=== PATIENT | female | born 1955 | race Caucasian/White ===

== ENCOUNTER → 2020-05-08 18:11 | Outpatient (BNVA) | payer OTHER, SELFPAY | PROVIDERS: Family Provider Family Medicine; Visit Provider Nurse Practitioner Family | DX: Z11.59 Encounter for screening for other viral diseases (principal) | CPT/HCPCS: 87635 ==

== ENCOUNTER 2020-09-17 09:39 | Outpatient (CLI) | payer OTHER, SELFPAY ==
--- NOTE | 2020-09-17 09:53 | MM_ITS ---
WS: [id number] Bilateral screening digital mammogram, 09/17/2020 Clinical Data: SCREENING Comparison: 02/03/2019, 05/05/2017, 04/03/2016, 04/26/2015, 04/01/2015, 03/01/2014, 02/28/2013, 02/09/2012, 05/2011, 02/01/2009, 01/28/2006, 01/27/2006. Findings: The breast parenchymal pattern shows fat replacement. No spiculated masses or clustered calcification s are seen. There are no secondary signs of carcinoma. MM/[place] [id number] Impression: 1. Negative bilateral mammogram unchanged. 2. Recommend annual screening mammograms. BIRADS: 1-Negative FOLLOW UP: 1 Year Follow-up The CAD checker cashier was used.
== END 2020-09-17 09:40 | disposition home or self-care (01) ==
LOC: RADSHAW 09:42
PROVIDERS: PCP Family Medicine; Visit Provider Family Medicine
DX: Z12.31 Encounter for screening mammogram for malignant neoplasm of breast (principal)
CPT/HCPCS: 77067

== ENCOUNTER 2021-04-08 15:21 | Outpatient (CLI) | payer MEDICARE, SELFPAY ==
--- NOTE | 2021-04-08 15:40 | XR_ITS ---
WS: [id number] XR shoulder RT min 2V* [id number] REASON FOR EXAM: RT. SHOULDER PAIN FINDINGS: Mild to moderate narrowing of the acromioclavicular joint space with mild subchondral sclerosis of th e clavicle and acromial process. Glenohumeral joint is intact. Positioning did not allow assessment of the glenohumeral joint space. No significant bony abnormality of the humerus or glenoid is identified. No soft tissue abnormality identified. XR/XR shoulder RT min 2V* [id number] IMPRESSION: Mild to moderate osteoarthritis of the acromioclavicular joint. No other signif icant abnormality.
== END 2021-04-08 15:22 | disposition home or self-care (01) ==
PROVIDERS: PCP Family Medicine; Visit Provider Family Medicine
DX: M19.011 Primary osteoarthritis, right shoulder (principal)
CPT/HCPCS: 73030

== ENCOUNTER 2021-09-25 10:39 | Outpatient (CLI) | payer MEDICARE, SELFPAY ==
--- NOTE | 2021-09-25 11:02 | XR_ITS ---
WS: [id number] Left knee, 3 views, 09/25/2021 Clinical Data: LT KNEE PAIN Comparison: None. Findings: No fractures or dislocations are seen. The joint spaces are normal. The patella is intact. The soft t issues are unremarkable. XR/XR knee LT 3V* [id number] Impression: Negative left knee. Kellgren-Sergo Classification: grade 0 (none): definite absence of x-ray corrina nges of osteoarthritis
--- NOTE | 2021-09-25 11:02 | XR_ITS ---
WS: [id number] Right knee, 3 views, 09/25/2021 Clinical Data: R KNEE PAIN Comparison: None. Findings: No fractures or dislocations are seen. The joint spaces are normal. The patella is intact. The soft t issues are unremarkable. XR/XR knee RT 3V* [id number] Impression: Negative right knee. Kellgren-Sergo Classification: grade 0 (none): definite absence of x-ray corrina nges of osteoarthritis
== END 2021-09-25 10:40 | disposition home or self-care (01) ==
LOC: RAD 10:41
PROVIDERS: PCP Family Medicine; Visit Provider Family Medicine
DX: M25.562 Pain in left knee (principal); M25.561 Pain in right knee
CPT/HCPCS: 73562

== ENCOUNTER → 2021-12-16 12:37 | Outpatient (BNVA) | payer MEDICARE, SELFPAY | PROVIDERS: PCP Family Medicine; Referring Provider Family Medicine; Visit Provider Orthopaedic Surgery | DX: M25.462 Effusion, left knee (principal); M25.561 Pain in right knee | CPT/HCPCS: 99203 ==

== ENCOUNTER 2022-01-27 08:54 | Outpatient (CLI) | payer MEDICARE, SELFPAY ==
--- NOTE | 2022-01-27 09:30 | MR_ITS ---
WS: [id number] MRI LEFT KNEE NONCONTRAST TECHNIQUE: Axial PD, coronal PD fat sat, coronal PD, sagittal PD, and sagittal PD fat-sat images obta ined. CLINICAL INFORMATION: pain COMPARISON: None. FINDINGS: Distal quadriceps and patella tendons are intact. Moderate suprapatellar effusion. Prepatellar and in frapatellar soft tissue edema. Normal ACL and PCL. Chronic thinning of the medial and lateral meniscus with peripheral extrusion. Complex tear anterior horn lateral meniscus with peripheral anterior and posterior meniscal cysts. Complex complete radial tear posterior horn medial meniscus with slight separation of the meniscal fragments. Chronic thinnin g of the medial meniscus Normal medial and lateral collateral ligaments. Small popliteal cyst measuring 7 x 9 x 23 mm AP by tr ansverse by craniocaudal. Advanced chondromalacia involving the medial and lateral joint compartments with subchondral edema worse involving the medial joint compartment. Advanced chondromalacia patella . No subchondral edema. Medial and lateral patellar retinacula appear intact. MR/MR knee LT wo con* [id number] IMPRESSION: 1. Advanced tricompartmental arthritis with chondromalacia. 2. Normal ACL and PCL. 3. Chronic thinning and peripheral extrusion of the medial and lateral meniscu s with meniscal tears described above. Small perimeniscal cysts along the anter ior and posterior horn lateral meniscus. 4. Complete radial tear medial meniscus with advanced joint space narrowing an d subchondral edema. 5. Advanced chondromalacia patella. No subchondral edema. 6. Moderate suprapatellar effusion. 7. Small popliteal cyst. Outbridge grading: grade IV: full-thickness cartilage loss with underlying bone reactive changes
== END 2022-01-27 08:55 | disposition home or self-care (01) ==
LOC: RAD 08:55
PROVIDERS: PCP Family Medicine; Visit Provider Orthopaedic Surgery
DX: M25.462 Effusion, left knee (principal); M13.862 Other specified arthritis, left knee; M22.42 Chondromalacia patellae, left knee; M71.22 Synovial cyst of popliteal space [Baker], left knee; S83.242A Other tear of medial meniscus, current injury, left knee, initial encounter; X58.XXXA Exposure to other specified factors, initial encounter
CPT/HCPCS: 73721

== ENCOUNTER → 2022-02-03 14:39 | Outpatient (BNVA) | payer MEDICARE, SELFPAY | PROVIDERS: PCP Family Medicine; Visit Provider Orthopaedic Surgery | DX: M17.11 Unilateral primary osteoarthritis, right knee (principal) | CPT/HCPCS: 99213 ==

== ENCOUNTER → 2022-02-27 10:35 | Outpatient (BNVA) | payer MEDICARE, SELFPAY | PROVIDERS: PCP Family Medicine; Visit Provider Family Medicine | DX: Z00.00 Encounter for general adult medical examination without abnormal findings (principal); E11.9 Type 2 diabetes mellitus without complications; Z51.81 Encounter for therapeutic drug level monitoring; Z13.220 Encounter for screening for lipoid disorders; R92.8 Other abnormal and inconclusive findings on diagnostic imaging of breast; M17.11 Unilateral primary osteoarthritis, right knee | CPT/HCPCS: 80053; 80061; 83036; 85025 ==

== ENCOUNTER 2022-03-13 07:19 | Outpatient (CLI) | payer MEDICARE, SELFPAY ==
--- NOTE | 2022-03-13 07:39 | MM_ITS ---
WS: [id number] Bilateral screening 3D tomosynthesis digital mammogram, 03/13/2022 Clinical Data: Screening Comparison: 09/17/2020, 02/03/2019, 05/05/2017, 04/03/2016, 04/26/2015, 04/01/2015, 03/01/2014, 02/28/2013, , 01/12/2011, 02/01/2009, 01/28/2007. Findings: The breast parenchymal pattern shows fat replacement. No spiculated masses or clustered calcification s are seen. There are no secondary signs of carcinoma. MM/[place] [id number] Impression: 1. Negative bilateral mammogram unchanged. 2. Recommend annual screening mammograms. BIRADS: 1-Negative FOLLOW UP: 1 Year Follow-up The CAD typing checker was used.
== END 2022-03-13 07:20 | disposition home or self-care (01) ==
LOC: RAD 07:19
PROVIDERS: PCP Family Medicine; Visit Provider Family Medicine
DX: Z12.31 Encounter for screening mammogram for malignant neoplasm of breast (principal)
CPT/HCPCS: 77063; 77067

== ENCOUNTER 2022-03-17 16:25 | Outpatient (CLI) | payer MEDICARE, SELFPAY ==
--- NOTE | 2022-03-17 17:00 | CT_ITS ---
WS: [id number] INDICATION: Preoperative DEYA ROBOTIC ARM ASSISTED knee replacement for surgical planning TECHNIQUE: Noncontrast CT of the LEFT knee to include the LEFT hip and ankle. FINDINGS: Comparison MRI January 27, 2022. Advanced tricompartmental arthritis. Hypertrophic patella. Sm all suprapatellar effusion. Normal visualized soft tissues. CT/CT knee LT wo con* [id number] IMPRESSION: Images obtained for preoperative purposes
== END 2022-03-17 16:26 | disposition home or self-care (01) ==
LOC: RAD 16:26
PROVIDERS: PCP Family Medicine; Visit Provider Orthopaedic Surgery
DX: M17.12 Unilateral primary osteoarthritis, left knee (principal)
CPT/HCPCS: 73700

== ENCOUNTER 2022-03-23 10:15 | Observation (INO) | payer MEDICARE, SELFPAY ==
[2022-03-10 10:47] VITALS: BMI 43.9
--- NOTE | 2022-03-10 10:55 | ANES.PREANE2 ---
Pre-Anesthetic Assessment Height/Weight: Height 1.63 m Weight 116.12 kg Operation Date: 03/23/22 07:00 Proposed Procedures p left TKA/ 44155,M17.12(Left) - Joseph Boothe MD Familial anesthetic complications: None Social No alcohol and No tobacco Exam alert, oriented x 3, clear to auscultation bilaterally and regular rate & rhythm Airway Mallampati: Class III Dentition: other (missing) Pulmonary phlegm and cough sometimes (sinus) CV/HEM Hypertension None reported Hepatic None reported GI Gastroesophageal Reflux Disease Metabolic Diabetes Mellitus (Pre-DM) and Morbid Obesity [facility] [place] Osteoarthritis/DJD Neuropsych None reported Anesthetic Plan ASA status: 2 Anesthesia: MAC and Regional (specify below) Other: spinal +adductor Risk of > 500 ml blood loss (7ml/kg in children): Yes, adequate IV access and fluids planned Medications/Allergies Home Medications Medication Instructions Recorded Confirmed Last Taken Type lovastatin 40 mg tablet 40 mg PO DAILY 05/08/20 03/10/22 Unknown History atenolol 25 mg tablet 25 mg PO DAILY 02/19/22 03/10/22 Unknown History calcium carbonate 600 mg calcium 600 mg PO BID 02/27/22 03/10/22 Unknown History (1,500 mg) tablet (Calcium) hydrochlorothiazide 12.5 mg tablet 12.5 mg PO DAILY 02/27/22 03/10/22 Unknown History omeprazole 20 mg capsule,delayed 20 mg PO DAILY 02/27/22 03/10/22 Unknown History release ascorbic acid (vitamin C) 2,000 mg 2,000 mg PO DAILY 03/10/22 03/10/22 Unknown History tablet,extended release cinnamon bark 500 mg capsule 500 mg PO DAILY 03/10/22 03/10/22 Unknown History (Cinnamon) coenzyme Q10 100 mg capsule 100 mg PO DAILY 03/10/22 03/10/22 Unknown History (CoQ-10) collagen,hydrolysate 500 mg-biotin 500 cap PO DAILY 03/10/22 03/10/22 Unknown History 800 mcg-ascorbic acid 50 mg capsule (Collagen 1500 Plus C) magnesium 200 mg tablet 200 mg PO DAILY 03/10/22 03/10/22 Unknown History potassium 99 mg tablet 99 mg PO DAILY 03/10/22 03/10/22 Unknown History turmeric 400 mg capsule 800 mg PO DAILY 03/10/22 03/10/22 Unknown History Allergies Allergy/AdvReac Type Severity Reaction Status Date / Time Sulfa (Sulfonamide Allergy Intermediate hives Verified 02/19/22 12:34 Antibiotics) adhesive tape Allergy ALGY-Redness Verified 03/10/22 10:36 of Skin [facility] Anesthesia Medical History (Updated 02/27/22 @ 17:28 by Nic Castro MD) Astigmatism History of ectopic Hx of basal cell carcinoma Nose Possible SCC on left arm Surgical History (Updated 02/27/22 @ 17:28 by Nic Castro MD) History of eye surgery History of unilateral fallopian tube excision Left tube and ovary removed after ectopic Hx of tonsillectomy Family History (Updated 02/27/22 @ 17:38 by Nic Castro MD) Father Alzheimer's dementia Mother Cancer Precancerous breast cancer. 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
[2022-03-23] VITALS (17 sets, daily range): BP systolic 123–164; BP diastolic 64–87; PULSE 60–84; RESP 16–18; TEMP 36.3–36.9; O2SAT 92–97
[2022-03-23] MEDS: gabapentin 300 mg Capsule PO ×2 (05:59→18:59)
[2022-03-23] MEDS: acetaminophen 500 mg Tablet 1000 MG PO ×3 (06:00→18:57)
[2022-03-23] MEDS: oxyCODONE 20 mg ER (12 HR) Tablet PO (06:00)
[2022-03-23] MEDS: CELEcoxib 200 mg Capsule 400 MG PO (06:01)
[2022-03-23] MEDS: sodium chloride 0.9% 1,000 ML 30 ML IV (06:02)
--- NOTE | 2022-03-23 06:37 | P.ANESUD_ITS ---
Pre-Anesthetic Update Pre-Anesthetic Assessment: Date of Surgery/Procedure: 03/23/22 Preop Yuridia gnosis: Osteoarthritis left knee Proposed Procedure: Operation Date: 03/23/22 07:00 Proposed Procedures p left TKA/ 82998,M17.12(Left) - Joseph Boothe MD Any changes to Pre-Anesthetic Assessment?: No Last Intake: Intake Last Liquid Date 03/22/22 Last Liquid Time 22:00 Last Solid Date 03/22/22 Last Solid Time 21:00 Vitals: Temperature 98.0 F 03/23/22 05:39 Temperature Source Temporal Artery S can 03/23/22 05:39 Pulse Rate 74 03/23/22 05:39 Pulse Rhythm 03/23/22 05:47 Pulse Strength 3+ Normal 03/23/22 05:47 Respiratory Rate 17 03/23/22 05:39 Blood Pressure 164/87 03/23/22 05:39 Blood Pressure Martha n 112 03/23/22 05:39 Pulse Oximetry 96 03/23/22 05:39 Oxygen Delivery Me thod 03/23/22 05:47 Exam: Pre-Anes Outpt Exam: alert, oriented x 3, clear to auscultation bilaterally and regular rate & rhythm Cardiac Studies: No Data to Display
--- NOTE | 2022-03-23 07:02 | P.HP_ITS ---
Same Day Surgery H&P Indication for Procedure/HPI DATE OF PROCEDURE: March 23, 2022 CHIEF COMPLAINT/INDICATIONFOR SURGICAL PROCEDURE: Osteoarthritis left knee here for total knee arthroplasty PREOP DIAGNOSIS: Osteoarthritis left knee PLANNED PROCEDURE: Operation Date: 03/23/22 07:00 Proposed Procedures p left TKA/ 18737,M17.12(Left) - Joseph Boothe MD 67-year-old female with a history of bilateral knee pain she describes twisting her knee getting out of a vehicle with severe left knee pain. She describes continued left knee pain. She has difficulty with prolonged standing and stairs. She has failed management with anti-inflammatories and knee sleeves. An MRI revealed andvanced tricompartmental DJD. Medications/Allergies* Home Medications Medication Instructions Recorded Confirmed Type lovastatin 40 mg tablet 40 mg PO DAILY 05/08/20 03/23/22 History atenolol 25 mg tablet 25 mg PO DAILY 02/19/22 03/23/22 History calcium carbonate 600 mg calcium 600 mg PO BID 02/27/22 03/23/22 History (1,500 mg) tablet (Calcium) hydrochlorothiazide 12.5 mg tablet 12.5 mg PO DAILY 02/27/22 03/23/22 History omeprazole 20 mg capsule,delayed 20 mg PO DAILY 02/27/22 03/23/22 History release ascorbic acid (vitamin C) 2,000 mg 2,000 mg PO DAILY 03/10/22 03/23/22 History tablet,extended release cinnamon bark 500 mg capsule 500 mg PO DAILY 03/10/22 03/23/22 History (Cinnamon) coenzyme Q10 100 mg capsule 100 mg PO DAILY 03/10/22 03/23/22 History (CoQ-10) collagen,hydrolysate 500 mg-biotin 500 cap PO DAILY 03/10/22 03/23/22 History 800 mcg-ascorbic acid 50 mg capsule (Collagen 1500 Plus C) magnesium 200 mg tablet 200 mg PO DAILY 03/10/22 03/23/22 History potassium 99 mg tablet 99 mg PO DAILY 03/10/22 03/23/22 History turmeric 400 mg capsule 800 mg PO DAILY 03/10/22 03/23/22 History Allergies/Adverse Reactions Allergy/AdvReac Type Severity Reaction Status Date / Time Sulfa (Sulfonamide Allergy Intermediate hives Verified 02/19/22 12:34 Antibiotics) adhesive tape Allergy ALGY-Redness Verified 03/10/22 10:36 of Skin Current Medications: Generic Name Dose Route Start Last Admin Trade Name Freq PRN Reason Stop Dose Admin Sodium Chloride 1,000 mls @ 30 mls/hr 03/23/22 05:45 03/23/22 06:02 Sodium Chloride 0.9% IV 03/24/22 05:44 30 mls/hr .Q24H [place] Administration Pertinent History/Comorbid Conditions* Medical History (Updated 02/27/22 @ 17:28 by Nic Castro MD) Astigmatism History of ectopic Hx of basal cell carcinoma Nose Possible SCC on left arm Surgical History (Updated 02/27/22 @ 17:28 by Nic Castro MD) History of eye surgery History of unilateral fallopian tube excision Left tube and ovary removed after ectopic Hx of tonsillectomy Family History (Updated 02/27/22 @ 17:38 by Nic Castro MD) Alzheimer's dementia Father Cancer Mother Precancerous breast cancer. 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
[2022-03-23] MEDS: ceFAZolin 2,000 MG in sodium chloride 0.9% (plus) 50 ML 100 MG IV ×2 (07:11→18:56)
[2022-03-23] MEDS: tranexamic acid 1,000 mg/10mL SDV 1000 MG IV (07:40)
[2022-03-23] MEDS: EPINEPHrine 1 mg/mL INJ XX (08:05)
[2022-03-23] MEDS: sodium chloride 0.9% 100 mL Bag XX (08:05)
[2022-03-23] MEDS: tranexamic acid 1,000 mg/10mL SDV 1000 MG XX (08:06)
[2022-03-23] MEDS: ketorolac 30 mg/mL INJ XX (08:06)
--- NOTE | 2022-03-23 09:45 | XRR_ITS ---
PROCEDURE INFORMATION: Exam: XR Left Knee Exam date and time: 03/23/2022 10:02 AM Age: 67 years old Clinical indication: Device placement; Joint replacement hardware; Prior surgery; Surgery date: Post-operative (0-2 days); Surgery type: Left total knee arthroplasty TECHNIQUE: Imaging protocol: Radiologic exam of the Left knee. Views: 1 or 2 views. Total images: [id number] COMPARISON: CT knee LT wo con* [id number] 03/17/2022 4:33 PM FINDINGS: Tubes, catheters and devices: The prosthesis appears near anatomic in positioning. No parallel lucencies adjacent to the prosthesis are seen to suggest loosening. No acute fractures, subluxation, nor dislocation. Bones/joints: Left knee arthroplasty is present. Soft tissues: Subcutaneous emphysema is present from recent surgery. XR/XR knee LT 1-2V [id number] IMPRESSION: Status post recent left knee arthroplasty without complication.
--- NOTE | 2022-03-23 09:46 | P.OP_ITS ---
Operative Report Date of procedure: March 23, 2022 Pre-op diagnosis: Preop Diagnosis Osteoarthritis left knee Post-op diagnosis: same Post-op diagnosis: Same Post-op findings: Same Procedure done: Left total knee arthroplasty Implants: Soo Triathalon total knee arthroplasty components were used includin) Size 4 triathalon cruciate retaining femoral component 2) Size 4 Tritanium tibial component 3) Size 4/9 mm thickness CS tibial bearing insert Pathology: none sent Surgeon: Joseph Boothe Anesthesia: Nerve Block (Spinal, adductor canal block) Estimated blood loss (mL): 50 Findings: The patient eburnated bone over the medial femoral condyle and medial tibial plateau with cartilaginous loss but no exposed bone over the lateral femoral condyle lateral tibial plateau and some thinning and softening of patellar cartilage. Condition: stable Disposition: PACU Procedure: The patient was taken to the operating room. Patient was given 1 g of tranexamic acid . The above anesthesia provided by the anesthesia service. A timeout was performed. The patient was prepped and draped in the usual fashion with the lower extremity exposed. A anterior incision was made, midline, from a point proximal to the patella to the distal tibial tubercle. The knee was entered through a medial parapatellar approach. The patella could be displaced laterally and the knee flexed. The patellar fat pad was resected to provide better visibility. Retractors were placed medially and laterally adjacent to the tibial plateau. At a point approximately 8 cm above the patella,2 long threaded pins were placed into the anterior medial femur through the most proximal extent of the incision. Engaging both cortices. The femoral arrays were placed over these pins and secured. At a point 8 cm distal to the tibial tubercle. 2 shorter threaded pins were placed and the tibial arrays placed. A checkpoint was made just proximal and medial to the medial femoral condyle and just medial to the tibial plateau. Small osteotomes were placed in the joint in both flexion and extension. []. The [employer] robot was then introduced to the field and the femur and tibia cut in accordance with our plan. he Bhardwaj and Nephew cautery was then used to provide hemostasis, particularly about the posterior capsule. A trial with the above components provided excellent stability and full range of motion. The femur was then prepared for the femoral pegs of the component in the tibia for the tibial component. The femur and tibia were then press-fit into place. A neurectomy was accomplished circumferentially about the patella with electrocautery. Surfaces were cleaned with a gentamicin solution. The femur and tibia were then press-fit into place. The posterior capsule and collateral ligaments were then injected with a solution of 100 mL of 0.2% ropivacaine, 1 mL of a 1:1000 epinephrine solution, 30 mg of Toradol, and 1 g of tranexamic acid. Final polyethylene component was then snapped into place into the tibia. The extensor retinaculum was closed with a running 1 Stratafix interrupted 1 Ethibond. The subcutaneous tissues were closed with 2-0 Vicryl and the skin was closed with a running 4-0 Stratafix. The wound was covered with a Dermabond Prineo dressing. It was covered with 4xrs and a compressive Tubigauze was applied. The patient was taken to recovery room in stable condition.
--- NOTE | 2022-03-23 10:12 | SUR.PHASEI ---
1010 Foot pump placed on pt upon arrival to PACU. Bilat foot sleeves on. Pt haS RETURN OF SENSATION TO L3/L4. Pt denies pain. VSS
[2022-03-23] MEDS: CELEcoxib 200 mg Capsule PO (18:59)
[2022-03-23] MEDS: sodium chloride 0.9% 1,000 ML 100 ML IV (21:54)
[2022-03-24] MEDS: lanolin oint 7 gm 1 APPLIC TOPICAL (02:52)
[2022-03-24] MEDS: acetaminophen 500 mg Tablet 1000 MG PO ×2 (02:52→10:43)
[2022-03-24] MEDS: ceFAZolin 2,000 MG in sodium chloride 0.9% (plus) 50 ML 100 MG IV (02:53)
[2022-03-24 03:02] VITALS: BP 161/78; PULSE 79; RESP 16; TEMP 36.8; O2SAT 96
[2022-03-24] MEDS: atorvastatin 40 mg Tablet 20 MG PO (08:10)
[2022-03-24] MEDS: CELEcoxib 200 mg Capsule PO (08:10)
[2022-03-24] MEDS: atenolol 50 mg Tablet 25 MG PO (08:12)
[2022-03-24] MEDS: gabapentin 300 mg Capsule PO (08:12)
[2022-03-24] MEDS: aspirin 325 mg EC Tablet PO (08:12)
[2022-03-24 08:14] VITALS: RESP 17; O2SAT 96
[2022-03-24] MEDS: oxyCODONE 5 mg IR Tab/Cap PO ×2 (08:14→13:55)
[2022-03-24] MEDS: pantoprazole DR 40 mg Tablet PO (08:14)
[2022-03-24] MEDS: hydroCHLOROthiazide 25 mg Tablet 12.5 MG PO (08:14)
[2022-03-24 08:16] VITALS: BP 191/78; PULSE 81; RESP 17; TEMP 36.8; O2SAT 96
[2022-03-24 10:55] VITALS: BP 145/76; PULSE 81; RESP 16
[2022-03-24 13:55] VITALS: RESP 18
--- NOTE | 2022-03-24 14:13 | P.DS_ITS ---
Discharge Providers Date of Admission: 03/23/22 10:15 Date of Discharge: March 24, 2022 Attending Provider at Admission: Joseph Barrera MD Attending Provider at Discharge: Joseph Barrera MD Primary Care Provider: Nic Castro MD Reason for Visit Reason for Visit: Brief History: The patient is a 67-year-old female with severe pain in the left knee attributed to osteoarthritis. MRI confirmed severe tricompartmental degenerative joint disease. He had significant functional limitations and elected to proceed with left total knee arthroplasty Hospital Course Hospital Course The patient tolerated surgery well. They remained hemodynamically stable. They was begun on aspirin and sequential compression dressing for DVT prophylaxis. The patient was mobilized with therapy beginning the day of surgery and by the first postoperative day independent with the walker. Initially she expressed interest in transfer to [facility] and she was admitted for full inpatient status. She made much better improvement than what she anticipated as the pain was adequately controlled and they were fully mobile they were discharged home. Physical Exam Narrative: On the day of discharge the knee incision was clean. They had no drainage. There is minimal swelling in the thigh and knee and the calf. No distal neurovascular deficits were noted Discharge Data Studies Completed and Pending Completed Studies During Hospitalization Category Date Time Status XR knee LT 1-2V [id number] Routine Exams 03/23/22 09:45 Completed Radiology Impressions Knee X-Ray 03/23/22 09:45 IMPRESSION: Status post recent left knee arthroplasty without complication. Laboratory Results Hgb 12.0 g/dL (11.5-15.3) 03/24/22 06:00 Vitals Last Vital Signs Temp 98.2 F 03/24/22 08:16 Pulse 81 03/24/22 10:55 Resp 18 03/24/22 13:55 BP 145/76 03/24/22 10:55 Pulse Ox 96 03/24/22 08:16 O2 Del Method 03/24/22 08:16 O2 Flow Rate 6 03/23/22 09:39 Discharge Plan Discharge Patient Disposition: Home Condition: Stable Prescriptions: New oxycodone 5 mg Tablet 5 mg PO Q4H PRN (Reason: Moderate Pain) 7 Days Qty: 30 0RF acetaminophen 500 mg Tablet 1,000 mg PO Q8H 14 Days Qty: 84 0RF celecoxib 200 mg Capsule 200 mg PO Q12H 14 Days Qty: 28 0RF aspirin 325 mg Tablet,Delayed Release (Dr/Ec) 325 mg PO DAILY 30 Days Qty: 30 0RF gabapentin 300 mg Capsule 300 mg PO BID 14 Days Qty: 28 0RF Continued lovastatin 40 mg tablet 40 mg PO DAILY calcium carbonate [Calcium 600] 600 mg calcium (1,500 mg) tablet 600 mg PO BID hydrochlorothiazide 12.5 mg tablet 12.5 mg PO DAILY omeprazole 20 mg capsule,delayed release(DR/EC) 20 mg PO DAILY atenolol 25 mg tablet 25 mg PO DAILY Vitamin C 2,000 mg Tablet Extended Release 2,000 mg PO DAILY potassium 99 mg Tablet 99 mg PO DAILY magnesium 200 mg Tablet 200 mg PO DAILY coenzyme Q10 [CoQ-10] 100 mg Capsule 100 mg PO DAILY cinnamon bark [Cinnamon] 500 mg Capsule 500 mg PO DAILY turmeric 400 mg Capsule 800 mg PO DAILY Collagen 1500 Plus C 500 mg-800 mcg- 50 mg Capsule 500 cap PO DAILY Discharge Orders: Discharge Order (Routine); Ordered 03/24/22 Ordered By: Joseph Barrera Discharge Diet: Advance as tolerated Discharge Activity: Limit activity as instructed Patient Instructions: Opioid Safety Activity Restrictions/Additional Instructions: Okay to shower Keep Tubigauze sleeve in place for swelling. Okay to remove for hygiene. Apply FirstIce up to 20 min/hr for pain and swelling Take Celebrex twice a day for the next 15 days for pain , discontinue other anti-inflammatories Take Neurontin twice a day for 7 days. Take Tylenol 500mg (2 tabs) as needed 3 times a day for mild pain take oxycodone for breakthrough pain. Exercises per physical therapy. May weight-bear as tolerated on total knee arthroplasty IF HAVE ANY PROBLEMS OR QUESTIONS CALL [facility] AT AND ASK TO HAVE DR. BARRERA PAGED. Discharge Attestations Time Spent in Discharge Care*: other Quality Metrics Clinical Quality Measures [ No reported AMI, CVA or VTE this stay] Coding Level of Care Code Acute Chg FW DC note
[2022-03-24 15:15] VITALS: BP 172/89; PULSE 61; RESP 18; O2SAT 96
== END 2022-03-24 15:20 | disposition home or self-care (01) ==
PROVIDERS: Admitting Provider Orthopaedic Surgery; PCP Family Medicine; Visit Provider Orthopaedic Surgery
PROC: (CPT 27447; principal; 2022-03-23 07:00)
DX: M17.12 Unilateral primary osteoarthritis, left knee (principal); Z87.891 Personal history of nicotine dependence; Z88.2 Allergy status to sulfonamides
CPT/HCPCS: 27447; 36415; 73560; 85018; 97110; 97116; 97161; 97165; 97535; C1776; G0378; J0171; J1100; J1580; J1885; J2250; J2370; J2704; J2795; J3010; J7030

== ENCOUNTER → 2022-04-07 08:57 | Outpatient (BNVA) | payer MEDICARE, SELFPAY | PROVIDERS: PCP Family Medicine; Visit Provider Nurse Practitioner Family | DX: Z96.652 Presence of left artificial knee joint (principal) | CPT/HCPCS: 73560; 73565; 99024 ==

== ENCOUNTER 2022-04-16 11:27 | Outpatient (RCR) | payer MEDICARE, SELFPAY | END 2022-05-04 23:59 | disposition home or self-care (01) | LOC: SPT 11:27 | PROVIDERS: PCP Family Medicine; Visit Provider Orthopaedic Surgery | DX: Z96.652 Presence of left artificial knee joint (principal) | CPT/HCPCS: 97110; 97161 ==

== ENCOUNTER 2022-05-05 06:00 | Outpatient (RCR) | payer MEDICARE, SELFPAY | END 2022-05-27 16:23 | disposition home or self-care (01) | LOC: SPT 06:00 | PROVIDERS: PCP Family Medicine; Visit Provider Orthopaedic Surgery | DX: Z96.652 Presence of left artificial knee joint (principal); M25.562 Pain in left knee; M25.662 Stiffness of left knee, not elsewhere classified | CPT/HCPCS: 97110 ==

== ENCOUNTER → 2022-05-12 10:06 | Outpatient (BNVA) | payer MEDICARE, SELFPAY | PROVIDERS: PCP Family Medicine; Visit Provider Nurse Practitioner Family | DX: Z96.652 Presence of left artificial knee joint (principal) | CPT/HCPCS: 73560; 73565; 99213 ==

== ENCOUNTER → 2022-06-23 09:39 | Outpatient (BNVA) | payer MEDICARE, SELFPAY | PROVIDERS: PCP Family Medicine; Visit Provider Family Medicine | DX: E11.9 Type 2 diabetes mellitus without complications (principal); I10 Essential (primary) hypertension; Z13.220 Encounter for screening for lipoid disorders; M25.511 Pain in right shoulder; M25.561 Pain in right knee; Z51.81 Encounter for therapeutic drug level monitoring | CPT/HCPCS: 80053; 80061; 83036; 85025 ==

== ENCOUNTER → 2022-07-21 13:32 | Outpatient (BNVA) | payer MEDICARE, SELFPAY | PROVIDERS: PCP Family Medicine; Visit Provider Orthopaedic Surgery | DX: Z96.652 Presence of left artificial knee joint (principal) | CPT/HCPCS: 73560; 73565; 99213 ==

== ENCOUNTER → 2022-08-26 08:33 | Outpatient (BNVA) | payer MEDICARE, SELFPAY | PROVIDERS: PCP Family Medicine; Referring Provider Family Medicine; Visit Provider Orthopaedic Surgery | DX: Z96.652 Presence of left artificial knee joint (principal); M17.11 Unilateral primary osteoarthritis, right knee | CPT/HCPCS: 99213 ==

== ENCOUNTER → 2022-11-03 11:08 | Outpatient (BNVA) | payer MEDICARE, SELFPAY | PROVIDERS: PCP Family Medicine; Visit Provider Orthopaedic Surgery | DX: Z96.652 Presence of left artificial knee joint (principal) | CPT/HCPCS: 99213 ==

== ENCOUNTER 2022-11-18 08:32 | Outpatient (RCR) | payer MEDICARE, SELFPAY | END 2022-12-02 23:59 | disposition home or self-care (01) | LOC: SPT 08:32 | PROVIDERS: Visit Provider Orthopaedic Surgery | DX: Z47.1 Aftercare following joint replacement surgery (principal); Z96.652 Presence of left artificial knee joint | CPT/HCPCS: 97110; 97161 ==

== ENCOUNTER 2022-12-03 06:00 | Outpatient (RCR) | payer MEDICARE, SELFPAY | END 2023-01-01 10:14 | disposition home or self-care (01) | LOC: SPT 06:00 | PROVIDERS: Visit Provider Orthopaedic Surgery | DX: Z47.1 Aftercare following joint replacement surgery (principal); Z96.652 Presence of left artificial knee joint | CPT/HCPCS: 97110 ==

== ENCOUNTER → 2023-02-16 14:00 | Outpatient (BNVA) | payer MEDICARE, SELFPAY | PROVIDERS: PCP Family Medicine; Visit Provider Nurse Practitioner Family | DX: Z96.652 Presence of left artificial knee joint (principal) | CPT/HCPCS: 73560; 73565; 99213 ==

== ENCOUNTER → 2023-03-01 15:00 | Outpatient (BNVA) | payer MEDICARE, SELFPAY | PROVIDERS: PCP Family Medicine; Visit Provider Family Medicine | DX: Z51.81 Encounter for therapeutic drug level monitoring (principal); I10 Essential (primary) hypertension; R73.03 Prediabetes; Z86.010 Personal history of colon polyps; Z13.220 Encounter for screening for lipoid disorders | CPT/HCPCS: 80053; 80061; 83036; 85025 ==

== ENCOUNTER → 2023-03-09 10:33 | Outpatient (BNVA) | payer MEDICARE, SELFPAY | PROVIDERS: PCP Family Medicine; Visit Provider Student in an Organized Health Care Education/Training Program | DX: M17.11 Unilateral primary osteoarthritis, right knee (principal); Z46.89 Encounter for fitting and adjustment of other specified devices | CPT/HCPCS: 73560; 73565; 97760; 99214; L1851 ==

== ENCOUNTER 2023-03-09 15:30 | Outpatient (CLI) | payer MEDICARE, SELFPAY | END 2023-03-09 15:31 | disposition home or self-care (01) | LOC: SPT 15:31 | PROVIDERS: PCP Family Medicine; Visit Provider Student in an Organized Health Care Education/Training Program | DX: Z46.89 Encounter for fitting and adjustment of other specified devices (principal); M17.11 Unilateral primary osteoarthritis, right knee | CPT/HCPCS: 97760; 99214; L1851 ==

== ENCOUNTER → 2023-04-23 08:28 | Outpatient (BNVA) | payer MEDICARE, SELFPAY | PROVIDERS: PCP Family Medicine; Visit Provider Student in an Organized Health Care Education/Training Program | DX: M17.11 Unilateral primary osteoarthritis, right knee (principal) | CPT/HCPCS: 20610; 99213; J7326 ==

== ENCOUNTER 2023-07-12 14:00 | Inpatient (IN) | payer MEDICARE, SELFPAY ==
[2023-07-12 14:06] VITALS: BP 205/99; PULSE 100; RESP 16; TEMP 36.8; O2SAT 94; BMI 42.9
[2023-07-12 15:54] VITALS: BP 183/74; PULSE 97; RESP 17; O2SAT 93
--- NOTE | 2023-07-12 16:31 | XRR_ITS ---
PROCEDURE INFORMATION: Exam: XR Chest Exam date and time: 07/12/2023 4:47 PM Age: 68 years old Clinical indication: Other: L lower chest/abdomen pain TECHNIQUE: Imaging protocol: Radiologic exam of the chest. Views: 1 view. COMPARISON: CR XR shoulder RT min 2V* [id number] 04/08/2021 3:45 PM FINDINGS: Lungs: There are minimal hazy opacities at the left lung base. Pleural spaces: Left costophrenic angle is obscured and a small pleural effusion cannot be excluded. Heart/Mediastinum: Unremarkable. No cardiomegaly. Bones/joints: Unremarkable. XR/XR chest 1V portable [id number] IMPRESSION: Minimal hazy opacities overlying the left lung base are nonspecific. Differential includes atelectasis and or pneumonia.
--- NOTE | 2023-07-12 16:31 | CTR_ITS ---
PROCEDURE INFORMATION: Exam: CT Abdomen And Pelvis With Contrast Exam date and time: 07/12/2023 6:37 PM Age: 68 years old Clinical indication: Abdominal pain; Localized; Left upper quadrant TECHNIQUE: Imaging protocol: Computed tomography of the abdomen and pelvis with contrast. Radiation optimization: All CT scans at this facility use at least one of these dose optimization techniques: automated exposure control; mA and/or kV adjustment per patient size (includes targeted exams where dose is matched to clinical indication); or iterative reconstruction. Contrast material: OMNI 350; Contrast volume: 100 ml; Contrast route: INTRAVENOUS (IV); COMPARISON: CR XR chest 1V portable [id number] 07/12/2023 4:47 PM RADIATION DOSE METRICS: Total DLP (mGy-cm): 1209 FINDINGS: Pleural spaces: Small left pleural effusion. Mediastinal space: There is mucosal thickening of the distal esophagus. Liver: Normal. No mass. Gallbladder and bile ducts: Normal. No calcified stones. No ductal dilation. Pancreas: Normal. No ductal dilation. Spleen: Normal. No splenomegaly. Adrenal glands: Normal. No mass. Kidneys and ureters: 3 mm nonobstructing left renal calculus. Stomach and bowel: There is diverticulosis of the colon without evidence of diverticulitis. Appendix: A normal appendix is identified. Intraperitoneal space: Unremarkable. No free air. No significant fluid collection. Vasculature: Unremarkable. No abdominal aortic aneurysm. Lymph nodes: Unremarkable. No enlarged lymph nodes. Urinary bladder: Unremarkable as visualized. Reproductive: Unremarkable as visualized. Bones/joints: There are degenerative changes in the visualized spine. Lower lumbar disc bulges. Soft tissues: Unremarkable. CT/CT abdomen pelvis w con* [id number] IMPRESSION: 1. Small left pleural effusion. 2. There is mucosal thickening of the distal esophagus consistent with esophagitis. Follow-up to exclude neoplasm as clinically warranted.
--- NOTE | 2023-07-12 16:32 | W.ED.ABDPA2 ---
Documented by User: GINO Manzanares 07/13/23 09:02 HPI - Abdominal Pain General: Chief Complaint: Headache Stated Complaint: sore throat, left side pain Time Seen by Provider: 07/12/23 16:04 Source: patient Mode of arrival: ambulatory Limitations: no limitations History of Present Illness: Patient is a nice 68-year-old female presents to ED today at the request of her primary care provider Dr. Castro. Patient tells me approximately 3 weeks ago she started with what she describes as viral-like symptoms consisting of a sore throat, fevers, fatigue, and general unwellness. Patient states she was placed on amoxicillin for her sore throat. She states this did not seem to affect symptoms. She later was seen again and placed on steroids. She states she has seen Dr. Castro twice not including the visit today where he referred her to the ED as well as the walk-in clinic once. She later at some point was placed on Levaquin. She states over the 3-week timeframe she has developed left sided abdominal/trunk pain that she describes as a sharp stabbing discomfort. She denies any exacerbating or alleviating factors to her discomfort. Denies nausea, vomiting, diarrhea. She is not having any urinary complaints. Patient states she is concerned given her sore throat that this could be mono and that her discomfort could be related to her spleen. Pertinent past history: none Pain Consistency: constant Location: LUQ and L flank Severity: moderate Quality: stabbing, sharp and burning Radiation: none Migration to: no migration Exacerbating factors: nothing Relieving factors: nothing Associated Symptoms: Reports chills; Denies diarrhea, dysuria, fever(s), nausea, syncope and vomiting Review of Systems Const: Reports: chills and fatigue; Denies: fever(s), body aches or malaise ENMT: Denies: throat pain, odynophagia, nasal discharge, nasal congestion or sinus pain Card: Denies: chest pain, palpitations, irregular heart rhythm, edema, swelling of feet/ankles, lightheadedness, syncope, pre-syncope, dyspnea on exertion or orthopnea Resp: Denies: dyspnea, productive cough, non-productive cough, hemoptysis or chest congestion GI: Reports: abdominal pain; Denies: nausea, vomiting or diarrhea : Denies: flank pain, difficulty voiding, dysuria, urinary urgency or urinary hesitancy Musc: Denies: neck pain, back pain, extremity pain or joint pain Skin/Breast: Denies: rash Neuro: Denies: headache(s), numbness in extremities, weakness in extremities, sensory changes or dizziness PFSH ED PFSH: Medical History Acute viral pharyngitis Hx of basal cell carcinoma Nose Possible SCC on left arm Astigmatism History of ectopic Annual physical exam Surgical History History of left knee replacement Hx of tonsillectomy History of eye surgery History of unilateral fallopian tube excision Left tube and ovary removed after ectopic Family History Father Alzheimer's dementia Mother Cancer Precancerous breast cancer. 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[employer] Physical Exam Const: COMMON NORMALS: no acute distress, patient oriented x3, no limitations, alert and well nourished NUTRITIONAL APPEARANCE: obese ORIENTATION/CONSCIOUSNESS: Yes awake, Yes oriented to person, Yes oriented to place and Yes oriented to time HENMT: COMMON NORMALS: normocephalic and atraumatic HEAD & SCALP: normal to inspection, normocephalic and atraumatic FACE & SINUS: normal facial exam Neck/C-Spine: COMMON NORMALS: full ROM, no lymphadenopathy, supple and no meningeal signs Chest: COMMONS NORMALS: normal inspection of the chest OTHER: TTP L anteriolateral chest wall vs upper abdomen Resp: COMMON NORMALS: normal respiratory effort and clear to auscultation bilaterally AUSCULTATION: clear to auscultation bilaterally Cardio: COMMON NORMALS: regular rate and regular rhythm RATE: regular rate RHYTHM: regular rhythm GI: COMMON NORMALS: Normal to inspection, nondistended, normoactive bowel sounds present, Soft to palpation, No hepatosplenomegaly present and no masses AUSCULTATION: Yes normoactive bowel sounds PALPATION: Yes Soft to palpation, Yes Tenderness to palpation present (GI) (L upper abdomen radiating around ), No Guarding due to palpation present (GI), No Rigid due to palpation and Yes No hepatosplenomegaly present GI image (female): 1. she has one small cluster of erythematous lesions; nothing vesicular but I am not convinced this is not shingles : COMMON NORMALS: Yes no CVA tenderness BLADDER/KIDNEY EXAM: Yes no CVA tenderness Back/Pelvis: COMMON NORMALS: no CVA tenderness and thoracic and lumbar spine normal to inspection Extremity: COMMON NORMALS: normal to inspection GENERAL: Yes normal exam except as noted Neuro: COMMON NORMALS: patient oriented x3, moves all extremities, no focal motor deficits and no sensory deficits noted SENSORIUM/ORIENTATION: Yes alert, Yes oriented to person, Yes oriented to place and Yes oriented to time MENINGEAL SIGNS: Yes no meningeal signs Skin: COMMON NORMALS: no rashes or lesions noted GENERAL SKIN EXAM: no rashes or lesions noted Course Vital Signs: Vital signs: Vital Signs Temperature 98.6 F 07/13/23 07:53 Pulse Rate 92 07/13/23 07:53 Respiratory Rate 17 07/13/23 07:53 Blood Pressure 133/61 07/13/23 07:53 Pulse Oximetry 90 07/13/23 07:53 Oxygen Delivery Me thod Room Air 07/13/23 07:53 MDM - Abdominal Pain Lab Data 07/13/23 04:08 07/13/23 04:08 Labs/Radiology: Radiology Impressions Abdomen/Pelvis CT 07/12/23 16:31 IMPRESSION: 1. Small left pleural effusion. 2. There is mucosal thickening of the distal esophagus consistent with esophagitis. Follow-up to exclude neoplasm as clinically warranted. Chest X-Ray 07/12/23 16:31 IMPRESSION: Minimal hazy opacities overlying the left lung base are nonspecific. Differential includes atelectasis and or pneumonia. Laboratory Results WBC 21.01 10^3/uL (3.29-11.43) H 07/12/23 16:32 RBC 3.50 10^6/uL (3.85-5.65) L 07/12/23 16:32 Hgb 10.40 g/dL (11.27-16.99) L 07/12/23 16:32 Hct 30.9 % (36-47) L 07/12/23 16:32 MCV 88.3 fl (85-98) 07/12/23 16:32 MCH 29.7 pg (27-33) 07/12/23 16:32 MCHC 33.7 g/dL (30-55) 07/12/23 16:32 RDW 15.9 % (12.1-15.1) H 07/12/23 16:32 Plt Count 133 10^3/cmm (157-399) L 07/12/23 16:32 MPV 10.2 fL (7.4-10.4) 07/12/23 16:32 Lymph % (Auto) Not Reportable 07/12/23 16:32 [place] % (Auto) Not Reportable 07/12/23 16:32 Lymph # (Auto) Not Reportable 07/12/23 16:32 [place] # (Auto) Not Reportable 07/12/23 16:32 Total Counted 100 (0-100) 07/12/23 16:32 Atypical Lymphs % 6.0 % (0-5) H 07/12/23 16:32 Absolute Neutrophils 3.4 10^3/cmm (1.4-6.5) 07/12/23 16:32 Segmented Neutrophils 13 % 07/12/23 16:32 Abs Segm Neuts (Man) 2.7 10/cmm (1.6-7.1) 07/12/23 16:32 Band Neutrophils 3.0 % 07/12/23 16:32 Abs Band Neuts (Man) 0.6 10^3/cmm (0.0-1.2) 07/12/23 16:32 Absolute Lymphocytes 12.0 10^3/cmm (1.2-3.4) H 07/12/23 16:32 Lymphocytes (Manual) 51 % 07/12/23 16:32 Monocytes (Manual) 17.0 % 07/12/23 16:32 Absolute Monocytes 3.6 10^3/cmm (0.1-0.6) H 07/12/23 16:32 Eosinophils (Manual) 0 % 07/12/23 16:32 Absolute Eosinophils 0.0 10^3/cmm (0.0-0.7) 07/12/23 16:32 Basophils (Manual) 1.0 % 07/12/23 16:32 Absolute Basophils 0.2 10^3/cmm (0.0-0.2) 07/12/23 16:32 Metamyelocytes 2.0 % 07/12/23 16:32 Myelocytes 1.0 % 07/12/23 16:32 Blast Cells 6 % (0-0) H* 07/12/23 16:32 Platelet Estimate Normal (Normal) 07/12/23 16:32 Anisocytosis Trace 07/12/23 16:32 Sodium 142 mmol/L (136-145) 07/12/23 16:32 Potassium 3.3 mmol/L (3.5-5.1) L 07/12/23 16:32 Chloride 98 mmol/L (98-107) 07/12/23 16:32 Carbon Dioxide 30 mmol/L (22-29) H 07/12/23 16:32 Anion Gap 17.3 (5-19) 07/12/23 16:32 BUN 11 mg/dL (8-23) 07/12/23 16:32 Creatinine 0.7 mg/dL (0.5-0.9) 07/12/23 16:32 GFR Calculation 83.5 mL/min (90-130) L 07/12/23 16:32 Glucose 113 mg/dL (65-115) 07/12/23 16:32 Estimat Average Glucose 157 07/12/23 16:32 Hemoglobin A1c 7.1 % (4.0-6.0) H 07/12/23 16:32 Calculated Osmolality 294 mOsm/kg (285-295) 07/12/23 16:32 Calcium 7.9 mg/dL (8.5-10.5) L 07/12/23 16:32 Total Bilirubin 0.6 mg/dL (0.15-1.2) 07/12/23 16:32 AST 30 U/L (0-32) 07/12/23 16:32 ALT 18 U/L (0-33) 07/12/23 16:32 Alkaline Phosphatase 90 U/L (35-105) 07/12/23 16:32 Total Protein 7.7 g/dL (6.6-8.7) 07/12/23 16:32 Albumin 3.7 g/dL (3.5-5.2) 07/12/23 16:32 Globulin 4.0 g/dL (1.3-4.6) 07/12/23 16:32 Procalcitonin 0.38 ng/mL (0-0.5) 07/12/23 16:32 Urine Color Dark yellow (Yellow) 07/12/23 16:42 Urine Appearance Clear (CLEAR) 07/12/23 16:42 Urine pH 8 (5-7) H 07/12/23 16:42 Ur Specific [place] 1.005 (1.005-1.030) 07/12/23 16:42 Urine Protein 1+ (Negative) H 07/12/23 16:42 Urine Glucose (UA) Norm (Normal) 07/12/23 16:42 Urine Ketones 1+ (Negative) H 07/12/23 16:42 Urine Blood Neg (Negative) 07/12/23 16:42 Urine Nitrate Negative (Negative) 07/12/23 16:42 Urine Bilirubin Neg (Negative) 07/12/23 16:42 Prot Sulfosalicylic Acd Positive (Negative) 07/12/23 16:42 Urine Urobilinogen Norm mg/dL (Negative) 07/12/23 16:42 Ur Leukocyte Esterase Negative (Negative) 07/12/23 16:42 Urine RBC None /hpf (0-2) 07/12/23 16:42 Urine WBC 0-4 /hpf (0-5) H 07/12/23 16:42 Ur Squamous Epith Cells 0-4 /hpf (0-5) H 07/12/23 16:42 Amorphous Sediment Not Reportable 07/12/23 16:42 Urine Bacteria 1+ /hpf (NONE) H 07/12/23 16:42 Monoscreen Negative (Negative) 07/12/23 16:32 Discharge Plan Discharge Patient Disposition: Placed in Observation Admit Provider: Mahendra Brown Clinical Impression: Pneumonia Qualifiers: Pneumonia type: due to unspecified organism Laterality: left Lung location: lower lobe of lung Qualified Code(s): J18.9 - Pneumonia, unspecified organism Leukocytosis Qualifiers: Leukocytosis type: unspecified Qualified Code(s): D72.829 - Elevated white blood cell count, unspecified Coding Level of Care Code ED Senior Support Engineer for Chg Fwd Documented by User: DINO Smith 07/12/23 18:43 HPI - Abdominal Pain General: Chief Complaint: Headache Stated Complaint: sore throat, left side pain Time Seen by Provider: 07/12/23 16:04 PFSH ED PFSH: Medical History Acute viral pharyngitis Hx of basal cell carcinoma Nose Possible SCC on left arm Astigmatism History of ectopic Annual physical exam Surgical History History of left knee replacement Hx of tonsillectomy History of eye surgery History of unilateral fallopian tube excision Left tube and ovary removed after ectopic Family History Father Alzheimer's dementia Mother Cancer Precancerous breast cancer. 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 she has one small cluster of erythematous lesions; nothing vesicular but I am not convinced this is not shingles Course Vital Signs: Vital signs: Vital Signs Temperature 98.6 F 07/13/23 07:53 Pulse Rate 92 07/13/23 07:53 Respiratory Rate 17 07/13/23 07:53 Blood Pressure 133/61 07/13/23 07:53 Pulse Oximetry 90 07/13/23 07:53 Oxygen Delivery Me thod Room Air 07/13/23 07:53 MDM - Abdominal Pain Medical Decision Making 1700: Received signout 68yo female presents from her doctor's office for evaluation following an approximate 3-week history of illness. States that it started with a viral illness and has persisted. She has already completed a round of amoxicillin and is now on day 6 of levofloxacin. Patient states that she did take 5 days of a steroid, last dose was 4 days ago. Patient reports that she does not seem to have improvement in her symptoms. White blood cell count noted to be elevated at 21, with 6 blasts. CMP with a mildly decreased potassium at 3.3 and mildly elevated CO2 at 30. Chest x-ray with left lower opacities, likely pneumonia. Given that patient has already been on amoxicillin and is currently on levofloxacin, patient has failed outpatient therapy. Consulted with ER attending. Patient to be admitted to the hospital for IV antibiotics for pneumonia Lab Data 07/13/23 04:08 07/13/23 04:08 Labs/Radiology: Radiology Impressions Abdomen/Pelvis CT 07/12/23 16:31 IMPRESSION: 1. Small left pleural effusion. 2. There is mucosal thickening of the distal esophagus consistent with esophagitis. Follow-up to exclude neoplasm as clinically warranted. Chest X-Ray 07/12/23 16:31 IMPRESSION: Minimal hazy opacities overlying the left lung base are nonspecific. Differential includes atelectasis and or pneumonia. Laboratory Results WBC 21.01 10^3/uL (3.29-11.43) H 07/12/23 16:32 RBC 3.50 10^6/uL (3.85-5.65) L 07/12/23 16:32 Hgb 10.40 g/dL (11.27-16.99) L 07/12/23 16:32 Hct 30.9 % (36-47) L 07/12/23 16:32 MCV 88.3 fl (85-98) 07/12/23 16:32 MCH 29.7 pg (27-33) 07/12/23 16:32 MCHC 33.7 g/dL (30-55) 07/12/23 16:32 RDW 15.9 % (12.1-15.1) H 07/12/23 16:32 Plt Count 133 10^3/cmm (157-399) L 07/12/23 16:32 MPV 10.2 fL (7.4-10.4) 07/12/23 16:32 Lymph % (Auto) Not Reportable 07/12/23 16:32 [place] % (Auto) Not Reportable 07/12/23 16:32 Lymph # (Auto) Not Reportable 07/12/23 16:32 [place] # (Auto) Not Reportable 07/12/23 16:32 Total Counted 100 (0-100) 07/12/23 16:32 Atypical Lymphs % 6.0 % (0-5) H 07/12/23 16:32 Absolute Neutrophils 3.4 10^3/cmm (1.4-6.5) 07/12/23 16:32 Segmented Neutrophils 13 % 07/12/23 16:32 Abs Segm Neuts (Man) 2.7 10/cmm (1.6-7.1) 07/12/23 16:32 Band Neutrophils 3.0 % 07/12/23 16:32 Abs Band Neuts (Man) 0.6 10^3/cmm (0.0-1.2) 07/12/23 16:32 Absolute Lymphocytes 12.0 10^3/cmm (1.2-3.4) H 07/12/23 16:32 Lymphocytes (Manual) 51 % 07/12/23 16:32 Monocytes (Manual) 17.0 % 07/12/23 16:32 Absolute Monocytes 3.6 10^3/cmm (0.1-0.6) H 07/12/23 16:32 Eosinophils (Manual) 0 % 07/12/23 16: Absolute Eosinophils 0.0 10^3/cmm (0.0-0.7) 07/12/23 16:32 Basophils (Manual) 1.0 % 07/12/23 16:32 Absolute Basophils 0.2 10^3/cmm (0.0-0.2) 07/12/23 16:32 Metamyelocytes 2.0 % 07/12/23 16:32 Myelocytes 1.0 % 07/12/23 16:32 Blast Cells 6 % (0-0) H* 07/12/23 16:32 Platelet Estimate Normal (Normal) 07/12/23 16:32 Anisocytosis Trace 07/12/23 16:32 Sodium 142 mmol/L (136-145) 07/12/23 16:32 Potassium 3.3 mmol/L (3.5-5.1) L 07/12/23 16:32 Chloride 98 mmol/L (98-107) 07/12/23 16:32 Carbon Dioxide 30 mmol/L (22-29) H 07/12/23 16:32 Anion Gap 17.3 (5-19) 07/12/23 16:32 BUN 11 mg/dL (8-23) 07/12/23 16:32 Creatinine 0.7 mg/dL (0.5-0.9) 07/12/23 16:32 GFR Calculation 83.5 mL/min (90-130) L 07/12/23 16:32 Glucose 113 mg/dL (65-115) 07/12/23 16:32 Estimat Average Glucose 157 07/12/23 16:32 Hemoglobin A1c 7.1 % (4.0-6.0) H 07/12/23 16:32 Calculated Osmolality 294 mOsm/kg (285-295) 07/12/23 16:32 Calcium 7.9 mg/dL (8.5-10.5) L 07/12/23 16:32 Total Bilirubin 0.6 mg/dL (0.15-1.2) 07/12/23 16:32 AST 30 U/L (0-32) 07/12/23 16:32 ALT 18 U/L (0-33) 07/12/23 16:32 Alkaline Phosphatase 90 U/L (35-105) 07/12/23 16:32 Total Protein 7.7 g/dL (6.6-8.7) 07/12/23 16:32 Albumin 3.7 g/dL (3.5-5.2) 07/12/23 16:32 Globulin 4.0 g/dL (1.3-4.6) 07/12/23 16:32 Procalcitonin 0.38 ng/mL (0-0.5) 07/12/23 16:32 Urine Color Dark yellow (Yellow) 07/12/23 16:42 Urine Appearance Clear (CLEAR) 07/12/23 16:42 Urine pH 8 (5-7) H 07/12/23 16:42 Ur Specific [place] 1.005 (1.005-1.030) 07/12/23 16:42 Urine Protein 1+ (Negative) H 07/12/23 16:42 Urine Glucose (UA) Norm (Normal) 07/12/23 16:42 Urine Ketones 1+ (Negative) H 07/12/23 16:42 Urine Blood Neg (Negative) 07/12/23 16:42 Urine Nitrate Negative (Negative) 07/12/23 16:42 Urine Bilirubin Neg (Negative) 07/12/23 16:42 Prot Sulfosalicylic Acd Positive (Negative) 07/12/23 16:42 Urine Urobilinogen Norm mg/dL (Negative) 07/12/23 16:42 Ur Leukocyte Esterase Negative (Negative) 07/12/23 16:42 Urine RBC None /hpf (0-2) 07/12/23 16:42 Urine WBC 0-4 /hpf (0-5) H 07/12/23 16:42 Ur Squamous Epith Cells 0-4 /hpf (0-5) H 07/12/23 16:42 Amorphous Sediment Not Reportable 07/12/23 16:42 Urine Bacteria 1+ /hpf (NONE) H 07/12/23 16:42 Monoscreen Negative (Negative) 07/12/23 16:32 Discharge Plan Discharge Patient Disposition: Placed in Observation Admit Provider: Mahendra Brown Clinical Impression: Pneumonia Qualifiers: Pneumonia type: due to unspecified organism Laterality: left Lung location: lower lobe of lung Qualified Code(s): J18.9 - Pneumonia, unspecified organism Leukocytosis Qualifiers: Leukocytosis type: unspecified Qualified Code(s): D72.829 - Elevated white blood cell count, unspecified Coding Level of Care Code ED Senior Support Engineer for Chg Fwd Documented by User: Eliceo Cortes MD 07/12/23 18:35 HPI - Abdominal Pain General: Chief Complaint: Headache Stated Complaint: sore throat, left side pain Time Seen by Provider: 07/12/23 16:04 PFSH ED PFSH: Medical History Acute viral pharyngitis Hx of basal cell carcinoma Nose Possible SCC on left arm Astigmatism History of ectopic Annual physical exam Surgical History History of left knee replacement Hx of tonsillectomy History of eye surgery History of unilateral fallopian tube excision Left tube and ovary removed after ectopic Family History Father Alzheimer's dementia Mother Cancer Precancerous breast cancer. 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 she has one small cluster of erythematous lesions; nothing vesicular but I am not convinced this is not shingles Course Vital Signs: Vital signs: Vital Signs Temperature 98.6 F 07/13/23 07:53 Pulse Rate 92 07/13/23 07:53 Respiratory Rate 17 07/13/23 07:53 Blood Pressure 133/61 07/13/23 07:53 Pulse Oximetry 90 07/13/23 07:53 Oxygen Delivery Me thod Room Air 07/13/23 07:53 MDM - Abdominal Pain Medical Decision Making 1700: Received signout 68yo female presents from her doctor's office for evaluation following an approximate 3-week history of illness. States that it started with a viral illness and has persisted. She has already completed a round of amoxicillin and is now on day 6 of levofloxacin. Patient states that she did take 5 days of a steroid, last dose was 4 days ago. Patient reports that she does not seem to have improvement in her symptoms. Patient seen and examined by myself I discussed with the patient the need for admission to the hospital given her failed?outpatient antibiotic therapy. I contact the hospital physician after reviewing her medical record and discussed the patient's presentation as well as the case as she initially presented to the emergency department here. Dr. Gloria the hospitalist accepted the patient for additional evaluation treatment and care. Medical Records I reviewed the patient's medical records. Lab Data I reviewed the patient's lab results. 07/13/23 04:08 07/13/23 04:08 Labs/Radiology: Radiology Impressions Abdomen/Pelvis CT 07/12/23 16:31 IMPRESSION: 1. Small left pleural effusion. 2. There is mucosal thickening of the distal esophagus consistent with esophagitis. Follow-up to exclude neoplasm as clinically warranted. Chest X-Ray 07/12/23 16:31 IMPRESSION: Minimal hazy opacities overlying the left lung base are nonspecific. Differential includes atelectasis and or pneumonia. Laboratory Results WBC 21.01 10^3/uL (3.29-11.43) H 07/12/23 16:32 RBC 3.50 10^6/uL (3.85-5.65) L 07/12/23 16:32 Hgb 10.40 g/dL (11.27-16.99) L 07/12/23 16:32 Hct 30.9 % (36-47) L 07/12/23 16:32 MCV 88.3 fl (85-98) 07/12/23 16:32 MCH 29.7 pg (27-33) 07/12/23 16:32 MCHC 33.7 g/dL (30-55) 07/12/23 16:32 RDW 15.9 % (12.1-15.1) H 07/12/23 16:32 Plt Count 133 10^3/cmm (157-399) L 07/12/23 16:32 MPV 10.2 fL (7.4-10.4) 07/12/23 16:32 Lymph % (Auto) Not Reportable 07/12/23 16:32 [place] % (Auto) Not Reportable 07/12/23 16:32 Lymph # (Auto) Not Reportable 07/12/23 16:32 [place] # (Auto) Not Reportable 07/12/23 16:32 Total Counted 100 (0-100) 07/12/23 16:32 Atypical Lymphs % 6.0 % (0-5) H 07/12/23 16:32 Absolute Neutrophils 3.4 10^3/cmm (1.4-6.5) 07/12/23 16:32 Segmented Neutrophils 13 % 07/12/23 16:32 Abs Segm Neuts (Man) 2.7 10/cmm (1.6-7.1) 07/12/23 16:32 Band Neutrophils 3.0 % 07/12/23 16:32 Abs Band Neuts (Man) 0.6 10^3/cmm (0.0-1.2) 07/12/23 16:32 Absolute Lymphocytes 12.0 10^3/cmm (1.2-3.4) H 07/12/23 16:32 Lymphocytes (Manual) 51 % 07/12/23 16:32 Monocytes (Manual) 17.0 % 07/12/23 16: Absolute Monocytes 3.6 10^3/cmm (0.1-0.6) H 07/12/23 16:32 Eosinophils (Manual) 0 % 07/12/23 16: Absolute Eosinophils 0.0 10^3/cmm (0.0-0.7) 07/12/23 16:32 Basophils (Manual) 1.0 % 07/12/23 16:32 Absolute Basophils 0.2 10^3/cmm (0.0-0.2) 07/12/23 16:32 Metamyelocytes 2.0 % 07/12/23 16:32 Myelocytes 1.0 % 07/12/23 16:32 Blast Cells 6 % (0-0) H* 07/12/23 16:32 Platelet Estimate Normal (Normal) 07/12/23 16:32 Anisocytosis Trace 07/12/23 16:32 Sodium 142 mmol/L (136-145) 07/12/23 16:32 Potassium 3.3 mmol/L (3.5-5.1) L 07/12/23 16:32 Chloride 98 mmol/L (98-107) 07/12/23 16:32 Carbon Dioxide 30 mmol/L (22-29) H 07/12/23 16:32 Anion Gap 17.3 (5-19) 07/12/23 16:32 BUN 11 mg/dL (8-23) 07/12/23 16:32 Creatinine 0.7 mg/dL (0.5-0.9) 07/12/23 16:32 GFR Calculation 83.5 mL/min (90-130) L 07/12/23 16:32 Glucose 113 mg/dL (65-115) 07/12/23 16:32 Estimat Average Glucose 157 07/12/23 16:32 Hemoglobin A1c 7.1 % (4.0-6.0) H 07/12/23 16:32 Calculated Osmolality 294 mOsm/kg (285-295) 07/12/23 16:32 Calcium 7.9 mg/dL (8.5-10.5) L 07/12/23 16:32 Total Bilirubin 0.6 mg/dL (0.15-1.2) 07/12/23 16:32 AST 30 U/L (0-32) 07/12/23 16:32 ALT 18 U/L (0-33) 07/12/23 16:32 Alkaline Phosphatase 90 U/L (35-105) 07/12/23 16:32 Total Protein 7.7 g/dL (6.6-8.7) 07/12/23 16:32 Albumin 3.7 g/dL (3.5-5.2) 07/12/23 16:32 Globulin 4.0 g/dL (1.3-4.6) 07/12/23 16:32 Procalcitonin 0.38 ng/mL (0-0.5) 07/12/23 16:32 Urine Color Dark yellow (Yellow) 07/12/23 16:42 Urine Appearance Clear (CLEAR) 07/12/23 16:42 Urine pH 8 (5-7) H 07/12/23 16:42 Ur Specific [place] 1.005 (1.005-1.030) 07/12/23 16:42 Urine Protein 1+ (Negative) H 07/12/23 16:42 Urine Glucose (UA) Norm (Normal) 07/12/23 16:42 Urine Ketones 1+ (Negative) H 07/12/23 16:42 Urine Blood Neg (Negative) 07/12/23 16:42 Urine Nitrate Negative (Negative) 07/12/23 16:42 Urine Bilirubin Neg (Negative) 07/12/23 16:42 Prot Sulfosalicylic Acd Positive (Negative) 07/12/23 16:42 Urine Urobilinogen Norm mg/dL (Negative) 07/12/23 16:42 Ur Leukocyte Esterase Negative (Negative) 07/12/23 16:42 Urine RBC None /hpf (0-2) 07/12/23 16:42 Urine WBC 0-4 /hpf (0-5) H 07/12/23 16:42 Ur Squamous Epith Cells 0-4 /hpf (0-5) H 07/12/23 16:42 Amorphous Sediment Not Reportable 07/12/23 16:42 Urine Bacteria 1+ /hpf (NONE) H 07/12/23 16:42 Monoscreen Negative (Negative) 07/12/23 16:32 All radiology interpretation(s) finalized by discharge Discharge Plan Discharge Patient Disposition: Placed in Observation Admit Provider: Mahendra Brown Clinical Impression: Pneumonia Qualifiers: Pneumonia type: due to unspecified organism Laterality: left Lung location: lower lobe of lung Qualified Code(s): J18.9 - Pneumonia, unspecified organism Leukocytosis Qualifiers: Leukocytosis type: unspecified Qualified Code(s): D72.829 - Elevated white blood cell count, unspecified Coding Level of Care Code ED Senior Support Engineer for David Hernandez
[2023-07-12 16:55] LABS: Hematocrit 30.9 % (36-47); Mean Corpuscular HGB Conc 33.7 g/dL (30-55); Mean Corpuscular Hemoglobin 29.7 pg (27-33); Mean Corpuscular Volume 88.3 fl (85-98); Mean Platelet Volume 10.2 fL (7.4-10.4); Platelet Count 133 10^3/cmm (157-399); Red Cell Distribution Width 15.9 % (12.1-15.1); White Blood Count 21.01 10^3/uL (3.29-11.43)
[2023-07-12 17:05] LABS: Alanine Aminotransferase 18 U/L (0-33); Albumin Level 3.7 g/dL (3.5-5.2); Alkaline Phosphatase 90 U/L (35-105); Anion Gap 17.3 (5-19); Aspartate Amino Transferase 30 U/L (0-32); Blood Urea Nitrogen 11 mg/dL (8-23); Calcium 7.9 mg/dL (8.5-10.5); Carbon Dioxide 30 mmol/L (22-29); Chloride 98 mmol/L (98-107); Glomerular Filtration Rate 83.5 mL/min (90-130); Glucose 113 mg/dL (65-115); Osmolality Calculated 294 mOsm/kg (285-295); Potassium 3.3 mmol/L (3.5-5.1); Sodium 142 mmol/L (136-145); Total Bilirubin 0.6 mg/dL (0.15-1.2); Total Protein 7.7 g/dL (6.6-8.7)
[2023-07-12 17:20] LABS: Monoscreen Negative (Negative); Slide Review Slide Review Perform
[2023-07-12 17:28] LABS: Absolute Segmented Neutrophil 2.7 10/cmm (1.6-7.1); Band Neutrophils Absolute 0.6 10^3/cmm (0.0-1.2); Basophils Absolute 0.2 10^3/cmm (0.0-0.2); Lymphocytes 51 %; Monocytes Absolute 3.6 10^3/cmm (0.1-0.6); Segmented Neutrophils 13 %; Total Cells Counted 100 (0-100)
[2023-07-12 17:30] LABS: Blastocytes 6 % (0-0); Eosinophils 0 %
[2023-07-12 17:31] LABS: Absolute Neutrophil 3.4 10^3/cmm (1.4-6.5); Anisocytosis Trace; Platelet Estimate Normal (Normal)
[2023-07-12 18:01] LABS: Add Urine Microscopic? YES; Bilirubin Urine Neg (Negative); Blood Urine Neg (Negative); Glucose Urine UA Norm (Normal); Ketones Urine 1+ (Negative); Leukocyte Esterase Urine Negative (Negative); Nitrate Urine Negative (Negative); Protein Urine 1+ (Negative); Specific Gravity, Urine 1.005 (1.005-1.030); Squamous Epithelial Cell Urine 0-4 /hpf (0-5); Urine Appearance Clear (CLEAR); Urine Color Dark Yellow (Yellow); Urobilinogen Urine Norm (Negative); WBC Urine 0-4 /hpf (0-5); pH Urine 8 (5-7)
[2023-07-12 18:02] LABS: Add Urine Culture? No; Bacteria Urine 1+ /hpf; Sulfosalicylic Acid Urine Positive (Negative)
[2023-07-12] MEDS: iohexol 350 mg/mL 500 mL Btl (per mL) IV (18:31)
[2023-07-12] MEDS: ketorolac 30 mg/mL INJ IVP (19:19)
[2023-07-12] MEDS: piperacillin-tazobactam 3.375 GM in sodium chloride 0.9% (plus) 50 ML IV (19:21)
[2023-07-12] MEDS: sodium chloride 0.9% 1,000 ML 100 ML IV (19:24)
[2023-07-12] MEDS: vancomycin 1,250 MG/250 ML PIGGYBACK 250 MG IV (20:00)
[2023-07-12 22:06] LABS: SARS Covid-2 Antigen negative (Negative)
--- NOTE | 2023-07-12 22:07 | ECG_ITS ---
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 Measurements Intervals [place] Rate: 89 P: 23 DC: 125 QRS: -35 QRSD: 140 T: -5 QT: 371 QTc: 454 Interpretive Statements SINUS RHYTHM LEFT AXIS DEVIATION [QRS AXIS < -30] RIGHT BUNDLE BRANCH BLOCK [120+ ms QRS DURATION, UPRIGHT V1, 40+ ms S IN I/aVL/V4/V5/V6] MINIMAL VOLTAGE CRITERIA FOR LVH, CONSIDER NORMAL VARIANT [MEETS CRITERIA IN ONE OF: R(aVL), S(V1), R(V5), R(V5/V6)+S(V1)] SEPTAL MYOCARDIAL INFARCTION , OF INDETERMINATE AGE [40+ ms Q WAVE IN V1/V2] MODERATE T-WAVE ABNORMALITY, CONSIDER LATERAL ISCHEMIA [-0.1+ mV T-WAVE IN I/aVL/V5/V6] No previous ECG available for comparison Electronically Signed On 07-13-2023 4:23:37 FRANKFURTER INSPECTOR by Teodoro Carney M.D. [id number]
[2023-07-12 22:42] LABS: Troponin(5th) Baseline 11 ng/L (0-10)
[2023-07-12 22:51] LABS: Procalcitonin 0.38 ng/mL (0-0.5)
[2023-07-12 23:08] VITALS: BP 157/84; PULSE 89; O2SAT 92
--- NOTE | 2023-07-12 23:09 | P.HP_ITS ---
Providers/Chief Complaint 2 Primary Care Provider: Nic Castro MD Chief Complaint: sore throat, left side pain History of Present Illness Cha Millan is a 68 year old female who presented to the emergency room today with 3 weeks of URI type symptoms. Patient states that she started feeling unwell 3 weeks ago when she developed a runny nose and a sore throat. She has been following with her PCP for the same symptoms. When her symptoms did not improve she has had courses of Augmentin followed by levofloxacin without any significant change in her condition. She denies any fever. Has steroids as recently as 2 days ago for 5 days. She states she felt slightly better while she was on the steroids but then continued to feel unwell again. Her chief symptoms right now are recurrence of sore throat, generalized fatigue, and left-sided chest discomfort that has developed over the past 4 to 5 days. She states that the pain is located over the left side of her chest wall, appears to be slightly worse when taking a deep breath, no correlation with exertion. She denies any expectoration, denies hemoptysis. Denies any fever or chills. Denies any abdominal pain nausea vomiting or diarrhea. She was seen by her primary care physician's office earlier today where she complained of this left-sided chest discomfort and abdominal pain because of which was not clear. There was suspected splenomegaly and she was sent into the emergency room for CT head and blood work. Review of Systems 2 General: Reports: 10 or more systems reviewed and unremarkable except in HPI and below Const: Denies: fever(s), chills or body aches Eyes: Denies: change in vision, blurry vision or photophobia ENMT: Reports: hoarseness; Denies: throat pain, enlarged tonsils, odynophagia or nasal congestion Card: Denies: chest pain, palpitations, irregular heart rhythm, edema, swelling of feet/ankles, lightheadedness, pre-syncope, dyspnea on exertion or orthopnea Resp: Denies: dyspnea, productive cough, non-productive cough, wheezing, stridor, pain on inspiration, change in phlegm color, hemoptysis or chest congestion GI: Denies: abdominal pain, nausea, vomiting, hematemesis, coffee ground emesis, dysphagia, heartburn, diarrhea, constipation, GI cramping, change in stool character, hematochezia or melena : Denies: flank pain, difficulty voiding, dysuria, urinary frequency, urinary urgency, urinary hesitancy or hematuria Musc: Denies: neck pain, back pain, extremity pain, joint swelling, joint warmth or deformity Neuro: Denies: headache(s), numbness in extremities, weakness in extremities, sensory changes, difficulty walking, frequent falls, dizziness, vertigo, behavioral changes, Slurred speech present or seizure-like activity Psych: Denies: anxiety, depression, suicidal ideation or homicidal ideation Endo: Denies: polyuria, polydipsia, tired all the time, cold intolerance or hot flashes Bhavin/Lymph: Denies: easy bruising or easy bleeding Medications/Allergies Home Medications Medication Instructions Recorded Confirmed Last Taken Type calcium carbonate 600 mg calcium 600 mg PO BID 02/27/22 07/13/23 03/22/22 History (1,500 mg) tablet (Calcium) ascorbic acid (vitamin C) 2,000 mg 2,000 mg PO DAILY 03/10/22 07/13/23 03/22/22 History tablet,extended release cinnamon bark 500 mg capsule 500 mg PO DAILY 03/10/22 07/13/23 03/22/22 History (Cinnamon) coenzyme Q10 100 mg capsule 100 mg PO DAILY 03/10/22 07/13/23 03/22/22 History (CoQ-10) collagen,hydrolysate 500 mg-biotin 500 cap PO DAILY 03/10/22 07/13/23 03/22/22 History 800 mcg-ascorbic acid 50 mg capsule (Collagen 1500 Plus C) magnesium 200 mg tablet 200 mg PO DAILY 03/10/22 07/13/23 03/22/22 History potassium 99 mg tablet 99 mg PO DAILY 03/10/22 07/13/23 03/22/22 History turmeric 400 mg capsule 800 mg PO DAILY 03/10/22 07/13/23 03/22/22 History atenolol 25 mg tablet See Rx Instructions .Route 07/09/22 07/13/23 Unknown Rx .COMPLEX #180 tabs hydrochlorothiazide 12.5 mg capsule See Rx Instructions .Route 01/27/23 07/13/23 Unknown Rx .COMPLEX #90 caps lovastatin 40 mg tablet See Rx Instructions .Route 01/27/23 07/13/23 Unknown Rx .COMPLEX #90 tabs azelastine 137 mcg (0.1 %) nasal 1 spray intranasal BID #30 mL 01/28/23 07/13/23 Unknown Rx spray aerosol omeprazole 20 mg capsule,delayed See Rx Instructions .Route 02/12/23 07/13/23 Unknown Rx release .COMPLEX #90 caps Sign Letterer Brace #1 ea 03/09/23 07/12/23 Unknown Rx amoxicillin 875 mg-potassium 1 tab PO BID 07/02/23 07/13/23 Unknown History clavulanate 125 mg tablet benzocaine 15 mg-menthol 10 mg 1 cat PO .q2 PRN throat pain #15 ea 07/02/23 07/13/23 Unknown Rx lozenges (Chloraseptic Max) levofloxacin 500 mg tablet 500 mg PO DAILY #10 tabs 07/08/23 07/13/23 Unknown Rx Allergies Allergy/AdvReac Type Severity Reaction Status Date / Time Sulfa (Sulfonamide Allergy Intermediate hives Verified 07/12/23 14:06 Antibiotics) adhesive tape Allergy ALGY-Redness Verified 07/12/23 14:06 of Skin PFSH Acute 2 PFSH: Medical History Acute viral pharyngitis Hx of basal cell carcinoma Nose Possible SCC on left arm Astigmatism History of ectopic Annual physical exam Surgical History History of left knee replacement Hx of tonsillectomy History of eye surgery History of unilateral fallopian tube excision Left tube and ovary removed after ectopic Family History Father Alzheimer's dementia Mother Cancer Precancerous breast cancer. 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[employer] Vitals/I&O/Wt Last Vital Signs Temp 98.3 F 07/12/23 14:06 Pulse 97 07/12/23 15:54 Resp 17 07/12/23 15:54 BP 183/74 07/12/23 15:54 Pulse Ox 93 07/12/23 15:54 O2 Del Method Room Air 07/12/23 15:54 07/12/23 07/12/23 07/13/23 14:59 22:59 06:59 Intake Total 50 / 50 Balance 50 / 50 Weight last 48 hrs Weight 113.398 kg Physical Exam 2 Narrative: General: No acute distress, AO x3 HEENT: PERRLA, pupils bilaterally equal and reactive, pallors not present Chest: Normal vesicular breath sounds, no added sounds, equal good air entry bilaterally CVS: S1-S2 regular, no murmurs, no tachycardia, no gallops, no rubs Abdomen: Soft, nontender, no organomegaly, bowel sounds present Neuro: No focal deficits, no facial deformity, AO x3, power 5/5 in all limbs Data 07/12/23 16:32 07/12/23 16:32 Other Labs: XR/XR chest 1V portable [id number] IMPRESSION: Minimal hazy opacities overlying the left lung base are nonspecific. Differential includes atelectasis and or pneumonia. CT/CT abdomen pelvis w con* [id number] IMPRESSION: 1. Small left pleural effusion. 2. There is mucosal thickening of the distal esophagus consistent with esophagitis. Follow-up to exclude neoplasm as clinically warranted. A&P Assessment and plan (1) Pneumonia: Patient presenting with 3 weeks of upper respiratory symptoms, persistent fatigue, left-sided chest discomfort and found to have hazy opacities over the left lung base on chest x-ray and a small pleural effusion on CT. Her chest pain may be service center representative of pleurisy/chest pain. Her symptoms appear to be progressive in spite of being on outpatient antibiotics. Given the above we will admit the patient to observation Start broad-spectrum antibiotic coverage with piperacillin/tazobactam and vancomycin. Check sputum culture, MRSA nasal swab, COVID and influenza antigens. Respiratory viral is unfortunately not compliant. Leukocytosis noted at 21,000, may be related to ongoing infection versus recent steroid use. Will monitor with serial labs. Hold off on steroids for now. Incidentally noticed esophagitis on CT abdomen. Start Protonix 40 mg twice daily and add Carafate. May need endoscopy as outpatient. No urgent indication for the same. Check EKg and troponin series Qualifiers: Laterality: left Lung location: lower lobe of lung Pneumonia type: due to unspecified organism Qualified Code(s): J18.9 - Pneumonia, unspecified organism Attestations 2 Medical Necessity Statement*: less than 2 midnight stay is anticipated at this time Coding Level of Care Code Acute Code for [facility] Fwd Diagnoses Pneumonia J18.9 Laterality: left Lung location: lower lobe of lung Pneumonia type: due to unspecified organism
[2023-07-12] MEDS: pantoprazole 40 mg SDV IVP (23:18)
[2023-07-12 23:30] VITALS: PULSE 84; O2SAT 92
[2023-07-12 23:39] VITALS: PULSE 87
[2023-07-13] VITALS (8 sets, daily range): BP systolic 110–145; BP diastolic 61–78; PULSE 87–99; RESP 16–19; TEMP 36.6–37.5; O2SAT 90–93; BMI 42.9
[2023-07-13] MEDS: enoxaparin 40 mg/0.4 mL Syringe SUBCUT ×2 (00:28→23:14)
[2023-07-13 00:31] LABS: Estmated Average Glucose 157; Hemoglobin A1C 7.1 % (4.0-6.0)
[2023-07-13 01:13] LABS: Troponin 5 2HR 10.57 ng/L (0-10)
[2023-07-13 01:16] LABS: Troponin 5 2HR Delta -0.43 ABS# (0-10)
[2023-07-13 01:41] LABS: Influenza A by IFA negative (Negative); Influenza B by IFA negative (Negative)
--- NOTE | 2023-07-13 04:01 | ECG_ITS ---
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 Measurements Intervals [place] Rate: 85 P: 29 TN: 141 QRS: -32 QRSD: 142 T: -16 QT: 383 QTc: 458 Interpretive Statements SINUS RHYTHM LEFT AXIS DEVIATION [QRS AXIS < -30] RIGHT BUNDLE BRANCH BLOCK [120+ ms QRS DURATION, UPRIGHT V1, 40+ ms S IN I/aVL/V4/V5/V6] SEPTAL MYOCARDIAL INFARCTION , PROBABLY OLD [40+ ms Q WAVE IN V1/V2] MODERATE T-WAVE ABNORMALITY, CONSIDER LATERAL ISCHEMIA [-0.1+ mV T-WAVE IN I/aVL/V5/V6] Compared to ECG 07/12/2023 22:34:50 No significant changes Electronically Signed On 07-13-2023 21:45:56 REHABILITATION AIDE/SCHEDULER by Emilia Young M.D. [id number]
[2023-07-13 04:38] LABS: Basophils # 0.1 10^3/uL (0.0-0.1); Basophils % 0.5 %; Eosinophils # 0.1 10^3/uL (0.0-0.8); Eosinophils % 0.3 %; Hematocrit 25.9 % (36-47); Lymphocytes # 7.6 10^3/uL (0.8-4.8); Lymphocytes % 42.7 %; Mean Corpuscular HGB Conc 32.8 g/dL (30-55); Mean Corpuscular Hemoglobin 29.1 pg (27-33); Mean Corpuscular Volume 88.7 fl (85-98); Mean Platelet Volume 9.7 fL (7.4-10.4); Monocytes # 4.7 10^3/uL (0.2-0.9); Monocytes % 26.4 %; Neutrophils # 5.35 10^3/uL (1.8-7.7); Neutrophils % 30.1 %; Nucleated Red Blood Cells # 0.1 /100WBC; Nucleated Red Blood Cells % 0.5 %; Platelet Count 94 10^3/cmm (157-399); Red Blood Count 2.92 10^6/uL (3.85-5.65); Red Cell Distribution Width 15.9 % (12.1-15.1)
[2023-07-13 04:55] LABS: Troponin 5 6HR 11.61 ng/L (0-10); Troponin 5 6HR Delta 0.61 ng/L (0-12)
[2023-07-13 05:06] LABS: Alanine Aminotransferase 17 U/L (0-33); Albumin Level 3.1 g/dL (3.5-5.2); Alkaline Phosphatase 73 U/L (35-105); Anion Gap 17.4 (5-19); Aspartate Amino Transferase 25 U/L (0-32); Blood Urea Nitrogen 14 mg/dL (8-23); Calcium 6.6 mg/dL (8.5-10.5); Carbon Dioxide 26 mmol/L (22-29); Chloride 100 mmol/L (98-107); Creatinine Clr Calc Pharmacy 74.8614; Globulin 2.8 g/dL (1.3-4.6); Glomerular Filtration Rate 62.5 mL/min (90-130); Glucose 105 mg/dL (65-115); Osmolality Calculated 293 mOsm/kg (285-295); Sodium 141 mmol/L (136-145); Total Bilirubin 0.6 mg/dL (0.15-1.2); Total Protein 5.9 g/dL (6.6-8.7)
[2023-07-13] MEDS: sodium chloride 0.9% 1,000 ML 100 ML IV (05:06)
[2023-07-13 05:12] LABS: Magnesium 0.7 mg/dL (1.7-2.3); Potassium 2.4 mmol/L (3.5-5.1)
[2023-07-13 05:30] LABS: Slide Review Slide Review Perform
[2023-07-13] MEDS: piperacillin-tazobactam 3.375 GM in sodium chloride 0.9% (plus) 50 ML IV ×3 (05:52→23:14)
[2023-07-13] MEDS: acetaminophen 325 mg Tablet 650 MG PO (05:57)
[2023-07-13] MEDS: magnesium sulfate premix 2 GM/50 ML PIGGYBACK IV (06:48)
[2023-07-13 07:37] LABS: Iron 108 ug/dL (37-145); Vitamin B12 365 pg/mL (232-1245)
[2023-07-13 07:38] LABS: Folate Level 6.7 ng/mL (4.8-37.3)
[2023-07-13 09:06] LABS: Monoscreen Negative (Negative)
--- NOTE | 2023-07-13 09:30 | PC.CHAP ---
Pastoral Care Encounter/Spiritual Assessment Type of Contact [] Declined filing clerk visit [] Patient/Family/Request visit [] Outpatient visit [] Follow-up visit [] Physician referral [] Code/Alert [x] Routine visit [] Staff referral [] Actively dying [] Patient sleeping [] Family support [] [] Out of room [] Palliative care [] [] Receiving care in room [] Pre-surgical visit [] Trauma [] Long length of stay [] ICU visit [] Other: Relational/Emotional Strength [x] Patient feels connected with others/family/visitors/staff [] Distress [] Loneliness/isolation [] Abandonment Spirituality of Patient [x] Person of Alexa [] Attends Adventism of their Alexa [x] Believes in Prayer [] Reads Bible or Confucianist materials [] There are Spiritual issues to be addressed Nuts And Bolts Assembler Interventions [x] Prayer [x] Active listening [] Non-anxious presence [x] Spiritual/emotional support [] Crisis/trauma care [] Spiritual counseling [] Bereavement support [] Provided bereavement packet [] Provided Bible/devotional materials [] Provided toy/stuffed animal, coloring book to patient or family member [] Provided Communion [] Anointing/[place] [] Salvation [x] Completed spiritual assessment [] Other: Impact on Illness or Injury [] Angry [] Fearful [] Anxious [] Often cries [] Exhaustion [] Unable to work [] Unable to attend buddhism [] Unable to walk/stand [] Unable to read [] Unable to drive [] Unable to eat/drink [] Unable to sleep [] Unable to be with family [] Patient intubated [] Other: Summary Time spent with patient 5 min
--- NOTE | 2023-07-13 09:51 | CTR_ITS ---
PROCEDURE INFORMATION: Exam: CT Chest Without Contrast; Diagnostic Exam date and time: 07/13/2023 5:55 PM Age: 68 years old Clinical indication: Shortness of breath; Additional info: Pna TECHNIQUE: Imaging protocol: Diagnostic computed tomography of the chest without contrast. Radiation optimization: All CT scans at this facility use at least one of these dose optimization techniques: automated exposure control; mA and/or kV adjustment per patient size (includes targeted exams where dose is matched to clinical indication); or iterative reconstruction. COMPARISON: CR XR chest 1V portable [id number] 07/12/2023 4:47 PM RADIATION DOSE METRICS: Total DLP (mGy-cm): 668 FINDINGS: Lungs: Multifocal scattered bilateral pulmonary ground-glass opacities. Pleural spaces: Small left pleural effusion. Heart: Minimal calcification is present in the aortic valve. Coronary arteries: There is a punctate focus of calcified plaque in the left anterior descending coronary artery. Lymph nodes: Unremarkable. No enlarged lymph nodes. Vasculature: Unremarkable. No aortic aneurysm. Bones/joints: Unremarkable. No acute fracture. Soft tissues: Unremarkable. CT/CT chest [facility] [id number] IMPRESSION: Multifocal scattered bilateral pulmonary ground-glass opacities are nonspecific and can be seen within atypical pneumonia, and/or pulmonary edema. There is a small left pleural effusion.
[2023-07-13] MEDS: lidocaine 1% 5 ML in potassium chloride premix 100 ML 26.25 ML IV ×2 (09:54→15:35)
[2023-07-13] MEDS: vancomycin 1,250 MG/250 ML PIGGYBACK 200 MG IV ×2 (09:54→20:57)
[2023-07-13] MEDS: pantoprazole DR 40 mg Tablet PO ×2 (10:10→17:18)
[2023-07-13] MEDS: atenolol 50 mg Tablet 25 MG PO ×2 (10:10→17:18)
[2023-07-13] MEDS: sucralfate 1 gm Tablet PO ×2 (10:10→17:18)
[2023-07-13 11:17] LABS: LAB Peripheral Smear Sent for Review
--- NOTE | 2023-07-13 12:06 | P.PN_ITS ---
Subjective 2 Subjective: Patient is awake and alert Currently on room air Noted complaint After shortness of breath patient stated that chest pain has subsided I will request CT chest Vitals/I&O/Wt Last Vital Signs Temp 97.8 F 07/13/23 11:33 Pulse 87 07/13/23 11:33 Resp 17 07/13/23 11:33 BP 127/65 07/13/23 11:33 Pulse Ox 90 07/13/23 11:33 O2 Del Method Room Air 07/13/23 11:33 07/12/23 07/13/23 07/13/23 22:59 06:59 14:59 Intake Total 50 / 50 1220 / 1270 470 / 470 Output Total 350 / 350 Balance 50 / 50 870 / 920 470 / 470 Weight last 48 hrs Weight 114.986 kg Weight 113.398 kg Weight 113.398 kg Physical Exam 2 Narrative: Awake and alert GCS 15 Abdomen soft Audible no stridor or wheezing Abdomen soft S1, S2 Positive cough EOMI, PERRLA Data 07/13/23 04:08 07/13/23 04:08 Micro: Microbiology 07/13/23 01:03 Legionella Urinary Antigen - Final Urine,Clean Catch A&P Assessment and plan (1) Hypertension: (2) Prediabetes: (3) Pharyngitis: (4) GERD (gastroesophageal reflux disease): (5) Abdominal pain, left upper quadrant: (6) Leukocytosis: Qualifiers: Leukocytosis type: unspecified Qualified Code(s): D72.829 - Elevated white blood cell count, unspecified (7) Acute lower respiratory infection: (8) Pneumonia: Qualifiers: Laterality: left Lung location: lower lobe of lung Pneumonia type: due to unspecified organism Qualified Code(s): J18.9 - Pneumonia, unspecified organism Plan Significant leukocytosis with bandemia and monocytes Previous medical results are pending Patient is afebrile Chest pain has resolved I have requested CT chest CT abdomen pelvis unremarkable No previous history of cancer Patient is up-to-date with her screening colonoscopies Currently doing well on room air Currently on broad-spectrum antibiotics Discontinue IV fluids Severe electrolyte imbalance Electrolytes replenished Full code Cardiac diet GCS 15 DVT prophylaxis on board Attestations 2 Medical Necessity Statement*: Anticipating discharge tomorrow if leukocytosis improved Diagnoses Hypertension I10 Prediabetes R73.03 Pharyngitis J02.9 GERD (gastroesophageal reflux disease) K21.9 Abdominal pain, left upper quadrant R10.12 Leukocytosis D72.829 Leukocytosis type: unspecified Acute lower respiratory infection J22 Pneumonia J18.9 Laterality: left Lung location: lower lobe of lung Pneumonia type: due to unspecified organism
[2023-07-13 12:13] LABS: Total Cells Counted 100 (0-100)
[2023-07-13 12:42] LABS: Eosinophils 0 %; Lymphocytes 50 %; Segmented Neutrophils 19 %
[2023-07-13 12:44] LABS: Anisocytosis 1+; Blastocytes 2 % (0-0); Platelet Estimate Normal (Normal)
[2023-07-13 12:54] LABS: C Reactive Protein 113.5 mg/L (0.0-4.9)
[2023-07-13] MEDS: magnesium oxide 400 mg tablet PO (17:26)
[2023-07-13] MEDS: ondansetron 2 mg/ML SDV 2 mL 4 MG IVP (17:49)
[2023-07-14] VITALS (8 sets, daily range): BP systolic 106–141; BP diastolic 58–76; PULSE 80–89; RESP 16–20; TEMP 36.7–37.4; O2SAT 90–93
[2023-07-14 04:19] LABS: Basophils # 0.1 10^3/uL (0.0-0.1); Basophils % 0.4 %; Eosinophils % 0.3 %; Hematocrit 24.5 % (36-47); Lymphocytes # 6.9 10^3/uL (0.8-4.8); Mean Corpuscular HGB Conc 32.2 g/dL (30-55); Mean Corpuscular Volume 90.1 fl (85-98); Mean Platelet Volume 9.9 fL (7.4-10.4); Monocytes # 4.4 10^3/uL (0.2-0.9); Monocytes % 28.9 %; Neutrophils # 3.89 10^3/uL (1.8-7.7); Neutrophils % 25.4 %; Nucleated Red Blood Cells % 0.3 %; Platelet Count 83 10^3/cmm (157-399); Red Blood Count 2.72 10^6/uL (3.85-5.65); Red Cell Distribution Width 16.4 % (12.1-15.1); White Blood Count 15.31 10^3/uL (3.29-11.43)
[2023-07-14 04:38] LABS: Anion Gap 12.3 (5-19); Blood Urea Nitrogen 11 mg/dL (8-23); Calcium 6.5 mg/dL (8.5-10.5); Carbon Dioxide 26 mmol/L (22-29); Chloride 106 mmol/L (98-107); Glomerular Filtration Rate 83.5 mL/min (90-130); Glucose 106 mg/dL (65-115); Osmolality Calculated 292 mOsm/kg (285-295); Potassium 3.3 mmol/L (3.5-5.1); Sodium 141 mmol/L (136-145)
[2023-07-14 04:45] LABS: Magnesium 1.2 mg/dL (1.7-2.3)
[2023-07-14 05:11] LABS: Slide Review Slide Review Perform
[2023-07-14] MEDS: piperacillin-tazobactam 3.375 GM in sodium chloride 0.9% (plus) 50 ML IV ×3 (06:35→23:30)
[2023-07-14] MEDS: pantoprazole DR 40 mg Tablet PO ×2 (08:20→18:30)
[2023-07-14] MEDS: magnesium oxide 400 mg tablet PO ×2 (08:21→18:29)
[2023-07-14] MEDS: acetaminophen 325 mg Tablet 650 MG PO (08:21)
[2023-07-14] MEDS: sucralfate 1 gm Tablet PO ×2 (08:21→18:30)
[2023-07-14] MEDS: atenolol 50 mg Tablet 25 MG PO ×2 (08:22→18:30)
[2023-07-14] MEDS: vancomycin 1,250 MG/250 ML PIGGYBACK 200 MG IV ×2 (08:23→19:57)
[2023-07-14 08:58] LABS: Reticulocyte % 0.4 % (0.5-2.0)
[2023-07-14 09:15] LABS: Lactate Dehydrogenase 465 U/L (135-214)
[2023-07-14 09:41] LABS: Basophils % 0.3 %; Eosinophils % 0.2 %; Hematocrit 24.6 % (36-47); Lymphocytes # 6.4 10^3/uL (0.8-4.8); Lymphocytes % 48.4 %; Mean Corpuscular HGB Conc 32.1 g/dL (30-55); Mean Corpuscular Hemoglobin 29.6 pg (27-33); Mean Corpuscular Volume 92.1 fl (85-98); Mean Platelet Volume 10.3 fL (7.4-10.4); Monocytes # 3.1 10^3/uL (0.2-0.9); Monocytes % 23.5 %; Neutrophils # 3.64 10^3/uL (1.8-7.7); Neutrophils % 27.6 %; Nucleated Red Blood Cells % 0.2 %; Platelet Count 88 10^3/cmm (157-399); Red Blood Count 2.67 10^6/uL (3.85-5.65); Red Cell Distribution Width 16.3 % (12.1-15.1)
[2023-07-14 09:54] LABS: Iron 134 ug/dL (37-145)
[2023-07-14 10:13] LABS: Slide Review Slide Review Perform
[2023-07-14] MEDS: doxycycline 100 MG in sodium chloride 0.9% (plus) 100 ML IV ×2 (10:20→22:24)
--- NOTE | 2023-07-14 10:30 | PC.CHAP ---
Pastoral Care Encounter/Spiritual Assessment Type of Contact [] Declined greens planter visit [] Patient/Family/Request visit [] Outpatient visit [] Follow-up visit [] Physician referral [] Code/Alert [X] Routine visit [] Staff referral [] Actively dying [] Patient sleeping [] Family support [] [] Out of room [] Palliative care [] [] Receiving care in room [] Pre-surgical visit [] Trauma [] Long length of stay [] ICU visit [] Other: Relational/Emotional Strength [] Patient feels connected with others/family/visitors/staff [] Distress [] Loneliness/isolation [] Abandonment Spirituality of Patient [] Person of Alexa [] Attends Restorationist of their Alexa [] Believes in Prayer [] Reads Bible or Rastafari materials [] There are Spiritual issues to be addressed Manuscripts Archivist Interventions [X] Prayer [X] Active listening [] Non-anxious presence [] Spiritual/emotional support [] Crisis/trauma care [] Spiritual counseling [] Bereavement support [] Provided bereavement packet [] Provided Bible/devotional materials [] Provided toy/stuffed animal, coloring book to patient or family member [] Provided Communion [] Anointing/[place] [] Salvation [] Completed spiritual assessment [] Other: Impact on Illness or Injury [] Angry [] Fearful [] Anxious [] Often cries [] Exhaustion [] Unable to work [] Unable to attend protestant [] Unable to walk/stand [] Unable to read [] Unable to drive [] Unable to eat/drink [] Unable to sleep [] Unable to be with family [] Patient intubated [] Other: Summary Time spent with patient 15 MIN
[2023-07-14 11:49] LABS: Cytomegalovirus Antibody (IGG) >10.00 U/mL; Cytomegalovirus Antibody (IGM) <30.00 AU/mL
--- NOTE | 2023-07-14 11:51 | P.PN_ITS ---
Subjective 2 Subjective: Patient is getting pancytopenic, no active GI bleed Will hold DVT prophylaxis with Lovenox platelet dropped as well Hemoglobin 10 point 9 repeat CBC showed same values Hemodynamically stable no fever CT chest did not show any swollen lymph nodesIt is showing groundglass opacities bilaterally Vitals/I&O/Wt Last Vital Signs Temp 99.2 F 07/14/23 11:28 Pulse 82 07/14/23 11:28 Resp 16 07/14/23 11:28 BP 106/64 07/14/23 11:28 Pulse Ox 93 07/14/23 11:28 O2 Del Method Room Air 07/14/23 11:28 07/13/23 07/14/23 07/14/23 22:59 06:59 14:59 Intake Total 421 / 2236 155 / 2391 640 / 640 Balance 421 / 2236 155 / 2391 640 / 640 Weight last 48 hrs Weight 116.619 kg Weight 114.986 kg Weight 113.398 kg Weight 113.398 kg Physical Exam 2 Narrative: Awake and alert Pleasant and cooperative GCS 15 Complaining of left-sided pleuritic pain Distended nontender abdomen Currently on room air S1, S2 Euvolemic Nonfocal neuroexam Data 07/14/23 09:10 07/14/23 03:52 A&P Assessment and plan (1) Pancytopenia: (2) Hypertension: (3) Prediabetes: (4) Pharyngitis: (5) Acute viral pharyngitis: (6) GERD (gastroesophageal reflux disease): (7) Abdominal pain, left upper quadrant: (8) Acute lower respiratory infection: (9) Pneumonia: Qualifiers: Laterality: left Lung location: lower lobe of lung Pneumonia type: due to unspecified organism Qualified Code(s): J18.9 - Pneumonia, unspecified organism (10) Hypomagnesemia: (11) Hypokalemia: Plan Pancytopenia No active bleed Hold DVT prophylaxis Low B12 Low normal range of B12 noted Reticulocyte count is low High LDH My concern is related to viral infection induced bone marrow suppression at this point Will touch with Dr. Ramos Blast monocyte and lymphocyte size noted on peripheral smear Malignancy not ruled out Patient will need hematology consult outpatient for bone marrow biopsy I will add doxycycline Will also request throat culture patient is complaining of sore throat Left-sided pleuritic pain, mild/small pleural effusion Continue antibiotics along DuoNeb treatment Patient had 1 bowel movement today No history of cancer Full code Cardiac diet CMV IgG antibodies positive IgM negative Attestations 2 Medical Necessity Statement*: Continue medical management Diagnoses Pancytopenia D61.818 Hypertension I10 Prediabetes R73.03 Pharyngitis J02.9 Acute viral pharyngitis J02.9 GERD (gastroesophageal reflux disease) K21.9 Abdominal pain, left upper quadrant R10.12 Acute lower respiratory infection J22 Pneumonia J18.9 Laterality: left Lung location: lower lobe of lung Pneumonia type: due to unspecified organism Hypomagnesemia E83.42 Hypokalemia E87.6
[2023-07-14 12:00] LABS: EBV IGG TEST >750.00 U/mL; EBV IGM TEST <36.00 U/mL; EBV Nuclear AG <18.00 U/mL
[2023-07-14] MEDS: potassium chloride ER 20 mEq Tablet 40 MEQ PO (12:41)
[2023-07-14] MEDS: magnesium sulfate premix 1 GM/100 ML PIGGYBACK IV (12:41)
[2023-07-14 15:39] LABS: Methicillin-Resist S.aureu PCR NOT DETECTED (NOT DETECTED)
[2023-07-14] MEDS: dexamethasone 4 mg Tablet 6 MG PO (18:29)
[2023-07-14 19:37] LABS: Vancomycin Trough 15.2 ug/mL (10-15)
[2023-07-14 19:58] LABS: Rapid Strep A Test Negative (Negative)
[2023-07-15] VITALS (8 sets, daily range): BP systolic 116–129; BP diastolic 55–70; PULSE 67–87; RESP 16–18; TEMP 36.4–36.9; O2SAT 92–96
[2023-07-15 04:53] LABS: Basophils % 0.3 %; Eosinophils % 0.1 %; Hematocrit 26.2 % (36-47); Lymphocytes # 5.2 10^3/uL (0.8-4.8); Lymphocytes % 50.6 %; Mean Corpuscular HGB Conc 29.8 g/dL (30-55); Mean Corpuscular Hemoglobin 29.8 pg (27-33); Mean Platelet Volume 10.6 fL (7.4-10.4); Monocytes % 29.4 %; Neutrophils # 2.02 10^3/uL (1.8-7.7); Neutrophils % 19.6 %; Nucleated Red Blood Cells % 0 %; Platelet Count 77 10^3/cmm (157-399); Red Blood Count 2.62 10^6/uL (3.85-5.65); Red Cell Distribution Width 16.6 % (12.1-15.1); Reflex FDPQ test REFLEX FDP QUEST TES; White Blood Count 10.33 10^3/uL (3.29-11.43)
[2023-07-15 05:04] LABS: INR 1.32 (0.8-1.2)
[2023-07-15 05:05] LABS: Fibrinogen 467 mg/dL (174-498); Partial Thromboplastin Time 33.6 SECONDS (23.9-36.7)
[2023-07-15 05:14] LABS: Alanine Aminotransferase 27 U/L (0-33); Albumin Level 3.2 g/dL (3.5-5.2); Alkaline Phosphatase 69 U/L (35-105); Anion Gap 15.4 (5-19); Aspartate Amino Transferase 29 U/L (0-32); Blood Urea Nitrogen 13 mg/dL (8-23); Calcium 6.2 mg/dL (8.5-10.5); Carbon Dioxide 22 mmol/L (22-29); Chloride 109 mmol/L (98-107); Creatinine Clr Calc Pharmacy 85.4041; Glomerular Filtration Rate 99.7 mL/min (90-130); Glucose 144 mg/dL (65-115); Osmolality Calculated 297 mOsm/kg (285-295); Potassium 4.4 mmol/L (3.5-5.1); Sodium 142 mmol/L (136-145); Total Bilirubin 0.5 mg/dL (0.15-1.2); Total Protein 6.2 g/dL (6.6-8.7)
[2023-07-15 05:15] LABS: D Dimer 11.65 ug/mLFEU (0-0.59)
[2023-07-15 05:23] LABS: Slide Review Slide Review Perform
[2023-07-15] MEDS: piperacillin-tazobactam 3.375 GM in sodium chloride 0.9% (plus) 50 ML IV ×3 (06:36→22:35)
[2023-07-15] MEDS: atenolol 50 mg Tablet 25 MG PO (08:23)
[2023-07-15] MEDS: dexamethasone 4 mg Tablet 6 MG PO (08:23)
[2023-07-15] MEDS: sucralfate 1 gm Tablet PO ×2 (08:23→17:25)
--- NOTE | 2023-07-15 08:23 | P.PN_ITS ---
Subjective 2 Subjective: Hoping to get patient transferred today Vitals/I&O/Wt Last Vital Signs Temp 97.8 F 07/16/23 10:55 Pulse 72 07/16/23 10:55 Resp 18 07/16/23 10:55 BP 160/71 07/16/23 10:55 Pulse Ox 93 07/16/23 08:12 O2 Del Method Room Air 07/16/23 08:12 07/15/23 07/16/23 07/16/23 22:59 06:59 14:59 Intake Total 660 / 1440 650 / 2090 780 / 780 Balance 660 / 1440 650 / 2090 780 / 780 Weight last 48 hrs Weight 115.439 kg Weight 116.148 kg Physical Exam 2 Narrative: Awake and alert GCS 15 S1, S2 Currently on room air Pleasant and cooperative No active chest pain Data 07/16/23 05:00 07/15/23 04:33 Micro: Microbiology 07/14/23 12:42 Group A Streptococcus Rapid Screen - Preliminary Throat 07/12/23 19:48 Blood Culture - Preliminary Blood 07/12/23 19:43 Blood Culture - Preliminary Blood A&P Assessment and plan (1) Hypertension: (2) Prediabetes: (3) Pharyngitis: (4) Leukemia: Plan Hoping to get her transferred Continue antibiotic Attestations 2 Medical Necessity Statement*: Transfer Coding Level of Care Code Acute Code for [facility] Fwd Diagnoses Hypertension I10 Prediabetes R73.03 Pharyngitis J02.9 Leukemia C95.90
[2023-07-15] MEDS: vancomycin 1,250 MG/250 ML PIGGYBACK 200 MG IV ×2 (08:24→21:06)
[2023-07-15] MEDS: pantoprazole DR 40 mg Tablet PO ×2 (08:24→17:25)
[2023-07-15] MEDS: magnesium oxide 400 mg tablet PO ×2 (08:24→17:25)
--- NOTE | 2023-07-15 10:50 | PM.TDS ---
Transfer Summary Providers Date of Admission: 07/13/23 13:42 Date of Discharge/Transfer: 07/15/23 Attending Provider at Admission: Mahendra Brown MD Attending Provider at Transfer: Shirin Ribeiro MD Primary Care Provider: Nic Castro MD Transfer Plans: Anticipated date of transfer: 07/15/23. Diagnoses at Discharge Discharge Diagnosis (1) Pancytopenia: Status: Acute (2) Hypertension: Status: Acute (3) Prediabetes: Status: Acute (4) Pharyngitis: Status: Acute (5) Acute viral pharyngitis: Status: Acute (6) GERD (gastroesophageal reflux disease): Status: Acute (7) Abdominal pain, left upper quadrant: Status: Acute (8) Acute lower respiratory infection: Status: Acute (9) Pneumonia: Status: Acute Qualifiers: Laterality: left Lung location: lower lobe of lung Pneumonia type: due to unspecified organism Qualified Code(s): J18.9 - Pneumonia, unspecified organism (10) Hypomagnesemia: Status: Acute (11) Hypokalemia: Status: Acute Reason for Visit Reason for Visit sore throat, left side pain Hospital Course Hospital Course 68-year-old female who present to the hospital with chief complaint of not feeling well for last 3 weeks before her arrival in the ER, she has been suffering from runny nose runny eyes PCP started on Augmentin followed by levofloxacin without much improvement, she was also put on steroids however because of worsening of symptoms she came to the hospital when she started experiencing cough and left-sided chest discomfort, she did not show any signs of acute infarct or ischemic changes on EKG, cultures remain negative, strep throat negative, CMV IgG EBV IgG positive CT scan of chest showed bilateral groundglass opacities with small left-sided pleural effusion, patient's CBC was consistent with blast cells, monocytes, lymphocytes and schistocytes, she did not show any signs of hemolysis however her LDH was 465, hemoglobin dropped to 8, platelets 77,000 she did not show any signs of bleeding or petechiae or hemorrhage, DIC panel negative, B12 around 365, folate 6.7, she was replenished for hypokalemia and hypomagnesemia. Creatinine normal. CT abdomen pelvis did not show any hepatosplenomegaly. 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 Pleural spaces: Small left pleural effusion. Heart: Minimal calcification is present in the aortic valve. Coronary arteries: There is a punctate focus of calcified plaque in the left anterior descending coronary artery. Lymph nodes: Unremarkable. No enlarged lymph nodes. Vasculature: Unremarkable. No aortic aneurysm. Bones/joints: Unremarkable. No acute fracture. Soft tissues: Unremarkable. CT/CT chest wo con [id number] IMPRESSION: Multifocal scattered bilateral pulmonary ground-glass opacities are nonspecific and can be seen within atypical pneumonia, and/or pulmonary edema. There is a small left pleural effusion. CT abdomen pelvis FINDINGS: Pleural spaces: Small left pleural effusion. Mediastinal space: There is mucosal thickening of the distal esophagus. Liver: Normal. No mass. Gallbladder and bile ducts: Normal. No calcified stones. No ductal dilation. Pancreas: Normal. No ductal dilation. Spleen: Normal. No splenomegaly. Adrenal glands: Normal. No mass. Kidneys and ureters: 3 mm nonobstructing left renal calculus. Stomach and bowel: There is diverticulosis of the colon without evidence of diverticulitis. Appendix: A normal appendix is identified. Intraperitoneal space: Unremarkable. No free air. No significant fluid collection. Vasculature: Unremarkable. No abdominal aortic aneurysm. Lymph nodes: Unremarkable. No enlarged lymph nodes. Urinary bladder: Unremarkable as visualized. Reproductive: Unremarkable as visualized. Bones/joints: There are degenerative changes in the visualized spine. Lower lumbar disc bulges. Soft tissues: Unremarkable. CT/CT abdomen pelvis w con* [id number] IMPRESSION: 1. Small left pleural effusion. 2. There is mucosal thickening of the distal esophagus consistent with esophagitis. Follow-up to exclude neoplasm as clinically warranted. Physical Exam Narrative: Awake and alert GCS 15 S1, S2 Currently on room air Pleasant and cooperative No active chest pain TS Data Studies Completed and Pending Pending at discharge Category Date Time Status Blood Cultures ([facility]) Routine Lab 07/12/23 19:43 Received Blood Cultures ([facility]) Routine Lab 07/12/23 19:48 Received Fecal Occult Blood [Immunochemical Fecal OCB] Routine Lab 07/13/23 06:47 Uncollected Fibrinogen Degradation Product Routine Lab 07/15/23 04:53 Received Streptococcus Culture Group A Stat Lab 07/14/23 12:42 Received Tick Panel Stat Lab 07/14/23 03:52 Received Completed Studies During Hospitalization Category Date Time Status CT abdomen pelvis w con* [id number] Urgent Cat Scan 07/12/23 16:[address] chest wo con [id number] Routine Cat Scan 07/13/23 09:51 Completed XR chest 1V portable [id number] Urgent Exams 07/12/23 16:31 Completed Laboratory Last Values WBC 10.33 10^3/uL (3.29-11.43) 07/15/23 04:33 RBC 2.62 10^6/uL (3.85-5.65) L 07/15/23 04:33 Hgb 7.80 g/dL (11.27-16.99) L 07/15/23 04:33 Hct 26.2 % (36-47) L 07/15/23 04:33 MCV 100.0 fl (85-98) H D 07/15/23 04:33 MCH 29.8 pg (27-33) 07/15/23 04:33 MCHC 29.8 g/dL (30-55) L D 07/15/23 04:33 RDW 16.6 % (12.1-15.1) H 07/15/23 04:33 Plt Count 77 10^3/cmm (157-399) L 07/15/23 04:33 MPV 10.6 fL (7.4-10.4) H 07/15/23 04:33 Neut % (Auto) 19.6 % 07/15/23 04:33 Lymph % (Auto) 50.6 % 07/15/23 04:33 Peach % (Auto) 29.4 % 07/15/23 04:33 Eos % (Auto) 0.1 % 07/15/23 04:33 Baso % (Auto) 0.3 % 07/15/23 04:33 Reticulocyte % (Auto) 0.4 % (0.5-2.0) L 07/14/23 03:52 Neut # (Auto) 2.02 10^3/uL (1.8-7.7) 07/15/23 04:33 Lymph # (Auto) 5.2 10^3/uL (0.8-4.8) H 07/15/23 04:33 Peach # (Auto) 3.0 10^3/uL (0.2-0.9) H 07/15/23 04:33 Eos # (Auto) 0.0 10^3/uL (0.0-0.8) 07/15/23 04:33 Baso # (Auto) 0.0 10^3/uL (0.0-0.1) 07/15/23 04:33 Nucleated RBC % (auto) 0 % 07/15/23 04:33 Total Counted 100 (0-100) 07/13/23 06:07 Atypical Lymphs % 10.0 % (0-5) H 07/13/23 06:07 Absolute Neutrophils 3.4 10^3/cmm (1.4-6.5) 07/12/23 16:32 Segmented Neutrophils 19 % 07/13/23 06:07 Abs Segm Neuts (Man) 2.7 10/cmm (1.6-7.1) 07/12/23 16:32 Band Neutrophils 3.0 % 07/13/23 06:07 Abs Band Neuts (Man) 0.6 10^3/cmm (0.0-1.2) 07/12/23 16:32 Absolute Lymphocytes 12.0 10^3/cmm (1.2-3.4) H 07/12/23 16:32 Lymphocytes (Manual) 50 % 07/13/23 06:07 Monocytes (Manual) 8.0 % 07/13/23 06:07 Absolute Monocytes 3.6 10^3/cmm (0.1-0.6) H 07/12/23 16:32 Eosinophils (Manual) 0 % 07/13/23 06:07 Absolute Eosinophils 0.0 10^3/cmm (0.0-0.7) 07/12/23 16:32 Basophils (Manual) 0.0 % 07/13/23 06:07 Absolute Basophils 0.2 10^3/cmm (0.0-0.2) 07/12/23 16:32 Metamyelocytes 3.0 % 07/13/23 06:07 Myelocytes 2.0 % 07/13/23 06:07 Promyelocytes 2.0 % 07/13/23 06:07 Nucleated RBCs 1.0 /100WBC (0-1) 07/13/23 06:07 Nucleated RBCs # 0.0 /100WBC 07/15/23 04:33 Blast Cells 2 % (0-0) H* 07/13/23 06:07 Platelet Estimate Normal (Normal) 07/13/23 06:07 Anisocytosis 1+ H 07/13/23 06:07 Peripher Smr Path Cons Sent for review 07/13/23 04:08 Haptoglobin 282.0 mg/L (30-200) H 07/14/23 03:52 PT 16.80 SECONDS (12.1-14.9) H 07/15/23 04:33 INR 1.32 (0.8-1.2) H 07/15/23 04:33 APTT 33.6 SECONDS (23.9-36.7) 07/15/23 04:33 Fibrinogen 467 mg/dL (174-498) 07/15/23 04:33 D-Dimer 11.65 ug/mLFEU (0-0.59) H 07/15/23 04:33 Sodium 142 mmol/L (136-145) 07/15/23 04:33 Potassium 4.4 mmol/L (3.5-5.1) 07/15/23 04:33 Chloride 109 mmol/L (98-107) H 07/15/23 04:33 Carbon Dioxide 22 mmol/L (22-29) 07/15/23 04:33 Anion Gap 15.4 (5-19) 07/15/23 04:33 BUN 13 mg/dL (8-23) 07/15/23 04:33 Creatinine 0.6 mg/dL (0.5-0.9) 07/15/23 04:33 GFR Calculation 99.7 mL/min (90-130) 07/15/23 04:33 Glucose 144 mg/dL (65-115) H 07/15/23 04:33 Estimat Average Glucose 157 07/12/23 16:32 Hemoglobin A1c 7.1 % (4.0-6.0) H 07/12/23 16:32 Calculated Osmolality 297 mOsm/kg (285-295) H 07/15/23 04:33 Calcium 6.2 mg/dL (8.5-10.5) L 07/15/23 04:33 Magnesium 1.2 mg/dL (1.7-2.3) L 07/14/23 03:52 Iron 134 ug/dL (37-145) 07/14/23 03:52 Total Bilirubin 0.5 mg/dL (0.15-1.2) 07/15/23 04:33 AST 29 U/L (0-32) 07/15/23 04:33 ALT 27 U/L (0-33) 07/15/23 04:33 Alkaline Phosphatase 69 U/L (35-105) 07/15/23 04:33 Lactate Dehydrogenase 465 U/L (135-214) H 07/14/23 03:52 Troponin T Baseline 11 ng/L (0-10) H 07/12/23 22:14 Troponin T 120 Minute 10.57 ng/L (0-10) H 07/13/23 00:48 Delta Troponin T -0.43 ABS# (0-10) L 07/13/23 00:48 Troponin T Hi Sens 6Hr 11.61 ng/L (0-10) H 07/13/23 04:08 Troponin T Hi Sens 6Hr Delta 0.61 ng/L (0-12) 07/13/23 04:08 C-Reactive Protein 113.5 mg/L (0.0-4.9) H 07/13/23 04:08 Total Protein 6.2 g/dL (6.6-8.7) L 07/15/23 04:33 Albumin 3.2 g/dL (3.5-5.2) L 07/15/23 04:33 Globulin 3.0 g/dL (1.3-4.6) 07/15/23 04:33 Vitamin B12 365 pg/mL (232-1245) 07/13/23 04:08 Folate 6.7 ng/mL (4.8-37.3) 07/13/23 04:08 Procalcitonin 0.38 ng/mL (0-0.5) 07/12/23 16:32 Urine Color Dark yellow (Yellow) 07/12/23 16:42 Urine Appearance Clear (CLEAR) 07/12/23 16:42 Urine pH 8 (5-7) H 07/12/23 16:42 Ur Specific [place] 1.005 (1.005-1.030) 07/12/23 16:42 Urine Protein 1+ (Negative) H 07/12/23 16:42 Urine Glucose (UA) Norm (Normal) 07/12/23 16:42 Urine Ketones 1+ (Negative) H 07/12/23 16:42 Urine Blood Neg (Negative) 07/12/23 16:42 Urine Nitrate Negative (Negative) 07/12/23 16:42 Urine Bilirubin Neg (Negative) 07/12/23 16:42 Prot Sulfosalicylic Acd Positive (Negative) 07/12/23 16:42 Urine Urobilinogen Norm mg/dL (Negative) 07/12/23 16:42 Ur Leukocyte Esterase Negative (Negative) 07/12/23 16:42 Urine RBC None /hpf (0-2) 07/12/23 16:42 Urine WBC 0-4 /hpf (0-5) H 07/12/23 16:42 Ur Squamous Epith Cells 0-4 /hpf (0-5) H 07/12/23 16:42 Amorphous Sediment Not Reportable 07/12/23 16:42 Urine Bacteria 1+ /hpf (NONE) H 07/12/23 16:42 Vancomycin Trough 15.2 ug/mL (10-15) H 07/14/23 19:03 CMV IgG Ab >10.00 U/mL H 07/13/23 04:08 CMV IgM Ab <30.00 AU/mL 07/13/23 04:08 EBV IgG Ab >750.00 U/mL H 07/13/23 04:08 EBV IgM Ab <36.00 U/mL 07/13/23 04:08 EBV Nuclear Antigen <18.00 U/mL 07/13/23 04:08 EBV Interpretation See note 07/13/23 04:08 Monoscreen Negative (Negative) 07/13/23 04:08 Influenza Type A Ag negative (Negative) 07/13/23 01:10 Influenza Type B Ag negative (Negative) 07/13/23 01:10 SARS-CoV-2 Ag (Rapid) negative (Negative) 07/12/23 21:38 MRSA (PCR) Not detected (NOT DETECTED) 07/13/23 01:10 Group A Strep Rapid Negative (Negative) 07/14/23 12:42 LEATHA, Poly Interpret Negative 07/14/23 03:52 Radiology Impressions Abdomen/Pelvis CT 07/12/23 16:31 IMPRESSION: 1. Small left pleural effusion. 2. There is mucosal thickening of the distal esophagus consistent with esophagitis. Follow-up to exclude neoplasm as clinically warranted. Chest X-Ray 07/12/23 16:31 IMPRESSION: Minimal hazy opacities overlying the left lung base are nonspecific. Differential includes atelectasis and or pneumonia. Chest CT 07/13/23 09:51 IMPRESSION: Multifocal scattered bilateral pulmonary ground-glass opacities are nonspecific and can be seen within atypical pneumonia, and/or pulmonary edema. There is a small left pleural effusion. Recent Clincial Data Last Vital Signs Temp 98.2 F 07/15/23 07:51 Pulse 87 07/15/23 07:51 Resp 17 07/15/23 07:51 BP 117/63 07/15/23 07:51 Pulse Ox 94 07/15/23 07:51 O2 Del Method Room Air 07/15/23 07:51 Vital Signs Temp Pulse Resp BP Pulse Ox O2 Del Method 07/15/23 07:51 98.2 F 87 17 117/63 94 Room Air 07/15/23 06:00 67 07/15/23 03:11 97.6 F 77 18 120/70 92 Room Air 07/14/23 23:54 98.0 F 80 20 H 113/72 90 Room Air Intake & Output/Weight 07/13/23 07/14/23 07/15/23 07/16/23 06:59 06:59 06:59 06:59 Intake Total 1270 / 1270 2391 / 2391 1770 / 1770 240 / 240 Output Total 350 / 350 Balance 920 / 920 2391 / 2391 1770 / 1770 240 / 240 Weight 114.986 kg 116.619 kg 116.148 kg Vitals Last Vital Signs Temp 98.2 F 07/15/23 07:51 Pulse 87 07/15/23 07:51 Resp 17 07/15/23 07:51 BP 117/63 07/15/23 07:51 Pulse Ox 94 07/15/23 07:51 O2 Del Method Room Air 07/15/23 07:51 TS Medications Medications Acetaminophen (Acetaminophen 325 Mg Tablet) 650 mg PO Q6H PRN PRN Reason: Mild/Mod Pain Or Temp >/= 101 Last Admin: 07/14/23 08:21 Dose: 650 mg Atenolol (Atenolol 50 Mg Tablet) 25 mg PO BID [facility] Last Admin: 07/15/23 08:23 Dose: 25 mg Atorvastatin Calcium (Atorvastatin 40 Mg Tablet) 20 mg PO .COMPLEX [place] Dexamethasone (Dexamethasone 4 Mg Tablet) 6 mg PO DAILY [facility] Last Admin: 07/15/23 08:23 Dose: 6 mg Enoxaparin Sodium (Enoxaparin 40 Mg/0.4 Ml Syringe) 40 mg SUBCUT Q24H [facility] Last Admin: 07/13/23 23:14 Dose: 40 mg Hydralazine HCl (Hydralazine 20 Mg/Ml Inj 1 Ml) 5 mg IVP Q6H PRN PRN Reason: SBP > 160 Hydrochlorothiazide (Hydrochlorothiazide 25 Mg Tablet) 12.5 mg PO .COMPLEX [facility] Piperacillin Sod/Tazobactam (Sod 3.375 gm/ Sodium Chloride) 50 mls @ 12.5 mls/hr IV Q8H [facility] Last Admin: 07/15/23 06:36 Dose: 12.5 mls/hr Vancomycin/PEG/NADA/Lysine/Water (Vancocin) 1,250 mg in 250 mls @ 200 mls/hr IV Q12H [facility] Last Admin: 07/15/23 08:24 Dose: 200 mls/hr Doxycycline Hyclate 100 mg/ (Sodium Chloride) 100 mls @ 100 mls/hr IV Q12H [facility]; Protocol Last Infusion: 07/14/23 23:28 Dose: Infused Magnesium Oxide (Magnesium Oxide 400 Mg Tablet) 400 mg PO BID [facility] Last Admin: 07/15/23 08:24 Dose: 400 mg Morphine Sulfate (Morphine 4 Mg/Ml Sdv 1 Ml) 2 mg IVP Q4H PRN PRN Reason: SEVERE PAIN Naloxone HCl (Naloxone 0.4 Mg/Ml Sdv) 0.1 mg IVP Q2M PRN PRN Reason: OPIATERV Ondansetron HCl (Ondansetron 2 Mg/Ml Sdv 2 Ml) 4 mg IVP Q8H PRN PRN Reason: vomiting, or N/V if npo Last Admin: 07/13/23 17:49 Dose: 4 mg Pantoprazole Sodium (Pantoprazole Dr 40 Mg Tablet) 40 mg PO BID [facility] Last Admin: 07/15/23 08:24 Dose: 40 mg Sucralfate (Sucralfate 1 Gm Tablet) 1 gm PO BID [facility] Last Admin: 07/15/23 08:23 Dose: 1 gm Discontinued Medications Atenolol (Atenolol 50 Mg Tablet) 25 mg PO ONCE ONE Stop: 07/13/23 01:49 Last Admin: 07/13/23 04:51 Dose: Not Given Cyanocobalamin (Cyanocobalamin 1,000 Mcg/Ml Sdv) 1,000 mcg IM ONCE ONE Stop: 07/15/23 08:16 Dexamethasone (Dexamethasone 10 Mg/Ml Inj) 6 mg PO Q24H [facility] Last Admin: 07/14/23 18:49 Dose: Not Given Vancomycin/PEG/NADA/Lysine/Water (Vancocin) 1,250 mg in 250 mls @ 250 mls/hr IV ONCE ONE; Protocol Stop: 07/12/23 19:28 Last Infusion: 07/13/23 00:32 Dose: Infused Piperacillin Sod/Tazobactam (Sod 3.375 gm/ Sodium Chloride) 50 mls @ 100 mls/hr IV ONCE ONE; Protocol Stop: 07/12/23 18:58 Last Infusion: 07/12/23 20:11 Dose: Infused Sodium Chloride (Sodium Chloride 0.9%) 1,000 mls @ 100 mls/hr IV .Q10H [facility] Last Infusion: 07/13/23 12:24 Dose: Infused Piperacillin Sod/Tazobactam (Sod / Sodium Chloride) 50 mls @ 0 mls/hr [id number] CONT [place]; Protocol Vancomycin HCl / Sodium (Chloride) 250 mls @ 0 mls/hr [id number] PROTOCOL [place]; Protocol Lidocaine HCl 5 ml/ Potassium (Chloride) 105 mls @ 26.25 mls/hr IV Q4H [place] Stop: 07/13/23 17:59 Last Infusion: 07/14/23 03:35 Dose: Infused Magnesium Sulfate (Magnesium Sulfate Premix) 2 gm in 50 mls @ 50 mls/hr IV ONCE ONE Stop: 07/13/23 07:06 Last Infusion: 07/13/23 07:49 Dose: Infused Magnesium Sulfate/Dextrose (Magnesium Sulfate Premix) 1 gm in 100 mls @ 200 mls/hr IV ONCE ONE Stop: 07/14/23 12:30 Last Infusion: 07/14/23 16:56 Dose: Infused Iohexol (Iohexol 350 Mg/Ml 500 Ml Btl (Per Ml)) 0 ml IV ONCE ONE Stop: 07/12/23 18:32 Last Admin: 07/12/23 18:31 Dose: 100 ml Ketorolac Tromethamine (Ketorolac 30 Mg/Ml Inj) 30 mg IVP ONCE ONE Stop: 07/12/23 18:30 Last Admin: 07/12/23 19:19 Dose: 30 mg Pantoprazole Sodium (Pantoprazole 40 Mg Sdv) 40 mg IVP ONCE ONE Stop: 07/12/23 22:11 Last Admin: 07/12/23 23:18 Dose: 40 mg Pantoprazole Sodium (Pantoprazole Dr 40 Mg Tablet) 40 mg PO DAILY [place] Potassium Chloride (Potassium Chloride Er 20 Meq Tablet) 40 meq PO ONCE ONE Stop: 07/14/23 12:02 Last Admin: 07/14/23 12:41 Dose: 40 meq Allergies Sulfa (Sulfonamide Antibiotics) Allergy (Intermediate, Verified 07/12/23 14:06) hives adhesive tape Allergy (Verified 07/12/23 14:06) ALGY-Redness of Skin Home Medications calcium carbonate 600 mg calcium (1,500 mg) tablet (Calcium) 600 mg PO BID 02/27/22 [History Confirmed 07/13/23] ascorbic acid (vitamin C) 2,000 mg tablet,extended release 2,000 mg PO DAILY 03/10/22 [History Confirmed 07/13/23] cinnamon bark 500 mg capsule (Cinnamon) 500 mg PO DAILY 03/10/22 [History Confirmed 07/13/23] coenzyme Q10 100 mg capsule (CoQ-10) 100 mg PO DAILY 03/10/22 [History Confirmed 07/13/23] collagen,hydrolysate 500 mg-biotin 800 mcg-ascorbic acid 50 mg capsule (Collagen 1500 Plus C) 500 cap PO DAILY 03/10/22 [History Confirmed 07/13/23] magnesium 200 mg tablet 200 mg PO DAILY 03/10/22 [History Confirmed 07/13/23] potassium 99 mg tablet 99 mg PO DAILY 03/10/22 [History Confirmed 07/13/23] turmeric 400 mg capsule 800 mg PO DAILY 03/10/22 [History Confirmed 07/13/23] atenolol 25 mg tablet See Rx Instructions .Route .COMPLEX #180 tabs 07/09/22 [Rx Confirmed 07/13/23] hydrochlorothiazide 12.5 mg capsule See Rx Instructions .Route .COMPLEX #90 caps 01/27/23 [Rx Confirmed 07/13/23] lovastatin 40 mg tablet See Rx Instructions .Route .COMPLEX #90 tabs 01/27/23 [Rx Confirmed 07/13/23] azelastine 137 mcg (0.1 %) nasal spray aerosol 1 spray intranasal BID #30 mL 01/28/23 [Rx Confirmed 07/13/23] omeprazole 20 mg capsule,delayed release See Rx Instructions .Route .COMPLEX #90 caps 02/12/23 [Rx Confirmed 07/13/23] Licensing Engineer Brace #1 ea 03/09/23 [Rx Confirmed 07/13/23] amoxicillin 875 mg-potassium clavulanate 125 mg tablet 1 tab PO BID 07/02/23 [History Confirmed 07/13/23] benzocaine 15 mg-menthol 10 mg lozenges (Chloraseptic Max) 1 cat PO .q2 PRN throat pain #15 ea 07/02/23 [Rx Confirmed 07/13/23] levofloxacin 500 mg tablet 500 mg PO DAILY #10 tabs 07/08/23 [Rx Confirmed 07/13/23] Discharge Plan Discharge Patient Disposition: Xfer Other Condition: Stable Prescriptions: No Action calcium carbonate [Calcium 600] 600 mg calcium (1,500 mg) tablet 600 mg PO BID azelastine 137 mcg (0.1 %) aerosol,spray 1 spray intranasal BID Qty: 30 0RF Rx Instructions: administer into each nostril (DME) Licensing Engineer Brace See Rx Instructions .Route .MEDSUPPLY Qty: 1 0RF Rx Instructions: As directed amoxicillin-pot clavulanate 875-125 mg tablet 1 tab PO BID Chloraseptic Max 15-10 mg lozenge 1 cat PO .q2 PRN (Reason: throat pain) Qty: 15 0RF atenolol 25 mg tablet See Rx Instructions .ROUTE .COMPLEX Qty: 180 3RF Dose Instruction: TAKE 1 TABLET BY MOUTH TWICE A DAY Rx Instructions: TAKE 1 TABLET BY MOUTH TWICE A DAY lovastatin 40 mg tablet See Rx Instructions .ROUTE .COMPLEX Qty: 90 3RF Dose Instruction: TAKE 1 TABLET BY MOUTH EVERY DAY AT NIGHT Rx Instructions: TAKE 1 TABLET BY MOUTH EVERY DAY AT NIGHT hydrochlorothiazide 12.5 mg capsule See Rx Instructions .ROUTE .COMPLEX Qty: 90 3RF Dose Instruction: TAKE 1 CAPSULE BY MOUTH EVERY DAY Rx Instructions: TAKE 1 CAPSULE BY MOUTH EVERY DAY omeprazole 20 mg capsule,delayed release(DR/EC) See Rx Instructions .ROUTE .COMPLEX Qty: 90 3RF Dose Instruction: TAKE 1 CAPSULE BY MOUTH EVERY DAY Rx Instructions: TAKE 1 CAPSULE BY MOUTH EVERY DAY levofloxacin 500 mg tablet 500 mg PO DAILY Qty: 10 1RF ascorbic acid (vitamin C) 2,000 mg Tablet Extended Release 2,000 mg PO DAILY potassium 99 mg Tablet 99 mg PO DAILY magnesium 200 mg Tablet 200 mg PO DAILY coenzyme Q10 [CoQ-10] 100 mg Capsule 100 mg PO DAILY cinnamon bark [Cinnamon] 500 mg Capsule 500 mg PO DAILY turmeric 400 mg Capsule 800 mg PO DAILY Collagen 1500 Plus C 500 mg-800 mcg- 50 mg Capsule 500 cap PO DAILY Referrals: Nic Castro MD [Primary Care Provider] - Patient Instructions: Opioid Safety Transfer Attestations Time Spent in Transfer Care: greater than 30 min Quality Metrics Clinical Quality Measures [ No reported AMI, CVA or VTE this stay] Coding Level of Care Code Acute Code for g Fwd Diagnoses Pancytopenia D61.818 Hypertension I10 Prediabetes R73.03 Pharyngitis J02.9 Acute viral pharyngitis J02.9 GERD (gastroesophageal reflux disease) K21.9 Abdominal pain, left upper quadrant R10.12 Acute lower respiratory infection J22 Pneumonia J18.9 Laterality: left Lung location: lower lobe of lung Pneumonia type: due to unspecified organism Hypomagnesemia E83.42 Hypokalemia E87.6
[2023-07-15] MEDS: cyanocobalamin 1,000 mcg/mL SDV 1000 MCG IM (11:09)
[2023-07-16] VITALS (14 sets, daily range): BP systolic 119–170; BP diastolic 61–81; PULSE 70–81; RESP 16–18; TEMP 36.3–36.7; O2SAT 93–96
[2023-07-16 05:22] LABS: Hematocrit 22.6 % (36-47); Mean Corpuscular HGB Conc 31.9 g/dL (30-55); Mean Corpuscular Hemoglobin 29.5 pg (27-33); Mean Corpuscular Volume 92.6 fl (85-98); Mean Platelet Volume 10.8 fL (7.4-10.4); Platelet Count 68 10^3/cmm (157-399); Red Blood Count 2.44 10^6/uL (3.85-5.65); Red Cell Distribution Width 16.3 % (12.1-15.1)
[2023-07-16 05:59] LABS: Absolute Neutrophil 1.3 10^3/cmm (1.4-6.5); Absolute Segmented Neutrophil 1.2 10/cmm (1.6-7.1); Anisocytosis 1+; Band Neutrophils Absolute 0.1 10^3/cmm (0.0-1.2); Eosinophils 0 %; Lymphocytes 66 %; Monocytes Absolute 0.5 10^3/cmm (0.1-0.6); Platelet Estimate Decreased (Normal); Segmented Neutrophils 18 %; Slide Review Slide Review Perform; Total Cells Counted 100 (0-100)
[2023-07-16 06:00] LABS: Smudge Cells Trace
[2023-07-16] MEDS: piperacillin-tazobactam 3.375 GM in sodium chloride 0.9% (plus) 50 ML IV ×2 (06:31→18:23)
[2023-07-16] MEDS: magnesium oxide 400 mg tablet PO ×2 (08:46→18:23)
[2023-07-16] MEDS: sucralfate 1 gm Tablet PO ×2 (08:46→18:23)
[2023-07-16] MEDS: vancomycin 1,250 MG/250 ML PIGGYBACK 200 MG IV (08:47)
[2023-07-16] MEDS: dexamethasone 4 mg Tablet 6 MG PO (08:47)
[2023-07-16] MEDS: pantoprazole DR 40 mg Tablet PO ×2 (08:47→18:23)
--- NOTE | 2023-07-16 11:25 | PM.PN ---
Subjective Subjective: Hemoglobin is 7.2 we will give her 1 unit PRBC Platelet and neutrophils dropped as well No fever Continue antibiotics Will touch with [facility] for the bed Vitals/I&O/Wt Last Vital Signs Temp 97.8 F 07/16/23 10:55 Pulse 72 07/16/23 10:55 Resp 18 07/16/23 10:55 BP 160/71 07/16/23 10:55 Pulse Ox 93 07/16/23 08:12 O2 Del Method Room Air 07/16/23 08:12 07/15/23 07/16/23 07/16/23 22:59 06:59 14:59 Intake Total 660 / 1440 650 / 2090 780 / 780 Balance 660 / 1440 650 / 2090 780 / 780 Weight last 48 hrs Weight 115.439 kg Weight 116.148 kg Physical Exam Narrative: Awake and alert GCS 15 Pleasant cooperative Sore throat improved No active complaints Blood pressure stable Data 07/16/23 05:00 07/15/23 04:33 Micro: Microbiology 07/14/23 12:42 Group A Streptococcus Rapid Screen - Preliminary Throat 07/12/23 19:48 Blood Culture - Preliminary Blood 07/12/23 19:43 Blood Culture - Preliminary Blood A&P Assessment and plan (1) Hypertension: (2) Prediabetes: (3) Pharyngitis: (4) Leukemia: (5) Pancytopenia: (6) Neutropenia: Plan I will give her 1 unit PRBC and 1 bag of platelets Awaiting transfer Continue antibiotics Blood pressure stable Holding antihypertensive regimen Full code Holding DVT prophylaxis Patient is getting neutropenic It is at best interest of patient to get her transferred as soon as possible She is still on a waiting list at [facility] Attestations Medical Necessity Statement*: Continue medical management Diagnoses Hypertension I10 Prediabetes R73.03 Pharyngitis J02.9 Leukemia C95.90 Pancytopenia D61.818 Neutropenia D70.9
--- NOTE | 2023-07-16 12:37 | PC.SOCIAL ---
IMM Updated Updated pt on IMM. No questions voiced. Provided pt a copy. Initialed, dated, & timed copy in chart.
[2023-07-16 15:14] LABS: Lyme AB Screen <0.90 index
[2023-07-16 18:00] LABS: SARS Covid-2 Antigen negative (Negative)
--- NOTE | 2023-07-16 19:19 | PC.NURSE ---
Report called to Kaylene DIAZ at [place].
[2023-07-16 19:53] LABS: Vancomycin Trough 17.5 ug/mL (10-15)
--- NOTE | 2023-07-16 20:33 | PC.NURSE ---
[facility] here to transport patient to [facility]. Pt is in stable condition at this time. Pt's belongings sent with patient, family member at side.
[2023-07-18 16:04] LABS: E. Chaffeensis AB IGG <1:64; E. Chaffeensis AB IGM <1:20
[2023-07-20 21:40] LABS: RMSF IGG NOT DETECTED; RMSF IGM NOT DETECTED
[2023-07-22 08:40] LABS: Fibrinogen Degradation Product 20 mcg/mL (LESS THAN 5)
== END 2023-07-16 20:30 | disposition short-term general hospital (02) | DRG 194 ==
LOC: ER 20:52 → MEDSURG 23:38
PROVIDERS: Physician Assistant; Student in an Organized Health Care Education/Training Program; Admitting Provider Student in an Organized Health Care Education/Training Program; Emergency Provider Internal Medicine; PCP Family Medicine; Visit Provider Internal Medicine
DX: J18.9 Pneumonia, unspecified organism (principal); C92.00 Acute myeloblastic leukemia, not having achieved remission; D61.818 Other pancytopenia; Z87.891 Personal history of nicotine dependence; I10 Essential (primary) hypertension; R73.03 Prediabetes; K21.00 Gastro-esophageal reflux disease with esophagitis, without bleeding; J02.9 Acute pharyngitis, unspecified; E83.42 Hypomagnesemia; E87.6 Hypokalemia; J22 Unspecified acute lower respiratory infection
CPT/HCPCS: 36415; 36430; 71045; 71250; 74177; 80048; 80053; 80202; 80503; 81001; 82607; 82746; 83010; 83036; 83540; 83615; 83735; 84145; 84484; 85007; 85025; 85045; 85362; 85378; 85384; 85610; 85730; 86140; 86308; 86618; 86664; 86665; 86666; 86757; 86850; 86880; 86900; 86920; 87040; 87081; 87426; 87449; 87641; 87804; 87880; 93005; 96365; 96367; 96372; 96375; 99285; C9113; G0378; J1650; J1885; J2405; J2543; J3370; J3420; J3475; J3480; J3490; J7030; J8540; P9016; P9055; Q9967

== ENCOUNTER 2023-09-02 12:30 | Oncology outpatient (recurring) (ONCR) | payer MEDICARE, SELFPAY ==
[2023-08-30 10:27] LABS: Basophils # 0.3 10^3/uL (0.0-0.1); Basophils % 2.2 %; Eosinophils # 0.1 10^3/uL (0.0-0.8); Hematocrit 32.6 % (36-47); Lymphocytes # 0.8 10^3/uL (0.8-4.8); Lymphocytes % 7.1 %; Mean Corpuscular HGB Conc 32.5 g/dL (30-55); Mean Corpuscular Volume 89.3 fl (85-98); Mean Platelet Volume 10.3 fL (7.4-10.4); Monocytes # 2.1 10^3/uL (0.2-0.9); Monocytes % 18.4 %; Neutrophils # 7.85 10^3/uL (1.8-7.7); Neutrophils % 67.5 %; Nucleated Red Blood Cells % 0 %; Platelet Count 770 10^3/cmm (157-399); Red Blood Count 3.65 10^6/uL (3.85-5.65); Red Cell Distribution Width 18.9 % (12.1-15.1); White Blood Count 11.64 10^3/uL (3.29-11.43)
[2023-08-30 10:37] LABS: Alanine Aminotransferase 24 U/L (0-33); Albumin Level 3.4 g/dL (3.5-5.2); Alkaline Phosphatase 92 U/L (35-105); Anion Gap 17.9 (5-19); Aspartate Amino Transferase 24 U/L (0-32); Blood Urea Nitrogen 7 mg/dL (8-23); Carbon Dioxide 20 mmol/L (22-29); Chloride 108 mmol/L (98-107); Creatinine Clr Calc Pharmacy 79.5283; Globulin 3.4 g/dL (1.3-4.6); Glomerular Filtration Rate 83.5 mL/min (90-130); Glucose 103 mg/dL (65-115); Lactate Dehydrogenase 368 U/L (135-214); Osmolality Calculated 294 mOsm/kg (285-295); Sodium 143 mmol/L (136-145); Total Bilirubin 0.6 mg/dL (0.15-1.2); Total Protein 6.8 g/dL (6.6-8.7)
[2023-08-30 10:39] LABS: Potassium 2.9 mmol/L (3.5-5.1)
[2023-09-01] MEDS: sodium chlor 0.9% + KCl 40 mEq 40 MEQ/1,000 ML BAG 250 MEQ IV (14:54)
[2023-09-01 15:03] VITALS: BP 138/67; PULSE 76; RESP 18; TEMP 36.4; O2SAT 94
[2023-09-01 15:07] LABS: Anion Gap 19.6 (5-19); Blood Urea Nitrogen 6 mg/dL (8-23); Calcium 6.5 mg/dL (8.5-10.5); Carbon Dioxide 21 mmol/L (22-29); Chloride 103 mmol/L (98-107); Creatinine Clr Calc Pharmacy 79.5283; Glomerular Filtration Rate 123.1 mL/min (90-130); Glucose 136 mg/dL (65-115); Osmolality Calculated 292 mOsm/kg (285-295); Sodium 141 mmol/L (136-145)
[2023-09-01 15:31] LABS: Magnesium 0.4 mg/dL (1.7-2.3); Potassium 2.6 mmol/L (3.5-5.1)
[2023-09-01] MEDS: ondansetron 2 mg/ML SDV 2 mL 8 MG IVP (17:01)
[2023-09-01] MEDS: magnesium sulfate premix 1 GM/100 ML PIGGYBACK IV (17:21)
[2023-09-01 17:57] VITALS: BP 130/80; PULSE 77; RESP 16; TEMP 36.6; O2SAT 97
--- NOTE | 2023-09-01 18:01 | PC.NURSE ---
Central line dressing change completed on pt via sterile technique. No redness or irritation noted. Blood return from both lumens, flushed with saline and heparin. Pt tolerated well. JW
[2023-09-02] MEDS: sodium chlor 0.9% + KCl 40 mEq 40 MEQ/1,000 ML BAG 250 MEQ IV (12:25)
[2023-09-02] MEDS: magnesium sulfate premix 2 GM/50 ML PIGGYBACK IV (12:26)
[2023-09-02 15:04] VITALS: BP 140/76; PULSE 73; RESP 16; TEMP 36.6; O2SAT 97
== END 2023-09-02 23:59 | disposition home or self-care (01) ==
PROVIDERS: PCP Family Medicine; Visit Provider Internal Medicine Medical Oncology
DX: C95.90 Leukemia, unspecified not having achieved remission (principal); Z53.9 Procedure and treatment not carried out, unspecified reason
CPT/HCPCS: 36415; 80048; 80053; 83615; 83735; 85025; 96365; 96366; 96367; 96375; 99204; J1100; J1642; J2405; J3475

== ENCOUNTER 2023-09-30 09:00 | Oncology outpatient (recurring) (ONCR) | payer MEDICARE, SELFPAY ==
[2023-09-13 13:53] VITALS: BP 119/76; PULSE 72; TEMP 36.1; O2SAT 98
[2023-09-13 13:58] LABS: Basophils % 0.5 %; Eosinophils # 0.1 10^3/uL (0.0-0.8); Eosinophils % 1.5 %; Hematocrit 30.2 % (36-47); Lymphocytes # 0.4 10^3/uL (0.8-4.8); Lymphocytes % 4.8 %; Mean Corpuscular HGB Conc 31.5 g/dL (30-55); Mean Corpuscular Hemoglobin 29.1 pg (27-33); Mean Corpuscular Volume 92.6 fl (85-98); Mean Platelet Volume 10.3 fL (7.4-10.4); Monocytes % 0.1 %; Neutrophils # 6.96 10^3/uL (1.8-7.7); Neutrophils % 92.4 %; Nucleated Red Blood Cells % 0 %; Platelet Count 206 10^3/cmm (157-399); Red Blood Count 3.26 10^6/uL (3.85-5.65); Red Cell Distribution Width 17.2 % (12.1-15.1); White Blood Count 7.53 10^3/uL (3.29-11.43)
[2023-09-13 14:19] LABS: Alanine Aminotransferase 46 U/L (0-33); Albumin Level 3.5 g/dL (3.5-5.2); Alkaline Phosphatase 76 U/L (35-105); Anion Gap 16.9 (5-19); Aspartate Amino Transferase 37 U/L (0-32); Blood Urea Nitrogen 23 mg/dL (8-23); Calcium 8.7 mg/dL (8.5-10.5); Carbon Dioxide 22 mmol/L (22-29); Chloride 103 mmol/L (98-107); Globulin 2.9 g/dL (1.3-4.6); Glomerular Filtration Rate 71.5 mL/min (90-130); Glucose 118 mg/dL (65-115); Magnesium 1.4 mg/dL (1.7-2.3); Osmolality Calculated 291 mOsm/kg (285-295); Potassium 3.9 mmol/L (3.5-5.1); Sodium 138 mmol/L (136-145); Total Bilirubin 1.1 mg/dL (0.15-1.2); Total Protein 6.4 g/dL (6.6-8.7)
[2023-09-13 14:21] LABS: Slide Review Slide Review Perform
[2023-09-16 08:08] LABS: Basophils # 0.1 10^3/uL (0.0-0.1); Basophils % 0.6 %; Eosinophils # 0.1 10^3/uL (0.0-0.8); Eosinophils % 1.2 %; Hematocrit 27.9 % (36-47); Lymphocytes # 0.4 10^3/uL (0.8-4.8); Mean Corpuscular HGB Conc 32.3 g/dL (30-55); Mean Corpuscular Hemoglobin 29.4 pg (27-33); Mean Corpuscular Volume 91.2 fl (85-98); Mean Platelet Volume 10.4 fL (7.4-10.4); Monocytes % 0.3 %; Neutrophils # 8.28 10^3/uL (1.8-7.7); Neutrophils % 87.8 %; Nucleated Red Blood Cells % 0 %; Platelet Count 83 10^3/cmm (157-399); Red Blood Count 3.06 10^6/uL (3.85-5.65); Red Cell Distribution Width 16.8 % (12.1-15.1); White Blood Count 9.44 10^3/uL (3.29-11.43)
[2023-09-16 08:39] LABS: Alanine Aminotransferase 43 U/L (0-33); Albumin Level 3.6 g/dL (3.5-5.2); Alkaline Phosphatase 94 U/L (35-105); Anion Gap 19.4 (5-19); Aspartate Amino Transferase 20 U/L (0-32); Blood Urea Nitrogen 20 mg/dL (8-23); Calcium 8.8 mg/dL (8.5-10.5); Carbon Dioxide 18 mmol/L (22-29); Chloride 106 mmol/L (98-107); Globulin 2.9 g/dL (1.3-4.6); Glomerular Filtration Rate 99.7 mL/min (90-130); Glucose 123 mg/dL (65-115); Osmolality Calculated 294 mOsm/kg (285-295); Potassium 3.4 mmol/L (3.5-5.1); Sodium 140 mmol/L (136-145); Total Bilirubin 0.6 mg/dL (0.15-1.2); Total Protein 6.5 g/dL (6.6-8.7)
[2023-09-16 08:40] LABS: Slide Review Slide Review Perform
[2023-09-16] MEDS: potassium chloride 20 MEQ in sodium chloride 0.9% 500 ML 500 MEQ IV (09:45)
--- NOTE | 2023-09-16 11:50 | PC.NURSE ---
Changed pts central line via sterile technique. Small amount of redness noted to insertion site. No pain or burning around site. Good blood return from both lumens. Pt tolerated well. Educated pt on monitoring central line for infection. JW
[2023-09-20] VITALS (14 sets, daily range): BP systolic 93–143; BP diastolic 51–81; PULSE 87–130; RESP 16–20; TEMP 36.2–36.8; O2SAT 97–100
[2023-09-20 08:10] LABS: Basophils % 2.3 %; Eosinophils # 0.2 10^3/uL (0.0-0.8); Eosinophils % 17.4 %; Hematocrit 23.5 % (36-47); Lymphocytes # 0.3 10^3/uL (0.8-4.8); Lymphocytes % 34.9 %; Mean Corpuscular HGB Conc 33.2 g/dL (30-55); Mean Corpuscular Hemoglobin 28.9 pg (27-33); Monocytes # 0.2 10^3/uL (0.2-0.9); Monocytes % 19.8 %; Neutrophils % 25.6 %; Nucleated Red Blood Cells % 0 %; Red Cell Distribution Width 15.5 % (12.1-15.1)
[2023-09-20 08:38] LABS: Alanine Aminotransferase 25 U/L (0-33); Albumin Level 3.5 g/dL (3.5-5.2); Alkaline Phosphatase 82 U/L (35-105); Anion Gap 17.7 (5-19); Aspartate Amino Transferase 11 U/L (0-32); Blood Urea Nitrogen 13 mg/dL (8-23); Calcium 8.2 mg/dL (8.5-10.5); Carbon Dioxide 17 mmol/L (22-29); Chloride 101 mmol/L (98-107); Globulin 2.7 g/dL (1.3-4.6); Glomerular Filtration Rate 99.7 mL/min (90-130); Glucose 165 mg/dL (65-115); Osmolality Calculated 280 mOsm/kg (285-295); Sodium 133 mmol/L (136-145); Total Bilirubin 0.5 mg/dL (0.15-1.2); Total Protein 6.2 g/dL (6.6-8.7)
[2023-09-20 08:56] LABS: Neutrophils # 0.22 10^3/uL (1.8-7.7); Platelet Count 3 10^3/cmm (157-399); Potassium 2.7 mmol/L (3.5-5.1); White Blood Count 0.86 10^3/uL (3.29-11.43)
[2023-09-20 09:06] LABS: Slide Review Slide Review Perform
[2023-09-20] MEDS: sodium chlor 0.9% + KCl 40 mEq 40 MEQ/1,000 ML BAG 350 MEQ IV (09:24)
[2023-09-20] MEDS: sodium chloride 0.9% 250 mL Bag IV (11:36)
[2023-09-20] MEDS: acetaminophen 325 mg Tablet 650 MG PO (11:37)
[2023-09-20] MEDS: diphenhydrAMINE 25 mg Capsule PO (11:37)
[2023-09-20] MEDS: FUROsemide 10 mg/mL SDV 2mL 20 MG IVP (13:41)
[2023-09-23 08:45] LABS: Basophils % 0.6 %; Eosinophils # 0.3 10^3/uL (0.0-0.8); Eosinophils % 4.4 %; Hematocrit 29.3 % (36-47); Lymphocytes # 0.6 10^3/uL (0.8-4.8); Lymphocytes % 9.7 %; Mean Corpuscular HGB Conc 33.8 g/dL (30-55); Mean Corpuscular Hemoglobin 29.2 pg (27-33); Mean Corpuscular Volume 86.4 fl (85-98); Monocytes # 0.7 10^3/uL (0.2-0.9); Monocytes % 11.7 %; Neutrophils # 4.13 10^3/uL (1.8-7.7); Neutrophils % 66.8 %; Nucleated Red Blood Cells % 0.3 %; Platelet Count 43 10^3/cmm (157-399); Red Blood Count 3.39 10^6/uL (3.85-5.65); Red Cell Distribution Width 15.4 % (12.1-15.1); White Blood Count 6.18 10^3/uL (3.29-11.43)
[2023-09-23 09:01] LABS: Alanine Aminotransferase 25 U/L (0-33); Albumin Level 3.5 g/dL (3.5-5.2); Alkaline Phosphatase 88 U/L (35-105); Anion Gap 16.8 (5-19); Aspartate Amino Transferase 15 U/L (0-32); Blood Urea Nitrogen 9 mg/dL (8-23); Calcium 7.3 mg/dL (8.5-10.5); Carbon Dioxide 21 mmol/L (22-29); Chloride 111 mmol/L (98-107); Globulin 2.7 g/dL (1.3-4.6); Glomerular Filtration Rate 99.7 mL/min (90-130); Glucose 139 mg/dL (65-115); Osmolality Calculated 303 mOsm/kg (285-295); Sodium 146 mmol/L (136-145); Total Bilirubin 0.5 mg/dL (0.15-1.2); Total Protein 6.2 g/dL (6.6-8.7)
[2023-09-23 09:09] LABS: Potassium 2.8 mmol/L (3.5-5.1)
[2023-09-23 09:20] LABS: Slide Review Slide Review Perform
[2023-09-23] MEDS: sodium chlor 0.9% + KCl 40 mEq 40 MEQ/1,000 ML BAG 500 MEQ IV (09:58)
[2023-09-23 10:05] LABS: Magnesium 0.3 mg/dL (1.7-2.3)
[2023-09-23] MEDS: magnesium sulfate premix 2 GM/50 ML PIGGYBACK IV (10:35)
[2023-09-23 12:57] VITALS: BP 147/78; PULSE 16; RESP 91; O2SAT 98
--- NOTE | 2023-09-23 13:24 | PC.NURSE ---
central line dressing change performed by this RN using sterile technique. Site cleansed with chlorparep, skin prep applied and new tegaderm dressing applied. dressing labeled with date and time. Insertion site noted to have redness, central line assess by Dr. Ramos. double lumens flushed with normal saline, blood return noted on both. Caps changed and end caps placed. Sutures still in place. Patient denies any discomfort.
[2023-09-24 08:27] VITALS: BP 137/82; PULSE 73; RESP 18; TEMP 36.4; O2SAT 94
[2023-09-24] MEDS: magnesium sulfate premix 2 GM/50 ML PIGGYBACK IV (08:29)
[2023-09-24] MEDS: sodium chlor 0.9% + KCl 40 mEq 40 MEQ/1,000 ML BAG 500 MEQ IV (08:30)
[2023-09-24 10:46] VITALS: BP 139/81; PULSE 79; RESP 16; TEMP 36.4; O2SAT 95
[2023-09-27 08:27] LABS: Basophils # 0.1 10^3/uL (0.0-0.1); Basophils % 1.1 %; Eosinophils # 0.2 10^3/uL (0.0-0.8); Eosinophils % 3.8 %; Hematocrit 28.4 % (36-47); Lymphocytes # 0.6 10^3/uL (0.8-4.8); Lymphocytes % 14.4 %; Mean Corpuscular HGB Conc 32.4 g/dL (30-55); Mean Corpuscular Hemoglobin 28.8 pg (27-33); Mean Platelet Volume 11.6 fL (7.4-10.4); Monocytes # 0.4 10^3/uL (0.2-0.9); Monocytes % 9.9 %; Neutrophils # 3.09 10^3/uL (1.8-7.7); Neutrophils % 69.5 %; Nucleated Red Blood Cells % 0 %; Platelet Count 132 10^3/cmm (157-399); Red Blood Count 3.19 10^6/uL (3.85-5.65); Red Cell Distribution Width 16.4 % (12.1-15.1); White Blood Count 4.45 10^3/uL (3.29-11.43)
[2023-09-27 08:38] LABS: Alanine Aminotransferase 20 U/L (0-33); Albumin Level 3.3 g/dL (3.5-5.2); Alkaline Phosphatase 84 U/L (35-105); Anion Gap 14.1 (5-19); Aspartate Amino Transferase 18 U/L (0-32); Blood Urea Nitrogen 5 mg/dL (8-23); Carbon Dioxide 21 mmol/L (22-29); Chloride 110 mmol/L (98-107); Globulin 2.7 g/dL (1.3-4.6); Glomerular Filtration Rate 123.1 mL/min (90-130); Glucose 145 mg/dL (65-115); Osmolality Calculated 294 mOsm/kg (285-295); Potassium 3.1 mmol/L (3.5-5.1); Sodium 142 mmol/L (136-145); Total Bilirubin 0.4 mg/dL (0.15-1.2)
[2023-09-27 08:46] LABS: Magnesium 0.5 mg/dL (1.7-2.3)
[2023-09-27] MEDS: sodium chlor 0.9% + KCl 40 mEq 40 MEQ/1,000 ML BAG 250 MEQ IV (09:42)
[2023-09-27] MEDS: magnesium sulfate premix 2 GM/50 ML PIGGYBACK IV (09:43)
[2023-09-27 12:18] VITALS: BP 135/82; PULSE 77; O2SAT 100
[2023-09-28] MEDS: sodium chlor 0.9% + KCl 20 mEq 20 MEQ/1,000 ML BAG 999 MEQ IV (08:20)
[2023-09-28] MEDS: magnesium sulfate premix 2 GM/50 ML PIGGYBACK IV (08:24)
[2023-09-28 09:35] VITALS: BP 146/82; PULSE 86; RESP 17; TEMP 36.4; O2SAT 95
--- NOTE | 2023-09-30 09:16 | PC.NURSE ---
central line dressing changed by this RN with sterile technique, chloraprep used to cleanse site, small amount of redness noted at insertion site. no drainage, pain or burning. blood return noted from both lumens. claves changed on both lumens and new caps placed. bioocclusive dressing placed.
[2023-09-30 09:34] LABS: Basophils # 0.1 10^3/uL (0.0-0.1); Basophils % 1.3 %; Eosinophils # 0.1 10^3/uL (0.0-0.8); Eosinophils % 1.1 %; Hematocrit 29.9 % (36-47); Lymphocytes # 0.9 10^3/uL (0.8-4.8); Lymphocytes % 19.5 %; Mean Corpuscular HGB Conc 33.4 g/dL (30-55); Mean Corpuscular Hemoglobin 30.2 pg (27-33); Mean Corpuscular Volume 90.3 fl (85-98); Mean Platelet Volume 10.7 fL (7.4-10.4); Monocytes # 0.5 10^3/uL (0.2-0.9); Monocytes % 10.4 %; Neutrophils # 3.11 10^3/uL (1.8-7.7); Neutrophils % 67.3 %; Nucleated Red Blood Cells % 0 %; Platelet Count 208 10^3/cmm (157-399); Red Blood Count 3.31 10^6/uL (3.85-5.65); Red Cell Distribution Width 17.6 % (12.1-15.1); White Blood Count 4.62 10^3/uL (3.29-11.43)
[2023-09-30 09:57] LABS: Alanine Aminotransferase 21 U/L (0-33); Albumin Level 3.6 g/dL (3.5-5.2); Alkaline Phosphatase 103 U/L (35-105); Anion Gap 16.6 (5-19); Aspartate Amino Transferase 19 U/L (0-32); Blood Urea Nitrogen 9 mg/dL (8-23); Calcium 9.4 mg/dL (8.5-10.5); Carbon Dioxide 21 mmol/L (22-29); Chloride 107 mmol/L (98-107); Globulin 2.7 g/dL (1.3-4.6); Glomerular Filtration Rate 99.7 mL/min (90-130); Glucose 148 mg/dL (65-115); Osmolality Calculated 293 mOsm/kg (285-295); Potassium 3.6 mmol/L (3.5-5.1); Sodium 141 mmol/L (136-145); Total Bilirubin 0.3 mg/dL (0.15-1.2); Total Protein 6.3 g/dL (6.6-8.7)
== END 2023-10-03 23:59 | disposition home or self-care (01) ==
PROVIDERS: Internal Medicine Medical Oncology; PCP Family Medicine; Visit Provider Internal Medicine Medical Oncology
DX: C92.00 Acute myeloblastic leukemia, not having achieved remission (principal); Z53.9 Procedure and treatment not carried out, unspecified reason
CPT/HCPCS: 36430; 36592; 80053; 83735; 85025; 86850; 86900; 86920; 96360; 96361; 96365; 96366; 96367; 96368; 96372; 96375; J1642; J1940; J3475; J3480; J7040; J7050; P9037; P9040; Q5111

== ENCOUNTER 2023-10-28 08:00 | Oncology outpatient (recurring) (ONCR) | payer MEDICARE, SELFPAY ==
[2023-10-04 08:03] VITALS: BP 146/88; PULSE 102; RESP 16; TEMP 36.6; O2SAT 98
[2023-10-04 08:14] LABS: Basophils # 0.1 10^3/uL (0.0-0.1); Eosinophils % 0.4 %; Hematocrit 30.8 % (36-47); Lymphocytes # 1.3 10^3/uL (0.8-4.8); Lymphocytes % 26.8 %; Mean Corpuscular HGB Conc 33.1 g/dL (30-55); Mean Corpuscular Hemoglobin 30.4 pg (27-33); Mean Corpuscular Volume 91.7 fl (85-98); Mean Platelet Volume 9.7 fL (7.4-10.4); Monocytes # 0.7 10^3/uL (0.2-0.9); Monocytes % 14.7 %; Neutrophils % 56.3 %; Nucleated Red Blood Cells % 0 %; Platelet Count 228 10^3/cmm (157-399); Red Blood Count 3.36 10^6/uL (3.85-5.65); Red Cell Distribution Width 19.1 % (12.1-15.1); White Blood Count 4.97 10^3/uL (3.29-11.43)
[2023-10-04 08:34] LABS: Alanine Aminotransferase 24 U/L (0-33); Albumin Level 3.8 g/dL (3.5-5.2); Alkaline Phosphatase 74 U/L (35-105); Anion Gap 17.7 (5-19); Aspartate Amino Transferase 21 U/L (0-32); Blood Urea Nitrogen 14 mg/dL (8-23); Calcium 9.6 mg/dL (8.5-10.5); Carbon Dioxide 22 mmol/L (22-29); Chloride 109 mmol/L (98-107); Globulin 3.1 g/dL (1.3-4.6); Glomerular Filtration Rate 71.5 mL/min (90-130); Glucose 147 mg/dL (65-115); Osmolality Calculated 303 mOsm/kg (285-295); Potassium 3.7 mmol/L (3.5-5.1); Sodium 145 mmol/L (136-145); Total Bilirubin 0.3 mg/dL (0.15-1.2); Total Protein 6.9 g/dL (6.6-8.7)
[2023-10-04 08:35] LABS: Magnesium 0.7 mg/dL (1.7-2.3)
[2023-10-04] MEDS: magnesium sulfate premix 2 GM/50 ML PIGGYBACK IV (08:51)
[2023-10-04 09:57] VITALS: BP 131/82; PULSE 80; RESP 16; TEMP 36.4; O2SAT 99
[2023-10-11 08:16] LABS: Lymphocytes # 0.4 10^3/uL (0.8-4.8); Lymphocytes % 15.3 %; Mean Corpuscular HGB Conc 33.2 g/dL (30-55); Mean Corpuscular Hemoglobin 30.3 pg (27-33); Mean Corpuscular Volume 91.2 fl (85-98); Mean Platelet Volume 9.3 fL (7.4-10.4); Neutrophils # 2.14 10^3/uL (1.8-7.7); Neutrophils % 83.9 %; Nucleated Red Blood Cells % 0 %; Platelet Count 183 10^3/cmm (157-399); Red Cell Distribution Width 18.3 % (12.1-15.1); White Blood Count 2.55 10^3/uL (3.29-11.43)
--- NOTE | 2023-10-11 08:16 | PC.NURSE ---
central line dressing changed performed using sterile technique. cleaned with chloraprep, clave and caps changed. no redness or drainage noted. covered with tegaderm. sutures in place. patient denies any pain. blood return from both lumens. patient tolerated well.
[2023-10-11 08:30] LABS: Alanine Aminotransferase 27 U/L (0-33); Albumin Level 3.8 g/dL (3.5-5.2); Alkaline Phosphatase 70 U/L (35-105); Anion Gap 18.7 (5-19); Aspartate Amino Transferase 23 U/L (0-32); Blood Urea Nitrogen 22 mg/dL (8-23); Calcium 9.6 mg/dL (8.5-10.5); Carbon Dioxide 19 mmol/L (22-29); Chloride 104 mmol/L (98-107); Glomerular Filtration Rate 83.5 mL/min (90-130); Glucose 128 mg/dL (65-115); Osmolality Calculated 291 mOsm/kg (285-295); Potassium 3.7 mmol/L (3.5-5.1); Sodium 138 mmol/L (136-145); Total Bilirubin 0.6 mg/dL (0.15-1.2); Total Protein 6.8 g/dL (6.6-8.7)
[2023-10-11 09:17] LABS: Slide Review Slide Review Perform
[2023-10-11 09:41] LABS: Lactate Dehydrogenase 261 U/L (135-214)
[2023-10-11 10:11] VITALS: BP 142/82; PULSE 69; RESP 16; TEMP 36.3; O2SAT 97
[2023-10-14 08:18] LABS: Lymphocytes # 0.3 10^3/uL (0.8-4.8); Lymphocytes % 58.8 %; Mean Corpuscular Hemoglobin 30.1 pg (27-33); Mean Corpuscular Volume 91.2 fl (85-98); Mean Platelet Volume 9.2 fL (7.4-10.4); Neutrophils % 37.2 %; Nucleated Red Blood Cells % 0 %; Platelet Count 49 10^3/cmm (157-399); Red Blood Count 2.96 10^6/uL (3.85-5.65); Red Cell Distribution Width 17.3 % (12.1-15.1)
[2023-10-14 08:48] LABS: Alanine Aminotransferase 25 U/L (0-33); Albumin Level 3.6 g/dL (3.5-5.2); Alkaline Phosphatase 72 U/L (35-105); Anion Gap 16.5 (5-19); Aspartate Amino Transferase 14 U/L (0-32); Blood Urea Nitrogen 15 mg/dL (8-23); Calcium 9.1 mg/dL (8.5-10.5); Carbon Dioxide 21 mmol/L (22-29); Chloride 108 mmol/L (98-107); Globulin 2.5 g/dL (1.3-4.6); Glomerular Filtration Rate 83.5 mL/min (90-130); Glucose 143 mg/dL (65-115); Osmolality Calculated 297 mOsm/kg (285-295); Potassium 3.5 mmol/L (3.5-5.1); Sodium 142 mmol/L (136-145); Total Bilirubin 0.4 mg/dL (0.15-1.2); Total Protein 6.1 g/dL (6.6-8.7)
[2023-10-14 09:05] LABS: Neutrophils # 0.19 10^3/uL (1.8-7.7); White Blood Count 0.51 10^3/uL (3.29-11.43)
[2023-10-14 09:07] LABS: Slide Review Slide Review Perform
[2023-10-14] MEDS: magnesium sulfate premix 2 GM/50 ML PIGGYBACK IV (09:37)
[2023-10-14 09:43] VITALS: BP 136/80; PULSE 73; RESP 15; TEMP 36.8; O2SAT 96
[2023-10-14 10:28] VITALS: BP 115/59; PULSE 72; O2SAT 96
[2023-10-15] MEDS: magnesium sulfate premix 2 GM/50 ML PIGGYBACK IV (07:48)
[2023-10-15 07:55] VITALS: BP 138/80; PULSE 97; RESP 16; TEMP 36.2; O2SAT 97
--- NOTE | 2023-10-18 08:14 | PC.NURSE ---
Central Line Dressing Change Central line dressing changed using sterile technique. Cleaned with chloraprep, claves and caps changed. No redness or drainage noted. Covered with occlusive dressing. Sutures in place. Blood return from both lumens. Patient tolerated well.
[2023-10-18 08:32] LABS: Basophils % 1.6 %; Eosinophils % 0.4 %; Lymphocytes # 0.4 10^3/uL (0.8-4.8); Lymphocytes % 16.5 %; Mean Corpuscular HGB Conc 33.5 g/dL (30-55); Mean Corpuscular Hemoglobin 29.6 pg (27-33); Mean Corpuscular Volume 88.4 fl (85-98); Monocytes # 0.5 10^3/uL (0.2-0.9); Monocytes % 21.3 %; Neutrophils # 1.43 10^3/uL (1.8-7.7); Nucleated Red Blood Cells % 0 %; Red Blood Count 2.94 10^6/uL (3.85-5.65); Red Cell Distribution Width 16.3 % (12.1-15.1); White Blood Count 2.49 10^3/uL (3.29-11.43)
[2023-10-18 08:50] LABS: Alanine Aminotransferase 19 U/L (0-33); Albumin Level 3.6 g/dL (3.5-5.2); Alkaline Phosphatase 77 U/L (35-105); Anion Gap 17.6 (5-19); Aspartate Amino Transferase 15 U/L (0-32); Blood Urea Nitrogen 9 mg/dL (8-23); Calcium 9.5 mg/dL (8.5-10.5); Carbon Dioxide 19 mmol/L (22-29); Chloride 105 mmol/L (98-107); Globulin 3.3 g/dL (1.3-4.6); Glomerular Filtration Rate 71.5 mL/min (90-130); Glucose 196 mg/dL (65-115); Osmolality Calculated 290 mOsm/kg (285-295); Potassium 3.6 mmol/L (3.5-5.1); Sodium 138 mmol/L (136-145); Total Bilirubin 0.3 mg/dL (0.15-1.2); Total Protein 6.9 g/dL (6.6-8.7)
[2023-10-18 08:59] LABS: Magnesium 0.9 mg/dL (1.7-2.3)
[2023-10-18] MEDS: magnesium sulfate premix 2 GM/50 ML PIGGYBACK IV (09:10)
[2023-10-18 09:24] LABS: Neutrophils % 60.2 %; Slide Review Slide Review Perform
[2023-10-18 09:25] LABS: Platelet Count 6 10^3/cmm (157-399)
[2023-10-18] MEDS: acetaminophen 325 mg Tablet 650 MG PO (14:26)
[2023-10-18] MEDS: diphenhydrAMINE 25 mg Capsule PO (14:26)
[2023-10-18 14:55] VITALS: BP 118/73; PULSE 87; RESP 16; TEMP 36.8
[2023-10-18 15:08] VITALS: BP 116/72; PULSE 85; RESP 16; TEMP 36.6; O2SAT 94
[2023-10-18 15:10] VITALS: BP 116/72; PULSE 85; RESP 16; TEMP 36.6; O2SAT 94
[2023-10-21] VITALS (9 sets, daily range): BP systolic 114–136; BP diastolic 61–78; PULSE 73–98; RESP 17–18; TEMP 36–36.6; O2SAT 95–99
[2023-10-21 08:31] LABS: Hematocrit 22.7 % (36-47); Mean Corpuscular HGB Conc 33.9 g/dL (30-55); Mean Corpuscular Hemoglobin 30.3 pg (27-33); Mean Corpuscular Volume 89.4 fl (85-98); Mean Platelet Volume 11.2 fL (7.4-10.4); Platelet Count 81 10^3/cmm (157-399); Red Blood Count 2.54 10^6/uL (3.85-5.65); Red Cell Distribution Width 16.7 % (12.1-15.1); White Blood Count 10.04 10^3/uL (3.29-11.43)
[2023-10-21 08:54] LABS: Magnesium 0.8 mg/dL (1.7-2.3)
[2023-10-21 09:31] LABS: Band Neutrophils Absolute 0.9 10^3/cmm (0.0-1.2); Eosinophils 0 %; Lymphocytes 12 %; Lymphocytes Absolute 1.3 10^3/cmm (1.2-3.4); Monocytes Absolute 0.7 10^3/cmm (0.1-0.6); Slide Review Slide Review Perform; Total Cells Counted 100 (0-100)
[2023-10-21 09:32] LABS: Absolute Neutrophil 7.3 10^3/cmm (1.4-6.5); Absolute Segmented Neutrophil 6.4 10/cmm (1.6-7.1); Anisocytosis 2+; Platelet Estimate Decreased (Normal); Segmented Neutrophils 64 %
[2023-10-21] MEDS: magnesium sulfate premix 2 GM/50 ML PIGGYBACK IV (09:46)
[2023-10-21] MEDS: sodium chloride 0.9% (100 ml) 100 ML 35 ML (09:47)
[2023-10-21] MEDS: acetaminophen 325 mg Tablet 650 MG PO (10:42)
[2023-10-21] MEDS: diphenhydrAMINE 25 mg Capsule PO (10:43)
[2023-10-21] MEDS: sodium chloride 0.9% 250 mL Bag IV (10:48)
[2023-10-21] MEDS: FUROsemide 10 mg/mL SDV 2mL 20 MG IVP (13:10)
[2023-10-25 08:19] LABS: Hematocrit 31.9 % (36-47); Mean Corpuscular HGB Conc 33.9 g/dL (30-55); Mean Corpuscular Hemoglobin 30.7 pg (27-33); Mean Corpuscular Volume 90.6 fl (85-98); Platelet Count 261 10^3/cmm (157-399); Red Blood Count 3.52 10^6/uL (3.85-5.65); Red Cell Distribution Width 15.9 % (12.1-15.1); White Blood Count 9.39 10^3/uL (3.29-11.43)
[2023-10-25 08:40] LABS: Alanine Aminotransferase 19 U/L (0-33); Albumin Level 3.7 g/dL (3.5-5.2); Alkaline Phosphatase 82 U/L (35-105); Anion Gap 16.3 (5-19); Aspartate Amino Transferase 18 U/L (0-32); Blood Urea Nitrogen 9 mg/dL (8-23); Calcium 9.1 mg/dL (8.5-10.5); Carbon Dioxide 21 mmol/L (22-29); Chloride 107 mmol/L (98-107); Globulin 2.8 g/dL (1.3-4.6); Glomerular Filtration Rate 83.5 mL/min (90-130); Glucose 188 mg/dL (65-115); Osmolality Calculated 296 mOsm/kg (285-295); Potassium 3.3 mmol/L (3.5-5.1); Sodium 141 mmol/L (136-145); Total Bilirubin 0.2 mg/dL (0.15-1.2); Total Protein 6.5 g/dL (6.6-8.7)
[2023-10-25 08:54] LABS: Magnesium 0.7 mg/dL (1.7-2.3)
[2023-10-25 08:58] LABS: Slide Review Slide Review Perform
[2023-10-25 09:01] LABS: Absolute Segmented Neutrophil 5.4 10/cmm (1.6-7.1); Band Neutrophils Absolute 0.6 10^3/cmm (0.0-1.2); Lymphocytes 19 %; Segmented Neutrophils 58 %; Total Cells Counted 100 (0-100)
[2023-10-25 09:02] LABS: Anisocytosis 1+; Eosinophils 0 %; Giant Platelets Trace; Lymphocytes Absolute 1.8 10^3/cmm (1.2-3.4); Macrocytosis 1+; Poikilocytosis Trace
[2023-10-25 09:03] LABS: Platelet Estimate Normal (Normal)
--- NOTE | 2023-10-25 09:10 | PC.NURSE ---
Central line dressing changed completed via sterile technique. Slight redness noted. No s/s of infection noted. Pt tolerated well. JW
[2023-10-25] MEDS: magnesium sulfate premix 2 GM/50 ML PIGGYBACK IV (09:15)
[2023-10-25 10:07] VITALS: BP 139/73; PULSE 74; O2SAT 95
[2023-10-26 08:35] LABS: Magnesium 1.2 mg/dL (1.7-2.3)
[2023-10-26] MEDS: magnesium sulfate premix 2 GM/50 ML PIGGYBACK IV (10:36)
[2023-10-28 08:15] LABS: Basophils # 0.1 10^3/uL (0.0-0.1); Basophils % 0.7 %; Eosinophils % 0.3 %; Lymphocytes # 0.9 10^3/uL (0.8-4.8); Lymphocytes % 12.9 %; Mean Corpuscular HGB Conc 33.3 g/dL (30-55); Mean Corpuscular Hemoglobin 30.4 pg (27-33); Mean Corpuscular Volume 91.2 fl (85-98); Mean Platelet Volume 9.1 fL (7.4-10.4); Monocytes # 1.2 10^3/uL (0.2-0.9); Monocytes % 16.1 %; Neutrophils # 4.91 10^3/uL (1.8-7.7); Neutrophils % 67.5 %; Nucleated Red Blood Cells % 0 %; Platelet Count 332 10^3/cmm (157-399); Red Blood Count 3.62 10^6/uL (3.85-5.65); Red Cell Distribution Width 16.9 % (12.1-15.1); White Blood Count 7.27 10^3/uL (3.29-11.43)
[2023-10-28 08:31] LABS: Alanine Aminotransferase 19 U/L (0-33); Albumin Level 3.7 g/dL (3.5-5.2); Alkaline Phosphatase 75 U/L (35-105); Anion Gap 16.6 (5-19); Aspartate Amino Transferase 18 U/L (0-32); Blood Urea Nitrogen 11 mg/dL (8-23); Calcium 9.7 mg/dL (8.5-10.5); Carbon Dioxide 20 mmol/L (22-29); Chloride 105 mmol/L (98-107); Globulin 3.2 g/dL (1.3-4.6); Glomerular Filtration Rate 83.5 mL/min (90-130); Glucose 165 mg/dL (65-115); Magnesium 1.3 mg/dL (1.7-2.3); Osmolality Calculated 289 mOsm/kg (285-295); Potassium 3.6 mmol/L (3.5-5.1); Sodium 138 mmol/L (136-145); Total Bilirubin 0.2 mg/dL (0.15-1.2); Total Protein 6.9 g/dL (6.6-8.7)
[2023-10-28 08:37] VITALS: BP 132/75; PULSE 77; RESP 18; TEMP 36.6; O2SAT 99
[2023-10-28] MEDS: magnesium sulfate premix 2 GM/50 ML PIGGYBACK IV (09:32)
[2023-10-28 10:29] VITALS: BP 148/75; PULSE 73; RESP 18; TEMP 36.3; O2SAT 94
== END 2023-10-28 23:59 | disposition home or self-care (01) ==
PROVIDERS: Nurse Practitioner Family; PCP Family Medicine; Visit Provider Internal Medicine Medical Oncology
DX: Z53.9 Procedure and treatment not carried out, unspecified reason; Z79.899 Other long term (current) drug therapy; C92.00 Acute myeloblastic leukemia, not having achieved remission
CPT/HCPCS: 36430; 36592; 80053; 83615; 83735; 85007; 85025; 86850; 86900; 86920; 96365; 96372; J1940; J3475; J7050; P9035; P9040; Q5111

== ENCOUNTER 2023-11-01 07:45 | Oncology outpatient (recurring) (ONCR) | payer MEDICARE, SELFPAY ==
--- NOTE | 2023-11-01 08:22 | PC.NURSE ---
Central Line Dressing Change Central line dressing changed using sterile technique. Cleansed with chloraprep, claves and caps changed. No redness or drainage noted. Covered with occlusive dressing. Sutures in place. Blood return from both lumens. Patient tolerated well.
[2023-11-01 08:23] LABS: Basophils # 0.1 10^3/uL (0.0-0.1); Basophils % 1.3 %; Eosinophils % 0.1 %; Hematocrit 32.4 % (36-47); Lymphocytes % 14.1 %; Mean Corpuscular HGB Conc 33.3 g/dL (30-55); Mean Corpuscular Hemoglobin 30.9 pg (27-33); Mean Corpuscular Volume 92.8 fl (85-98); Mean Platelet Volume 9.9 fL (7.4-10.4); Monocytes # 1.2 10^3/uL (0.2-0.9); Monocytes % 17.8 %; Neutrophils % 65.5 %; Nucleated Red Blood Cells % 0 %; Platelet Count 331 10^3/cmm (157-399); Red Blood Count 3.49 10^6/uL (3.85-5.65); Red Cell Distribution Width 18.1 % (12.1-15.1); White Blood Count 6.73 10^3/uL (3.29-11.43)
[2023-11-01 08:43] LABS: Alanine Aminotransferase 22 U/L (0-33); Albumin Level 3.6 g/dL (3.5-5.2); Alkaline Phosphatase 65 U/L (35-105); Anion Gap 17.3 (5-19); Aspartate Amino Transferase 17 U/L (0-32); Blood Urea Nitrogen 11 mg/dL (8-23); Calcium 9.5 mg/dL (8.5-10.5); Carbon Dioxide 19 mmol/L (22-29); Chloride 107 mmol/L (98-107); Globulin 3.1 g/dL (1.3-4.6); Glomerular Filtration Rate 83.5 mL/min (90-130); Glucose 153 mg/dL (65-115); Magnesium 1.1 mg/dL (1.7-2.3); Osmolality Calculated 292 mOsm/kg (285-295); Potassium 3.3 mmol/L (3.5-5.1); Sodium 140 mmol/L (136-145); Total Bilirubin 0.2 mg/dL (0.15-1.2); Total Protein 6.7 g/dL (6.6-8.7)
[2023-11-01] MEDS: magnesium sulfate premix 2 GM/50 ML PIGGYBACK IV (10:14)
[2023-11-01 11:17] VITALS: BP 138/78; PULSE 75; RESP 16; TEMP 37; O2SAT 96
== END 2023-11-02 23:59 | disposition home or self-care (01) ==
PROVIDERS: PCP Family Medicine; Visit Provider Internal Medicine Medical Oncology
DX: C92.00 Acute myeloblastic leukemia, not having achieved remission (principal)
CPT/HCPCS: 80053; 83735; 85025; 96365; J3475

== ENCOUNTER 2023-12-02 08:00 | Oncology outpatient (recurring) (ONCR) | payer MEDICARE, SELFPAY ==
[2023-11-08 08:20] LABS: Hematocrit 31.8 % (36-47); Lymphocytes # 0.1 10^3/uL (0.8-4.8); Lymphocytes % 1.1 %; Mean Corpuscular HGB Conc 34.6 g/dL (30-55); Mean Corpuscular Hemoglobin 31.9 pg (27-33); Mean Corpuscular Volume 92.2 fl (85-98); Mean Platelet Volume 9.8 fL (7.4-10.4); Monocytes % 0.6 %; Neutrophils # 6.47 10^3/uL (1.8-7.7); Neutrophils % 97.4 %; Nucleated Red Blood Cells % 0 %; Platelet Count 226 10^3/cmm (157-399); Red Blood Count 3.45 10^6/uL (3.85-5.65); White Blood Count 6.64 10^3/uL (3.29-11.43)
[2023-11-08 08:37] LABS: Alanine Aminotransferase 18 U/L (0-33); Albumin Level 3.9 g/dL (3.5-5.2); Alkaline Phosphatase 56 U/L (35-105); Anion Gap 16.2 (5-19); Aspartate Amino Transferase 18 U/L (0-32); Blood Urea Nitrogen 27 mg/dL (8-23); Calcium 9.6 mg/dL (8.5-10.5); Carbon Dioxide 23 mmol/L (22-29); Chloride 104 mmol/L (98-107); Globulin 2.9 g/dL (1.3-4.6); Glomerular Filtration Rate 71.5 mL/min (90-130); Glucose 129 mg/dL (65-115); Magnesium 1.7 mg/dL (1.7-2.3); Osmolality Calculated 295 mOsm/kg (285-295); Potassium 4.2 mmol/L (3.5-5.1); Sodium 139 mmol/L (136-145); Total Bilirubin 0.7 mg/dL (0.15-1.2); Total Protein 6.8 g/dL (6.6-8.7)
[2023-11-11 08:00] VITALS: BP 156/74; PULSE 83; RESP 18; TEMP 36.2; O2SAT 97
[2023-11-11 08:20] LABS: Basophils % 0.2 %; Hematocrit 31.9 % (36-47); Lymphocytes # 0.4 10^3/uL (0.8-4.8); Mean Corpuscular HGB Conc 33.9 g/dL (30-55); Mean Corpuscular Hemoglobin 31.7 pg (27-33); Mean Corpuscular Volume 93.5 fl (85-98); Monocytes % 0.1 %; Neutrophils # 7.44 10^3/uL (1.8-7.7); Neutrophils % 86.9 %; Nucleated Red Blood Cells % 0 %; Platelet Count 126 10^3/cmm (157-399); Red Blood Count 3.41 10^6/uL (3.85-5.65); Red Cell Distribution Width 17.8 % (12.1-15.1); White Blood Count 8.57 10^3/uL (3.29-11.43)
[2023-11-11 08:35] LABS: Alanine Aminotransferase 24 U/L (0-33); Albumin Level 3.7 g/dL (3.5-5.2); Alkaline Phosphatase 87 U/L (35-105); Anion Gap 16.5 (5-19); Aspartate Amino Transferase 16 U/L (0-32); Blood Urea Nitrogen 24 mg/dL (8-23); Calcium 9.4 mg/dL (8.5-10.5); Carbon Dioxide 22 mmol/L (22-29); Chloride 102 mmol/L (98-107); Globulin 2.9 g/dL (1.3-4.6); Glomerular Filtration Rate 71.5 mL/min (90-130); Glucose 101 mg/dL (65-115); Magnesium 1.4 mg/dL (1.7-2.3); Osmolality Calculated 288 mOsm/kg (285-295); Potassium 3.5 mmol/L (3.5-5.1); Sodium 137 mmol/L (136-145); Total Bilirubin 0.8 mg/dL (0.15-1.2); Total Protein 6.6 g/dL (6.6-8.7)
[2023-11-11 08:44] LABS: Slide Review Slide Review Perform
[2023-11-15 08:27] LABS: Basophils % 2.2 %; Eosinophils % 2.2 %; Hematocrit 27.6 % (36-47); Lymphocytes # 0.3 10^3/uL (0.8-4.8); Lymphocytes % 55.6 %; Mean Corpuscular HGB Conc 34.1 g/dL (30-55); Mean Corpuscular Hemoglobin 30.7 pg (27-33); Mean Corpuscular Volume 90.2 fl (85-98); Mean Platelet Volume 9.8 fL (7.4-10.4); Monocytes # 0.2 10^3/uL (0.2-0.9); Monocytes % 33.3 %; Neutrophils % 4.5 %; Nucleated Red Blood Cells % 0 %; Red Blood Count 3.06 10^6/uL (3.85-5.65); Red Cell Distribution Width 16.3 % (12.1-15.1)
[2023-11-15 08:44] LABS: Alanine Aminotransferase 19 U/L (0-33); Albumin Level 3.5 g/dL (3.5-5.2); Alkaline Phosphatase 86 U/L (35-105); Anion Gap 17.3 (5-19); Aspartate Amino Transferase 12 U/L (0-32); Blood Urea Nitrogen 13 mg/dL (8-23); Carbon Dioxide 18 mmol/L (22-29); Chloride 102 mmol/L (98-107); Globulin 3.1 g/dL (1.3-4.6); Glomerular Filtration Rate 83.5 mL/min (90-130); Glucose 188 mg/dL (65-115); Osmolality Calculated 283 mOsm/kg (285-295); Potassium 3.3 mmol/L (3.5-5.1); Sodium 134 mmol/L (136-145); Total Bilirubin 0.4 mg/dL (0.15-1.2); Total Protein 6.6 g/dL (6.6-8.7)
[2023-11-15 08:48] LABS: Magnesium 0.9 mg/dL (1.7-2.3)
[2023-11-15] MEDS: magnesium sulfate premix 2 GM/50 ML PIGGYBACK IV (08:58)
[2023-11-15 09:07] LABS: Slide Review Slide Review Perform
[2023-11-15 09:08] LABS: Neutrophils # 0.02 10^3/uL (1.8-7.7); Platelet Count 15 10^3/cmm (157-399); White Blood Count 0.45 10^3/uL (3.29-11.43)
[2023-11-15 09:55] VITALS: BP 129/63; PULSE 83; RESP 16; TEMP 36.7; O2SAT 95
[2023-11-16] MEDS: magnesium sulfate premix 2 GM/50 ML PIGGYBACK IV (07:53)
[2023-11-16 08:03] VITALS: BP 129/62; PULSE 105; RESP 16; TEMP 36.6; O2SAT 96
[2023-11-16 08:07] LABS: Hematocrit 26.2 % (36-47); Mean Corpuscular HGB Conc 35.1 g/dL (30-55); Mean Corpuscular Hemoglobin 31.6 pg (27-33); Red Blood Count 2.91 10^6/uL (3.85-5.65); Red Cell Distribution Width 16.5 % (12.1-15.1); White Blood Count 2.78 10^3/uL (3.29-11.43)
[2023-11-16 08:28] LABS: Platelet Count 5 10^3/cmm (157-399)
[2023-11-16 08:50] VITALS: BP 143/80; PULSE 100; RESP 16; TEMP 36.8; O2SAT 99
[2023-11-16 08:53] LABS: Slide Review Slide Review Perform
[2023-11-16 08:54] LABS: Absolute Segmented Neutrophil 0.9 10/cmm (1.6-7.1); Band Neutrophils Absolute 0.4 10^3/cmm (0.0-1.2); Segmented Neutrophils 31 %; Total Cells Counted 100 (0-100)
[2023-11-16 08:55] LABS: Absolute Neutrophil 1.3 10^3/cmm (1.4-6.5); Anisocytosis 1+; Dohle Bodies 2+; Eosinophils 0 %; Giant Platelets Trace; Lymphocytes 17 %; Lymphocytes Absolute 0.7 10^3/cmm (1.2-3.4); Monocytes Absolute 0.2 10^3/cmm (0.1-0.6); Platelet Estimate Decreased (Normal)
[2023-11-16 13:20] VITALS: BP 136/77; PULSE 83; RESP 16; TEMP 36.8; O2SAT 97
[2023-11-16 13:30] VITALS: BP 147/85; PULSE 79; RESP 16; TEMP 36.7; O2SAT 97
[2023-11-16 13:40] VITALS: BP 147/85; PULSE 79; RESP 16; TEMP 36.7; O2SAT 97
[2023-11-18 08:09] VITALS: BP 152/74; PULSE 89; RESP 15; TEMP 36.7; O2SAT 96
[2023-11-18 08:09] LABS: Basophils # 0.1 10^3/uL (0.0-0.1); Basophils % 0.8 %; Eosinophils # 0.1 10^3/uL (0.0-0.8); Eosinophils % 0.4 %; Hematocrit 25.6 % (36-47); Lymphocytes # 0.7 10^3/uL (0.8-4.8); Lymphocytes % 5.3 %; Mean Corpuscular Volume 91.1 fl (85-98); Mean Platelet Volume 9.5 fL (7.4-10.4); Monocytes # 1.9 10^3/uL (0.2-0.9); Monocytes % 15.2 %; Neutrophils # 7.52 10^3/uL (1.8-7.7); Nucleated Red Blood Cells % 0 %; Platelet Count 40 10^3/cmm (157-399); Red Blood Count 2.81 10^6/uL (3.85-5.65); Red Cell Distribution Width 16.9 % (12.1-15.1); White Blood Count 12.15 10^3/uL (3.29-11.43)
[2023-11-18 08:28] LABS: Alanine Aminotransferase 18 U/L (0-33); Albumin Level 3.6 g/dL (3.5-5.2); Alkaline Phosphatase 101 U/L (35-105); Anion Gap 15.4 (5-19); Aspartate Amino Transferase 19 U/L (0-32); Blood Urea Nitrogen 12 mg/dL (8-23); Carbon Dioxide 21 mmol/L (22-29); Chloride 107 mmol/L (98-107); Globulin 2.9 g/dL (1.3-4.6); Glomerular Filtration Rate 83.5 mL/min (90-130); Glucose 161 mg/dL (65-115); Osmolality Calculated 293 mOsm/kg (285-295); Potassium 3.4 mmol/L (3.5-5.1); Sodium 140 mmol/L (136-145); Total Bilirubin 0.2 mg/dL (0.15-1.2); Total Protein 6.5 g/dL (6.6-8.7)
[2023-11-18 08:40] LABS: Slide Review Slide Review Perform
[2023-11-18 09:32] LABS: Magnesium 1.2 mg/dL (1.7-2.3)
[2023-11-18] MEDS: magnesium sulfate premix 2 GM/50 ML PIGGYBACK IV (09:51)
[2023-11-22 08:29] LABS: Hematocrit 24.8 % (36-47); Mean Corpuscular HGB Conc 33.5 g/dL (30-55); Mean Corpuscular Volume 92.5 fl (85-98); Mean Platelet Volume 11.4 fL (7.4-10.4); Platelet Count 89 10^3/cmm (157-399); Red Blood Count 2.68 10^6/uL (3.85-5.65); Red Cell Distribution Width 16.8 % (12.1-15.1); White Blood Count 6.51 10^3/uL (3.29-11.43)
[2023-11-22 08:56] LABS: Alanine Aminotransferase 21 U/L (0-33); Albumin Level 3.7 g/dL (3.5-5.2); Alkaline Phosphatase 83 U/L (35-105); Anion Gap 17.7 (5-19); Aspartate Amino Transferase 19 U/L (0-32); Blood Urea Nitrogen 13 mg/dL (8-23); Carbon Dioxide 20 mmol/L (22-29); Chloride 108 mmol/L (98-107); Globulin 2.8 g/dL (1.3-4.6); Glomerular Filtration Rate 62.5 mL/min (90-130); Glucose 148 mg/dL (65-115); Lactate Dehydrogenase 402 U/L (135-214); Osmolality Calculated 297 mOsm/kg (285-295); Potassium 3.7 mmol/L (3.5-5.1); Sodium 142 mmol/L (136-145); Total Bilirubin 0.3 mg/dL (0.15-1.2); Total Protein 6.5 g/dL (6.6-8.7)
[2023-11-22 09:10] LABS: Slide Review Slide Review Perform
[2023-11-22 09:11] LABS: Absolute Eosinophils 0.1 10^3/cmm (0.0-0.7); Absolute Segmented Neutrophil 4.2 10/cmm (1.6-7.1); Band Neutrophils Absolute 0.3 10^3/cmm (0.0-1.2); Eosinophils 1 %; Lymphocytes 12 %; Lymphocytes Absolute 0.9 10^3/cmm (1.2-3.4); Monocytes Absolute 0.8 10^3/cmm (0.1-0.6); Segmented Neutrophils 65 %; Total Cells Counted 100 (0-100)
[2023-11-22 09:12] LABS: Absolute Neutrophil 4.5 10^3/cmm (1.4-6.5); Anisocytosis 1+; Platelet Estimate Decreased (Normal); Polychromasia Trace
[2023-11-25 08:05] VITALS: BP 141/70; PULSE 68; RESP 18; TEMP 36.7; O2SAT 98
[2023-11-25 08:07] LABS: Basophils % 0.7 %; Eosinophils % 0.7 %; Hematocrit 25.2 % (36-47); Lymphocytes # 0.7 10^3/uL (0.8-4.8); Lymphocytes % 12.3 %; Mean Corpuscular HGB Conc 33.3 g/dL (30-55); Mean Corpuscular Hemoglobin 31.5 pg (27-33); Mean Corpuscular Volume 94.4 fl (85-98); Mean Platelet Volume 10.4 fL (7.4-10.4); Monocytes # 0.9 10^3/uL (0.2-0.9); Monocytes % 14.5 %; Neutrophils # 4.15 10^3/uL (1.8-7.7); Neutrophils % 69.9 %; Nucleated Red Blood Cells % 0.7 %; Platelet Count 149 10^3/cmm (157-399); Red Blood Count 2.67 10^6/uL (3.85-5.65); Red Cell Distribution Width 18.8 % (12.1-15.1); White Blood Count 5.93 10^3/uL (3.29-11.43)
[2023-11-25 08:30] LABS: Alanine Aminotransferase 18 U/L (0-33); Albumin Level 3.6 g/dL (3.5-5.2); Alkaline Phosphatase 70 U/L (35-105); Anion Gap 18.5 (5-19); Aspartate Amino Transferase 19 U/L (0-32); Blood Urea Nitrogen 12 mg/dL (8-23); Calcium 8.8 mg/dL (8.5-10.5); Carbon Dioxide 19 mmol/L (22-29); Chloride 109 mmol/L (98-107); Glomerular Filtration Rate 71.5 mL/min (90-130); Glucose 125 mg/dL (65-115); Osmolality Calculated 297 mOsm/kg (285-295); Potassium 3.5 mmol/L (3.5-5.1); Sodium 143 mmol/L (136-145); Total Bilirubin 0.3 mg/dL (0.15-1.2); Total Protein 6.6 g/dL (6.6-8.7)
[2023-11-25 08:40] LABS: Magnesium 0.6 mg/dL (1.7-2.3)
[2023-11-25] MEDS: magnesium sulfate premix 2 GM/50 ML PIGGYBACK IV (08:54)
[2023-11-25 09:57] VITALS: BP 146/84; PULSE 84; TEMP 35.9; O2SAT 97
[2023-12-02 08:14] VITALS: BP 144/84; PULSE 100; RESP 16; TEMP 36.6; O2SAT 99
[2023-12-02 08:17] LABS: Basophils # 0.1 10^3/uL (0.0-0.1); Basophils % 0.8 %; Eosinophils % 0.5 %; Hematocrit 25.7 % (36-47); Lymphocytes # 0.9 10^3/uL (0.8-4.8); Lymphocytes % 15.2 %; Mean Corpuscular HGB Conc 33.9 g/dL (30-55); Mean Corpuscular Hemoglobin 32.7 pg (27-33); Mean Corpuscular Volume 96.6 fl (85-98); Mean Platelet Volume 9.6 fL (7.4-10.4); Monocytes # 0.8 10^3/uL (0.2-0.9); Monocytes % 13.7 %; Neutrophils # 4.01 10^3/uL (1.8-7.7); Nucleated Red Blood Cells % 0 %; Platelet Count 170 10^3/cmm (157-399); Red Blood Count 2.66 10^6/uL (3.85-5.65); Red Cell Distribution Width 22.5 % (12.1-15.1); White Blood Count 5.99 10^3/uL (3.29-11.43)
[2023-12-02 08:38] LABS: Alanine Aminotransferase 17 U/L (0-33); Albumin Level 3.5 g/dL (3.5-5.2); Alkaline Phosphatase 66 U/L (35-105); Anion Gap 16.3 (5-19); Aspartate Amino Transferase 17 U/L (0-32); Blood Urea Nitrogen 9 mg/dL (8-23); Calcium 8.5 mg/dL (8.5-10.5); Carbon Dioxide 20 mmol/L (22-29); Chloride 108 mmol/L (98-107); Globulin 2.8 g/dL (1.3-4.6); Glomerular Filtration Rate 83.5 mL/min (90-130); Glucose 156 mg/dL (65-115); Osmolality Calculated 294 mOsm/kg (285-295); Potassium 3.3 mmol/L (3.5-5.1); Sodium 141 mmol/L (136-145); Total Bilirubin 0.3 mg/dL (0.15-1.2); Total Protein 6.3 g/dL (6.6-8.7)
[2023-12-02 08:55] LABS: Magnesium 0.7 mg/dL (1.7-2.3)
[2023-12-02] MEDS: magnesium sulfate premix 2 GM/50 ML PIGGYBACK IV (09:13)
[2023-12-02 10:16] VITALS: BP 139/79; PULSE 92; RESP 17; TEMP 36.4; O2SAT 97
== END 2023-12-03 23:59 | disposition home or self-care (01) ==
PROVIDERS: Internal Medicine Medical Oncology; Nurse Practitioner Family; PCP Family Medicine; Visit Provider Internal Medicine Medical Oncology
DX: C95.90 Leukemia, unspecified not having achieved remission (principal); Z53.9 Procedure and treatment not carried out, unspecified reason
CPT/HCPCS: 36430; 36592; 80053; 83615; 83735; 85007; 85025; 86850; 86900; 96365; 96372; J3475; P9040; Q5111

== ENCOUNTER 2023-12-30 08:00 | Oncology outpatient (recurring) (ONCR) | payer MEDICARE, SELFPAY ==
[2023-12-09 08:27] LABS: Basophils # 0.1 10^3/uL (0.0-0.1); Basophils % 0.7 %; Eosinophils # 0.1 10^3/uL (0.0-0.8); Eosinophils % 0.7 %; Hematocrit 31.7 % (36-47); Lymphocytes # 1.2 10^3/uL (0.8-4.8); Lymphocytes % 16.3 %; Mean Corpuscular HGB Conc 32.2 g/dL (30-55); Mean Corpuscular Volume 99.4 fl (85-98); Mean Platelet Volume 10.5 fL (7.4-10.4); Monocytes # 0.8 10^3/uL (0.2-0.9); Monocytes % 10.6 %; Neutrophils # 4.92 10^3/uL (1.8-7.7); Neutrophils % 68.4 %; Nucleated Red Blood Cells % 0 %; Platelet Count 207 10^3/cmm (157-399); Red Blood Count 3.19 10^6/uL (3.85-5.65); Red Cell Distribution Width 21.1 % (12.1-15.1); White Blood Count 7.19 10^3/uL (3.29-11.43)
--- NOTE | 2023-12-09 08:35 | PC.NURSE ---
Central line dressing completed via sterile technique. No redness or irritation noted around insertion site. Skin slightly red around edge of tegaderm. Pt tolerated well.
[2023-12-09 08:49] LABS: Albumin Level 3.9 g/dL (3.5-5.2); Alkaline Phosphatase 66 U/L (35-105); Blood Urea Nitrogen 13 mg/dL (8-23); Calcium 9.7 mg/dL (8.5-10.5); Carbon Dioxide 22 mmol/L (22-29); Chloride 105 mmol/L (98-107); Globulin 3.1 g/dL (1.3-4.6); Glomerular Filtration Rate 83.5 mL/min (90-130); Glucose 132 mg/dL (65-115); Magnesium 1.1 mg/dL (1.7-2.3); Osmolality Calculated 294 mOsm/kg (285-295); Phosphorus 3.3 mg/dL (2.5-4.5); Sodium 141 mmol/L (136-145); Total Bilirubin 0.4 mg/dL (0.15-1.2); Uric Acid 5.8 mg/dL (2.4-5.7)
[2023-12-09 08:54] LABS: Anion Gap 18.3 (5-19); Potassium 4.3 mmol/L (3.5-5.1)
[2023-12-09 08:55] LABS: Alanine Aminotransferase 23 U/L (0-33); Aspartate Amino Transferase 30 U/L (0-32); Lactate Dehydrogenase 481 U/L (135-214)
[2023-12-09] MEDS: magnesium sulfate premix 2 GM/50 ML PIGGYBACK IV (09:57)
[2023-12-16 08:57] LABS: Hematocrit 32.2 % (36-47); Mean Corpuscular HGB Conc 33.2 g/dL (30-55); Mean Corpuscular Hemoglobin 32.6 pg (27-33); Mean Corpuscular Volume 98.2 fl (85-98); Platelet Count 239 10^3/cmm (157-399); Red Blood Count 3.28 10^6/uL (3.85-5.65); Red Cell Distribution Width 18.6 % (12.1-15.1); White Blood Count 3.86 10^3/uL (3.29-11.43)
[2023-12-16 09:14] LABS: Alanine Aminotransferase 23 U/L (0-33); Albumin Level 3.8 g/dL (3.5-5.2); Alkaline Phosphatase 72 U/L (35-105); Anion Gap 16.7 (5-19); Aspartate Amino Transferase 19 U/L (0-32); Blood Urea Nitrogen 16 mg/dL (8-23); Calcium 9.6 mg/dL (8.5-10.5); Carbon Dioxide 22 mmol/L (22-29); Chloride 103 mmol/L (98-107); Globulin 2.9 g/dL (1.3-4.6); Glomerular Filtration Rate 71.5 mL/min (90-130); Glucose 97 mg/dL (65-115); Lactate Dehydrogenase 267 U/L (135-214); Magnesium 1.2 mg/dL (1.7-2.3); Osmolality Calculated 287 mOsm/kg (285-295); Phosphorus 4.7 mg/dL (2.5-4.5); Potassium 3.7 mmol/L (3.5-5.1); Sodium 138 mmol/L (136-145); Total Bilirubin 0.5 mg/dL (0.15-1.2); Total Protein 6.7 g/dL (6.6-8.7); Uric Acid 6.3 mg/dL (2.4-5.7)
[2023-12-16] MEDS: magnesium sulfate premix 2 GM/50 ML PIGGYBACK IV (09:37)
[2023-12-16 09:50] LABS: Absolute Segmented Neutrophil 1.5 10/cmm (1.6-7.1); Segmented Neutrophils 40 %; Slide Review Slide Review Perform; Total Cells Counted 100 (0-100)
[2023-12-16 09:51] LABS: Absolute Neutrophil 1.6 10^3/cmm (1.4-6.5); Eosinophils 1 %; Lymphocytes 40 %; Lymphocytes Absolute 1.9 10^3/cmm (1.2-3.4); Monocytes Absolute 0.3 10^3/cmm (0.1-0.6); Platelet Estimate Normal (Normal)
[2023-12-16 10:34] VITALS: BP 168/73; PULSE 71; RESP 18; TEMP 36.6; O2SAT 95
[2023-12-21 08:20] VITALS: BP 169/89; PULSE 95; RESP 16; TEMP 36.3; O2SAT 94
[2023-12-21 08:21] LABS: Basophils % 1.1 %; Eosinophils # 0.1 10^3/uL (0.0-0.8); Eosinophils % 3.3 %; Hematocrit 34.3 % (36-47); Lymphocytes # 1.8 10^3/uL (0.8-4.8); Lymphocytes % 66.1 %; Mean Corpuscular HGB Conc 32.9 g/dL (30-55); Mean Corpuscular Hemoglobin 32.4 pg (27-33); Mean Corpuscular Volume 98.3 fl (85-98); Mean Platelet Volume 9.5 fL (7.4-10.4); Monocytes # 0.7 10^3/uL (0.2-0.9); Monocytes % 26.6 %; Neutrophils % 2.9 %; Nucleated Red Blood Cells % 0 %; Platelet Count 230 10^3/cmm (157-399); Red Blood Count 3.49 10^6/uL (3.85-5.65); Red Cell Distribution Width 16.7 % (12.1-15.1); White Blood Count 2.71 10^3/uL (3.29-11.43)
--- NOTE | 2023-12-21 08:26 | PC.NURSE ---
Central Line Dressing Change Central line dressing was changed on 12/21/23 at 0820 using sterile technique. Site cleansed with chloraprep, claves and caps changed, covered with occlusive dressing. Sutures in place, no redness or drainage noted. Both lumens flushed with saline, blood return from both lumens. Patient tolerated well.
[2023-12-21 08:33] LABS: Neutrophils # 0.08 10^3/uL (1.8-7.7)
[2023-12-21 08:38] LABS: Alanine Aminotransferase 18 U/L (0-33); Albumin Level 3.8 g/dL (3.5-5.2); Alkaline Phosphatase 66 U/L (35-105); Anion Gap 19.5 (5-19); Aspartate Amino Transferase 16 U/L (0-32); Blood Urea Nitrogen 13 mg/dL (8-23); Calcium 9.5 mg/dL (8.5-10.5); Carbon Dioxide 22 mmol/L (22-29); Chloride 101 mmol/L (98-107); Glomerular Filtration Rate 83.5 mL/min (90-130); Glucose 124 mg/dL (65-115); Lactate Dehydrogenase 239 U/L (135-214); Magnesium 1.1 mg/dL (1.7-2.3); Osmolality Calculated 290 mOsm/kg (285-295); Phosphorus 4.1 mg/dL (2.5-4.5); Potassium 3.5 mmol/L (3.5-5.1); Sodium 139 mmol/L (136-145); Total Bilirubin 0.6 mg/dL (0.15-1.2); Total Protein 6.8 g/dL (6.6-8.7); Uric Acid 5.4 mg/dL (2.4-5.7)
--- NOTE | 2023-12-21 08:54 | PC.NURSE ---
Called Dr. Canales's office regarding pts lab results. ANC 0.08. Left a message for to return call. Pt is scheduled for surgery tomorrow. AVILA
[2023-12-21] MEDS: magnesium sulfate premix 2 GM/50 ML PIGGYBACK IV (09:46)
== END 2024-01-02 23:59 | disposition home or self-care (01) ==
PROVIDERS: Internal Medicine Medical Oncology; PCP Family Medicine; Visit Provider Internal Medicine Medical Oncology
DX: Z53.9 Procedure and treatment not carried out, unspecified reason (principal)
CPT/HCPCS: 36592; 80053; 83615; 83735; 84100; 84550; 85007; 85025; 86850; 86900; 96365; J3475

== ENCOUNTER 2024-02-02 08:00 | Oncology outpatient (recurring) (ONCR) | payer MEDICARE, SELFPAY ==
[2024-01-05 08:14] VITALS: BP 130/85; PULSE 118; RESP 16; TEMP 36.6; O2SAT 95
[2024-01-05 08:47] LABS: Basophils % 0.6 %; Eosinophils # 0.2 10^3/uL (0.0-0.8); Eosinophils % 2.7 %; Hematocrit 35.9 % (36-47); Lymphocytes # 1.6 10^3/uL (0.8-4.8); Mean Corpuscular HGB Conc 33.1 g/dL (30-55); Mean Corpuscular Hemoglobin 31.5 pg (27-33); Mean Platelet Volume 9.7 fL (7.4-10.4); Monocytes # 0.4 10^3/uL (0.2-0.9); Monocytes % 5.9 %; Neutrophils # 4.74 10^3/uL (1.8-7.7); Neutrophils % 66.7 %; Nucleated Red Blood Cells % 0 %; Platelet Count 191 10^3/cmm (157-399); Red Blood Count 3.78 10^6/uL (3.85-5.65); Red Cell Distribution Width 14.9 % (12.1-15.1)
[2024-01-05 09:02] LABS: Alanine Aminotransferase 17 U/L (0-33); Albumin Level 3.8 g/dL (3.5-5.2); Alkaline Phosphatase 58 U/L (35-105); Anion Gap 16.4 (5-19); Aspartate Amino Transferase 15 U/L (0-32); Blood Urea Nitrogen 17 mg/dL (8-23); Calcium 9.5 mg/dL (8.5-10.5); Carbon Dioxide 23 mmol/L (22-29); Chloride 104 mmol/L (98-107); Globulin 3.1 g/dL (1.3-4.6); Glomerular Filtration Rate 83.5 mL/min (90-130); Glucose 146 mg/dL (65-115); Magnesium 1.3 mg/dL (1.7-2.3); Osmolality Calculated 294 mOsm/kg (285-295); Phosphorus 3.6 mg/dL (2.5-4.5); Potassium 3.4 mmol/L (3.5-5.1); Sodium 140 mmol/L (136-145); Total Bilirubin 0.3 mg/dL (0.15-1.2); Total Protein 6.9 g/dL (6.6-8.7)
--- NOTE | 2024-01-05 09:43 | PC.NURSE ---
Central line dressing changed completed via sterile technique. Good blood return from both lumens. Pt tolerated well. No redness or s/s of infection. JW
--- OUTSIDE RECORDS SUMMARY | 2024-01-12 07:49 | XMS_ITS ---
Author Name Unknown Organization [facility] Allergies, Adverse Reactions and Alerts Date Isallergic Allergen Reaction Allergycode 01/30/2023 12:00:00 AM 1 SULFAMETHOXAZOLE-TMP DS R rolf 3029 ASSESSMENT No information CHIEF COMPLAINT No information MEDICATIONS No information OBJECTIVE DATA No information PHYSICAL EXAMINATION No information TREATMENT PLAN No information PROBLEMS No information RESULTS No information REVIEW OF SYSTEMS No information SUBJECTIVE DATA No information VITAL SIGNS No information
[2024-01-12 08:58] LABS: Basophils % 0.6 %; Eosinophils # 0.2 10^3/uL (0.0-0.8); Eosinophils % 3.1 %; Hematocrit 36.8 % (36-47); Lymphocytes # 2.1 10^3/uL (0.8-4.8); Lymphocytes % 31.5 %; Mean Corpuscular HGB Conc 33.2 g/dL (30-55); Mean Corpuscular Hemoglobin 31.4 pg (27-33); Mean Corpuscular Volume 94.6 fl (85-98); Mean Platelet Volume 10.3 fL (7.4-10.4); Monocytes # 0.5 10^3/uL (0.2-0.9); Monocytes % 7.8 %; Neutrophils # 3.64 10^3/uL (1.8-7.7); Neutrophils % 56.1 %; Nucleated Red Blood Cells % 0 %; Platelet Count 211 10^3/cmm (157-399); Red Blood Count 3.89 10^6/uL (3.85-5.65); Red Cell Distribution Width 14.9 % (12.1-15.1)
[2024-01-12 09:24] LABS: Alanine Aminotransferase 18 U/L (0-33); Albumin Level 3.9 g/dL (3.5-5.2); Alkaline Phosphatase 63 U/L (35-105); Aspartate Amino Transferase 17 U/L (0-32); Blood Urea Nitrogen 23 mg/dL (8-23); Calcium 9.8 mg/dL (8.5-10.5); Carbon Dioxide 24 mmol/L (22-29); Chloride 102 mmol/L (98-107); Globulin 3.3 g/dL (1.3-4.6); Glomerular Filtration Rate 40.9 mL/min (90-130); Glucose 122 mg/dL (65-115); Lactate Dehydrogenase 207 U/L (135-214); Magnesium 1.4 mg/dL (1.7-2.3); Osmolality Calculated 293 mOsm/kg (285-295); Phosphorus 4.3 mg/dL (2.5-4.5); Sodium 139 mmol/L (136-145); Total Bilirubin 0.3 mg/dL (0.15-1.2); Total Protein 7.2 g/dL (6.6-8.7); Uric Acid 6.1 mg/dL (2.4-5.7)
[2024-01-19 08:23] LABS: Basophils # 0.1 10^3/uL (0.0-0.1); Basophils % 0.7 %; Eosinophils # 0.2 10^3/uL (0.0-0.8); Eosinophils % 2.3 %; Lymphocytes # 2.1 10^3/uL (0.8-4.8); Lymphocytes % 29.4 %; Mean Corpuscular HGB Conc 32.9 g/dL (30-55); Mean Corpuscular Hemoglobin 30.8 pg (27-33); Mean Corpuscular Volume 93.6 fl (85-98); Mean Platelet Volume 9.8 fL (7.4-10.4); Monocytes # 0.6 10^3/uL (0.2-0.9); Monocytes % 8.4 %; Neutrophils # 4.01 10^3/uL (1.8-7.7); Neutrophils % 57.1 %; Nucleated Red Blood Cells % 0 %; Platelet Count 208 10^3/cmm (157-399); Red Blood Count 4.06 10^6/uL (3.85-5.65); Red Cell Distribution Width 14.6 % (12.1-15.1); White Blood Count 7.03 10^3/uL (3.29-11.43)
[2024-01-19 08:45] LABS: Alanine Aminotransferase 19 U/L (0-33); Alkaline Phosphatase 68 U/L (35-105); Anion Gap 16.5 (5-19); Aspartate Amino Transferase 15 U/L (0-32); Blood Urea Nitrogen 16 mg/dL (8-23); Calcium 9.8 mg/dL (8.5-10.5); Carbon Dioxide 22 mmol/L (22-29); Chloride 104 mmol/L (98-107); Globulin 3.2 g/dL (1.3-4.6); Glomerular Filtration Rate 83.5 mL/min (90-130); Glucose 128 mg/dL (65-115); Lactate Dehydrogenase 204 U/L (135-214); Magnesium 1.5 mg/dL (1.7-2.3); Osmolality Calculated 291 mOsm/kg (285-295); Phosphorus 3.7 mg/dL (2.5-4.5); Potassium 3.5 mmol/L (3.5-5.1); Sodium 139 mmol/L (136-145); Total Bilirubin 0.3 mg/dL (0.15-1.2); Total Protein 7.2 g/dL (6.6-8.7)
--- NOTE | 2024-01-19 08:50 | PC.NURSE ---
Central line dressing change completed via sterile technique. Good blood return, no redness or s/s of infection noted. Pt tolerated well. JW
[2024-01-26 08:04] VITALS: BP 140/78; PULSE 80; RESP 16; TEMP 36.6; O2SAT 97
[2024-01-26 08:26] LABS: Hematocrit 35.8 % (36-47); Mean Corpuscular HGB Conc 33.2 g/dL (30-55); Mean Corpuscular Hemoglobin 31.4 pg (27-33); Mean Corpuscular Volume 94.5 fl (85-98); Mean Platelet Volume 9.7 fL (7.4-10.4); Platelet Count 184 10^3/cmm (157-399); Red Blood Count 3.79 10^6/uL (3.85-5.65); Red Cell Distribution Width 14.8 % (12.1-15.1); White Blood Count 7.02 10^3/uL (3.29-11.43)
[2024-01-26 08:45] LABS: Alanine Aminotransferase 17 U/L (0-33); Albumin Level 3.8 g/dL (3.5-5.2); Alkaline Phosphatase 61 U/L (35-105); Aspartate Amino Transferase 14 U/L (0-32); Blood Urea Nitrogen 18 mg/dL (8-23); Calcium 9.1 mg/dL (8.5-10.5); Carbon Dioxide 23 mmol/L (22-29); Chloride 107 mmol/L (98-107); Globulin 2.9 g/dL (1.3-4.6); Glomerular Filtration Rate 62.5 mL/min (90-130); Glucose 124 mg/dL (65-115); Lactate Dehydrogenase 204 U/L (135-214); Magnesium 1.8 mg/dL (1.7-2.3); Osmolality Calculated 297 mOsm/kg (285-295); Phosphorus 3.1 mg/dL (2.5-4.5); Sodium 142 mmol/L (136-145); Total Bilirubin 0.2 mg/dL (0.15-1.2); Total Protein 6.7 g/dL (6.6-8.7); Uric Acid 5.6 mg/dL (2.4-5.7)
[2024-01-26 08:52] LABS: Slide Review Slide Review Perform
[2024-01-26 08:53] LABS: Absolute Neutrophil 3.7 10^3/cmm (1.4-6.5); Absolute Segmented Neutrophil 3.6 10/cmm (1.6-7.1); Anisocytosis Trace; Band Neutrophils Absolute 0.1 10^3/cmm (0.0-1.2); Eosinophils 0 %; Lymphocytes 29 %; Lymphocytes Absolute 2.7 10^3/cmm (1.2-3.4); Monocytes Absolute 0.4 10^3/cmm (0.1-0.6); Platelet Estimate Normal (Normal); Segmented Neutrophils 51 %; Total Cells Counted 100 (0-100)
[2024-02-02 08:44] LABS: Basophils # 0.1 10^3/uL (0.0-0.1); Basophils % 0.5 %; Eosinophils # 0.1 10^3/uL (0.0-0.8); Eosinophils % 1.2 %; Hematocrit 36.1 % (36-47); Lymphocytes % 20.4 %; Mean Corpuscular HGB Conc 34.3 g/dL (30-55); Mean Corpuscular Hemoglobin 30.8 pg (27-33); Mean Corpuscular Volume 89.8 fl (85-98); Mean Platelet Volume 9.9 fL (7.4-10.4); Monocytes # 1.1 10^3/uL (0.2-0.9); Monocytes % 11.1 %; Neutrophils # 6.07 10^3/uL (1.8-7.7); Neutrophils % 61.1 %; Nucleated Red Blood Cells % 0 %; Platelet Count 175 10^3/cmm (157-399); Red Blood Count 4.02 10^6/uL (3.85-5.65); Red Cell Distribution Width 14.8 % (12.1-15.1); White Blood Count 9.94 10^3/uL (3.29-11.43)
[2024-02-02 08:56] LABS: Alanine Aminotransferase 15 U/L (0-33); Albumin Level 3.7 g/dL (3.5-5.2); Alkaline Phosphatase 61 U/L (35-105); Aspartate Amino Transferase 13 U/L (0-32); Blood Urea Nitrogen 17 mg/dL (8-23); Calcium 9.7 mg/dL (8.5-10.5); Carbon Dioxide 21 mmol/L (22-29); Chloride 105 mmol/L (98-107); Globulin 3.5 g/dL (1.3-4.6); Glomerular Filtration Rate 55.3 mL/min (90-130); Glucose 119 mg/dL (65-115); Lactate Dehydrogenase 188 U/L (135-214); Magnesium 1.4 mg/dL (1.7-2.3); Osmolality Calculated 291 mOsm/kg (285-295); Phosphorus 3.8 mg/dL (2.5-4.5); Sodium 139 mmol/L (136-145); Total Bilirubin 0.3 mg/dL (0.15-1.2); Total Protein 7.2 g/dL (6.6-8.7); Uric Acid 6.3 mg/dL (2.4-5.7)
[2024-02-02 09:35] LABS: Slide Review Slide Review Perform
[2024-02-02 10:13] VITALS: PULSE 72; RESP 18; TEMP 36.6; O2SAT 98
== END 2024-02-02 23:59 | disposition home or self-care (01) ==
PROVIDERS: Internal Medicine Medical Oncology; PCP Family Medicine; Visit Provider Internal Medicine Medical Oncology
DX: C95.90 Leukemia, unspecified not having achieved remission; Z53.9 Procedure and treatment not carried out, unspecified reason
CPT/HCPCS: 36592; 80053; 83615; 83735; 84100; 84550; 85007; 85025; 86850; 86900

== ENCOUNTER 2024-03-01 07:50 | Oncology outpatient (recurring) (ONCR) | payer MEDICARE, SELFPAY ==
[2024-03-01 08:16] LABS: Basophils # 0.1 10^3/uL (0.0-0.1); Basophils % 0.7 %; Eosinophils # 0.2 10^3/uL (0.0-0.8); Eosinophils % 2.3 %; Hematocrit 38.1 % (36-47); Lymphocytes # 2.5 10^3/uL (0.8-4.8); Lymphocytes % 34.7 %; Mean Corpuscular HGB Conc 32.5 g/dL (30-55); Mean Corpuscular Hemoglobin 29.4 pg (27-33); Mean Corpuscular Volume 90.3 fl (85-98); Mean Platelet Volume 9.6 fL (7.4-10.4); Monocytes # 0.3 10^3/uL (0.2-0.9); Monocytes % 4.1 %; Neutrophils # 3.94 10^3/uL (1.8-7.7); Neutrophils % 54.1 %; Nucleated Red Blood Cells % 0 %; Platelet Count 152 10^3/cmm (157-399); Red Blood Count 4.22 10^6/uL (3.85-5.65); Red Cell Distribution Width 15.9 % (12.1-15.1); White Blood Count 7.29 10^3/uL (3.29-11.43)
== END 2024-03-04 23:59 | disposition home or self-care (01) ==
PROVIDERS: Internal Medicine Medical Oncology; PCP Family Medicine; Visit Provider Internal Medicine Medical Oncology
DX: C92.00 Acute myeloblastic leukemia, not having achieved remission (principal)
CPT/HCPCS: 36415; 85025

== ENCOUNTER → 2024-03-14 07:37 | Outpatient (BNVA) | payer MEDICARE, SELFPAY | PROVIDERS: PCP Family Medicine; Visit Provider Family Medicine | DX: Z13.220 Encounter for screening for lipoid disorders (principal); Z51.81 Encounter for therapeutic drug level monitoring; I10 Essential (primary) hypertension; R73.09 Other abnormal glucose | CPT/HCPCS: 80053; 80061; 83036; 85025 ==

== ENCOUNTER 2024-04-03 08:00 | Oncology outpatient (recurring) (ONCR) | payer MEDICARE, SELFPAY ==
[2024-03-15 08:28] LABS: Basophils # 0.1 10^3/uL (0.0-0.1); Basophils % 0.8 %; Eosinophils # 0.1 10^3/uL (0.0-0.8); Eosinophils % 1.8 %; Hematocrit 34.4 % (36-47); Lymphocytes # 1.9 10^3/uL (0.8-4.8); Lymphocytes % 25.1 %; Mean Corpuscular HGB Conc 32.6 g/dL (30-55); Mean Corpuscular Hemoglobin 29.3 pg (27-33); Mean Corpuscular Volume 90.1 fl (85-98); Monocytes # 0.4 10^3/uL (0.2-0.9); Monocytes % 4.6 %; Neutrophils # 5.07 10^3/uL (1.8-7.7); Neutrophils % 66.3 %; Nucleated Red Blood Cells % 0 %; Platelet Count 92 10^3/cmm (157-399); Red Blood Count 3.82 10^6/uL (3.85-5.65); Red Cell Distribution Width 17.5 % (12.1-15.1); White Blood Count 7.65 10^3/uL (3.29-11.43)
[2024-03-27 08:11] LABS: Basophils # 0.1 10^3/uL (0.0-0.1); Basophils % 1.7 %; Eosinophils # 0.4 10^3/uL (0.0-0.8); Lymphocytes # 1.7 10^3/uL (0.8-4.8); Lymphocytes % 47.9 %; Mean Corpuscular HGB Conc 31.6 g/dL (30-55); Mean Corpuscular Hemoglobin 28.9 pg (27-33); Mean Corpuscular Volume 91.4 fl (85-98); Mean Platelet Volume 9.1 fL (7.4-10.4); Monocytes # 0.1 10^3/uL (0.2-0.9); Monocytes % 3.1 %; Neutrophils # 1.27 10^3/uL (1.8-7.7); Neutrophils % 35.7 %; Nucleated Red Blood Cells % 0 %; Platelet Count 211 10^3/cmm (157-399); Red Cell Distribution Width 17.4 % (12.1-15.1); White Blood Count 3.55 10^3/uL (3.29-11.43)
[2024-04-03 08:29] LABS: Basophils % 1.2 %; Eosinophils # 0.3 10^3/uL (0.0-0.8); Eosinophils % 8.6 %; Hematocrit 29.3 % (36-47); Lymphocytes # 1.6 10^3/uL (0.8-4.8); Mean Corpuscular HGB Conc 33.1 g/dL (30-55); Mean Corpuscular Hemoglobin 29.5 pg (27-33); Mean Corpuscular Volume 89.1 fl (85-98); Mean Platelet Volume 9.4 fL (7.4-10.4); Monocytes # 0.2 10^3/uL (0.2-0.9); Monocytes % 5.4 %; Neutrophils # 1.26 10^3/uL (1.8-7.7); Neutrophils % 37.5 %; Nucleated Red Blood Cells % 0 %; Platelet Count 108 10^3/cmm (157-399); Red Blood Count 3.29 10^6/uL (3.85-5.65); White Blood Count 3.36 10^3/uL (3.29-11.43)
== END 2024-04-03 23:59 | disposition home or self-care (01) ==
PROVIDERS: Internal Medicine Medical Oncology; PCP Family Medicine; Visit Provider Internal Medicine Hematology & Oncology
DX: C92.00 Acute myeloblastic leukemia, not having achieved remission (principal); Z53.9 Procedure and treatment not carried out, unspecified reason
CPT/HCPCS: 36415; 85025; 99214

== ENCOUNTER 2024-05-01 07:30 | Oncology outpatient (recurring) (ONCR) | payer MEDICARE, SELFPAY ==
[2024-04-10 09:20] LABS: Basophils % 0.4 %; Eosinophils # 0.1 10^3/uL (0.0-0.8); Eosinophils % 2.4 %; Hematocrit 28.9 % (36-47); Lymphocytes # 1.1 10^3/uL (0.8-4.8); Lymphocytes % 42.7 %; Mean Corpuscular HGB Conc 32.5 g/dL (30-55); Mean Corpuscular Hemoglobin 29.7 pg (27-33); Mean Corpuscular Volume 91.5 fl (85-98); Mean Platelet Volume 10.2 fL (7.4-10.4); Monocytes % 1.2 %; Neutrophils # 1.31 10^3/uL (1.8-7.7); Neutrophils % 51.3 %; Nucleated Red Blood Cells % 0 %; Platelet Count 135 10^3/cmm (157-399); Red Blood Count 3.16 10^6/uL (3.85-5.65); Red Cell Distribution Width 19.6 % (12.1-15.1); White Blood Count 2.55 10^3/uL (3.29-11.43)
[2024-04-10 09:34] LABS: Alanine Aminotransferase 12 U/L (0-33); Albumin Level 3.7 g/dL (3.5-5.2); Alkaline Phosphatase 67 U/L (35-105); Anion Gap 14.1 (5-19); Aspartate Amino Transferase 14 U/L (0-32); Blood Urea Nitrogen 7 mg/dL (8-23); Calcium 7.2 mg/dL (8.5-10.5); Carbon Dioxide 25 mmol/L (22-29); Chloride 102 mmol/L (98-107); Globulin 2.6 g/dL (1.3-4.6); Glomerular Filtration Rate 83.2 mL/min (90-130); Glucose 127 mg/dL (65-115); Lactate Dehydrogenase 206 U/L (135-214); Osmolality Calculated 286 mOsm/kg (285-295); Potassium 3.1 mmol/L (3.5-5.1); Sodium 138 mmol/L (136-145); Total Bilirubin 0.5 mg/dL (0.15-1.2); Total Protein 6.3 g/dL (6.6-8.7)
[2024-04-17 08:17] LABS: Alanine Aminotransferase 12 U/L (0-33); Albumin Level 3.6 g/dL (3.5-5.2); Alkaline Phosphatase 75 U/L (35-105); Anion Gap 16.3 (5-19); Aspartate Amino Transferase 16 U/L (0-32); Blood Urea Nitrogen 7 mg/dL (8-23); Calcium 7.1 mg/dL (8.5-10.5); Carbon Dioxide 23 mmol/L (22-29); Chloride 108 mmol/L (98-107); Globulin 2.8 g/dL (1.3-4.6); Glomerular Filtration Rate 83.2 mL/min (90-130); Glucose 131 mg/dL (65-115); Osmolality Calculated 298 mOsm/kg (285-295); Potassium 3.3 mmol/L (3.5-5.1); Sodium 144 mmol/L (136-145); Total Bilirubin 0.5 mg/dL (0.15-1.2); Total Protein 6.4 g/dL (6.6-8.7)
[2024-04-17 08:33] LABS: Basophils % 2.9 %; Eosinophils # 0.1 10^3/uL (0.0-0.8); Eosinophils % 3.7 %; Hematocrit 28.5 % (36-47); Lymphocytes % 69.9 %; Mean Corpuscular HGB Conc 32.3 g/dL (30-55); Mean Corpuscular Hemoglobin 30.6 pg (27-33); Mean Corpuscular Volume 94.7 fl (85-98); Mean Platelet Volume 9.8 fL (7.4-10.4); Monocytes % 1.5 %; Nucleated Red Blood Cells % 0 %; Platelet Count 296 10^3/cmm (157-399); Red Blood Count 3.01 10^6/uL (3.85-5.65); Red Cell Distribution Width 20.1 % (12.1-15.1); White Blood Count 1.36 10^3/uL (3.29-11.43)
[2024-04-17 08:57] LABS: Slide Review Slide Review Perform
[2024-04-17 10:19] LABS: Magnesium 0.6 mg/dL (1.7-2.3)
[2024-04-17] MEDS: sodium chlor 0.9% + KCl 20 mEq 20 MEQ/1,000 ML BAG 500 MEQ IV (10:32)
[2024-04-17] MEDS: magnesium sulfate premix 2 GM/50 ML PIGGYBACK IV (11:14)
[2024-05-01 07:52] LABS: Basophils % 0.6 %; Eosinophils # 0.1 10^3/uL (0.0-0.8); Hematocrit 33.1 % (36-47); Lymphocytes # 1.6 10^3/uL (0.8-4.8); Lymphocytes % 47.1 %; Mean Corpuscular HGB Conc 32.6 g/dL (30-55); Mean Corpuscular Hemoglobin 31.6 pg (27-33); Mean Corpuscular Volume 96.8 fl (85-98); Mean Platelet Volume 9.8 fL (7.4-10.4); Monocytes # 0.3 10^3/uL (0.2-0.9); Monocytes % 7.8 %; Neutrophils # 1.43 10^3/uL (1.8-7.7); Neutrophils % 41.3 %; Nucleated Red Blood Cells % 0 %; Platelet Count 215 10^3/cmm (157-399); Red Blood Count 3.42 10^6/uL (3.85-5.65); Red Cell Distribution Width 20.4 % (12.1-15.1); White Blood Count 3.46 10^3/uL (3.29-11.43)
[2024-05-01 08:28] LABS: Alanine Aminotransferase 20 U/L (0-33); Albumin Level 3.9 g/dL (3.5-5.2); Alkaline Phosphatase 88 U/L (35-105); Anion Gap 16.7 (5-19); Aspartate Amino Transferase 20 U/L (0-32); Blood Urea Nitrogen 10 mg/dL (8-23); Calcium 8.7 mg/dL (8.5-10.5); Carbon Dioxide 21 mmol/L (22-29); Chloride 104 mmol/L (98-107); Creatinine Clr Calc Pharmacy 69.3808; Globulin 2.7 g/dL (1.3-4.6); Glomerular Filtration Rate 62.3 mL/min (90-130); Glucose 190 mg/dL (65-115); Lactate Dehydrogenase 188 U/L (135-214); Osmolality Calculated 290 mOsm/kg (285-295); Potassium 3.7 mmol/L (3.5-5.1); Sodium 138 mmol/L (136-145); Total Bilirubin 0.3 mg/dL (0.15-1.2); Total Protein 6.6 g/dL (6.6-8.7)
[2024-05-01 08:31] LABS: Magnesium 0.8 mg/dL (1.7-2.3)
== END 2024-05-04 23:59 | disposition home or self-care (01) ==
PROVIDERS: Internal Medicine Medical Oncology; PCP Family Medicine; Visit Provider Internal Medicine Hematology & Oncology
DX: Z53.9 Procedure and treatment not carried out, unspecified reason (principal); C92.00 Acute myeloblastic leukemia, not having achieved remission
CPT/HCPCS: 36415; 80053; 83615; 83735; 85025; 96365; 96366; 96367; 99214; J3475; J3480

== ENCOUNTER 2024-05-29 08:15 | Oncology outpatient (recurring) (ONCR) | payer MEDICARE, SELFPAY ==
[2024-05-08 08:29] LABS: Basophils % 0.7 %; Eosinophils % 0.7 %; Hematocrit 33.1 % (36-47); Lymphocytes # 1.5 10^3/uL (0.8-4.8); Lymphocytes % 32.2 %; Mean Corpuscular HGB Conc 32.3 g/dL (30-55); Mean Corpuscular Volume 95.9 fl (85-98); Mean Platelet Volume 9.5 fL (7.4-10.4); Monocytes # 0.4 10^3/uL (0.2-0.9); Monocytes % 9.8 %; Neutrophils # 2.49 10^3/uL (1.8-7.7); Neutrophils % 55.3 %; Nucleated Red Blood Cells % 0 %; Platelet Count 234 10^3/cmm (157-399); Red Blood Count 3.45 10^6/uL (3.85-5.65); Red Cell Distribution Width 19.7 % (12.1-15.1)
[2024-05-08 08:42] LABS: Alanine Aminotransferase 21 U/L (0-33); Albumin Level 3.8 g/dL (3.5-5.2); Alkaline Phosphatase 80 U/L (35-105); Anion Gap 15.7 (5-19); Aspartate Amino Transferase 23 U/L (0-32); Blood Urea Nitrogen 10 mg/dL (8-23); Calcium 8.6 mg/dL (8.5-10.5); Carbon Dioxide 23 mmol/L (22-29); Chloride 105 mmol/L (98-107); Globulin 2.8 g/dL (1.3-4.6); Glomerular Filtration Rate 71.3 mL/min (90-130); Glucose 140 mg/dL (65-115); Osmolality Calculated 291 mOsm/kg (285-295); Potassium 3.7 mmol/L (3.5-5.1); Sodium 140 mmol/L (136-145); Total Bilirubin 0.3 mg/dL (0.15-1.2); Total Protein 6.6 g/dL (6.6-8.7)
[2024-05-08 08:50] LABS: Magnesium 0.9 mg/dL (1.7-2.3)
[2024-05-08] MEDS: magnesium sulfate premix 2 GM/50 ML PIGGYBACK IV (10:06)
[2024-05-08 11:02] VITALS: BP 156/86; PULSE 75; RESP 16; TEMP 36.4; O2SAT 96
[2024-05-15 08:52] LABS: Basophils % 0.5 %; Eosinophils % 0.5 %; Hematocrit 34.2 % (36-47); Lymphocytes # 1.5 10^3/uL (0.8-4.8); Lymphocytes % 21.9 %; Mean Corpuscular HGB Conc 32.5 g/dL (30-55); Mean Corpuscular Hemoglobin 31.4 pg (27-33); Mean Corpuscular Volume 96.6 fl (85-98); Mean Platelet Volume 9.4 fL (7.4-10.4); Monocytes # 0.5 10^3/uL (0.2-0.9); Monocytes % 7.7 %; Neutrophils % 67.9 %; Nucleated Red Blood Cells % 0 %; Platelet Count 247 10^3/cmm (157-399); Red Blood Count 3.54 10^6/uL (3.85-5.65); Red Cell Distribution Width 18.6 % (12.1-15.1); White Blood Count 6.62 10^3/uL (3.29-11.43)
[2024-05-15 09:10] LABS: Alanine Aminotransferase 24 U/L (0-33); Albumin Level 4.1 g/dL (3.5-5.2); Alkaline Phosphatase 77 U/L (35-105); Anion Gap 17.4 (5-19); Aspartate Amino Transferase 22 U/L (0-32); Blood Urea Nitrogen 16 mg/dL (8-23); Calcium 8.8 mg/dL (8.5-10.5); Carbon Dioxide 23 mmol/L (22-29); Chloride 101 mmol/L (98-107); Globulin 2.7 g/dL (1.3-4.6); Glomerular Filtration Rate 55.1 mL/min (90-130); Glucose 133 mg/dL (65-115); Magnesium 1.4 mg/dL (1.7-2.3); Osmolality Calculated 287 mOsm/kg (285-295); Potassium 4.4 mmol/L (3.5-5.1); Sodium 137 mmol/L (136-145); Total Bilirubin 0.2 mg/dL (0.15-1.2); Total Protein 6.8 g/dL (6.6-8.7)
[2024-05-29 08:27] LABS: Basophils # 0.1 10^3/uL (0.0-0.1); Basophils % 0.8 %; Eosinophils # 0.1 10^3/uL (0.0-0.8); Eosinophils % 1.6 %; Hematocrit 36.2 % (36-47); Lymphocytes # 1.5 10^3/uL (0.8-4.8); Lymphocytes % 23.7 %; Mean Corpuscular HGB Conc 32.9 g/dL (30-55); Mean Corpuscular Hemoglobin 31.8 pg (27-33); Mean Corpuscular Volume 96.8 fl (85-98); Mean Platelet Volume 9.8 fL (7.4-10.4); Monocytes # 0.5 10^3/uL (0.2-0.9); Neutrophils # 4.23 10^3/uL (1.8-7.7); Nucleated Red Blood Cells % 0 %; Platelet Count 260 10^3/cmm (157-399); Red Blood Count 3.74 10^6/uL (3.85-5.65); Red Cell Distribution Width 17.4 % (12.1-15.1); White Blood Count 6.41 10^3/uL (3.29-11.43)
[2024-05-29 08:37] LABS: Alanine Aminotransferase 24 U/L (0-33); Albumin Level 3.9 g/dL (3.5-5.2); Alkaline Phosphatase 74 U/L (35-105); Aspartate Amino Transferase 23 U/L (0-32); Blood Urea Nitrogen 12 mg/dL (8-23); Calcium 9.4 mg/dL (8.5-10.5); Carbon Dioxide 26 mmol/L (22-29); Chloride 102 mmol/L (98-107); Globulin 2.8 g/dL (1.3-4.6); Glomerular Filtration Rate 62.3 mL/min (90-130); Glucose 116 mg/dL (65-115); Magnesium 1.6 mg/dL (1.7-2.3); Osmolality Calculated 287 mOsm/kg (285-295); Sodium 138 mmol/L (136-145); Total Bilirubin 0.2 mg/dL (0.15-1.2); Total Protein 6.7 g/dL (6.6-8.7)
[2024-05-29 08:41] LABS: Anion Gap 14.1 (5-19); Potassium 4.1 mmol/L (3.5-5.1)
== END 2024-06-03 23:59 | disposition home or self-care (01) ==
PROVIDERS: Internal Medicine Medical Oncology; Nurse Practitioner; PCP Family Medicine; Visit Provider Internal Medicine Hematology & Oncology
DX: Z53.9 Procedure and treatment not carried out, unspecified reason (principal); C92.01 Acute myeloblastic leukemia, in remission; E83.42 Hypomagnesemia; Z87.891 Personal history of nicotine dependence; R19.7 Diarrhea, unspecified; Z90.710 Acquired absence of both cervix and uterus; Z90.79 Acquired absence of other genital organ(s); Z90.722 Acquired absence of ovaries, bilateral
CPT/HCPCS: 36415; 80053; 83735; 85025; 96365; 99214; J3475

== ENCOUNTER 2024-06-26 13:00 | Oncology outpatient (recurring) (ONCR) | payer MEDICARE, SELFPAY ==
[2024-06-12 14:22] LABS: Basophils # 0.1 10^3/uL (0.0-0.1); Basophils % 1.5 %; Eosinophils # 0.2 10^3/uL (0.0-0.8); Eosinophils % 3.3 %; Hematocrit 36.6 % (36-47); Lymphocytes # 1.9 10^3/uL (0.8-4.8); Lymphocytes % 40.4 %; Mean Corpuscular HGB Conc 32.5 g/dL (30-55); Mean Corpuscular Hemoglobin 31.1 pg (27-33); Mean Corpuscular Volume 95.6 fl (85-98); Mean Platelet Volume 9.5 fL (7.4-10.4); Monocytes # 0.3 10^3/uL (0.2-0.9); Monocytes % 6.7 %; Neutrophils # 2.29 10^3/uL (1.8-7.7); Neutrophils % 47.7 %; Nucleated Red Blood Cells % 0 %; Platelet Count 286 10^3/cmm (157-399); Red Blood Count 3.83 10^6/uL (3.85-5.65); Red Cell Distribution Width 15.4 % (12.1-15.1)
[2024-06-12 14:37] LABS: Alanine Aminotransferase 22 U/L (0-33); Albumin Level 3.9 g/dL (3.5-5.2); Alkaline Phosphatase 82 U/L (35-105); Anion Gap 16.2 (5-19); Aspartate Amino Transferase 21 U/L (0-32); Blood Urea Nitrogen 13 mg/dL (8-23); Calcium 9.5 mg/dL (8.5-10.5); Carbon Dioxide 27 mmol/L (22-29); Chloride 101 mmol/L (98-107); Globulin 2.7 g/dL (1.3-4.6); Glomerular Filtration Rate 44.7 mL/min (90-130); Glucose 121 mg/dL (65-115); Magnesium 1.6 mg/dL (1.7-2.3); Osmolality Calculated 291 mOsm/kg (285-295); Potassium 4.2 mmol/L (3.5-5.1); Sodium 140 mmol/L (136-145); Total Bilirubin 0.2 mg/dL (0.15-1.2); Total Protein 6.6 g/dL (6.6-8.7)
[2024-06-26 13:36] LABS: Basophils # 0.1 10^3/uL (0.0-0.1); Basophils % 0.8 %; Eosinophils # 0.1 10^3/uL (0.0-0.8); Eosinophils % 1.6 %; Hematocrit 40.5 % (36-47); Lymphocytes % 23.7 %; Mean Corpuscular HGB Conc 33.3 g/dL (30-55); Mean Corpuscular Hemoglobin 31.7 pg (27-33); Mean Corpuscular Volume 95.1 fl (85-98); Mean Platelet Volume 9.7 fL (7.4-10.4); Monocytes # 0.6 10^3/uL (0.2-0.9); Monocytes % 7.4 %; Neutrophils # 5.34 10^3/uL (1.8-7.7); Neutrophils % 63.8 %; Nucleated Red Blood Cells % 0 %; Platelet Count 198 10^3/cmm (157-399); Red Blood Count 4.26 10^6/uL (3.85-5.65); Red Cell Distribution Width 15.2 % (12.1-15.1); White Blood Count 8.37 10^3/uL (3.29-11.43)
[2024-06-26 13:55] LABS: Alanine Aminotransferase 21 U/L (0-33); Albumin Level 4.1 g/dL (3.5-5.2); Alkaline Phosphatase 90 U/L (35-105); Anion Gap 12.3 (5-19); Aspartate Amino Transferase 18 U/L (0-32); Blood Urea Nitrogen 24 mg/dL (8-23); Calcium 9.6 mg/dL (8.5-10.5); Carbon Dioxide 27 mmol/L (22-29); Chloride 104 mmol/L (98-107); Creatinine Clr Calc Pharmacy 68.3525; Glomerular Filtration Rate 62.3 mL/min (90-130); Glucose 122 mg/dL (65-115); Osmolality Calculated 293 mOsm/kg (285-295); Potassium 4.3 mmol/L (3.5-5.1); Sodium 139 mmol/L (136-145); Total Bilirubin 0.2 mg/dL (0.15-1.2); Total Protein 7.1 g/dL (6.6-8.7)
[2024-06-26 15:41] LABS: Magnesium 1.8 mg/dL (1.7-2.3)
== END 2024-07-04 23:59 | disposition home or self-care (01) ==
PROVIDERS: Internal Medicine Medical Oncology; Nurse Practitioner; PCP Family Medicine; Visit Provider Internal Medicine Hematology & Oncology
DX: C92.01 Acute myeloblastic leukemia, in remission; E83.42 Hypomagnesemia; Z87.891 Personal history of nicotine dependence; R19.7 Diarrhea, unspecified; Z79.899 Other long term (current) drug therapy; Z79.2 Long term (current) use of antibiotics; Z53.9 Procedure and treatment not carried out, unspecified reason
CPT/HCPCS: 36415; 80053; 83735; 85025; 99214

== ENCOUNTER 2024-07-31 11:15 | Oncology outpatient (recurring) (ONCR) | payer MEDICARE, SELFPAY ==
[2024-07-17 12:18] LABS: Basophils # 0.1 10^3/uL (0.0-0.1); Basophils % 1.2 %; Eosinophils # 0.2 10^3/uL (0.0-0.8); Eosinophils % 2.4 %; Hematocrit 39.7 % (36-47); Lymphocytes # 2.1 10^3/uL (0.8-4.8); Mean Corpuscular HGB Conc 33.5 g/dL (30-55); Mean Corpuscular Hemoglobin 30.3 pg (27-33); Mean Corpuscular Volume 90.4 fl (85-98); Mean Platelet Volume 10.5 fL (7.4-10.4); Monocytes # 0.4 10^3/uL (0.2-0.9); Monocytes % 5.6 %; Neutrophils # 3.72 10^3/uL (1.8-7.7); Neutrophils % 56.3 %; Nucleated Red Blood Cells % 0 %; Platelet Count 190 10^3/cmm (157-399); Red Blood Count 4.39 10^6/uL (3.85-5.65); Red Cell Distribution Width 14.6 % (12.1-15.1); White Blood Count 6.61 10^3/uL (3.29-11.43)
[2024-07-17 12:37] LABS: Alanine Aminotransferase 24 U/L (0-33); Albumin Level 3.9 g/dL (3.5-5.2); Alkaline Phosphatase 93 U/L (35-105); Anion Gap 15.1 (5-19); Aspartate Amino Transferase 22 U/L (0-32); Blood Urea Nitrogen 11 mg/dL (8-23); Calcium 9.5 mg/dL (8.5-10.5); Carbon Dioxide 25 mmol/L (22-29); Chloride 100 mmol/L (98-107); Creatinine Clr Calc Pharmacy 68.1813; Globulin 2.9 g/dL (1.3-4.6); Glomerular Filtration Rate 62.3 mL/min (90-130); Glucose 120 mg/dL (65-115); Osmolality Calculated 283 mOsm/kg (285-295); Potassium 4.1 mmol/L (3.5-5.1); Sodium 136 mmol/L (136-145); Total Bilirubin 0.3 mg/dL (0.15-1.2); Total Protein 6.8 g/dL (6.6-8.7)
[2024-07-31 11:25] LABS: Basophils % 0.8 %; Eosinophils # 0.1 10^3/uL (0.0-0.8); Eosinophils % 2.2 %; Hematocrit 39.1 % (36-47); Lymphocytes # 1.4 10^3/uL (0.8-4.8); Lymphocytes % 28.7 %; Mean Corpuscular HGB Conc 33.2 g/dL (30-55); Mean Corpuscular Hemoglobin 30.2 pg (27-33); Mean Corpuscular Volume 90.7 fl (85-98); Mean Platelet Volume 9.3 fL (7.4-10.4); Monocytes # 0.5 10^3/uL (0.2-0.9); Monocytes % 10.4 %; Neutrophils % 53.9 %; Nucleated Red Blood Cells % 0 %; Platelet Count 158 10^3/cmm (157-399); Red Blood Count 4.31 10^6/uL (3.85-5.65); Red Cell Distribution Width 15.5 % (12.1-15.1); White Blood Count 5.01 10^3/uL (3.29-11.43)
[2024-07-31 11:41] LABS: Alanine Aminotransferase 22 U/L (0-33); Albumin Level 3.8 g/dL (3.5-5.2); Alkaline Phosphatase 98 U/L (35-105); Anion Gap 16.5 (5-19); Aspartate Amino Transferase 22 U/L (0-32); Blood Urea Nitrogen 11 mg/dL (8-23); Calcium 9.4 mg/dL (8.5-10.5); Carbon Dioxide 26 mmol/L (22-29); Chloride 99 mmol/L (98-107); Globulin 2.8 g/dL (1.3-4.6); Glomerular Filtration Rate 62.3 mL/min (90-130); Glucose 117 mg/dL (65-115); Magnesium 1.7 mg/dL (1.7-2.3); Osmolality Calculated 284 mOsm/kg (285-295); Potassium 4.5 mmol/L (3.5-5.1); Sodium 137 mmol/L (136-145); Total Bilirubin 0.3 mg/dL (0.15-1.2); Total Protein 6.6 g/dL (6.6-8.7)
== END 2024-08-04 23:59 | disposition home or self-care (01) ==
PROVIDERS: PCP Family Medicine; Visit Provider Internal Medicine Medical Oncology
DX: E83.42 Hypomagnesemia; C92.01 Acute myeloblastic leukemia, in remission; Z87.891 Personal history of nicotine dependence; Z79.899 Other long term (current) drug therapy; Z90.710 Acquired absence of both cervix and uterus; R19.7 Diarrhea, unspecified; Z53.9 Procedure and treatment not carried out, unspecified reason
CPT/HCPCS: 36415; 80053; 83735; 85025; 99214

== ENCOUNTER 2024-08-28 14:08 | Outpatient (CLI) | payer MEDICARE, SELFPAY ==
--- NOTE | 2024-08-28 14:14 | XRR_ITS ---
PROCEDURE INFORMATION: Exam: XR Left Shoulder Exam date and time: 08/28/2024 2:20 PM Age: 69 years old Clinical indication: Left; HX of leukemia. Pain for 3 months in shoulder, no specifcic injury, has had pain injections; Additional info: Left shoulder pain TECHNIQUE: Imaging protocol: Radiologic exam of the left shoulder. Views: 2 or more views. COMPARISON: CT chest wo con [id number] 07/13/2023 5:55 PM FINDINGS: Bones/joints: Normal. Soft tissues: Normal. XR/XR shoulder LT min 2V* [id number] IMPRESSION: No acute findings.
== END 2024-08-28 14:09 | disposition home or self-care (01) ==
LOC: RAD 14:12
PROVIDERS: PCP Family Medicine; Visit Provider Family Medicine
DX: M25.512 Pain in left shoulder (principal)
CPT/HCPCS: 73030

== ENCOUNTER 2024-08-29 12:00 | Oncology outpatient (recurring) (ONCR) | payer MEDICARE, SELFPAY ==
[2024-08-14 12:07] LABS: Basophils # 0.1 10^3/uL (0.0-0.1); Basophils % 1.3 %; Eosinophils # 0.1 10^3/uL (0.0-0.8); Eosinophils % 2.4 %; Hematocrit 38.5 % (36-47); Lymphocytes # 1.8 10^3/uL (0.8-4.8); Lymphocytes % 32.5 %; Mean Corpuscular HGB Conc 32.5 g/dL (30-55); Mean Corpuscular Hemoglobin 29.2 pg (27-33); Mean Platelet Volume 9.1 fL (7.4-10.4); Monocytes # 0.3 10^3/uL (0.2-0.9); Monocytes % 5.9 %; Neutrophils # 3.04 10^3/uL (1.8-7.7); Neutrophils % 55.7 %; Nucleated Red Blood Cells % 0 %; Platelet Count 213 10^3/cmm (157-399); Red Blood Count 4.28 10^6/uL (3.85-5.65); Red Cell Distribution Width 15.2 % (12.1-15.1); White Blood Count 5.45 10^3/uL (3.29-11.43)
[2024-08-14 12:23] LABS: Alanine Aminotransferase 18 U/L (0-33); Albumin Level 3.9 g/dL (3.5-5.2); Alkaline Phosphatase 100 U/L (35-105); Anion Gap 15.1 (5-19); Aspartate Amino Transferase 18 U/L (0-32); Blood Urea Nitrogen 14 mg/dL (8-23); Calcium 9.5 mg/dL (8.5-10.5); Carbon Dioxide 27 mmol/L (22-29); Chloride 99 mmol/L (98-107); Glomerular Filtration Rate 71.3 mL/min (90-130); Glucose 122 mg/dL (65-115); Magnesium 1.6 mg/dL (1.7-2.3); Osmolality Calculated 286 mOsm/kg (285-295); Potassium 4.1 mmol/L (3.5-5.1); Sodium 137 mmol/L (136-145); Total Bilirubin 0.3 mg/dL (0.15-1.2); Total Protein 6.9 g/dL (6.6-8.7)
[2024-08-29 12:07] LABS: Basophils # 0.1 10^3/uL (0.0-0.1); Basophils % 1.1 %; Eosinophils # 0.1 10^3/uL (0.0-0.8); Eosinophils % 2.6 %; Hematocrit 38.5 % (36-47); Lymphocytes # 1.7 10^3/uL (0.8-4.8); Lymphocytes % 32.3 %; Mean Corpuscular HGB Conc 33.2 g/dL (30-55); Mean Corpuscular Volume 90.2 fl (85-98); Mean Platelet Volume 9.2 fL (7.4-10.4); Monocytes # 0.6 10^3/uL (0.2-0.9); Monocytes % 10.9 %; Neutrophils # 2.74 10^3/uL (1.8-7.7); Neutrophils % 51.8 %; Nucleated Red Blood Cells % 0 %; Platelet Count 143 10^3/cmm (157-399); Red Blood Count 4.27 10^6/uL (3.85-5.65); Red Cell Distribution Width 15.9 % (12.1-15.1)
[2024-08-29 12:27] LABS: Alanine Aminotransferase 21 U/L (0-33); Albumin Level 4.1 g/dL (3.5-5.2); Alkaline Phosphatase 105 U/L (35-105); Anion Gap 12.9 (5-19); Aspartate Amino Transferase 22 U/L (0-32); Blood Urea Nitrogen 17 mg/dL (8-23); Calcium 9.5 mg/dL (8.5-10.5); Carbon Dioxide 28 mmol/L (22-29); Chloride 103 mmol/L (98-107); Globulin 2.8 g/dL (1.3-4.6); Glomerular Filtration Rate 71.3 mL/min (90-130); Glucose 106 mg/dL (65-115); Osmolality Calculated 290 mOsm/kg (285-295); Potassium 4.9 mmol/L (3.5-5.1); Sodium 139 mmol/L (136-145); Total Bilirubin 0.3 mg/dL (0.15-1.2); Total Protein 6.9 g/dL (6.6-8.7)
== END 2024-09-01 23:59 | disposition home or self-care (01) ==
PROVIDERS: Nurse Practitioner Family; PCP Family Medicine; Visit Provider Internal Medicine Medical Oncology
DX: Z53.9 Procedure and treatment not carried out, unspecified reason; C92.01 Acute myeloblastic leukemia, in remission; N94.89 Other specified conditions associated with female genital organs and menstrual cycle; E83.42 Hypomagnesemia; Z79.899 Other long term (current) drug therapy; Z90.710 Acquired absence of both cervix and uterus
CPT/HCPCS: 36415; 80053; 83735; 85025; 99214

== ENCOUNTER 2024-09-20 09:16 | Outpatient (RCR) | payer MEDICARE, SELFPAY | END 2024-10-02 23:59 | disposition home or self-care (01) | LOC: SPT 09:16 | PROVIDERS: Visit Provider Family Medicine | DX: M25.512 Pain in left shoulder (principal) | CPT/HCPCS: 97110; 97161 ==

== ENCOUNTER 2024-09-26 13:15 | Oncology outpatient (recurring) (ONCR) | payer MEDICARE, SELFPAY ==
[2024-09-12 12:43] LABS: Basophils # 0.1 10^3/uL (0.0-0.1); Basophils % 1.2 %; Eosinophils # 0.1 10^3/uL (0.0-0.8); Eosinophils % 1.4 %; Hematocrit 39.5 % (36-47); Lymphocytes # 1.4 10^3/uL (0.8-4.8); Lymphocytes % 23.4 %; Mean Corpuscular HGB Conc 32.9 g/dL (30-55); Mean Platelet Volume 9.2 fL (7.4-10.4); Monocytes # 0.4 10^3/uL (0.2-0.9); Monocytes % 5.9 %; Neutrophils # 3.94 10^3/uL (1.8-7.7); Neutrophils % 66.9 %; Nucleated Red Blood Cells % 0 %; Platelet Count 250 10^3/cmm (157-399); Red Blood Count 4.49 10^6/uL (3.85-5.65); Red Cell Distribution Width 15.8 % (12.1-15.1); White Blood Count 5.89 10^3/uL (3.29-11.43)
[2024-09-12 13:02] LABS: Alanine Aminotransferase 21 U/L (0-33); Albumin Level 4.1 g/dL (3.5-5.2); Alkaline Phosphatase 108 U/L (35-105); Anion Gap 12.1 (5-19); Aspartate Amino Transferase 21 U/L (0-32); Blood Urea Nitrogen 15 mg/dL (8-23); Calcium 9.6 mg/dL (8.5-10.5); Carbon Dioxide 29 mmol/L (22-29); Chloride 99 mmol/L (98-107); Creatinine Clr Calc Pharmacy 76.3181; Globulin 2.9 g/dL (1.3-4.6); Glomerular Filtration Rate 71.3 mL/min (90-130); Glucose 110 mg/dL (65-115); Osmolality Calculated 283 mOsm/kg (285-295); Potassium 4.1 mmol/L (3.5-5.1); Sodium 136 mmol/L (136-145); Total Bilirubin 0.5 mg/dL (0.15-1.2)
[2024-09-26 10:30] LABS: Basophils % 0.8 %; Eosinophils # 0.1 10^3/uL (0.0-0.8); Eosinophils % 2.7 %; Hematocrit 39.8 % (36-47); Lymphocytes # 1.5 10^3/uL (0.8-4.8); Lymphocytes % 31.3 %; Mean Corpuscular HGB Conc 32.4 g/dL (30-55); Mean Corpuscular Hemoglobin 28.5 pg (27-33); Mean Corpuscular Volume 88.1 fl (85-98); Mean Platelet Volume 9.2 fL (7.4-10.4); Monocytes # 0.4 10^3/uL (0.2-0.9); Monocytes % 8.8 %; Neutrophils # 2.67 10^3/uL (1.8-7.7); Neutrophils % 54.6 %; Nucleated Red Blood Cells % 0 %; Platelet Count 165 10^3/cmm (157-399); Red Blood Count 4.52 10^6/uL (3.85-5.65); White Blood Count 4.89 10^3/uL (3.29-11.43)
[2024-09-26 10:45] LABS: Alanine Aminotransferase 23 U/L (0-33); Alkaline Phosphatase 111 U/L (35-105); Anion Gap 13.7 (5-19); Aspartate Amino Transferase 22 U/L (0-32); Blood Urea Nitrogen 12 mg/dL (8-23); Calcium 9.5 mg/dL (8.5-10.5); Carbon Dioxide 26 mmol/L (22-29); Chloride 102 mmol/L (98-107); Creatinine Clr Calc Pharmacy 76.3181; Globulin 3.2 g/dL (1.3-4.6); Glomerular Filtration Rate 71.3 mL/min (90-130); Glucose 131 mg/dL (65-115); Magnesium 1.7 mg/dL (1.7-2.3); Osmolality Calculated 288 mOsm/kg (285-295); Potassium 3.7 mmol/L (3.5-5.1); Sodium 138 mmol/L (136-145); Total Bilirubin 0.4 mg/dL (0.15-1.2); Total Protein 7.2 g/dL (6.6-8.7)
== END 2024-10-02 23:59 | disposition home or self-care (01) ==
PROVIDERS: Visit Provider Internal Medicine Medical Oncology
DX: Z53.9 Procedure and treatment not carried out, unspecified reason; C92.01 Acute myeloblastic leukemia, in remission; E83.42 Hypomagnesemia
CPT/HCPCS: 36415; 80053; 83735; 85025; 99214

== ENCOUNTER 2024-10-03 06:00 | Outpatient (RCR) | payer MEDICARE, SELFPAY | END 2024-11-01 23:59 | disposition home or self-care (01) | LOC: SPT 06:00 | PROVIDERS: Visit Provider Family Medicine | DX: M25.512 Pain in left shoulder (principal) | CPT/HCPCS: 97110 ==

== ENCOUNTER 2024-10-24 09:30 | Oncology outpatient (recurring) (ONCR) | payer MEDICARE, SELFPAY ==
[2024-10-10 08:38] LABS: Basophils # 0.1 10^3/uL (0.0-0.1); Basophils % 1.4 %; Eosinophils # 0.1 10^3/uL (0.0-0.8); Eosinophils % 2.6 %; Lymphocytes # 1.6 10^3/uL (0.8-4.8); Lymphocytes % 37.6 %; Mean Corpuscular HGB Conc 32.3 g/dL (30-55); Mean Corpuscular Hemoglobin 28.2 pg (27-33); Mean Corpuscular Volume 87.3 fl (85-98); Monocytes # 0.3 10^3/uL (0.2-0.9); Monocytes % 6.1 %; Neutrophils # 2.16 10^3/uL (1.8-7.7); Neutrophils % 50.9 %; Nucleated Red Blood Cells % 0 %; Platelet Count 238 10^3/cmm (157-399); Red Blood Count 4.58 10^6/uL (3.85-5.65); White Blood Count 4.25 10^3/uL (3.29-11.43)
[2024-10-10 08:54] LABS: Alanine Aminotransferase 22 U/L (0-33); Alkaline Phosphatase 107 U/L (35-105); Anion Gap 15.3 (5-19); Aspartate Amino Transferase 22 U/L (0-32); Blood Urea Nitrogen 13 mg/dL (8-23); Calcium 9.6 mg/dL (8.5-10.5); Carbon Dioxide 26 mmol/L (22-29); Chloride 101 mmol/L (98-107); Globulin 3.1 g/dL (1.3-4.6); Glomerular Filtration Rate 71.3 mL/min (90-130); Glucose 126 mg/dL (65-115); Magnesium 1.5 mg/dL (1.7-2.3); Osmolality Calculated 288 mOsm/kg (285-295); Potassium 4.3 mmol/L (3.5-5.1); Sodium 138 mmol/L (136-145); Total Bilirubin 0.4 mg/dL (0.15-1.2); Total Protein 7.1 g/dL (6.6-8.7)
[2024-10-24 08:33] LABS: Basophils # 0.1 10^3/uL (0.0-0.1); Basophils % 1.1 %; Eosinophils # 0.1 10^3/uL (0.0-0.8); Eosinophils % 2.1 %; Lymphocytes # 1.8 10^3/uL (0.8-4.8); Lymphocytes % 34.3 %; Mean Corpuscular HGB Conc 32.5 g/dL (30-55); Mean Corpuscular Hemoglobin 28.5 pg (27-33); Mean Corpuscular Volume 87.7 fl (85-98); Mean Platelet Volume 9.2 fL (7.4-10.4); Monocytes # 0.5 10^3/uL (0.2-0.9); Monocytes % 8.8 %; Neutrophils # 2.74 10^3/uL (1.8-7.7); Neutrophils % 52.6 %; Nucleated Red Blood Cells % 0 %; Platelet Count 163 10^3/cmm (157-399); Red Blood Count 4.56 10^6/uL (3.85-5.65); Red Cell Distribution Width 16.8 % (12.1-15.1); White Blood Count 5.22 10^3/uL (3.29-11.43)
[2024-10-24 08:47] LABS: Alanine Aminotransferase 20 U/L (0-33); Alkaline Phosphatase 93 U/L (35-105); Anion Gap 16.1 (5-19); Aspartate Amino Transferase 21 U/L (0-32); Blood Urea Nitrogen 13 mg/dL (8-23); Calcium 9.4 mg/dL (8.5-10.5); Carbon Dioxide 24 mmol/L (22-29); Chloride 103 mmol/L (98-107); Creatinine Clr Calc Pharmacy 75.3542; Glomerular Filtration Rate 71.3 mL/min (90-130); Glucose 130 mg/dL (65-115); Magnesium 1.6 mg/dL (1.7-2.3); Osmolality Calculated 290 mOsm/kg (285-295); Potassium 4.1 mmol/L (3.5-5.1); Sodium 139 mmol/L (136-145); Total Bilirubin 0.3 mg/dL (0.15-1.2)
== END 2024-11-01 23:59 | disposition home or self-care (01) ==
PROVIDERS: PCP Family Medicine; Visit Provider Internal Medicine Medical Oncology
DX: Z53.9 Procedure and treatment not carried out, unspecified reason; C92.01 Acute myeloblastic leukemia, in remission; E83.42 Hypomagnesemia
CPT/HCPCS: 36415; 80053; 83735; 85025; 99214

== ENCOUNTER 2024-11-02 05:00 | Outpatient (RCR) | payer MEDICARE, SELFPAY | END 2024-12-02 23:55 | disposition home or self-care (01) | LOC: SPT 05:00 | PROVIDERS: PCP Family Medicine; Visit Provider Family Medicine | DX: M25.512 Pain in left shoulder (principal) | CPT/HCPCS: 97110 ==

== ENCOUNTER 2024-11-20 08:45 | Oncology outpatient (recurring) (ONCR) | payer MEDICARE, SELFPAY ==
--- NOTE | 2024-11-03 15:15 | MR_ITS ---
WS: [id number] MRI LEFT SHOULDER NONCONTRAST TECHNIQUE: Sagittal T2, coronal T1, T2 and proton density imaging. Axial gradient PDE imaging. CLINICAL INFORMATION: Left shoulder pain COMPARISON: None. FINDINGS: Moderate to advanced arthritis AC joint with fluid and edema. Subacromial spurring with impingement distal supraspinatus. Tendinopathy supraspinatus and infraspinatus. Tiny undersurface tear distal supraspinatus. Chronic thinning of the supraspinatus and infraspinatus. Teres minor is intact. Subscapularis tendon is normal in appearance. Biceps tendon intact within the bicipital groove. Normal intra-articular biceps tendon. Moderate to advanced degenerative narrowing of the glenohumeral articulation. Labrum appears grossly normal with mild degenerative fraying. No acute fractures. Normal bone marrow signal in the glenoid. No other acute findings. MR/MR shoulder LT wo con* [id number] IMPRESSION: 1. Moderate to advanced arthritis AC joint with mild narrowing of the subacrom ial space. 2. Tendinopathy supraspinatus and infraspinatus. Tiny undersurface tear distal supraspinatus. 3. Biceps tendon is intact within the bicipital groove. 4. Moderate to advanced degenerative narrowing of the glenohumeral articulatio n. 5. No other acute findings.
[2024-11-07 08:57] LABS: Basophils # 0.1 10^3/uL (0.0-0.1); Eosinophils # 0.1 10^3/uL (0.0-0.8); Eosinophils % 1.3 %; Lymphocytes # 2.1 10^3/uL (0.8-4.8); Lymphocytes % 24.6 %; Mean Corpuscular Hemoglobin 28.2 pg (27-33); Mean Corpuscular Volume 88.4 fl (85-98); Mean Platelet Volume 9.2 fL (7.4-10.4); Monocytes # 0.4 10^3/uL (0.2-0.9); Monocytes % 4.4 %; Neutrophils # 5.58 10^3/uL (1.8-7.7); Neutrophils % 66.9 %; Nucleated Red Blood Cells % 0 %; Platelet Count 261 10^3/cmm (157-399); Red Blood Count 4.64 10^6/uL (3.85-5.65); Red Cell Distribution Width 16.5 % (12.1-15.1); White Blood Count 8.34 10^3/uL (3.29-11.43)
[2024-11-07 09:12] LABS: Alanine Aminotransferase 22 U/L (0-33); Albumin Level 4.1 g/dL (3.5-5.2); Alkaline Phosphatase 109 U/L (35-105); Aspartate Amino Transferase 21 U/L (0-32); Blood Urea Nitrogen 15 mg/dL (8-23); Calcium 9.5 mg/dL (8.5-10.5); Carbon Dioxide 24 mmol/L (22-29); Chloride 101 mmol/L (98-107); Creatinine Clr Calc Pharmacy 75.1617; Globulin 3.4 g/dL (1.3-4.6); Glomerular Filtration Rate 71.3 mL/min (90-130); Glucose 109 mg/dL (65-115); Magnesium 1.6 mg/dL (1.7-2.3); Osmolality Calculated 287 mOsm/kg (285-295); Sodium 138 mmol/L (136-145); Total Bilirubin 0.4 mg/dL (0.15-1.2); Total Protein 7.5 g/dL (6.6-8.7)
[2024-11-20 08:54] LABS: Basophils # 0.1 10^3/uL (0.0-0.1); Basophils % 0.8 %; Eosinophils # 0.2 10^3/uL (0.0-0.8); Eosinophils % 3.2 %; Lymphocytes # 1.5 10^3/uL (0.8-4.8); Lymphocytes % 25.5 %; Mean Corpuscular HGB Conc 32.3 g/dL (30-55); Mean Corpuscular Hemoglobin 28.4 pg (27-33); Mean Corpuscular Volume 87.8 fl (85-98); Mean Platelet Volume 9.5 fL (7.4-10.4); Monocytes # 0.3 10^3/uL (0.2-0.9); Monocytes % 5.5 %; Neutrophils # 3.86 10^3/uL (1.8-7.7); Neutrophils % 64.5 %; Nucleated Red Blood Cells % 0 %; Platelet Count 173 10^3/cmm (157-399); Red Blood Count 4.44 10^6/uL (3.85-5.65); Red Cell Distribution Width 16.2 % (12.1-15.1); White Blood Count 5.99 10^3/uL (3.29-11.43)
[2024-11-20 09:10] LABS: Alanine Aminotransferase 18 U/L (0-33); Albumin Level 3.7 g/dL (3.5-5.2); Alkaline Phosphatase 95 U/L (35-105); Anion Gap 15.9 (5-19); Aspartate Amino Transferase 18 U/L (0-32); Blood Urea Nitrogen 16 mg/dL (8-23); Calcium 9.2 mg/dL (8.5-10.5); Carbon Dioxide 26 mmol/L (22-29); Chloride 104 mmol/L (98-107); Creatinine Clr Calc Pharmacy 75.1617; Globulin 3.1 g/dL (1.3-4.6); Glomerular Filtration Rate 71.3 mL/min (90-130); Glucose 124 mg/dL (65-115); Magnesium 1.7 mg/dL (1.7-2.3); Osmolality Calculated 297 mOsm/kg (285-295); Potassium 3.9 mmol/L (3.5-5.1); Sodium 142 mmol/L (136-145); Total Bilirubin 0.4 mg/dL (0.15-1.2); Total Protein 6.8 g/dL (6.6-8.7)
== END 2024-12-02 23:59 | disposition home or self-care (01) ==
PROVIDERS: Internal Medicine Medical Oncology; PCP Family Medicine; Visit Provider Family Medicine
DX: E83.42 Hypomagnesemia; C92.01 Acute myeloblastic leukemia, in remission; Z53.9 Procedure and treatment not carried out, unspecified reason
CPT/HCPCS: 36415; 73221; 80053; 83735; 85025; 99214

== ENCOUNTER 2024-12-03 06:30 | Outpatient (RCR) | payer MEDICARE, SELFPAY | END 2024-12-05 08:00 | disposition home or self-care (01) | LOC: SPT 06:30 | PROVIDERS: PCP Family Medicine; Visit Provider Family Medicine | DX: M25.512 Pain in left shoulder (principal) | CPT/HCPCS: 97110 ==

== ENCOUNTER 2024-12-05 10:04 | Oncology outpatient (recurring) (ONCR) | payer MEDICARE, SELFPAY ==
[2024-12-05 10:27] LABS: Basophils # 0.1 10^3/uL (0.0-0.1); Basophils % 0.8 %; Eosinophils # 0.1 10^3/uL (0.0-0.8); Eosinophils % 1.3 %; Hematocrit 39.3 % (36-47); Lymphocytes # 1.7 10^3/uL (0.8-4.8); Lymphocytes % 23.9 %; Mean Corpuscular HGB Conc 32.3 g/dL (30-55); Mean Corpuscular Hemoglobin 28.4 pg (27-33); Mean Corpuscular Volume 87.9 fl (85-98); Mean Platelet Volume 9.3 fL (7.4-10.4); Monocytes # 0.3 10^3/uL (0.2-0.9); Monocytes % 4.4 %; Neutrophils # 4.84 10^3/uL (1.8-7.7); Neutrophils % 68.3 %; Nucleated Red Blood Cells % 0 %; Platelet Count 243 10^3/cmm (157-399); Red Blood Count 4.47 10^6/uL (3.85-5.65); Red Cell Distribution Width 16.5 % (12.1-15.1); White Blood Count 7.08 10^3/uL (3.29-11.43)
[2024-12-05 10:47] LABS: Alanine Aminotransferase 19 U/L (0-33); Albumin Level 3.9 g/dL (3.5-5.2); Alkaline Phosphatase 102 U/L (35-105); Anion Gap 17.1 (5-19); Aspartate Amino Transferase 19 U/L (0-32); Blood Urea Nitrogen 13 mg/dL (8-23); Calcium 9.3 mg/dL (8.5-10.5); Carbon Dioxide 25 mmol/L (22-29); Chloride 101 mmol/L (98-107); Globulin 3.3 g/dL (1.3-4.6); Glomerular Filtration Rate 71.3 mL/min (90-130); Glucose 123 mg/dL (65-115); Magnesium 1.7 mg/dL (1.7-2.3); Osmolality Calculated 289 mOsm/kg (285-295); Potassium 4.1 mmol/L (3.5-5.1); Sodium 139 mmol/L (136-145); Total Bilirubin 0.4 mg/dL (0.15-1.2); Total Protein 7.2 g/dL (6.6-8.7)
== END 2025-01-01 23:59 | disposition home or self-care (01) ==
PROVIDERS: Internal Medicine Medical Oncology; PCP Family Medicine; Visit Provider Nurse Practitioner
DX: C92.01 Acute myeloblastic leukemia, in remission (principal); E83.42 Hypomagnesemia; R03.0 Elevated blood-pressure reading, without diagnosis of hypertension; Z79.899 Other long term (current) drug therapy; Z90.710 Acquired absence of both cervix and uterus
CPT/HCPCS: 36415; 80053; 83735; 85025; 99214

== ENCOUNTER 2025-01-30 13:15 | Oncology outpatient (recurring) (ONCR) | payer MEDICARE, SELFPAY ==
[2025-01-02 12:13] LABS: Hematocrit 38.5 % (36-47); Hemoglobin 12.60 g/dL (11.27-16.99); Mean Corpuscular HGB Conc 32.7 g/dL (30-55); Mean Corpuscular Hemoglobin 29.0 pg (27-33); Mean Corpuscular Volume 88.7 fl (85-98); Nucleated Red Blood Cells % 0 %; Platelet Count 271 10^3/cmm (157-399); Red Blood Count 4.34 10^6/uL (3.85-5.65); White Blood Count 5.81 10^3/uL (3.29-11.43)
[2025-01-02 12:30] LABS: Alanine Aminotransferase 19 U/L (0-33); Albumin Level 3.8 g/dL (3.5-5.2); Alkaline Phosphatase 105 U/L (35-105); Anion Gap 15.9 (5-19); Aspartate Amino Transferase 21 U/L (0-32); Blood Urea Nitrogen 12 mg/dL (8-23); Calcium 9.2 mg/dL (8.5-10.5); Carbon Dioxide 27 mmol/L (22-29); Chloride 101 mmol/L (98-107); Creatinine Clr Calc Pharmacy 82.6855; Globulin 3.2 g/dL (1.3-4.6); Glucose 115 mg/dL (65-115); Osmolality Calculated 291 mOsm/kg (285-295); Potassium 3.9 mmol/L (3.5-5.1); Sodium 140 mmol/L (136-145); Total Protein 7.0 g/dL (6.6-8.7)
[2025-01-02 17:12] LABS: Magnesium 1.4 mg/dL (1.7-2.3)
[2025-01-30 13:19] LABS: Hematocrit 38.9 % (36-47); Hemoglobin 12.60 g/dL (11.27-16.99); Mean Corpuscular HGB Conc 32.4 g/dL (30-55); Mean Corpuscular Hemoglobin 28.3 pg (27-33); Mean Corpuscular Volume 87.4 fl (85-98); Nucleated Red Blood Cells % 0 %; Platelet Count 325 10^3/cmm (157-399); Red Blood Count 4.45 10^6/uL (3.85-5.65); White Blood Count 4.76 10^3/uL (3.29-11.43)
[2025-01-30 13:38] LABS: Alanine Aminotransferase 19 U/L (0-33); Albumin Level 3.8 g/dL (3.5-5.2); Alkaline Phosphatase 105 U/L (35-105); Anion Gap 16.1 (5-19); Aspartate Amino Transferase 18 U/L (0-32); Blood Urea Nitrogen 12 mg/dL (8-23); Calcium 9.1 mg/dL (8.5-10.5); Carbon Dioxide 27 mmol/L (22-29); Chloride 101 mmol/L (98-107); Creatinine Clr Calc Pharmacy 82.6855; Globulin 3.0 g/dL (1.3-4.6); Glucose 123 mg/dL (65-115); Magnesium 1.7 mg/dL (1.7-2.3); Osmolality Calculated 291 mOsm/kg (285-295); Potassium 4.1 mmol/L (3.5-5.1); Sodium 140 mmol/L (136-145); Total Protein 6.8 g/dL (6.6-8.7)
== END 2025-02-01 23:59 | disposition home or self-care (01) ==
PROVIDERS: Internal Medicine Medical Oncology; PCP Family Medicine; Visit Provider Nurse Practitioner
DX: Z53.9 Procedure and treatment not carried out, unspecified reason (principal); C92.01 Acute myeloblastic leukemia, in remission; R03.0 Elevated blood-pressure reading, without diagnosis of hypertension; E83.42 Hypomagnesemia; Z79.899 Other long term (current) drug therapy
CPT/HCPCS: 36415; 80053; 83615; 83735; 85025; 99214

== ENCOUNTER 2025-02-27 11:00 | Oncology outpatient (recurring) (ONCR) | payer MEDICARE, SELFPAY ==
[2025-02-27 11:18] LABS: Hematocrit 40.1 % (36-47); Hemoglobin 13.20 g/dL (11.27-16.99); Mean Corpuscular HGB Conc 32.9 g/dL (30-55); Mean Corpuscular Hemoglobin 28.4 pg (27-33); Mean Corpuscular Volume 86.2 fl (85-98); Nucleated Red Blood Cells % 0 %; Platelet Count 293 10^3/cmm (157-399); Red Blood Count 4.65 10^6/uL (3.85-5.65); White Blood Count 4.80 10^3/uL (3.29-11.43)
[2025-02-27 11:35] LABS: Alanine Aminotransferase 24 U/L (0-33); Albumin Level 4.1 g/dL (3.5-5.2); Alkaline Phosphatase 122 U/L (35-105); Anion Gap 13.6 (5-19); Aspartate Amino Transferase 24 U/L (0-32); Blood Urea Nitrogen 12 mg/dL (8-23); Calcium 9.7 mg/dL (8.5-10.5); Carbon Dioxide 27 mmol/L (22-29); Chloride 103 mmol/L (98-107); Globulin 3.2 g/dL (1.3-4.6); Glucose 102 mg/dL (65-115); Magnesium 1.8 mg/dL (1.7-2.3); Osmolality Calculated 288 mOsm/kg (285-295); Potassium 4.6 mmol/L (3.5-5.1); Sodium 139 mmol/L (136-145); Total Protein 7.3 g/dL (6.6-8.7)
== END 2025-03-04 23:59 | disposition home or self-care (01) ==
LOC: ONCMED 11:01
PROVIDERS: Internal Medicine Medical Oncology; PCP Family Medicine; Visit Provider Nurse Practitioner
DX: C92.01 Acute myeloblastic leukemia, in remission (principal); R03.0 Elevated blood-pressure reading, without diagnosis of hypertension; E83.42 Hypomagnesemia; Z79.899 Other long term (current) drug therapy; Z87.891 Personal history of nicotine dependence
CPT/HCPCS: 36415; 80053; 83735; 85025; 99214

== ENCOUNTER → 2025-03-29 11:23 | Outpatient (BNVA) | payer MEDICARE, SELFPAY | PROVIDERS: PCP Family Medicine; Visit Provider Family Medicine | DX: N93.9 Abnormal uterine and vaginal bleeding, unspecified (principal); R31.9 Hematuria, unspecified; R30.0 Dysuria | CPT/HCPCS: 81000; 87086; 87624 ==

== ENCOUNTER → 2025-04-05 11:13 | Outpatient (BNVA) | payer MEDICARE, SELFPAY | PROVIDERS: PCP Family Medicine; Visit Provider Family Medicine | DX: E55.9 Vitamin D deficiency, unspecified (principal); Z00.00 Encounter for general adult medical examination without abnormal findings; Z51.81 Encounter for therapeutic drug level monitoring; R73.09 Other abnormal glucose; Z13.6 Encounter for screening for cardiovascular disorders; E53.8 Deficiency of other specified B group vitamins | CPT/HCPCS: 80053; 80061; 82306; 82607; 83036; 85025 ==

== ENCOUNTER 2025-04-06 09:28 | Outpatient (CLI) | payer MEDICARE, SELFPAY ==
--- NOTE | 2025-04-06 09:40 | MM_ITS ---
WS: [id number] BILATERAL SCREENING DIGITAL TOMOSYNTHESIS MAMMOGRAM WITH CAD HISTORY: Screening COMPARISON: 03/13/2022, 09/17/2020 Bilateral CC and MLO views with tomosynthesis and synthetic mammography submitted. Computer aided detection analyzed. Breast composition: The breasts are almost entirely fatty. No suspicious masses, microcalcifications or architectural distortion. Benign lymph node upper outer quadrant RIGHT breast. There are small scattered calcifications are identified. Increase in number of benign calcifications since the prior study. MM/MM scr tomosynthesis [id number] IMPRESSION: BI-RADS: 2 - Benign. FOLLOW UP: 1 Year Follow-up
== END 2025-04-06 09:29 | disposition home or self-care (01) ==
LOC: RAD 09:31
PROVIDERS: PCP Family Medicine; Visit Provider Family Medicine
DX: Z12.31 Encounter for screening mammogram for malignant neoplasm of breast (principal); R92.313 Mammographic fatty tissue density, bilateral breasts; R92.1 Mammographic calcification found on diagnostic imaging of breast; N63.11 Unspecified lump in the right breast, upper outer quadrant
CPT/HCPCS: 77063; 77067

== ENCOUNTER 2025-04-23 09:03 | Oncology outpatient (recurring) (ONCR) | payer MEDICARE, SELFPAY ==
--- NOTE | 2025-04-23 09:15 | US_ITS ---
WS: [id number] ULTRASOUND RENAL TECHNIQUE: Ultrasound examination of both kidneys. CLINICAL INFORMATION: Hematuria COMPARISON: CT 07/12/2023 FINDINGS: RIGHT: Right kidney is normal in size and appearance. Echogenicity: Normal. Hydronephrosis: None. Perinephric fluid: None. Right kidney measures: 11.0 cm x 7.7 cm x 7.1 cm. LEFT: Left kidney is normal in size and appearance. Echogenicity: Normal. Hydronephrosis: None. Perinephric fluid: None. Left kidney measures: 9.3 cm x 5.5 cm x 4.5 cm. Urinary bladder: Bladder volume Prevoid bladder: volume 377 ml. Postvoid bladder: 39 ml. US/US renal BI w/PV bladder [id number] IMPRESSION: 1. No hydronephrosis in either kidney. 2. Prevoid bladder volume 377 cc 3. post void 39 cc 4. LEFT ureteral jet visualized. RIGHT ureteral jet not visualized.
== END 2025-05-04 23:59 | disposition home or self-care (01) ==
LOC: RAD 09:06 → ONCMED 09:57
PROVIDERS: PCP Family Medicine; Visit Provider Nurse Practitioner
DX: R31.9 Hematuria, unspecified (principal)
CPT/HCPCS: 76770; 76857

== ENCOUNTER 2025-04-26 08:13 | Inpatient (IN) | payer MEDICARE, SELFPAY ==
[2025-04-26] VITALS (32 sets, daily range): BP systolic 108–179; BP diastolic 62–101; PULSE 64–81; RESP 14–30; TEMP 36.2–37; O2SAT 92–97; BMI 33.7
--- NOTE | 2025-04-26 08:09 | XR_ITS ---
WS: [id number] Portable AP upright chest, 04/26/2025 Clinical Data: dyspnea/cough Comparison: Portable chest, 07/12/2023 Findings: No nodules, masses or effusions are seen. The heart is normal. The pulmonary vascularity is not increased. No pneumonia or pneumothorax is seen. XR/XR chest 1V portable [id number] Impression: Negative chest.
--- NOTE | 2025-04-26 08:09 | ECG_ITS ---
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 Measurements Intervals [place] Rate: 65 P: -5 WI: 132 QRS: -51 QRSD: 134 T: -50 QT: 425 QTc: 444 Interpretive Statements SINUS RHYTHM RIGHT BUNDLE BRANCH BLOCK [120+ ms QRS DURATION, UPRIGHT V1, 40+ ms S IN I/aVL/V4/V5/V6] LEFT ANTERIOR FASCICULAR BLOCK [QRS AXIS <= -45, QR IN I, RS IN II] LEFT VENTRICULAR HYPERTROPHY AND ST-T CHANGE [VOLTAGE CRITERIA PLUS ST/T ABNORMALITY] POSSIBLE SEPTAL MYOCARDIAL INFARCTION , PROBABLY OLD [30 ms Q WAVE IN V1/V2] Compared to ECG 07/13/2023 02:41:46 Left anterior fascicular block now present.Left ventricular hypertrophy now present.ST (T wave) deviation now present.Left-axis deviation no longer present T-wave abnormality no longer present.Possible ischemia no longer present Myocardial infarct finding still present Electronically Signed On 04-27-2025 15:25:55 CDT by Emilia Young M.D. [email or web address]
--- OUTSIDE RECORDS SUMMARY | 2025-04-26 08:18 | XMS_ITS | Data Portability ---
Author Organization [facility] [place] [facility] Address [address] [address] Care Team Providers Care Coat Padder Name Role Phone OSBALDO SHEETS Primary Care Provider [phone] Assessment No assessment recorded. Plan of Treatment Reminders Order Date Submit Date Provider Last Modified By Organization Details Last Modified Time Details Appointments None record ed. Lab None record ed. Referral None record ed. Procedures None record ed. Surgeries None record ed. Imaging None record ed. Medication Orders None record ed. Patient TargetsNo targets recorded. Patient InstructionsNo instructions recorded. Reason for Referral None Reported. Problems Name Problem SNOMED Code Status Onset Date Resolution Date Notes Provider Name and Address Organization Details Recorded Time Finding of general energy 883725115 Active 2015 FATIGUE; Recorded 01/03/2016 7:26AM by Becky Saldivar LPN, Office Visit; Promoted; acuity set as *; Not Available [facility] 3 03:07:22 Disorder of upper respirato ry system 750373202 Active 2015 UPPER RESPIRATOR Y INFECTION; Recorded 01/03/2016 7:26AM by Becky Saldivar LPN, Office Visit; Promoted; acuity set as *; Not Available [facility] 3 03:07:22 Knee pain Active 2015 KNEE PAIN; Recorded 01/03/2016 7:26AM by Becky Saldivar LPN, Office Visit; Promoted; acuity set as *; Not Available [facility] 3 03:07:22 Gastroeso phageal reflux disease 340336293 Active 2015 Esophageal Reflux; 01/03/2016 7:26AM by Becky Saldivar LPN, Office Visit; Promoted; acuity set as *; ESOPHAGEA L REFLUX (Working Diagnosis) ; Recorded 01/03/2016 10:08AM by Harpal Matta MD, Office Visit; Promoted; acuity set as *; Not Available [facility] 3 03:07:23 Sanket on type IIa hyperlipo proteinem ia 460111015 Active 2015 HYPERCHOLE STEROLEMIA ; Recorded 01/03/2016 10:08AM by Harpal Matta MD, Office Visit; Promoted; acuity set as *; Not Available [facility] 3 03:07:23 Contact dermatiti s 69685556 Active 2015 ECZEMA; Recorded 01/03/2016 7:26AM by Becky Saldivar LPN, Office Visit; Promoted; acuity set as *; Not Available [facility] 3 03:07:23 Hypertens scottie disorder 69144593 Active 2015 ESSENTIAL HYPERTENSI ON (Working Diagnosis) ; Recorded 01/03/2016 10:07AM by Harpal Matta MD, Office Visit; Promoted; acuity set as *; Not Available [facility] 3 03:07:24 Allergic rhinitis 95617622 Active 2015 ALLERGIC RHINITIS; Recorded 01/03/2016 10:18AM by Harpal Matta MD, Office Visit; Promoted; acuity set as *; Not Available [facility] 3 03:07:24 Screening for malignant neoplasm of colon Active 2022 Kenneth Fox DO [address] [place] [address], [phone] , [facility] 3 11:04:41 Essential hypertens ion 07144731 Active 2022 Kenneth Fox DO [address] [place] [address], [phone] , [facility] 3 11:05:41 Hyperlipi demia 24579400 Active 2022 Kenneth Fox DO [address] [place] [address], [phone] , [facility] 3 11:05:42 Gastroeso phageal reflux disease without esophagit is 906093365 Active 2022 Kenneth Fox DO [address] [place] [address], [phone] , [facility] 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 3 11:09:00 Problem Notes None recorded. Procedures Surgical History Date Name Laterality Status Provider Name and Address Organization Details Recorded Time 3 colonoscopy completed ELIZAB[facility] FITZPATRICK [facility] 04/12/2023 15:30:18 Imaging Results None recorded. Procedure Notes None recorded. Medical Equipment None Reported. Allergies Allergen ID Allergen Name Allergen Category Reaction Reaction Severity Criticality Documentation Date Start Date Code Code System Note Provider Name and Address Organization Details Recorded Time 20779 sulfameth oxazole / trimethop rim medicatio n rash Not available Not available 01/30/2023 23913 RxNorm React ion: Rash; Comme nt: Recor ded 01/02 7:26A M by Jose Daniel huynh, [employer] WORKER, Offic e Visit ; Promo perla; Moris engel ce: *; Reaso n: Drug aller gy; ; Not Available [facility] 3 02:27:04 Medications Name Sig Start Date Stop Date Status Note LastModified by Organization Details LastModified Time celecoxib 200 mg capsule TAKE 1 CAPSULE BY MOUTH EVERY 12 HOURS FOR 14 DAYS 03/17 completed Not Available Not Available Not Available hydrocodo ne 5 mg-acetam inophen 325 mg tablet TAKE 1 TABLET BY MOUTH EVERY 6 HOURS NEEDED FOR PAIN FOR 5 DAYS 03/17 completed Not Available Not Available Not Available meloxicam 15 mg tablet TAKE 1 TABLET BY MOUTH EVERY DAY 03/17 completed Not Available Not Available Not Available lovastati n 40 mg tablet TAKE 1 TABLET BY MOUTH EVERY DAY AT NIGHT active Not Available Not Available No t Available atenolol 25 mg tablet TAKE 1 TABLET BY MOUTH TWICE A DAY active Not Available Not Available No t Available aspirin 325 mg tablet,de layed release TAKE 1 TABLET BY MOUTH EVERY DAY 03/17 completed Not Available Not Available Not Available hydrochlo rothiazid e 12.5 mg capsule TAKE 1 CAPSULE BY MOUTH EVERY DAY active Not Available Not Available No t Available gabapenti n 300 mg capsule TAKE 1 CAPSULE BY MOUTH TWICE A DAY FOR 14 DAYS 03/17 completed Not Available Not Available Not Available omeprazol e 20 mg capsule,d elayed release TAKE 1 CAPSULE BY MOUTH EVERY DAY active Not Available Not Available No t Available monteluka st 10 mg tablet daily 03/17 completed prn for cough, sore throat; Recorded 01/03/20 16 10:19AM by Harpal Matta MD, Office Visit; Refill Quantity : 30; Tablet; Not Available Not Available Not Available azelastin e 137 mcg (0.1 %) nasal spray SPRAY 1 SPRAY INTO EACH NOSTRIL TWICE A DAY 03/17 completed Not Available Not Available Not Available Sudafed 12 Hour 120 mg tablet,ex tended release two times daily, as needed 03/17 completed prn congesti on and drainage ; 6; Recorded 12/04/19 16 4:11PM by Becky Saldivar LPN (Authori юлияd through Harpal Matta MD), Annotati on/Adden dum; Refill Quantity : 30; Tablet; Not Available Not Available Not Available amoxicill in 875 mg-potass ium clavulana te 125 mg tablet TAKE 1 TABLET BY MOUTH TWICE A DAY 03/17 completed Not Available Not Available Not Available oxycodone 5 mg tablet TAKE 1 TABLET BY MOUTH EVERY 4 HOURS NEEDED FOR MODERATE PAIN FOR 7 DAYS 03/17 completed Not Available Not Available Not Available Prilosec BID/PRN 03/17 completed vo BP/dh; 6; Recorded 03/12/20 16 9:54AM by Becky Saldivar LPN (Authori zed through Harpal Matta MD), Refill Request; Refill Quantity : 180; Capsule; Not Available Not Available Not Available Vitals Date Recorded Body height Body mass index (BMI) Body weight Body temperature Respiratory rate Oxygen saturation Oxygen saturation in Arterial blood by Pulse oximetry Heart rate Systolic And Diastolic Provider Name and Address Organization Details Last Updated DateTime 3 162.56 cm 44.2 kg/m2 837825. 04 g 97.6 [degF] 18 /min 96 % 96 % 74 /min 154/82 mm[Hg] ROBBY CRUZ [facility] 3 10:44:17 Social History None recorded. Functional Status Question Answer Note LastModified by Organizat ion Details LastModified Time Do you use any illicit or recreational drugs? No [email or web address] Information not available 03/17/2023 Do you or have you ever used any other forms of tobacco or nicotine? No [email or web address] Information not available 03/17/2023 What is your level of alcohol consumption? None [email or web address] Information not available 03/17/2023 Mental Status None recorded. Family History Nothing Reported. Medical History No medical history recorded. Gynecological HistoryNo gynecological history recorded. Obstetrics History GPAL:G 0 P 0 0 0 0 Immunizations Vaccine Type Date Status Note Provider Nam e and Address Organization Details Recorded Time TST-PPD intradermal 5 completed Not Available [facility] 01/30/2023 02:51:02 Influenza, split virus, trivalent, preservative 5 completed Not Available [facility] 01/30/2023 02:51:02 Past Encounters Encounter ID Performer Location Encounter Start Date Encounter Closed Date Diagnosis/Indication Diagnosis SNOMED-CT Code Diagnosis ICD10 Code Diagnosis IMO Codes Diagnosis Note [id number] Kenneth Fox DO [facility] [address] [place] [address] 03/17/2023 10:39:01 03/17/2023 12:39:49 Screening for malignant neoplasm of colon 806023507 Z12.11 I have reviewed and discussed colon cancer screening options, including colonoscop y. Discussed risks vs benefits including risk of infection and bleeding, perforatio n, possible need for surgery, reaction to medication s, and sever injury or . We discussed pt requiring sedation and possible general anesthesia . Pt agrees to proceed with Colonoscop y at [facility]. 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 Health Concerns Section Related Observation LastModified by Organization Detai ls LastModified Time None Recorded Concern Status LastModified by Organization Details LastModified Time None Recorded Advance Directives Directive None Recorded Payers Insurance Date Sequence Insurance Name Policy Number Policy Cevallos Covered Member ID Cevallos Member ID Guarantor Name 04/05/2023 [place] - [facility] (MEDICARE) Cha Millan [id number] Cha Millan 04/29/2023 2 [employer] (MEDICARE SUPPLEMENT) Cha Millan [id number] Cha Foreman Yana 03/17/2023 2 [facility] Cha Wellerey [id number] Cha Foreman Yana 04/05/2023 1 [place]: [employer] Cha Millan [id number] Cha Millan Notes Date Note Type Note Provider Name and Address Organization Details Recorded Time 3 text/html Colonoscopy ScreeningReported by PatientColonoscopy ScreeningFor context, patient reportsprior examinationandhistory of colon polypsbut reportsno history of ulcerative colitis or crohn's disease. For gi symptoms, patient reportsno abdominal pain,no diarrhea,no constipation,no recent change in bowel movements,no change in the stool,no color change in stool, andno rectal bleeding. For associated symptoms, patient reportsnormal appetite,no fever,no chills,no nausea, andno vomiting. For family history, patient reportsno polypsandno colon cancer.ROS as noted in the HPI The patient presents today at the request of Dr. Castro for evaluation and discussion of colonoscopy for colon cancer screening. The patient denies any recent abdominal pain, persistent diarrhea, persistent constipation, bloody or dark tarry stools, or mucusy stools. Last Colon Cancer screenin years ago? Problems with anesthesia in the past: NONE Family History of Colon cancers: NONE Blood Thinners: NONE Co-morbidities: HTN, HLD Kenneth Fox, DO [address] [place] [address], [phone], [place] - [facility], [place] 03/17/2023 12:37:20 OBGyn Episode No OBEpisode recorded.
--- OUTSIDE RECORDS SUMMARY | 2025-04-26 08:18 | XMS_ITS | Encounter Summary ---
Author Organization [facility] Address [address] [place] [address] Care Team Providers Care Pharmaceutical Sales Specialist Name Role Phone Unavailable Primary Care Provider Unavailabl e Encounter Details Date Type Department Care Team (Late st Contact Info) Description 04/24/2025 External Device Data STL ABSTRACTION Provider, Abstract NO ADDRESS ON FILE Social History Tobacco Use Types Packs/Day Years Used Date Smoking Tobacco: Former Cigarettes 2 45.8 S tarted: 1980 Alcohol Use Standard Drinks/Week Comments Not Currently 0 (1 standard drink = 0.6 oz pur e alcohol) Comments Unknown Sex and Gender Information Value Date Recorded Sex Assigned at Not on file Legal Sex Female 1:11 PM CDT Gender Identity Not on file Sexual Orientation Not on file documented as of this encounter Plan of Treatment Upcoming Encounters Date Type Department Care Team (Late st Contact Info) Description 05/11/2025 1:00 PM SAP FUNCTIONAL ANALYST Office Visit [facility] [place] [address] [address] Leodan Mc MD [address] [address] documented as of this encounter Visit Diagnoses Not on filedocumented in this encounter
--- OUTSIDE RECORDS SUMMARY | 2025-04-26 08:18 | XMS_ITS | Clinical Summary ---
Author Organization [facility] Address [address] [place] [address] Phone Care Team Providers Care Ortho Assistant Name Role Phone Unavailable Primary Care Provider Unavailabl e Allergies Active Allergy Reactions Criticality Noted Date Comments Adhesive Tape-Silicones Other (See Comments) 02/27/2025 Sulfa (Sulfonamide Antibiotics) Hives High 02/27/2025 Sulfamethoxazole-Tr imethoprim Rash Low 03/16/2025 sulfamethoxazole / trimethoprim Medications Magnesium Oxide 420 mg Tablet Take by mouth. 5 Active potassium CHLORIDE (KLOR-CON) 10 mEq Extended Release tablet .COMPLEX 4 Active lovastatin (MEVACOR) 40 mg tablet Take 40 mg by mouth daily at bedtime. 4 Active omeprazole (PriLOSEC) 20 mg Capsule, Delayed Release(E.C.) Take 1 Capsule by mouth daily. 5 Active fluconazole (DIFLUCAN) 200 mg tablet Take by mouth. 4 Active acyclovir (ZOVIRAX) 400 mg tablet Take by mouth. 4 Active atenoloL (TENORMIN) 25 mg tablet Take 25 mg by mouth 2 times daily. 5 Active prednisoLONE acetate (PRED FORTE) 1 % suspension Administer 1 Drop in left eye every 2 hours. 1 drop in right eye 4 times daily 10 mL 1 5 Active cyclopentolate (CYCLOGYL) 1 % solution Administer 1 Drop in both eyes 2 times daily. 5 mL 1 5 Active Hospital, Clinic, or Other Facility Administered Medication Ordered Dose Route Frequency Start Date End Date Status phenylephrine 2.5 % ophthalmic solution 2 DropIndications:Panu veitis, both eyes 2 Drop INTRA-PROCEDURE ONCE PRN 03/30/2025 03/30/2025 Ended proparacaine (OPTHAINE) 0.5 % ophthalmic solution 2 DropIndications:Panu veitis, both eyes 2 Drop INTRA-PROCEDURE ONCE PRN 03/30/2025 03/30/2025 Ended tropicamide (MYDRIACYL) 1 % ophthalmic solution 2 DropIndications:Panu veitis, both eyes 2 Drop INTRA-PROCEDURE ONCE PRN 03/30/2025 03/30/2025 Ended phenylephrine 2.5 % ophthalmic solution 2 DropIndications:Panu veitis, both eyes 2 Drop INTRA-PROCEDURE ONCE PRN 04/13/2025 04/13/2025 Ended proparacaine (OPTHAINE) 0.5 % ophthalmic solution 2 DropIndications:Panu veitis, both eyes 2 Drop INTRA-PROCEDURE ONCE PRN 04/13/2025 04/13/2025 Ended tropicamide (MYDRIACYL) 1 % ophthalmic solution 2 DropIndications:Panu veitis, both eyes 2 Drop INTRA-PROCEDURE ONCE PRN 04/13/2025 04/13/2025 Ended Active Problems Problem Noted Date Diagnosed Date Panuveitis, 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 Pseudophakia of 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 Vitreous syneresis of 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 Nystagmus 03/30/2025 History of strabismus surgery 03/30/2025 Encounters Date Type Department Care Team Description 04/25/2025 External Device Data STL ABSTRACTION Provider, Abstract 04/24/2025 External Device Data STL ABSTRACTION Provider, Abstract 04/13/2025 10:30 AM CDT Office Visit [facility] [place] [address] [phone] Leodan Mc MD Panuveitis, both eyes (Primary Dx); Pseudophakia of both eyes; Vitreous syneresis of both eyes; Nystagmus; History of strabismus surgery 04/02/2025 Telephone [facility] [place] [address] [address] Leodan Mc MD Appointment Notification 03/30/2025 10:30 AM CDT Office Visit [facility] [place] [address] [phone] Leodan Mc MD Panuveitis, both eyes (Primary Dx); Pseudophakia of both eyes; Vitreous syneresis of both eyes; Nystagmus; History of strabismus surgery 03/20/2025 External Device Data STL ABSTRACTION Provider, Abstract 03/16/2025 9:00 AM CDT Office Visit [facility] [place] [address] [address] Leodan Mc MD Panuveitconnor, both eyes (Primary Dx); Macular edema; Pseudophakia of both eyes; Vitreous syneresis of both eyes; Vitreous degeneration, unspecified laterality 03/13/2025 External Device Data STL ABSTRACTION Provider, Abstract 03/13/2025 External Device Data STL ABSTRACTION Provider, Abstract 03/13/2025 External Device Data STL ABSTRACTION Provider, Abstract 03/08/2025 Telephone [facility] [address] [address] Leodan Mc MD Referral Request 03/08/2025 Abstract [facility] [address] [phone] Wolfgang Figueroa MD from Last 3 Months Social History Tobacco Use Types Packs/Day Years Used Date Smoking Tobacco: Former Cigarettes 2 45.8 S tarted: 1980 Tobacco Cessation:Counseling Given: Not Answered Alcohol Use Standard Drinks/Week Comments Not Currently 0 (1 standard drink = 0.6 oz pur e alcohol) Comments Unknown Sex and Gender Information Value Date Recorded Sex Assigned at Not on file Legal Sex Female 1:11 PM CDT Gender Identity Not on file Sexual Orientation Not on file Plan of Treatment Upcoming Encounters Date Type Department Care Team (Late st Contact Info) Description 05/11/2025 1:00 PM CALCIMINER Office Visit [facility] [address] [phone] Leodan Mc MD [address] [place] [phone] Health Maintenance Due Date Last Done Comments Pre-Diabetes and Diabetes Screening 1955 Traditional Medicare (ACO) A nnual Wellness Visit 02/21/1975 FIT-DNA Q 3 years 02/21/2001 FIT/FOBT Q 1 year 02/21/2001 Flex Sig/CT Colonography Q 5 years 02/21/2001 ZOSTER VACCINE (1 of 2) 02/21/2006 DTAP/TDAP/TD VACCINES (2 - T d or Tdap) 12/14/2019 12/13/2009 OSTEOPOROSIS SCREENING 02/21/2021 BREAST CANCER SCREENING 10/04/2024 10/05/2023 INFLUENZA VACCINE (#1) 2025 2, 03/28/2020, 04/12/2019, Additional history exists RSV VACCINE (60+ or ) (1 - 1-dose 75+ series) 02/21/2031 COLORECTAL SCREENING 04/08/2033 04/08/2023 Colorectal Cancer Screening 04/08/2033 PNEUMOCOCCAL VACCINE 50+ YEARS Completed 02/27/2022 , 03/03/2021 Procedures Procedure Name Priority Date/Time Associated Diagnosis Comments OCT, RETINA - OU - BOTH EYES Routine 04/13/2025 10:35 AM CDT Panuveitis, both eyes EYE DROPS Routine 04/13/2025 10:07 AM CDT Panuveitis, both eyes OCT, RETINA - OU - BOTH EYES Routine 03/30/2025 10:15 AM CDT Panuveitis, both eyes Pseudophakia of both eyes Vitreous syneresis of both eyes EYE DROPS Routine 03/30/2025 9:55 AM CDT Panuveitis, both eyes FLUORESCEIN ANGIOGRAPHY - OU - BOTH EYES Routine 03/16/2025 4:46 PM CDT Vitreous degeneration, unspecified laterality Macular edema EYE DROPS Routine 03/16/2025 4:44 PM CDT Vitreous degeneration, unspecified laterality Macular edema ANGIOTENSIN CONVERTING ENZYME Routine 03/16/2025 12:09 PM CDT Panuveitis, both eyes HLA B27 Routine 03/16/2025 12:09 PM CDT Panuveitis, both eyes SWEETIE SCREEN W/REFLEX Routine 03/16/2025 1 2:09 PM CDT Panuveitis, both eyes RHEUMATOID FACTOR Routine 03/16/2025 12: 09 PM CDT Panuveitis, both eyes SYPHILIS SEROLOGY W/REFLEX Routine 03/16/2025 12:09 PM CDT Panuveitis, both eyes CBC WITH DIFFERENTIAL Routine 03/16/2025 12:09 PM CDT Panuveitis, both eyes C-REACTIVE PROTEIN Routine 03/16/2025 12 :09 PM CDT Panuveitis, both eyes QUANTIFERON TB GOLD Routine 03/16/2025 1 2:09 PM CDT Panuveitis, both eyes SEDIMENTATION RATE Routine 03/16/2025 12 :09 PM CDT Panuveitis, both eyes ANTINEUTROPHIL CYTOPLASMIC ANTIBODY WITH REFLEX Routine 03/16/2025 12:09 PM CDT Panuveitis, both eyes OCT, RETINA - OU - BOTH EYES Routine 03/16/2025 9:24 AM CDT Vitreous degeneration, unspecified laterality Macular edema from Last 3 Months Results * OCT, RETINA - OU - BOTH EYES (04/13/2025 10:35 AM CDT) Narrative [facility] - 04/13/2025 10:31 PM CDT OD: Flat, dry, poor fixation OS: Stable macular edema Leodan Mc MD OPHTH TOMOGRAPHY Final Result Performing Organization Address City/[facility] Co de Phone Number [facility] * EYE DROPS (04/13/2025 10:07 AM CDT) Narrative [facility] - 04/13/2025 10:31 PM CDT Medications Eye Drops: 2 Drop phenylephrine 2.5 % Route: Topical, Site: Eye, Bilateral NDC: 37811-369-16, Lot: [id number], Expiration date: 09/01/2026 2 Drop proparacaine 0.5 % Route: Topical, Site: Eye, Bilateral NDC: 77627-049-07, Lot: [id number], Expiration date: 01/01/2027 2 Drop tropicamide 1 % Route: Topical, Site: Eye, Bilateral NDC: 91294-697-74, Lot: [id number], Expiration date: 01/01/2026 Notes Eye drop orders per protocol for Basic Bridge Maintainer Eye Exam (Dilated) 1 Drop proparacaine (OPHTHAINE) 0.5% ophthalmic solution prior to tonometry 1 Drop tropicamide (MYDRIACYL) 1% ophthalmic solution 1 Drop phenylephrine (AK-DILATE, MYDFRIN) 2.5% ophthalmic solution Leodan Mc MD OPHTH CLINIC PROCEDURES Final Re sult Performing Organization Address [facility] Co de Phone Number [facility] CLIA# [id number] 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) OS: Improving macular edema Leodan Mc MD OPHTH TOMOGRAPHY Final Result Performing Organization Address [facility] Co de Phone Number [facility] * EYE DROPS (03/30/2025 9:55 AM CDT) Narrative [facility] - 03/30/2025 1:49 PM CDT Medications Eye Drops: 2 Drop phenylephrine 2.5 % Route: Topical, Site: Eye, Bilateral NDC: 28684-494-30, Lot: [id number], Expiration date: 08/05/2026 2 Drop proparacaine 0.5 % Route: Topical, Site: Eye, Bilateral NDC: 53176-729-73, Lot: [id number], Expiration date: 09/01/2026 2 Drop tropicamide 1 % Route: Topical, Site: Eye, Bilateral NDC: 61293-811-90, Lot: [id number], Expiration date: 08/05/2026 Notes Eye drop orders per protocol for Basic Bridge Maintainer Eye Exam (Dilated) 1 Drop proparacaine (OPHTHAINE) 0.5% ophthalmic solution prior to tonometry 1 Drop tropicamide (MYDRIACYL) 1% ophthalmic solution 1 Drop phenylephrine (AK-DILATE, MYDFRIN) 2.5% ophthalmic solution Leodan Mc MD OPHTH CLINIC PROCEDURES Edited R esult - Final Performing Organization Address City/[facility]/ZIP Co de Phone Number [facility] CLIA# [id number] [address] [place] [address] * FLUORESCEIN ANGIOGRAPHY - OU - BOTH EYES (03/16/2025 4:46 PM CDT) Narrative [facility] - 03/16/2025 4:46 PM CDT OD: normal filling, no leakage OS: leakage from disc, macular edema Leodan Mc MD OPHTH PHOTOGRAPHY Final Result Performing Organization Address [facility]/ZIP Co de Phone Number [facility] * EYE DROPS (03/16/2025 4:44 PM CDT) Narrative [facility] - 03/16/2025 4:44 PM CDT Medications Eye Drops: 2 Drop phenylephrine 2.5 % Route: Topical ND: 08126-975-38, Lot: [id number] 2 Drop proparacaine 0.5 % Route: Topical NDC: 75720-435-93, Lot: [id number] 2 Drop tropicamide 1 % Route: Topical NDC: 27198-472-70, Lot: [id number] Notes Eye drop orders per protocol for Basic Bridge Maintainer Eye Exam (Dilated) 1 Drop proparacaine (OPHTHAINE) 0.5% ophthalmic solution prior to tonometry 1 Drop tropicamide (MYDRIACYL) 1% ophthalmic solution 1 Drop phenylephrine (AK-DILATE, MYDFRIN) 2.5% ophthalmic solution Leodan Mc MD OPHTH CLINIC PROCEDURES Final Re sult [facility] [id number] [address] [place] [address] * SYPHILIS SEROLOGY W/REFLEX (03/16/2025 12:09 PM CDT) T PALLIDUM ANTIBODIES NEGATIVE NEGATIVE [facility] Comment: No antibodies to T. pallidum (the agent causing syphilis) were detected in the specimen. This result, however, does not exclude very recent T. pallidum infection; testing of a second specimen, collected 2-4 weeks after this specimen, is recommended if the index of suspicion for recent infection is high. FASTING:NO FASTING: NO Test Performed at: [facility] [address] [place] [phone] Raffaele Saeed Blood 03/16/2025 12:0 9 PM CDT 03/16/2025 12:11 PM CDT Leodan Mc MD CHEMISTRY ORDERABLES Final Resul t [facility] [phone] [facility] [address] [place] [address] * QUANTIFERON TB GOLD (03/16/2025 12:09 PM CDT) QUANTIFERON TB GOLD PLUS NEGATIVE NEGATIVE [facility] Comment: Negative test result. M. tuberculosis complex infection unlikely. NIL 0.01 IU/mL [facility] MITOGEN-NIL >10.00 IU/mL [facility] TB1 AG - NIL 0.00 IU/mL [facility] TB2 AG - NIL 0.00 IU/mL [facility] Comment: The Nil tube value reflects the background interferon gamma immune response of the patient's blood sample. This value has been subtracted from the patient's displayed TB and Mitogen results. Lower than expected results with the Mitogen tube prevent false-negative Quantiferon readings by detecting a patient with a potential immune suppressive condition and/or suboptimal pre-analytical specimen handling. The TB1 Antigen tube is coated with the M. tuberculosis-specific antigens designed to elicit responses from TB antigen primed CD4+ helper T-lymphocytes. The TB2 Antigen tube is coated with the M. tuberculosis-specific antigens designed to elicit responses from TB antigen primed CD4+ helper and CD8+ cytotoxic T-lymphocytes. For additional information, please refer to https://education.WTFast/faq/MBL852 (This link is being provided for informational/ educational purposes only.) FASTING:NO FASTING: NO Test Performed at: [facility] [address] [place] [phone] Alonso Washington MD Blood 03/16/2025 12:0 9 PM CDT 03/16/2025 12:11 PM CDT Leodan Mc MD CHEMISTRY ORDERABLES Final Resul t [facility] [phone] [place] [address] * HLA B27 (03/16/2025 12:09 PM CDT) Pathologist [facility] HLA B27 NEGATIVE NEGATIVE [facility] [employer] [facility] Comment: FASTING:NO FASTING: NO Test Performed at: [address] [phone] Raffaele Saeed Blood 03/16/2025 12:0 9 PM CDT 03/16/2025 12:11 PM CDT Leodan Mc MD CHEMISTRY ORDERABLES Final Resul t Performing Organization Address [facility] Co de Phone Number [facility] [phone] [address] * ANTINEUTROPHIL CYTOPLASMIC ANTIBODY WITH REFLEX (03/16/2025 12:09 PM CDT) Pathologist [facility] ANCA EIA NEGATIVE NEGATIVE [facility] Comment: ANCA screen uses indirect immunofluorescence to detect antibodies to neutrophil cytoplasmic antigens. A positive screen reflexes to titer and pattern. Patterns include cytoplasmic (c-ANCA) and perinuclear (p-ANCA) both of which are associated with vasculitis, and atypical p-ANCA which is associated with inflammatory bowel disease and other disorders. FASTING:NO FASTING: NO Test Performed at: [address] [address] Raffaele Saeed Blood 03/16/2025 12:0 9 PM CDT 03/16/2025 12:11 PM CDT Leodan Mc MD CHEMISTRY ORDERABLES Final Resul t Performing Organization Address City/[facility] Co de Phone Number [facility] [phone] [address] * (ABNORMAL) CBC WITH DIFFERENTIAL (03/16/2025 12:09 PM CDT) Pathologist [facility] WBC 5.7 3.8 - 10.8 Thousand/ uL [facility] RBC 4.92 3.80 - 5.10 Million/u L [facility] HEMOGLOBIN 14.0 11.7 - 15.5 g/dL [facility] [employer] [facility] HEMATOCRIT 41.9 35.0 - 45.0 % [facility] MCV 85.2 80.0 - 100.0 fL [facility] MCH 28.5 27.0 - 33.0 pg [facility] MCHC 33.4 32.0 - 36.0 g/dL [facility] Comment: For adults, a slight decrease in the calculated MCHC value (in the range of 30 to 32 g/dL) is most likely not clinically significant; however, it should be interpreted with caution in correlation with other red cell parameters and the patient's clinical condition. RDW 15.4(H) 11.0 - 15.0 % [facility] PLATELETS 179 140 - 400 Thousand/ uL [facility] MPV 10.3 7.5 - 12.5 fL [facility] NEUTROPHIL ABSOLUTE 3,021 1,500 - 7,800 cells/uL [facility] BANDS ABSOLUTE 57 0 - 750 cells/uL [facility] METAMYELOCYTE ABSOLUTE 57(H) 0 cells/uL [facility] LYMPHOCYTE ABSOLUTE 1,824 850 - 3,900 cells/uL [facility] MONOCYTE ABSOLUTE 570 200 - 950 cells/uL [facility] EOSINOPHIL ABSOLUTE 171 15 - 500 cells/uL [facility] BASOPHILS ABSOLUTE 0 0 - 200 cells/uL [facility] NEUTROPHIL 53 % [facility] BANDS 1 % [facility] METAMYELOCYTE 1(H) % [facility] LYMPHOCYTES 32 % [facility] MONOCYTE 10 % [facility] EOSINOPHILS 3 % [facility] BASOPHILS 0 % [facility] COMMENT HEMATOLOGY [facility] Comment: Red cell morphology appears unremarkable The smear has been manually reviewed and the manual differential has been reported. Slide review performed at: [facility] [place] [address] [place] [address] Pediatric Nurse: Vragas BlackmonIA [id number] FASTING:NO FASTING: NO Test Performed at: [facility] [address] [place] [address] Darren Blackwell Blood 03/16/2025 12:0 9 PM CDT 03/16/2025 12:11 PM CDT Leodan Mc MD HEMATOLOGY ORDERABLES Final Resu lt Performing Organization Address [facility] de Phone Number [facility] [phone] [facility] [address] [place] [address] * (ABNORMAL) SEDIMENTATION RATE (03/16/2025 12:09 PM CDT) ESR (SEDIMENTATION RATE) 31(H) < OR = 30 mm/h [facility] Comment: Test Performed at: [facility] [address] [place] [address] Darren Blackwell Blood 03/16/2025 12:0 9 PM CDT 03/16/2025 12:11 PM CDT Leodan Mc MD HEMATOLOGY ORDERABLES Final Resu lt Performing Organization Address [facility] de Phone Number [facility] [phone] [facility] [address] [place] [address] * RHEUMATOID FACTOR (03/16/2025 12:09 PM CDT) RHEUMATOID FACTOR <10 <14 IU/mL [facility] Comment: Test Performed at: [facility] [address] [place] [address] Alonso Washington MD Blood 03/16/2025 12:0 9 PM CDT 03/16/2025 12:11 PM CDT Leodan Mc MD CHEMISTRY ORDERABLES Final Resul t Performing Organization Address [facility] Co de Phone Number [facility] [phone] [facility] [address] [place] [phone] * ANGIOTENSIN CONVERTING ENZYME (03/16/2025 12:09 PM CDT) [facility] ANGIOTENSIN CONVERTING ENZYME 57 9 - 67 U/L [facility] Comment: FASTING:NO FASTING: NO Test Performed at: [facility] [address] Alonso Washington MD Blood 03/16/2025 12:0 9 PM CDT 03/16/2025 12:11 PM CDT Leodan Mc MD CHEMISTRY ORDERABLES Final Resul t Performing Organization Address [facility] Co de Phone Number [employer] [facility] [phone] [facility] [address] [place] [address] * (ABNORMAL) C-REACTIVE PROTEIN (03/16/2025 12:09 PM CDT) [facility] CRP 16.4(H) <8.0 mg/L [facility] Comment: FASTING:NO FASTING: NO Test Performed at: [facility] [address] Alonso Washington MD Blood 03/16/2025 12:0 9 PM CDT 03/16/2025 12:11 PM CDT Leodan Mc MD CHEMISTRY ORDERABLES Final Resul t Performing Organization Address [facility] Co de Phone Number [employer] [facility] [phone] [facility] [address] [place] [phone] * SWEETIE SCREEN W/REFLEX (03/16/2025 12:09 PM CDT) [facility] SWEETIE SCREEN NEGATIVE NEGATIVE [facility] [place] Comment: SWEETIE IFA is a first line screen for detecting the presence of up to approximately 150 autoantibodies in various autoimmune diseases. A negative SWEETIE IFA result suggests an SWEETIE-associated autoimmune disease is not present at this time, and does not reflex further. If there is high clinical suspicion for Sjogren's syndrome, testing for anti-SS-A/Ro antibody should be considered. Anti-Caroline-1 antibody should be considered for clinically suspected inflammatory myopathies. AC-0: Negative International Consensus on SWEETIE Patterns (https://doi.org/10.1515/ujna-4253-0932) For additional information, please refer to http://education.Elevaate/faq/GCB305 (This link is being provided for informational/ educational purposes only.) FASTING:NO FASTING: NO Test Performed at: [facility] [address] Alonso Washington MD Blood 03/16/2025 12:0 9 PM CDT 03/16/2025 12:11 PM CDT Leodan Mc MD CHEMISTRY ORDERABLES Final Resul t [facility] [phone] [address] * OCT, RETINA - OU - BOTH EYES (03/16/2025 9:24 AM CDT) Narrative [facility] - 03/16/2025 8:09 PM CDT Right Eye Quality was good. Findings include no macular edema . Left Eye Quality was good. Findings include macular edema. Leodan Mc MD OPHTH TOMOGRAPHY Final Result [facility] ORDERS from Last 3 Months Insurance [facility] [id number] MEDICARE PART A AND B
--- OUTSIDE RECORDS SUMMARY | 2025-04-26 08:18 | XMS_ITS | Encounter Summary ---
Author Organization [facility] Address [address] [place] [address] Care Team Providers Care Legal File Clerk Name Role Phone Unavailable Primary Care Provider Unavailabl e Encounter Details Date Type Department Care Team (Late st Contact Info) Description 04/25/2025 External Device Data STL ABSTRACTION [...] st Contact Info) Description 05/11/2025 1:00 PM RIGGER CHIEF Office Visit [facility] [place] [address] [address] Leodan Mc MD [address] [address] documented as of this encounter Visit Diagnoses Not on filedocumented in this encounter
[2025-04-26 08:45] LABS: Hematocrit 39.8 % (36-47); Hemoglobin 13.20 g/dL (11.27-16.99); Mean Corpuscular HGB Conc 33.2 g/dL (30-55); Mean Corpuscular Hemoglobin 27.4 pg (27-33); Mean Corpuscular Volume 82.7 fl (85-98); Nucleated Red Blood Cells % 0 %; Platelet Count 257 10^3/cmm (157-399); Red Blood Count 4.81 10^6/uL (3.85-5.65); White Blood Count 10.07 10^3/uL (3.29-11.43)
[2025-04-26 09:01] LABS: Alanine Aminotransferase 16 U/L (0-33); Albumin Level 3.7 g/dL (3.5-5.2); Alkaline Phosphatase 95 U/L (35-105); Anion Gap 17.2 (5-19); Aspartate Amino Transferase 16 U/L (0-32); Blood Urea Nitrogen 15 mg/dL (8-23); Calcium 9.2 mg/dL (8.5-10.5); Carbon Dioxide 25 mmol/L (22-29); Chloride 99 mmol/L (98-107); Creatinine Clr Calc Pharmacy 79.5958; Globulin 3.3 g/dL (1.3-4.6); Glucose 148 mg/dL (65-115); Osmolality Calculated 288 mOsm/kg (285-295); Potassium 4.2 mmol/L (3.5-5.1); Sodium 137 mmol/L (136-145); Total Protein 7.0 g/dL (6.6-8.7)
[2025-04-26 09:13] LABS: Respiratory Syncytial Virus Ce NEGATIVE (Negative); SARS-CoV-2 PCR NEGATIVE (Negative)
[2025-04-26] MEDS: ondansetron 2 mg/ML SDV 2 mL 4 MG IVP ×2 (09:36→17:47)
--- NOTE | 2025-04-26 09:56 | XR_ITS ---
WS: [id number] Right hand, 3 views, 04/26/2025 Clinical Data: Trauma Comparison: None. Findings: There is a comminuted fracture of the right fifth finger proximal phalanx. No other fractures are seen. The joint spaces are normal. There is a monitor overlying the right third finger distal phalanx. The soft tissues are normal. XR/XR hand RT min 3V* [id number] Impression: Comminuted fracture of the right fifth finger proximal phalanx.
--- NOTE | 2025-04-26 09:56 | CT_ITS ---
WS: [id number] CT HEAD TECHNIQUE: Noncontrast CT of the head obtained from the skullbase to the vertex. CLINICAL INFORMATION: Fall COMPARISON: None. DLP: 1131.[address] scans at [facility] use at least one of these dose optimization techniques: automated exposure control; mA and/or kV adjustment per patient size (includes targeted exams where dose is matched to clinical indication); or iterative reconstruction. FINDINGS: No evidence of intracranial hemorrhage or mass effect. Ventricular system and basal cisterns are patent. Mild small vessel changes with mild parenchymal volume loss. No extra-axial fluid collections. Vascular calcification. Paranasal sinuses and mastoid air cells are well aerated. .Normal visualized soft tissues. CT/CT head wo con* [id number] IMPRESSION: 1. No evidence of intracranial hemorrhage or mass effect. 2. No acute intracranial findings.
--- NOTE | 2025-04-26 09:57 | W.ED.WEAKNES ---
HPI - Weakness General: Chief complaint: Weakness Stated complaint: flu like symptoms -weakness/dizzy History of Present Illness: 70-year-old female patient reports flulike symptoms overnight with lightheaded and dizziness. Patient states she has chronic dizziness she also had chronic congenital nystagmus. She is reporting what she describes as flulike symptoms and extreme dizziness. Vomited x 1. She fell last night when she got up to go to the bathroom. She is complaining of pain in her right fifth finger. She denies any medic easy melena hematemesis or coffee-ground emesis. She notes dizziness whenever she moves. It is somewhat better when she lays down she vomited once. (Note that other complaint is a animal bite. I talked to the nurse and the patient there was no animal bite this was entered in error.) no chest pain no abdominal pain. NIH score done when patient was initially encountered was negative patient scored 0. Associated symptoms: Denies chest pain, chills, dysuria or fever(s) Related Data Home Medications ?Medication ?Instructions ?Recorded ?Confirmed acyclovir 400 mg tablet 400 mg PO TID 08/30/23 04/26/25 prednisolone acetate 1 % eye See Rx Instructions .Route .COMPLEX 11/07/24 04/26/25 drops,suspension ketorolac 0.5 % eye drops 1 drp ophthalmic (eye) QID 02/27/25 04/26/25 atenolol 25 mg tablet 25 mg PO BID 04/26/25 04/26/25 cyclopentolate 1 % eye drops 1 drp ophthalmic (eye) BID 04/26/25 04/26/25 lovastatin 40 mg tablet 40 mg PO QPM 04/26/25 04/26/25 omeprazole 20 mg capsule,delayed 20 mg PO DAILY 04/26/25 04/26/25 release Previous Rx's ?Medication ?Instructions ?Recorded magnesium oxide 420 mg tablet 630 mg (1.5 x 420 mg) PO BID #90 01/03/25 tabs Allergies Allergy/AdvReac Type Severity Reaction Status Date / Time Sulfa (Sulfonamide Allergy Intermediate hives Verified 02/27/25 12:15 Antibiotics) adhesive tape Allergy ALGY-Redness Verified 02/27/25 12:15 of Skin Review of Systems Const: Denies: fever(s) or chills Card: Denies: chest pain Resp: Denies: dyspnea GI: Denies: abdominal pain : Denies: dysuria, urinary frequency or urinary urgency Musc: Denies: neck pain or back pain Skin/Breast: Denies: rash PFSH ED PFSH: Medical History Hypomagnesemia Acute myeloid leukemia Hypokalemia GERD (gastroesophageal reflux disease) Hypertension Prediabetes Hx of basal cell carcinoma Nose Possible SCC on left arm Astigmatism History of ectopic Surgical History History of hysterectomy with bilateral oophorectomy (01/24/24) History of nasal surgery Skin cancer History of left knee replacement Hx of tonsillectomy History of eye surgery History of unilateral fallopian tube excision Left tube and ovary removed after ectopic Family History Father Alzheimer's dementia Mother Cancer Precancerous breast cancer. 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 [employer] Physical Exam Const: GENERAL APPEARANCE: cooperative ORIENTATION/CONSCIOUSNESS: Yes awake, Yes oriented to person, Yes oriented to place and Yes oriented to time HENMT: COMMON NORMALS: normocephalic, atraumatic and hearing grossly normal bilaterally HEAD & SCALP: normocephalic and atraumatic Eye: OTHER: Nystagmus to the left into the right Resp: COMMON NORMALS: normal respiratory effort, No retractions, No use of accessory muscles and clear to auscultation bilaterally AUSCULTATION: clear to auscultation bilaterally Cardio: COMMON NORMALS: regular rate, regular rhythm and No murmurs present (Cardio) RATE: regular rate RHYTHM: regular rhythm GI: COMMON NORMALS: Soft to palpation and No hepatosplenomegaly present AUSCULTATION: Yes normoactive bowel sounds PALPATION: Yes Soft to palpation, No Tenderness to palpation present (GI), No Guarding due to palpation present (GI) and Yes No hepatosplenomegaly present Extremity: COMMON NORMALS: normal to inspection, capillary refill normal, no clubbing, cyanosis or edema, no calf tenderness and no pedal edema Neuro: SENSORIUM/ORIENTATION: Yes oriented to person, Yes oriented to place and Yes oriented to time Skin: COMMON NORMALS: no rashes or lesions noted GENERAL SKIN EXAM: no rashes or lesions noted Course Vital Signs: Vital signs: Vital Signs Temperature 97.2 F L 04/26/25 15:32 Pulse Rate 81 04/26/25 15:59 Respiratory Rate 17 04/26/25 15:32 Blood Pressure 141/83 04/26/25 15:32 Pulse Oximetry 96 04/26/25 15:32 Oxygen Delivery Me thod Room Air 04/26/25 13:53 MDM - Weakness Medical Decision Making Patient initially presenting complaining of flulike symptoms. Evaluation in the emergency room did not show any infectious cause. Patient stated later that she still has the dizziness even when lying down it is just somewhat last. She has not had any vomiting while here we did try to stand her up she was unable to stand. NIH done when she first arrived was 0. I am concerned about the possibility of either labyrinthitis or a posterior stroke. She is outside the window for any kind of intervention for posterior stroke. CTA of the head and neck was done that showed possible dissection or occlusion of the right vertebral artery. Discussed Dr. Durham is on-call for neurology also cussed Dr. Hubbard who read the film. Do not feel there is any intervention at this point will admit for possible posterior stroke. There is no acute or subacute findings on the CT of the head. She may need an MRI to differentiate. Dr. Durham has been consulted. She is aware of the findings on the CTA of the head and neck. Reviewed with Dr. Sherwood as well. Lab Data 04/26/25 08:37 04/26/25 08:37 Radiology Impressions Chest X-Ray 04/26/25 08:09 Impression: Negative chest. Hand X-Ray 04/26/25 09:56 Impression: Comminuted fracture of the right fifth finger proximal phalanx. Head CT 04/26/25 09:56 IMPRESSION: 1. No evidence of intracranial hemorrhage or mass effect. 2. No acute intracranial findings. Head/Neck CTA 04/26/25 12:27 IMPRESSION: 1. RIGHT proximal ICA stenosis measuring approximately 40%. 2. LEFT proximal ICA stenosis measuring 70%. Recommend vascular surgery consultation. 3. RIGHT vertebral artery is occluded at the origin with a tiny amount of reconstitution distally. This may be due to acute occlusion or dissection considering dizziness symptoms. 4. LEFT vertebral artery is patent. 5. No flow-limiting intracranial stenosis. Laboratory Results WBC 10.07 10^3/uL (3.29-11.43) 04/26/25 08:37 RBC 4.81 10^6/uL (3.85-5.65) 04/26/25 08:37 Hgb 13.20 g/dL (11.27-16.99) 04/26/25 08:37 Hct 39.8 % (36-47) 04/26/25 08:37 MCV 82.7 fl (85-98) L 04/26/25 08:37 MCH 27.4 pg (27-33) 04/26/25 08:37 MCHC 33.2 g/dL (30-55) 04/26/25 08:37 RDW 14.4 % (12.1-15.1) 04/26/25 08:37 Plt Count 257 10^3/cmm (157-399) 04/26/25 08:37 MPV 9.4 fL (7.4-10.4) 04/26/25 08:37 Neut % (Auto) 77.3 % 04/26/25 08:37 Lymph % (Auto) 12.0 % 04/26/25 08:37 [place] % (Auto) 3.2 % 04/26/25 08:37 Eos % (Auto) 0.0 % 04/26/25 08:37 Baso % (Auto) 0.7 % 04/26/25 08:37 Neut # (Auto) 7.79 10^3/uL (1.8-7.7) H 04/26/25 08:37 Lymph # (Auto) 1.2 10^3/uL (0.8-4.8) 04/26/25 08:37 [place] # (Auto) 0.3 10^3/uL (0.2-0.9) 04/26/25 08:37 Eos # (Auto) 0.0 10^3/uL (0.0-0.8) 04/26/25 08:37 Baso # (Auto) 0.1 10^3/uL (0.0-0.1) 04/26/25 08:37 Nucleated RBC % (auto) 0 % 04/26/25 08:37 Nucleated RBCs # 0.0 /100WBC 04/26/25 08:37 Sodium 137 mmol/L (136-145) 04/26/25 08:37 Potassium 4.2 mmol/L (3.5-5.1) 04/26/25 08:37 Chloride 99 mmol/L (98-107) 04/26/25 08:37 Carbon Dioxide 25 mmol/L (22-29) 04/26/25 08:37 Anion Gap 17.2 (5-19) 04/26/25 08:37 BUN 15 mg/dL (8-23) 04/26/25 08:37 Creatinine 0.5 mg/dL (0.5-0.9) 04/26/25 08:37 GFR Calculation 122.3 mL/min (90-130) 04/26/25 08:37 Glucose 148 mg/dL (65-115) H 04/26/25 08:37 Estimat Average Glucose 108 04/26/25 08:37 Hemoglobin A1c 5.4 % (4.0-6.0) 04/26/25 08:37 Calculated Osmolality 288 mOsm/kg (285-295) 04/26/25 08:37 Calcium 9.2 mg/dL (8.5-10.5) 04/26/25 08:37 Phosphorus 3.2 mg/dL (2.5-4.5) 04/26/25 08:37 Magnesium 1.6 mg/dL (1.7-2.3) L 04/26/25 08:37 Total Bilirubin 0.3 mg/dL (0.15-1.2) 04/26/25 08:37 AST 16 U/L (0-32) 04/26/25 08:37 ALT 16 U/L (0-33) 04/26/25 08:37 Alkaline Phosphatase 95 U/L (35-105) 04/26/25 08:37 Total Protein 7.0 g/dL (6.6-8.7) 04/26/25 08:37 Albumin 3.7 g/dL (3.5-5.2) 04/26/25 08:37 Globulin 3.3 g/dL (1.3-4.6) 04/26/25 08:37 Triglycerides 84 mg/dL (0-150) 04/26/25 08:37 Cholesterol 155 mg/dL (0-200) 04/26/25 08:37 LDL Cholesterol, Calc 100 mg/dL (50-129) 04/26/25 08:37 HDL Cholesterol 38 mg/dL (60-100) L 04/26/25 08:37 LDL/HDL Ratio 2.63 RATIO (0.00-3.22) 04/26/25 08:37 Cholesterol/HDL Ratio 4.08 mg/dL (0.0-4.40) 04/26/25 08:37 TSH 1.87 uIU/mL (0.27-4.20) 04/26/25 08:37 Influenza A (PCR) Negative (Negative) 04/26/25 08:29 Influenza Type B (PCR) Negative (Negative) 04/26/25 08:29 RSV (PCR) Negative (Negative) 04/26/25 08:29 SARS-CoV-2 (PCR) Negative (Negative) 04/26/25 08:29 All radiology interpretation(s) finalized by discharge EKG Data EKG 1: I personally reviewed and interpreted this EKG as follows: EKG interpretation date: 04/26/25 Prior EKG tracings: available for review Interpretation: EKG 04/26/2025 819 sinus rhythm right bundle branch block rate of 65 CA interval 132 QTc 444. Q waves in V1 and V2 which are new from EKG reviewed 07/13/2023. 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
[2025-04-26 10:22] LABS: Slide Review Slide Review Perform
--- NOTE | 2025-04-26 11:09 | PC.NURSE ---
ambulateion trial. PT staed she felt very dizzy. PT was holding on to this RN for support. PT leaned forward, balance unsteady. Dr. Good notified.
--- NOTE | 2025-04-26 12:27 | CT_ITS ---
WS: [id number] CTA HEAD AND NECK TECHNIQUE: Contrast enhanced CTA of the head and neck with coronal and sagittal reformatted images and maximum intensity projection (MIP) images. NASCET criteria utilized. CLINICAL INFORMATION: dizziness COMPARISON: None. DLP: 464.[address] scans at [facility] use at least one of these dose optimization techniques: automated exposure control; mA and/or kV adjustment per patient size (includes targeted exams where dose is matched to clinical indication); or iterative reconstruction. FINDINGS: RIGHT: Moderate calcified atheromatous plaque RIGHT carotid bulb extending into the ICA. RIGHT proximal ICA stenosis measures approximately 40%. RIGHT ICA remains patent to the skull base. LEFT: Advanced atheromatous plaque LEFT carotid bulb extending into the ICA with LEFT ICA stenosis measuring approximately 70%. Small residual LEFT proximal ICA lumen. LET ICA remains patent to the skull base. LEFT dominant vertebral artery. RIGHT vertebral artery appears occluded at the origin with a small amount of reconstitution distally just proximal to the basilar with a small feeding basilar contribution. Basilar artery is patent. Normal vascularity to the P[place] territory bilaterally. Both ICAs are patent at the skull base. Normal vascularity to the NAJMA and MCA territories bilaterally. No evidence of proximal flow-limiting intracranial stenosis. CT/CT angio headneck* [id number] IMPRESSION: 1. RIGHT proximal ICA stenosis measuring approximately 40%. 2. LEFT proximal ICA stenosis measuring 70%. Recommend vascular surgery consul tation. 3. RIGHT vertebral artery is occluded at the origin with a tiny amount of vanessa nstitution distally. This may be due to acute occlusion or dissection consideri ng dizziness symptoms. 4. LEFT vertebral artery is patent. 5. No flow-limiting intracranial stenosis.
[2025-04-26] MEDS: LORazepam 1 MG/0.5 ML injection IVP (12:48)
--- NOTE | 2025-04-26 12:48 | USCV_ITS ---
Cha Millan Age: 70 Gender: F : 1955 Exam Date: 04/26/2025 13:28 Ordering Phys: Cherelle Sherwood MD Technologist: SAMIR Exam Location: [facility] [place] Indication: dizzyness BP: 156 / 80 HR: 73 Rhythm: Sinus Technical Quality: Adequate MEASUREMENTS (Male / Female) Normal Values 2D ECHO LV Diastolic Diameter PLAX 6.8 cm 4.2 - 5.9 / 3.9 - 5.3 cm IVS Diastolic Thickness 1.0 cm 0.6 - 1.0 / 0.6 - 0.9 cm IVS Systolic Thickness 1.7 cm LVPW Diastolic Thickness 1.1 cm 0.6 - 1.0 / 0.6 - 0.9 cm LVPW Systolic Thickness 1.6 cm LVOT Diameter 1.9 cm LV Ejection Fraction 2D Teich 54.6 % LV Ejection Fraction MOD 4C 47.9 % LV Ejection Fraction MOD 2C 37.7 % LV Ejection Fraction 2C AL 45.3 % LA Diameter 4.0 cm RA Systolic Volume 4C AL 34.4 ml RA Systolic Volume 4C MOD 32.6 ml LA Sys Volume AL 46.1 cm cubed LA Sys Volume Index AL 21.1 cm cubed/m squared Aorta at Sinotubular Diameter 2.9 cm M-MODE LA Ao Ratio MM 1.5 AV Cusp Separation MM 1.6 cm DOPPLER AV Peak Velocity 123.0 cm/s LVOT Peak Velocity 84.0 cm/s AV Area Cont Eq vti 2.4 cm squared AV Area Cont Eq pk 2.0 cm squared MV Peak Velocity 139.0 cm/s MV Area PHT 4.1 cm squared Mitral E to A Ratio 0.5 TV Peak E Velocity 63.0 cm/s PV Peak Velocity 95.0 cm/s FINDINGS Left Ventricle Mild concentric left trickle hypertrophy. Normal LV size with a slightly diminished ejection fraction of 45 to 50%.Grade I/IV diastolic dysfunction (abnormal relaxation filling pattern), normal to mildly elevated filling pressures. Mild diffuse hypokinesia of the left ventricle Right Ventricle Normal right ventricular size and systolic function. Right Atrium Normal right atrial size. Left Atrium Mildly increased left atrial size. IA Septum Appears to be intact Mitral Valve Trace mitral valve regurgitation. Thickened mitral valve. Aortic Valve Thickened aortic valve. Tricuspid Valve No gross abnormalities noted Pulmonic Valve Trace pulmonary valve regurgitation. Pericardium Small pericardial effusion. Aorta Normal aortic annulus size. IVC Inferior vena cava not visualized. CONCLUSIONS Mild concentric left trickle hypertrophy. Normal LV size with a slightly diminished ejection fraction of 45 to 50%.Grade I/IV diastolic dysfunction (abnormal relaxation filling pattern), normal to mildly elevated filling pressures. Mild diffuse hypokinesia of the left ventricle. Mildly increased left atrial size. Trace mitral valve regurgitation. Thickened mitral valve. Thickened aortic valve. Trace pulmonary valve regurgitation. Small pericardial effusion. No similar previous studies are available for comparison Dr Emilia Young MD [facility] (Electronically Signed) Final Date: 26 April 2025 23:29 S
[2025-04-26] MEDS: iohexol 350 mg/mL 500 mL Btl (per mL) IV (13:08)
[2025-04-26 14:17] LABS: Estmated Average Glucose 108; Hemoglobin A1C 5.4 % (4.0-6.0)
[2025-04-26 14:34] LABS: Cholesterol 155 mg/dL (0-200); HDL Cholesterol 38 mg/dL (60-100); Magnesium 1.6 mg/dL (1.7-2.3); Thyroid Stimulating Hormone 1.87 uIU/mL (0.27-4.20); Triglycerides 84 mg/dL (0-150)
[2025-04-26] MEDS: heparin 5,000 unit/mL INJ 1 mL 5000 UNIT SUBCUT (14:48)
--- NOTE | 2025-04-26 15:00 | MRR_ITS ---
PROCEDURE INFORMATION: Exam: MR Head Without Contrast Exam date and time: 04/26/2025 4:56 PM Age: 70 years old Clinical indication: Altered mental status/memory loss; Confusion or disorientation; Additional info: To rule out posterior circulation stroke TECHNIQUE: Imaging protocol: Magnetic resonance imaging of the head without contrast. COMPARISON: CT angio headneck* [id number] 04/26/2025 1:06 PM FINDINGS: Brain: There is an area of restricted diffusion involving the inferior aspect of the cerebellar vermis in the inferomedial aspect of the right cerebellar hemisphere consistent with an area of acute infarction. There is no significant mass effect. There are a few scattered T2 and FLAIR signal changes in the supratentorial white matter in keeping with nonspecific small vessel chronic ischemic change. There is no intracranial mass or hemorrhage. Cerebral ventricles: Ventricles are nonenlarged. Bones: Unremarkable. Paranasal sinuses: Normal as visualized. No acute sinusitis. Mastoid air cells: Normal as visualized. No mastoid effusion. Orbital cavities: Unremarkable. Soft tissues: Unremarkable. MR/MR head wo con* [id number] IMPRESSION: Acute cerebellar infarct in part of the right PICA distribution.
--- NOTE | 2025-04-26 17:45 | PC.NURSE ---
Pt arrives to ICU from [facility]. Pt alert and oriented x 4. IV site noted right AC. right hand noted wrapped up due to finger fracture. Pt reports nausea. Zofran admin. Pt up to BSC wit 2 assist. She has a tendency to lean forward on transfers.
--- NOTE | 2025-04-26 17:49 | PM.HP ---
Providers/Chief Complaint Admitting Physician: Cherelle Sherwood MD Primary Care Provider: Nic Castro MD Chief Complaint: flu like symptoms -weakness/dizzy History of Present Illness As per the previous notes and the patient Cha Millan is a 70 year old female with past medical history of AML in remission history of shoulder pain, physiological nystagmus since childhood came with dizziness from 1 day. The dizziness was associated with mild nausea and vomiting. The patient reported having sore throat a week ago but no ear pain or discharge. The dizziness sometimes get worse by head turning but she cannot further elaborate if it is related to any specific side. She also felt wobbly with her gait and was unable to hold herself when she was about to walk in her. She did not lose consciousness or any head trauma. No chest pain chest pressure abdominal pain nausea vomiting or diarrhea. No fever or chills. Review of Systems General: Reports: 10 or more systems reviewed and unremarkable except in HPI and below Medications/Allergies Home Medications ?Medication ?Instructions ?Recorded ?Confirmed ?Last Taken ?Type acyclovir 400 mg tablet 400 mg PO TID 08/30/23 04/26/25 04/25/25 History prednisolone acetate 1 % eye See Rx Instructions .Route .COMPLEX 11/07/24 04/26/25 Unknown History drops,suspension magnesium oxide 420 mg tablet 630 mg (1.5 x 420 mg) PO BID #90 01/03/25 04/26/25 04/25/25 Rx tabs ketorolac 0.5 % eye drops 1 drp ophthalmic (eye) QID 02/27/25 04/26/25 Unknown History atenolol 25 mg tablet 25 mg PO BID 04/26/25 04/26/25 04/25/25 History cyclopentolate 1 % eye drops 1 drp ophthalmic (eye) BID 04/26/25 04/26/25 04/25/25 History lovastatin 40 mg tablet 40 mg PO QPM 04/26/25 04/26/25 04/25/25 History omeprazole 20 mg capsule,delayed 20 mg PO DAILY 04/26/25 04/26/25 04/25/25 History release Allergies Allergy/AdvReac Type Severity Reaction Status Date / Time Sulfa (Sulfonamide Allergy Intermediate hives Verified 02/27/25 12:15 Antibiotics) adhesive tape Allergy ALGY-Redness Verified 02/27/25 12:15 of Skin PFSH Acute PFSH: Medical History (Updated 04/26/25 @ 18:21 by Cherelle Sherwood MD) GERD (gastroesophageal reflux disease) Hypertension Prediabetes Hypomagnesemia Acute myeloid leukemia Hypokalemia Hx of basal cell carcinoma Nose Possible SCC on left arm Astigmatism History of ectopic Surgical History History of hysterectomy with bilateral oophorectomy (01/24/24) History of nasal surgery Skin cancer History of left knee replacement Hx of tonsillectomy History of eye surgery History of unilateral fallopian tube excision Left tube and ovary removed after ectopic Family History Father Alzheimer's dementia Mother Cancer Precancerous breast cancer. 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[employer] Vitals/I&O/Wt Last Vital Signs Temp 97.2 F L 04/26/25 15:32 Pulse 81 04/26/25 15:59 Resp 17 04/26/25 15:32 BP 141/83 04/26/25 15:32 Pulse Ox 96 04/26/25 15:32 O2 Del Method Room Air 04/26/25 13:53 Weight last 48 hrs Weight 97.885 kg Weight 97.522 kg Physical Exam Narrative: General: Alert and oriented, lying comfortably without any distress HEENT: Normocephalic, atraumatic, grossly unremarkable exam Cardio: normal rate rhythm, normal S1-S2 without any murmurs, rubs, or gallops and JVD normal Respiratory: normal vascular breathing on auscultation without any wheezes, stridor, rhonchi GI: Abdomen soft, nontender, nondistended, normoactive bowel sounds present all 4 quadrants, Neuro: intact cranial nerves motor and sensory and cerebellar/coordination function, physiological horizontal nystagmus appreciated did not change direction and no vertical component or torsional component. Reflexes intact. Gait cannot be assessed since the patient was unable to walk due to dizziness. Behavior: Appropriate and cooperative Extremities: Adequate palpable pulses, no edema or cyanosis observed Skin: grossly unremarkable exam Data 04/26/25 08:37 04/26/25 08:37 A&P Assessment and plan 1. Acute stroke due to ischemia: CT reported possible occlusion possible dissection of the right vertebral artery MRI brain reported acute cerebellar infarct in PICA distribution Considering patient dizziness, patient to be kept in ICU for further monitoring Neurology on board Continue with aspirin Plavix and statin Echo Telemetry monitoring OT PT evaluation Lipid panel TSH normal Speech and swallow assessment Neurochecks every shift 2. Occlusion of right vertebral artery: CT reported possible occlusion possible dissection of the right vertebral artery MRI brain reported acute cerebellar infarct in PICA distribution Considering patient dizziness, patient to be kept in ICU for further monitoring Neurology on board Continue with aspirin Plavix and statin Echo Telemetry monitoring OT PT evaluation Lipid panel TSH normal Speech and swallow assessment Neurochecks every shift 3. Dizziness: As mentioned above OT PT evaluation Neurochecks every shift Ondansetron for nausea and vomiting 4. Diabetes: Patient is known case to have diabetes, currently controlled Monitor blood glucose 5. Hypertension: Hold antihypertensives at the moment considering patient might have minor stroke 6. GERD (gastroesophageal reflux disease): PPI daily PDMP PDMP Reviewed: Not Reviewed Attestations Medical Necessity Statement*: Patient will stay overnight for management of acute stroke with further OT PT evaluation Time Spent in Patient Care: 16 - 35 minutes (>than 50% of time spent in counselling and/or direct pt care on unit). Other Attestations: Patient condition has been discussed at length with the patient/family, I have independently reviewed the chart labs imaging/diagnostics/EKG. the goals of care and code status with the patient/family/NOK/legal credit resolution representative, and documented accordingly. The patient/family has been informed about the current condition and further plan of care. Agreed with the plan of care and understood without any language barrier. 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 Any obvious errors or omissions should be clarified with the author of the document. Coding Level of Care Code Acute Code for [facility] Fwd Diagnoses Acute stroke due to ischemia I63.9 Occlusion of right vertebral artery I65.01 Dizziness R42 Diabetes E11.9 Hypertension I10 GERD (gastroesophageal reflux disease) K21.9
--- NOTE | 2025-04-26 17:50 | PM.CONSULT ---
Providers/Reason For Consult Consulting Physician/Specialty*: Dr. Good Reason for Consult*: Vertebral artery stroke Attending Physician: Cherelle Sherwood MD Primary Care Provider: Nic Castro MD History of Present Illness History of Present Illness Cha Millan is a 70 year old woman who came to the emergency department reporting that she experienced diffuse flulike symptoms with aching and dizziness. She got up to the bathroom last night and fell. Her symptoms seemed aggravated by motion. She had vomited once. Her NIH stroke scale score this morning in the ER was 0 and stroke alert was not activated because it was thought that she had the flu. Dr. Good was concerned because of her positional vertigo and despite her negative CT of the head he ordered CT angiogram that showed a right vertebral artery occlusion versus thrombosis. Subsequently she had an MRI of the brain that confirms an acute inferior cerebellar stroke on the right. This is a very small volume lesion. CBC and complete metabolic panel were unremarkable. LDL 100. Hemoglobin A1c 5.4. She was last known to be normal last evening before she went to bed. She was dizzy when she got up to the bathroom in the middle of the night. On arrival she was not a candidate for thrombolytic therapy and discovery of her right vertebral artery did not place her in the category for any type of interventional procedure. Stroke alert was not called because she was thought to have the flu. She arrived at 8:20 AM. Seen by ED physician [address] of the head was performed at 09 56. CTA 1227. She was recently seen by Dr. Castro and described having hematuria. She is followed in oncology for acute myeloid leukemia in remission. She presented with left upper quadrant pain and proved to have multiple enlarged lymph nodes above and below the diaphragm. Bone marrow biopsy in July 2023 showed AML. She remains on treatment on a 28-day cycle with Azacytadine 200 mg daily. Review of Systems Narrative: She does not smoke. 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 Medications/Allergies Home Medications ?Medication ?Instructions ?Recorded ?Confirmed ?Last Taken ?Type acyclovir 400 mg tablet 400 mg PO TID 08/30/23 04/26/25 04/25/25 History prednisolone acetate 1 % eye See Rx Instructions .Route .COMPLEX 11/07/24 04/26/25 Unknown History drops,suspension magnesium oxide 420 mg tablet 630 mg (1.5 x 420 mg) PO BID #90 01/03/25 04/26/25 04/25/25 Rx tabs ketorolac 0.5 % eye drops 1 drp ophthalmic (eye) QID 02/27/25 04/26/25 Unknown History atenolol 25 mg tablet 25 mg PO BID 04/26/25 04/26/25 04/25/25 History cyclopentolate 1 % eye drops 1 drp ophthalmic (eye) BID 04/26/25 04/26/25 04/25/25 History lovastatin 40 mg tablet 40 mg PO QPM 04/26/25 04/26/25 04/25/25 History omeprazole 20 mg capsule,delayed 20 mg PO DAILY 04/26/25 04/26/25 04/25/25 History release Allergies Allergy/AdvReac Type Severity Reaction Status Date / Time Sulfa (Sulfonamide Allergy Intermediate hives Verified 02/27/25 12:15 Antibiotics) adhesive tape Allergy ALGY-Redness Verified 02/27/25 12:15 of Skin Current Medications Generic Name Dose Route Start Last Admin Trade Name Freq PRN Reason Stop Dose Admin Heparin Sodium (Porcine) 5,000 unit 04/26/25 13:50 04/26/25 14:48 Heparin 5,000 Unit/Ml Inj 1 Ml SUBCUT 5,000 unit Q12H [place] Administration Ondansetron HCl 4 mg 04/26/25 13:50 04/26/25 17:47 Ondansetron 2 Mg/Ml Sdv 2 Ml IVP 4 mg Q8H PRN Administration vomiting, or N/V if npo PFSH Acute PFSH: Medical History Hypomagnesemia Acute myeloid leukemia Hypokalemia GERD (gastroesophageal reflux disease) Hypertension Prediabetes Hx of basal cell carcinoma Nose Possible SCC on left arm Astigmatism History of ectopic Surgical History History of hysterectomy with bilateral oophorectomy (01/24/24) History of nasal surgery Skin cancer History of left knee replacement Hx of tonsillectomy History of eye surgery History of unilateral fallopian tube excision Left tube and ovary removed after ectopic Family History Father Alzheimer's dementia Mother Cancer Precancerous breast cancer. 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 MENTAL STATUS: Orientation was full to date, season, situation. Speech was fluent without word hesitation. No difficulty following a complex command. The affect was euthymic. CRANIAL NERVES: She has congenital nystagmus with constant nystagmoid jerks. She has full visual antony. Face was symmetric at rest and with grimace. Facial sensation was intact to touch. Hearing was intact to soft spoken voice. Tongue and palate were midline. Shoulders were symmetric. MOTOR: No focal weakness. No drift. SENSATION: Pin and touch intact in the four extremities distally. COORDINATION: No appendicular ataxia on [id number] or [id number] DEEP TENDON REFLEXES: 2/4 throughout. GAIT: She is unable to walk and I did not take her for a walk this evening. She is experiencing vertigo and she knows she cannot safely stand up. HEENT: Normocephalic without dysmorphic features. Conjunctivae were not injected and sclerae were nonicteric. NECK: Carotid upstroke was strong bilaterally without bruits. The thyroid was not enlarged and there were no palpable lymph nodes. CHEST: Clear to auscultation. CARDIOVASCULAR: The heart sounds were normal without murmur or gallop. Regular rate and rhythm. EXTREMITIES: No deformities. Data 04/26/25 08:37 04/26/25 08:37 MRI: My impression: MRI shows the most inferior aspect of the right cerebellum with diffusion weighted imaging abnormality consistent with acute ischemia and with involvement of the most proximal aspect of the vermis. No involvement of the brainstem is evident on FLAIR or DWI. She has a few isolated nonspecific T2 abnormalities. A&P Assessment and plan 1. Obstruction of right vertebral artery: This 70-year-old woman presented with somewhat nonspecific dizziness with some features of vertigo, fairly mild symptoms and accompanied by diffuse aching and flu symptoms. She was already outside the window for thrombolytic therapy. Despite the finding of possible vertebral artery dissection or thrombosis, mechanical thrombectomy is not a possibility and that artery and so more aggressive treatment is not possible. She has a long length of blood vessel occlusion and stenting would not be an option. Appropriate treatment at this point includes antiplatelet therapy and probably more aggressive statin, changing from lovastatin to atorvastatin 40 mg even though her LDL is low. 3 weeks of clopidogrel combined with aspirin followed by aspirin monotherapy. At some point in the future it may be reasonable, i.e. in a month or 2 from now, to reimage her posterior circulation with MRA or CTA to see if her artery recanalizes. Keep the blood pressure reasonably high without dropping it to extend the stroke. Use of her routine medication would be appropriate. She will require physical therapy. She wants to know how long she will be dizzy and I cannot be sure that. Sometimes low-dose benzodiazepines help with that such as Klonopin 0.25 mg. Initiate physical therapy tomorrow when she may be able to go home if she has a safe situation. Currently she lives by herself and unless she is able to ambulate with a walker she will need a more rehabilitation situation. I went over her images with her and I went over the stroke book in detail including risk factors. 2. Acute myeloid leukemia in remission: PDMP PDMP Reviewed: Not Reviewed Consult Attestations Medical Necessity Statement: Patient with acute dizziness that turned out to be a vertebral artery occlusion and a very small cerebellar stroke Time Spent in Patient Care: 75 minutes Coding Level of Care Code 47431 Diagnoses Obstruction of right vertebral artery I65.01 Acute myeloid leukemia in remission C92.01
[2025-04-26] MEDS: HYDROcodone-acetaminophen 5-325 mg Tablet 1 TAB PO (17:57)
--- NOTE | 2025-04-26 19:20 | PC.NURSE ---
Shift summary: Nystygmus noted bilat. Pt reports dizziness when she was up to [facility]. She did report posterior headache, Hydrocodone administered, Per pt it helped. Her appetite is decent. Her bilat strength is WNL. Brace on her right hand. She is to recieve a formed brace tomorrow. VSS
[2025-04-26] MEDS: magnesium sulfate premix 2 GM/50 ML PIGGYBACK IV (19:39)
[2025-04-27] VITALS (15 sets, daily range): BP systolic 135–164; BP diastolic 66–103; PULSE 53–95; RESP 15–22; TEMP 36.6–37.1; O2SAT 88–96
[2025-04-27] MEDS: heparin 5,000 unit/mL INJ 1 mL 5000 UNIT SUBCUT ×2 (01:05→13:04)
[2025-04-27 05:03] LABS: Hematocrit 35.3 % (36-47); Hemoglobin 11.70 g/dL (11.27-16.99); Mean Corpuscular HGB Conc 33.1 g/dL (30-55); Mean Corpuscular Hemoglobin 27.3 pg (27-33); Mean Corpuscular Volume 82.5 fl (85-98); Nucleated Red Blood Cells % 0 %; Platelet Count 247 10^3/cmm (157-399); Red Blood Count 4.28 10^6/uL (3.85-5.65); White Blood Count 6.41 10^3/uL (3.29-11.43)
[2025-04-27 05:24] LABS: Alanine Aminotransferase 14 U/L (0-33); Albumin Level 3.4 g/dL (3.5-5.2); Alkaline Phosphatase 83 U/L (35-105); Anion Gap 15.9 (5-19); Aspartate Amino Transferase 15 U/L (0-32); Blood Urea Nitrogen 12 mg/dL (8-23); Calcium 9.0 mg/dL (8.5-10.5); Carbon Dioxide 26 mmol/L (22-29); Chloride 100 mmol/L (98-107); Creatinine Clr Calc Pharmacy 79.4818; Globulin 3.0 g/dL (1.3-4.6); Glucose 115 mg/dL (65-115); Osmolality Calculated 287 mOsm/kg (285-295); Potassium 3.9 mmol/L (3.5-5.1); Sodium 138 mmol/L (136-145); Total Protein 6.4 g/dL (6.6-8.7)
--- NOTE | 2025-04-27 12:40 | PC.NURSE ---
Report given to MÓNICA Black. All questions answers.
--- NOTE | 2025-04-27 13:11 | PC.NURSE ---
Pt transferred to room 215-1. All belongings transferred with patient.
--- NOTE | 2025-04-27 13:27 | P.PN_ITS ---
Subjective 2 Subjective: She is still a little dizzy but feeling much better. She has been up to walk with assistance twice already this morning. Medications: Medication Review Details: Recommend switching from lovastatin to atorvastatin. Clopidogrel and aspirin should be initiated. Vitals/I&O/Wt Last Vital Signs Temp 98.4 F 04/27/25 04:00 Pulse 95 04/27/25 12:00 Resp 18 04/27/25 12:00 BP 153/92 04/27/25 12:00 Pulse Ox 95 04/27/25 12:00 O2 Del Method Room Air 04/27/25 12:00 04/26/25 04/27/25 04/27/25 22:59 06:59 14:59 Intake Total 300 / 300 300 / 600 750 / 750 Output Total 250 / 250 200 / 200 Balance 50 / 50 300 / 350 550 / 550 Weight last 48 hrs Weight 214 lb 6.4 oz Weight 215 lb 12.8 oz Weight 215 lb Physical Exam 2 Narrative: GENERAL: The patient was feeling much better and able to converse MENTAL STATUS: Orientation was full. Speech was fluent without any residual dysarthria. No difficulty following a complex command. The affect was [euthymic]. CRANIAL NERVES: Congenital nystagmus and left exotropia MOTOR: No drift. Fine finger movements equal. [id number] and [id number] performed smoothly SENSATION: Touch intact in the four extremities distally. She has already been up and I did not get her out of bed. She is walking with a walker. CARDIOVASCULAR: The heart sounds were normal without murmur or gallop. Regular rate and rhythm. Data 04/27/25 04:29 04/27/25 04:29 A&P Assessment and plan 1. Vertebral artery stroke: 70-year-old woman who presented with right vertebral artery dissection. She had the flu before this started but she said she was not coughing hard or vomiting. She did not do any heavy lifting. She was having severe pain at the base of her skull and that is better. Her vertigo is improving. She was able to walk with a walker today. She can probably go home tomorrow or the next day if she is stable on Plavix, aspirin and atorvastatin. Recommend switching from lovastatin as a atorvastatin is more effective. 2. Vertebral artery dissection: Idiopathic. I would plan on repeating her MRA in a month or 2 and see if she recanalizes. 3. Left carotid stenosis: 70% left carotid stenosis, asymptomatic. It is not a good time to consult vascular surgery since she just had a vertebral artery stroke. I can refer her from the office and would be glad to have her follow-up with me in a couple of weeks. I gave her my card and asked her to make an appointment. PDMP PDMP Reviewed: Not Reviewed Attestations 2 Medical Necessity Statement*: Acute stroke Coding Level of Care Code Acute Code for [facility] Fwd Diagnoses Vertebral artery stroke I63.219 Vertebral artery dissection I77.74 Left carotid stenosis I65.22
--- NOTE | 2025-04-27 14:27 | PM.PN ---
Subjective Subjective: She is still a little dizzy but feeling much better. She has been up to walk with assistance twice already this morning. And needed assistance while standing and walking. Medications: Medication Review Details: Recommend switching from lovastatin to atorvastatin. Clopidogrel and aspirin should be initiated. Vitals/I&O/Wt Last Vital Signs Temp 98.4 F 04/27/25 04:00 Pulse 95 04/27/25 12:00 Resp 18 04/27/25 12:00 BP 153/92 04/27/25 12:00 Pulse Ox 95 04/27/25 12:00 O2 Del Method Room Air 04/27/25 12:00 04/26/25 04/27/25 04/27/25 22:59 06:59 14:59 Intake Total 300 / 300 300 / 600 750 / 750 Output Total 250 / 250 200 / 200 Balance 50 / 50 300 / 350 550 / 550 Weight last 48 hrs Weight 97.25 kg Weight 97.885 kg Weight 97.522 kg Physical Exam Narrative: General: Alert and oriented, was sitting on the chair comfortably HEENT: Normocephalic, atraumatic, grossly unremarkable exam Cardio: normal rate rhythm, normal S1-S2 without any murmurs, rubs, or gallops and JVD normal Respiratory: normal vascular breathing on auscultation without any wheezes, stridor, rhonchi GI: Abdomen soft, nontender, nondistended, normoactive bowel sounds present all 4 quadrants, Neuro: intact cranial nerves motor and sensory and cerebellar/coordination function, physiological horizontal nystagmus appreciated did not change direction and no vertical component or torsional component. Reflexes intact. Gait cannot be assessed since the patient was unable to walk due to dizziness and needed assistance Behavior: Appropriate and cooperative Extremities: Adequate palpable pulses, no edema or cyanosis observed Skin: grossly unremarkable exam Data 04/27/25 04:29 04/27/25 04:29 A&P Assessment and plan 1. Acute stroke due to ischemia: CT reported possible occlusion possible dissection of the right vertebral artery MRI brain reported acute cerebellar infarct in PICA distribution Considering patient dizziness, patient to be kept in ICU for further monitoring Neurology on board Continue with aspirin Plavix and statin Echo reported normal LV size with diminished ejection fraction of 45 to 50% with grade 1 / 4 diastolic dysfunction. Telemetry monitoring to continue OT PT evaluation to follow Lipid panel showed normal cholesterol, LDL and triglyceride TSH normal Neurochecks every shift 2. Occlusion of right vertebral artery: Neurology on board and to follow the recommendation Continue with aspirin Plavix and statin Repeat MRI in 1 to 2 months to check for recannulization Neurochecks every shift 3. Left carotid stenosis: Left proximal ICA stenosis up to 70%, after stabilization of the patient to follow-up with the vascular surgeon Neurology on board 4. Dizziness: Secondary to cerebellar stroke OT PT evaluation Neurochecks every shift Ondansetron for nausea and vomiting 5. Diabetes: Patient is known case to have diabetes, currently controlled Monitor blood glucose 6. Hypertension: Hold antihypertensives at the moment considering patient might have minor stroke 7. GERD (gastroesophageal reflux disease): PPI daily PDMP PDMP Reviewed: Not Reviewed Attestations Medical Necessity Statement*: Patient will stay overnight for the management of cerebellar stroke leading to dizziness and further gait stability Time Spent in Patient Care: 16 - 35 minutes (>than 50% of time spent in counselling and/or direct pt care on unit). Other Attestations: Patient condition has been discussed at length with the patient/family, I have independently reviewed the chart labs imaging/diagnostics/EKG. the goals of care and code status with the patient/family/NOK/legal agency sales representative, and documented accordingly. The patient/family has been informed about the current condition and further plan of care. Agreed with the plan of care and understood without any language barrier. Every effort was made to ensure accuracy of ortho assistant. Any obvious errors or omissions should be clarified with the author of the document. Coding Level of Care Code Acute Code for [facility] Fwd Diagnoses Acute stroke due to ischemia I63.9 Occlusion of right vertebral artery I65.01 Left carotid stenosis I65.22 Dizziness R42 Diabetes E11.9 Hypertension I10 GERD (gastroesophageal reflux disease) K21.9
[2025-04-28] VITALS (10 sets, daily range): BP systolic 126–173; BP diastolic 74–84; PULSE 64–84; RESP 16–18; TEMP 36.4–36.7; O2SAT 93–97
[2025-04-28] MEDS: heparin 5,000 unit/mL INJ 1 mL 5000 UNIT SUBCUT ×2 (01:05→13:36)
[2025-04-28] MEDS: ondansetron 2 mg/ML SDV 2 mL 4 MG IVP (05:19)
[2025-04-28 05:55] LABS: Alanine Aminotransferase 13 U/L (0-33); Albumin Level 3.5 g/dL (3.5-5.2); Alkaline Phosphatase 86 U/L (35-105); Anion Gap 14.7 (5-19); Aspartate Amino Transferase 16 U/L (0-32); Blood Urea Nitrogen 12 mg/dL (8-23); Calcium 9.0 mg/dL (8.5-10.5); Carbon Dioxide 26 mmol/L (22-29); Chloride 101 mmol/L (98-107); Creatinine Clr Calc Pharmacy 79.4818; Globulin 3.2 g/dL (1.3-4.6); Glucose 109 mg/dL (65-115); Osmolality Calculated 286 mOsm/kg (285-295); Potassium 3.7 mmol/L (3.5-5.1); Sodium 138 mmol/L (136-145); Total Protein 6.7 g/dL (6.6-8.7)
[2025-04-28 06:25] LABS: Hematocrit 37.4 % (36-47); Hemoglobin 12.30 g/dL (11.27-16.99); Mean Corpuscular HGB Conc 32.9 g/dL (30-55); Mean Corpuscular Hemoglobin 27.8 pg (27-33); Mean Corpuscular Volume 84.4 fl (85-98); Nucleated Red Blood Cells % 0.3 %; Platelet Count 248 10^3/cmm (157-399); Red Blood Count 4.43 10^6/uL (3.85-5.65); White Blood Count 6.94 10^3/uL (3.29-11.43)
--- NOTE | 2025-04-28 08:21 | PC.NURSE ---
Few drops of blood noted in urine. Pt states that she has been having trouble with this for some time. PCP is aware and she recently has an US for this but has not received results yet.
--- NOTE | 2025-04-28 10:21 | CTR_ITS ---
PROCEDURE INFORMATION: Exam: CT Abdomen And Pelvis Without Contrast Exam date and time: 04/28/2025 10:31 AM Age: 70 years old Clinical indication: Abdominal tenderness and other: Hematuria; Additional info: Blood in urine TECHNIQUE: Imaging protocol: Computed tomography of the abdomen and pelvis without contrast. Radiation optimization: All CT scans at this facility use at least one of these dose optimization techniques: automated exposure control; mA and/or kV adjustment per patient size (includes targeted exams where dose is matched to clinical indication); or iterative reconstruction. COMPARISON: 1. CT abdomen pelvis w con* [id number] 07/12/2023 6:37 PM 2. US renal BI w/PV bladder [id number] 04/23/2025 9:12 AM RADIATION DOSE METRICS: Total DLP (mGy-cm): 1027.68 FINDINGS: Diaphragm: Small sliding-type hiatal hernia. Liver: Normal. No mass. Gallbladder and biliary ducts: Normal. No calcified stones. No ductal dilation. Pancreas: Normal. No ductal dilation. Spleen: Normal. No splenomegaly. Adrenal glands: Normal. No mass. Kidneys and ureters: Faint 2 mm calcification in the distal right ureter on series 4, image 82 with moderate upstream hydroureteronephrosis and mild associated fat stranding which extends into the right pelvis. 3 mm nonobstructing left renal calculus. No left hydronephrosis. Stomach and bowel: Sigmoid diverticulosis without evidence of acute diverticulitis. No evidence of bowel obstruction. Appendix: No evidence of appendicitis. Intraperitoneal space: Unremarkable. No free air. No significant fluid collection. Vasculature: Unremarkable. No abdominal aortic aneurysm. Lymph nodes: Unremarkable. No enlarged lymph nodes. Urinary bladder: Mild asymmetric urinary bladder wall thickening along the right lateral/posterior aspect of the bladder (for example series 4, image 90 and series 7, image 41). Reproductive: 2.7 cm right adnexal cyst. Bones/joints: [id number] degenerative changes of the lumbar spine. Soft tissues: Unremarkable. CT/CT abdomen pelvis wo con [id number] IMPRESSION: 1. 2 mm calculus in the distal right ureter with moderate upstream hydroureteronephrosis and associated inflammatory changes. 2. Mild asymmetric bladder wall thickening along the right lateral/posterior aspect is nonspecific. Neoplasm difficult to exclude on this examination. Consider direct visualization versus CT urogram for further evaluation. 3. Nonobstructing left renal calculus. No left hydronephrosis. 4. Sigmoid diverticulosis without diverticulitis.
--- NOTE | 2025-04-28 12:56 | PM.PN ---
Subjective Subjective: She is still a little dizzy but feeling much better. She has been up to walk with assistance twice already this morning. And needed assistance while standing and walking. Medications: Medication Review Details: Recommend switching from lovastatin to atorvastatin. Clopidogrel and aspirin should be initiated. Vitals/I&O/Wt Last Vital Signs Temp 97.5 F L 04/28/25 11:23 Pulse 84 04/28/25 11:23 Resp 18 04/28/25 11:23 BP 126/83 04/28/25 11:23 Pulse Ox 93 04/28/25 11:23 O2 Del Method Room Air 04/28/25 11:23 04/27/25 04/28/25 04/28/25 22:59 06:59 14:59 Intake Total 240 / 990 480 / 480 Balance 240 / 790 480 / 480 Weight last 48 hrs Weight 96.887 kg Weight 97.25 kg Weight 97.885 kg Physical Exam Narrative: General: Alert and oriented, was sitting on the chair comfortably HEENT: Normocephalic, atraumatic, grossly unremarkable exam Cardio: normal rate rhythm, normal S1-S2 without any murmurs, rubs, or gallops and JVD normal Respiratory: normal vascular breathing on auscultation without any wheezes, stridor, rhonchi GI: Abdomen soft, nontender, nondistended, normoactive bowel sounds present all 4 quadrants, Neuro: intact cranial nerves motor and sensory and cerebellar/coordination function, physiological horizontal nystagmus appreciated did not change direction and no vertical component or torsional component. Reflexes intact. Gait cannot be assessed since the patient was unable to walk due to dizziness and needed assistance Behavior: Appropriate and cooperative Extremities: Adequate palpable pulses, no edema or cyanosis observed Skin: grossly unremarkable exam Data 04/28/25 04:26 04/28/25 04:26 A&P Assessment and plan 1. Acute stroke due to ischemia: CT reported possible occlusion possible dissection of the right vertebral artery MRI brain reported acute cerebellar infarct in PICA distribution patient remained stable in ICU for 24 hours and later transferred to the med surg [facility], Neurology on board and recommended for anticoagulation to continue and to repeat MRA in 1-2 months for recanalization Continue with aspirin Plavix and statin Echo reported normal LV size with diminished ejection fraction of 45 to 50% with grade 1 / 4 diastolic dysfunction. Telemetry monitoring to continue OT PT evaluation to follow Lipid panel showed normal cholesterol, LDL and triglyceride TSH normal Neurochecks every shift 2. Occlusion of right vertebral artery: Neurology on board and to follow the recommendation Continue with aspirin Plavix and statin Repeat MRI in 1 to 2 months to check for recannulization Neurochecks every shift 3. Left carotid stenosis: Left proximal ICA stenosis up to 70%, after stabilization of the patient to follow-up with the vascular surgeon Neurology on board 4. Dizziness: Secondary to cerebellar stroke OT PT evaluation Neurochecks every shift Ondansetron for nausea and vomiting 5. Diabetes: Patient is known case to have diabetes, currently controlled Monitor blood glucose 6. Hypertension: Hold antihypertensives at the moment considering patient might have minor stroke 7. GERD (gastroesophageal reflux disease): PPI daily PDMP PDMP Reviewed: Not Reviewed Attestations Medical Necessity Statement*: Patient will stay overnight for the management of cerebellar stroke leading to dizziness and further gait stability with further recs from the OT/PT eval Time Spent in Patient Care: 16 - 35 minutes (>than 50% of time spent in counselling and/or direct pt care on unit). Other Attestations: Patient condition has been discussed at length with the patient/family, I have independently reviewed the chart labs imaging/diagnostics/EKG. the goals of care and code status with the patient/family/NOK/legal sales representative cash registers, and documented accordingly. The patient/family has been informed about the current condition and further plan of care. Agreed with the plan of care and understood without any language barrier. Every effort was made to ensure accuracy of primary teaching assistant. Any obvious errors or omissions should be clarified with the author of the document. Coding Level of Care Code 92008 Diagnoses Acute stroke due to ischemia I63.9 Occlusion of right vertebral artery I65.01 Left carotid stenosis I65.22 Dizziness R42 Diabetes E11.9 Hypertension I10 GERD (gastroesophageal reflux disease) K21.9
[2025-04-29] VITALS (10 sets, daily range): BP systolic 136–169; BP diastolic 74–100; PULSE 77–111; RESP 16–18; TEMP 36.3–36.8; O2SAT 94–97
[2025-04-29] MEDS: heparin 5,000 unit/mL INJ 1 mL 5000 UNIT SUBCUT ×2 (01:09→14:49)
--- NOTE | 2025-04-29 14:07 | PC.NURSE ---
Dr. Sherwood notified of patients blood pressures. This am was 161/92, this after noon 169/100. Dr. Sherwood will look over medications.
--- NOTE | 2025-04-29 16:40 | P.PN_ITS ---
Subjective 2 Subjective: Patient is still dizzy while walking however able to walk by herself. Seen by the OT PT to follow recommendation postdischarge tomorrow for possible home Patient also reported having some mild drops of hematuria that has been ongoing since more than a month. She has been following with the PCP. CT scan abdomen pelvis without contrast showed nonobstructive ureteric stone. The patient has been informed about the finding and to follow-up with the primary care physician versus urology at the time of discharge Medications: Medication Review Details: Recommend switching from lovastatin to atorvastatin. Clopidogrel and aspirin should be initiated. Vitals/I&O/Wt Last Vital Signs Temp 97.7 F 04/29/25 15:42 Pulse 89 04/29/25 15:42 Resp 17 04/29/25 15:42 BP 145/86 04/29/25 15:42 Pulse Ox 96 04/29/25 15:42 O2 Del Method Room Air 04/29/25 15:42 04/29/25 04/29/25 04/29/25 06:59 14:59 22:59 Intake Total 960 / 960 Balance 960 / 960 Weight last 48 hrs Weight 96.434 kg Weight 96.887 kg Physical Exam 2 Narrative: General: Alert and oriented, was sitting on the chair comfortably HEENT: Normocephalic, atraumatic, grossly unremarkable exam Cardio: normal rate rhythm, normal S1-S2 without any murmurs, rubs, or gallops and JVD normal Respiratory: normal vascular breathing on auscultation without any wheezes, stridor, rhonchi GI: Abdomen soft, nontender, nondistended, normoactive bowel sounds present all 4 quadrants, Neuro: intact cranial nerves motor and sensory and cerebellar/coordination function, physiological horizontal nystagmus appreciated did not change direction and no vertical component or torsional component. Reflexes intact. Gait cannot be assessed since the patient was unable to walk due to dizziness and needed assistance Behavior: Appropriate and cooperative Extremities: Adequate palpable pulses, no edema or cyanosis observed Skin: grossly unremarkable exam Data 04/28/25 04:26 04/28/25 04:26 A&P Assessment and plan 1. Acute stroke due to ischemia: CT reported possible occlusion possible dissection of the right vertebral artery MRI brain reported acute cerebellar infarct in PICA distribution patient remained stable in ICU for 24 hours and later transferred to the med [facility], Neurology on board and recommended for anticoagulation to continue and to repeat MRA in 1-2 months for recanalization Continue with aspirin Plavix and statin Echo reported normal LV size with diminished ejection fraction of 45 to 50% with grade 1 / 4 diastolic dysfunction. Telemetry monitoring to continue OT PT evaluation to follow Lipid panel showed normal cholesterol, LDL and triglyceride TSH normal Neurochecks every shift 2. Occlusion of right vertebral artery: Neurology on board and to follow the recommendation Continue with aspirin Plavix and statin Repeat MRI in 1 to 2 months to check for recannulization Neurochecks every shift 3. Left carotid stenosis: Left proximal ICA stenosis up to 70%, after stabilization of the patient to follow-up with the vascular surgeon Neurology on board 4. Dizziness: Secondary to cerebellar stroke OT PT evaluation Neurochecks every shift Ondansetron for nausea and vomiting 5. Diabetes: Patient is known case to have diabetes, currently controlled Monitor blood glucose 6. Hypertension: Patient blood pressure is on the higher side To start patient on amlodipine 5 mg daily and to follow-up with the PCP at the time of discharge 7. GERD (gastroesophageal reflux disease): PPI daily 8. Ureteric stone: Patient has having mild hematuria with few drops since more than a month, has been following with the primary care physician. CT scan abdomen/pelvis without contrast showed nonobstructive ureteric stone which was around 2 mm in the distal right ureter with moderate upstream hydroureteronephrosis. The patient did not report any burning micturition or dysuria or any difficulty in urination. (For detailed report refer to the clinical imaging) To follow-up with the PCP and further urology based on clinical assessment as outpatient PDMP PDMP Reviewed: Not Reviewed Attestations 2 Medical Necessity Statement*: Patient will stay overnight for further optimization of her care with OT PT placement and to be discharged for likely tomorrow after clinical assessment Time Spent in Patient Care: 16 - 35 minutes (>than 50% of time sp ent in counselling and/or direct pt care on unit) . Other Attestations: Patient condition has been discussed at length with the patient/family, I have independently reviewed the chart labs imaging/diagnostics/EKG. the goals of care and code status with the patient/family/NOK/legal sales representative sales manager, and documented accordingly. The patient/family has been informed about the current condition and further plan of care. Agreed with the plan of care and understood without any language barrier. Every effort was made to ensure accuracy of vacuum repairer. Any obvious errors or omissions should be clarified with the author of the document. Coding Level of Care Code 75786 Diagnoses Acute stroke due to ischemia I63.9 Occlusion of right vertebral artery I65.01 Left carotid stenosis I65.22 Dizziness R42 Diabetes E11.9 Hypertension I10 GERD (gastroesophageal reflux disease) K21.9 Ureteric stone N20.1
[2025-04-30] VITALS (10 sets, daily range): BP systolic 138–161; BP diastolic 71–92; PULSE 79–144; RESP 16–18; TEMP 36.3–36.9; O2SAT 95–98; BMI 36.3
[2025-04-30] MEDS: heparin 5,000 unit/mL INJ 1 mL 5000 UNIT SUBCUT ×2 (01:09→15:19)
[2025-04-30 03:40] LABS: Hematocrit 39.4 % (36-47); Hemoglobin 12.90 g/dL (11.27-16.99); Mean Corpuscular HGB Conc 32.7 g/dL (30-55); Mean Corpuscular Hemoglobin 27.3 pg (27-33); Mean Corpuscular Volume 83.3 fl (85-98); Nucleated Red Blood Cells % 0.3 %; Platelet Count 233 10^3/cmm (157-399); Red Blood Count 4.73 10^6/uL (3.85-5.65); White Blood Count 8.73 10^3/uL (3.29-11.43)
--- NOTE | 2025-04-30 03:51 | PC.NURSE ---
Pt is having some runs of tachycardia upon getting up and walking to the bathroom ranging around 140-150. She says she feels SOB and dizzy when this happens. She is asymptomatic when resting, with a resting heart rate ranging in 90's. Dr. Man notified and made aware of situation. Provider notification put in. No new orders recieved. Call light, belongings in reach, bed locked lowest position, SR up x2.
[2025-04-30 03:56] LABS: Alanine Aminotransferase 15 U/L (0-33); Albumin Level 3.5 g/dL (3.5-5.2); Alkaline Phosphatase 95 U/L (35-105); Anion Gap 16.8 (5-19); Aspartate Amino Transferase 16 U/L (0-32); Blood Urea Nitrogen 11 mg/dL (8-23); Calcium 9.2 mg/dL (8.5-10.5); Carbon Dioxide 25 mmol/L (22-29); Chloride 100 mmol/L (98-107); Creatinine Clr Calc Pharmacy 79.1398; Globulin 3.0 g/dL (1.3-4.6); Glucose 105 mg/dL (65-115); Osmolality Calculated 286 mOsm/kg (285-295); Potassium 3.8 mmol/L (3.5-5.1); Sodium 138 mmol/L (136-145); Total Protein 6.5 g/dL (6.6-8.7)
[2025-04-30 04:16] LABS: Slide Review Slide Review Perform
--- NOTE | 2025-04-30 11:52 | PC.SOCIAL ---
IMM Update pg 2 of IMM Updated and reviewed w/ patient. Copy provided and copy dated, initialed and placed in chart.
--- NOTE | 2025-04-30 14:47 | PM.PN ---
Subjective Subjective: Patient still having dizziness, and heart rate at baseline goes around early 100s when she walks goes up to 130s to 40s. Some readings are averaged in the chart which are in 60s since the patient manual counts are going into 90s and 100. Patient did not complain of any shortness of breath chest pain or any dizziness with this heart rate. No worsening dizziness Medications: Medication Review Details: Recommend switching from lovastatin to atorvastatin. Clopidogrel and aspirin should be initiated. Vitals/I&O/Wt Last Vital Signs Temp 97.6 F 04/30/25 12:31 Pulse 65 04/30/25 12:31 Resp 18 04/30/25 12:31 BP 153/81 04/30/25 12:31 Pulse Ox 95 04/30/25 12:31 O2 Del Method Room Air 04/30/25 12:31 04/29/25 04/30/25 04/30/25 22:59 06:59 14:59 Intake Total 480 / 1440 960 / 960 Balance 480 / 1440 960 / 960 Weight last 48 hrs Weight 95.368 kg Weight 95.935 kg Weight 96.434 kg Physical Exam Narrative: General: Alert and oriented, was sitting on the chair comfortably HEENT: Normocephalic, atraumatic, grossly unremarkable exam Cardio: Sinus tachycardia around late 90s, normal S1-S2 without any murmurs, rubs, or gallops and JVD normal Respiratory: normal vascular breathing on auscultation without any wheezes, stridor, rhonchi GI: Abdomen soft, nontender, nondistended, normoactive bowel sounds present all 4 quadrants, Neuro: intact cranial nerves motor and sensory and cerebellar/coordination function, physiological horizontal nystagmus appreciated did not change direction and no vertical component or torsional component. Reflexes intact. Patient is able to walk with mild assistance however still reports dizziness. No coordination deficits on finger-nose or dysdiadochokinesia Behavior: Appropriate and cooperative Extremities: Adequate palpable pulses, no edema or cyanosis observed Skin: grossly unremarkable exam Data 04/30/25 02:37 04/30/25 02:37 A&P Assessment and plan 1. Acute stroke due to ischemia: CTA reported possible occlusion possible dissection of the right vertebral artery MRI brain reported acute cerebellar infarct in PICA distribution patient remained stable in ICU for 24 hours and later transferred to the med surg [facility] and doing well Neurology on board and recommended for anticoagulation to continue and to repeat MRA in 1-2 months for recanalization postdischarge Continue with aspirin Plavix and statin Echo reported normal LV size with diminished ejection fraction of 45 to 50% with grade 1 / 4 diastolic dysfunction. Telemetry monitoring to continue OT PT evaluation to follow Lipid panel showed normal cholesterol, LDL and triglyceride TSH normal Neurochecks every shift 2. Occlusion of right vertebral artery: Neurology on board and to follow the recommendation Continue with aspirin Plavix and statin Repeat MRI in 1 to 2 months to check for recannulization Neurochecks every shift 3. Left carotid stenosis: Left proximal ICA stenosis up to 70%, after stabilization of the patient to follow-up with the vascular surgeon Neurology on board 4. Dizziness: Secondary to cerebellar stroke OT PT evaluation Neurochecks every shift Ondansetron for nausea and vomiting 5. Diabetes: Patient is known case to have diabetes, currently controlled Monitor blood glucose 6. Hypertension: Patient blood pressure is on the higher side To start patient on amlodipine 5 mg daily and to follow-up with the PCP at the time of discharge To start on metoprolol 12.5 mg twice daily since the patient heart rate is also on the higher range Manual pulse count 7. GERD (gastroesophageal reflux disease): PPI daily 8. Ureteric stone: Patient has having mild hematuria with few drops since more than a month, has been following with the primary care physician. CT scan abdomen/pelvis without contrast showed nonobstructive ureteric stone which was around 2 mm in the distal right ureter with moderate upstream hydroureteronephrosis. The patient did not report any burning micturition or dysuria or any difficulty in urination. (For detailed report refer to the clinical imaging) To follow-up with the PCP and further urology based on clinical assessment as outpatient PDMP PDMP Reviewed: Not Reviewed Attestations Medical Necessity Statement*: Patient will stay overnight for further disposition postdischarge with home health since the patient is having sinus tachycardia while moving around and mild dizziness therefore prefers to be monitored for 1 more day before sending home for safe disposition Time Spent in Patient Care: 16 - 35 minutes (>than 50% of time spent in counselling and/or direct pt care on unit). Other Attestations: Patient condition has been discussed at length with the patient/family, I have independently reviewed the chart labs imaging/diagnostics/EKG. the goals of care and code status with the patient/family/NOK/legal equal opportunity representative, and documented accordingly. The patient/family has been informed about the current condition and further plan of care. Agreed with the plan of care and understood without any language barrier. Every effort was made to ensure accuracy of quality control systems manager. Any obvious errors or omissions should be clarified with the author of the document. Coding Level of Care Code 15476 Diagnoses Acute stroke due to ischemia I63.9 Occlusion of right vertebral artery I65.01 Left carotid stenosis I65.22 Dizziness R42 Diabetes E11.9 Hypertension I10 GERD (gastroesophageal reflux disease) K21.9 Ureteric stone N20.1
--- NOTE | 2025-04-30 17:09 | ECG_ITS ---
[facility] Daily Test Date: 2025-04-30 Pat Name: Cha Millan Department: Room: 251 Gender: Female Retail Sales Manager: : [id number] Requested By: Cherelle Sherwood Order Number: [id number] Annika MD: Napoleon Negrete M.D. Measurements Intervals [place] Rate: 92 P: 27 ME: 141 QRS: -66 QRSD: 130 T: 194 QT: 365 QTc: 452 Interpretive Statements SINUS RHYTHM RIGHT BUNDLE BRANCH BLOCK [120+ ms QRS DURATION, UPRIGHT V1, 40+ ms S IN I/aVL/V4/V5/V6] LEFT ANTERIOR FASCICULAR BLOCK [QRS AXIS <= -45, QR IN I, RS IN II] SEPTAL MYOCARDIAL INFARCTION , PROBABLY OLD [40+ ms Q WAVE IN V1/V2] MODERATE T-WAVE ABNORMALITY, CONSIDER LATERAL ISCHEMIA [-0.1+ mV T-WAVE IN I/aVL/V5/V6] ST ELEVATION IN LEAD AVR Compared to ECG 04/26/2025 08:19:52 T WAVE INVERSION IN THE INFERIOR LEADS NO LONGER PRESENT AND T WAVE INVERSIONS IN THE PRECORDIAL LEADS HAS DECREASED Electronically Signed On 05-03-2025 08:43:40 CDT by Napoleon Negrete M.D. [email or web address]
[2025-05-01] VITALS: BP 143/77; PULSE 83; RESP 16; TEMP 36.8; O2SAT 97
[2025-05-01] MEDS: heparin 5,000 unit/mL INJ 1 mL 5000 UNIT SUBCUT (01:55)
--- NOTE | 2025-05-01 03:03 | PC.NURSE ---
Pt still tachy upon getting up ranging from 130-150 bpm. Resting is between 80-90 bpm. Pt states she still feels a little dizzy upon getting up.
[2025-05-01 03:46] VITALS: BP 148/76; PULSE 80; RESP 16; TEMP 37; O2SAT 96
[2025-05-01 05:04] LABS: Hematocrit 39.4 % (36-47); Hemoglobin 13.00 g/dL (11.27-16.99); Mean Corpuscular HGB Conc 33.0 g/dL (30-55); Mean Corpuscular Hemoglobin 27.5 pg (27-33); Mean Corpuscular Volume 83.5 fl (85-98); Nucleated Red Blood Cells % 0.2 %; Platelet Count 239 10^3/cmm (157-399); Red Blood Count 4.72 10^6/uL (3.85-5.65); White Blood Count 8.92 10^3/uL (3.29-11.43)
[2025-05-01 05:26] LABS: Alanine Aminotransferase 17 U/L (0-33); Albumin Level 3.4 g/dL (3.5-5.2); Alkaline Phosphatase 105 U/L (35-105); Anion Gap 19.7 (5-19); Aspartate Amino Transferase 18 U/L (0-32); Blood Urea Nitrogen 16 mg/dL (8-23); Calcium 9.2 mg/dL (8.5-10.5); Carbon Dioxide 23 mmol/L (22-29); Chloride 100 mmol/L (98-107); Creatinine Clr Calc Pharmacy 74.3554; Globulin 3.3 g/dL (1.3-4.6); Glucose 116 mg/dL (65-115); Osmolality Calculated 290 mOsm/kg (285-295); Potassium 3.7 mmol/L (3.5-5.1); Sodium 139 mmol/L (136-145); Total Protein 6.7 g/dL (6.6-8.7)
[2025-05-01 05:39] LABS: Slide Review Slide Review Perform
[2025-05-01 06:00] VITALS: PULSE 79
[2025-05-01 07:30] VITALS: BP 118/69; PULSE 90; RESP 16; TEMP 36.5; O2SAT 95
[2025-05-01 11:11] VITALS: BP 129/77; PULSE 92; RESP 16; TEMP 36.7; O2SAT 96
--- NOTE | 2025-05-01 12:44 | P.DS_ITS ---
Discharge Providers Date of Admission: 04/27/25 09:46 Date of Discharge: May 01, 2025 Attending Provider at Admission: Cherelle Sherwood MD Attending Provider at Discharge: Cherelle Sherwood MD Primary Care Provider: Nic Castro MD Diagnoses at Discharge Discharge Diagnosis 1. Acute stroke due to ischemia: 2. Occlusion of right vertebral artery: 3. Left carotid stenosis: 4. Dizziness: 5. Diabetes: 6. Hypertension: 7. GERD (gastroesophageal reflux disease): 8. Ureteric stone: Reason for Visit Reason for Visit: flu like symptoms -weakness/dizzy Brief History: As per the previous notes and the patient: Cha Millan is a 70 year old female with past medical history of AML in remission history of shoulder pain, physiological nystagmus since childhood came with dizziness from 1 day. The dizziness was associated with mild nausea and vomiting. The patient reported having sore throat a week ago but no ear pain or discharge. The dizziness sometimes get worse by head turning but she cannot further elaborate if it is related to any specific side. She also felt wobbly with her gait and was unable to hold herself when she was about to walk in her. She did not lose consciousness or any head trauma. No chest pain chest pressure abdominal pain nausea vomiting or diarrhea. No fever or chills. Hospital Course Hospital Course The patient received medications as per the stroke protocol with aspirin and Plavix and high-dose statins. Patient medications were also adjusted for her better blood pressure control. The patient was having sinus tach and was found to have sinus tachycardia on EKG, she was on atenolol 25 mg twice daily at home. And started on metoprolol 12.5 mg twice daily and felt better. Upon discharge the patient to continue her home dose of atenolol 25 mg twice daily. On manual pulse the patient was found to have some skipped beats and to be discharged on Holter monitoring for 14 days with cardiology follow-up already arranged. Her CTA reported vertebral artery dissection and occlusion,With further MRI reporting acute cerebellar infarct in PICA distribution. Neurology was taken on board and further advised to repeat MRI in 1 to 2 months postdischarge for recan nulization. Patient has left proximal ICA stenosis up to 70% and to give referral to the vascular surgeon postdischarge. Patient also reported having mild hematuria since a month and was following with the PCP and also reported as inpatient, and later on CT scan of the abdomen/pelvis showed And nonobstructive ureteric stone of 2 mm in the distal ureter with moderate upstream hydroureteronephrosis. OT PT evaluation and further optimized her dizziness and she was able to walk without any fall and got better. All her management and plan of care with all the risk and benefits has been discussed with her and she appreciate the team management Patient condition has been discussed at length with the patient/family, I have independently reviewed the chart labs imaging/diagnostics/EKG. the goals of care and code status with the patient/family/NOK/legal public health representative, and documented accordingly. The patient/family has been informed about the current condition and further plan of care. Agreed with the plan of care and understood without any language barrier. Every effort was made to ensure accuracy of belt sewer. Any obvious errors or omissions should be clarified with the author of the document. Physical Exam Narrative: General: Alert and oriented, was sitting on the chair comfortably HEENT: Normocephalic, atraumatic, grossly unremarkable exam Cardio: Normal rate rhythm, normal S1-S2 without any murmurs, rubs, or gallops and JVD normal Respiratory: normal vascular breathing on auscultation without any wheezes, stridor, rhonchi GI: Abdomen soft, nontender, nondistended, normoactive bowel sounds present all 4 quadrants, Neuro: intact cranial nerves motor and sensory and cerebellar/coordination function, physiological horizontal nystagmus appreciated did not change direction and no vertical component or torsional component. Reflexes intact. Patient is able to walk with mild assistance however still reports dizziness. No coordination deficits on finger-nose or dysdiadochokinesia Behavior: Appropriate and cooperative Extremities: Adequate palpable pulses, no edema or cyanosis observed Skin: Having mild bruises on her left side that was the presentation in the ER due to fall Discharge Data Studies Completed and Pending Completed Studies During Hospitalization Category Date Time Status CT abdomen pelvis wo con [id number] Stat Cat Scan 04/28/25 10:[address] head wo con* [id number] Stat Cat Scan 04/26/25 09:56 Completed CTA head neck [CT angio headneck* [id number]] Stat Cat Scan 04/26/25 12:27 Completed XR chest 1V portable [id number] Stat Exams 04/26/25 08:09 Completed XR hand RT min 3V* [id number] Stat Exams 04/26/25 09:56 Completed MR head wo con* [id number] Urgent MRI 04/26/25 15:00 Completed CV. echo complete* [id number] Stat Ultrasound 04/26/25 12:48 Completed Radiology Impressions Chest X-Ray 04/26/25 08:09 Impression: Negative chest. Hand X-Ray 04/26/25 09:56 Impression: Comminuted fracture of the right fifth finger proximal phalanx. Head CT 04/26/25 09:56 IMPRESSION: 1. No evidence of intracranial hemorrhage or mass effect. 2. No acute intracranial findings. Head/Neck CTA 04/26/25 12:27 IMPRESSION: 1. RIGHT proximal ICA stenosis measuring approximately 40%. 2. LEFT proximal ICA stenosis measuring 70%. Recommend vascular surgery consultation. 3. RIGHT vertebral artery is occluded at the origin with a tiny amount of reconstitution distally. This may be due to acute occlusion or dissection considering dizziness symptoms. 4. LEFT vertebral artery is patent. 5. No flow-limiting intracranial stenosis. Head MRI 04/26/25 15:00 IMPRESSION: Acute cerebellar infarct in part of the right PICA distribution. ADDENDUM: 04/26/25 1901 Addendum: THIS REPORT CONTAINS FINDINGS THAT MAY BE CRITICAL TO PATIENT CARE. The findings were verbally communicated via telephone conference with CHERELLE SHERWOOD at 6:59 PM CDT on 04/26/2025. The findings were acknowledged and understood. Abdomen/Pelvis CT 04/28/25 10:21 IMPRESSION: 1. 2 mm calculus in the distal right ureter with moderate upstream hydroureteronephrosis and associated inflammatory changes. 2. Mild asymmetric bladder wall thickening along the right lateral/posterior aspect is nonspecific. Neoplasm difficult to exclude on this examination. Consider direct visualization versus CT urogram for further evaluation. 3. Nonobstructing left renal calculus. No left hydronephrosis. 4. Sigmoid diverticulosis without diverticulitis. Laboratory Results WBC 8.92 10^3/uL (3.29-11.43) 05/01/25 04:18 RBC 4.72 10^6/uL (3.85-5.65) 05/01/25 04:18 Hgb 13.00 g/dL (11.27-16.99) 05/01/25 04:18 Hct 39.4 % (36-47) 05/01/25 04:18 MCV 83.5 fl (85-98) L 05/01/25 04:18 MCH 27.5 pg (27-33) 05/01/25 04:18 MCHC 33.0 g/dL (30-55) 05/01/25 04:18 RDW 15.1 % (12.1-15.1) 05/01/25 04:18 Plt Count 239 10^3/cmm (157-399) 05/01/25 04:18 MPV 9.1 fL (7.4-10.4) 05/01/25 04:18 Neut % (Auto) 55.4 % 05/01/25 04:18 Lymph % (Auto) 27.5 % 05/01/25 04:18 Davidson % (Auto) 9.5 % 05/01/25 04:18 Eos % (Auto) 0.3 % 05/01/25 04:18 Baso % (Auto) 1.0 % 05/01/25 04:18 Neut # (Auto) 4.94 10^3/uL (1.8-7.7) 05/01/25 04:18 Lymph # (Auto) 2.5 10^3/uL (0.8-4.8) 05/01/25 04:18 Davidson # (Auto) 0.9 10^3/uL (0.2-0.9) 05/01/25 04:18 Eos # (Auto) 0.0 10^3/uL (0.0-0.8) 05/01/25 04:18 Baso # (Auto) 0.1 10^3/uL (0.0-0.1) 05/01/25 04:18 Nucleated RBC % (auto) 0.2 % 05/01/25 04:18 Nucleated RBCs # 0.0 /100WBC 05/01/25 04:18 Sodium 139 mmol/L (136-145) 05/01/25 04:18 Potassium 3.7 mmol/L (3.5-5.1) 05/01/25 04:18 Chloride 100 mmol/L (98-107) 05/01/25 04:18 Carbon Dioxide 23 mmol/L (22-29) 05/01/25 04:18 Anion Gap 19.7 (5-19) H 05/01/25 04:18 BUN 16 mg/dL (8-23) 05/01/25 04:18 Creatinine 0.7 mg/dL (0.5-0.9) 05/01/25 04:18 GFR Calculation 83.0 mL/min (90-130) L 05/01/25 04:18 Glucose 116 mg/dL (65-115) H 05/01/25 04:18 POC Glucose 134 mg/dL (70-110) H 05/01/25 10:31 Estimat Average Glucose 108 04/26/25 08:37 Hemoglobin A1c 5.4 % (4.0-6.0) 04/26/25 08:37 Calculated Osmolality 290 mOsm/kg (285-295) 05/01/25 04:18 Calcium 9.2 mg/dL (8.5-10.5) 05/01/25 04:18 Phosphorus 3.2 mg/dL (2.5-4.5) 04/26/25 08:37 Magnesium 1.6 mg/dL (1.7-2.3) L 04/26/25 08:37 Total Bilirubin 0.5 mg/dL (0.15-1.2) 05/01/25 04:18 AST 18 U/L (0-32) 05/01/25 04:18 ALT 17 U/L (0-33) 05/01/25 04:18 Alkaline Phosphatase 105 U/L (35-105) 05/01/25 04:18 Total Protein 6.7 g/dL (6.6-8.7) 05/01/25 04:18 Albumin 3.4 g/dL (3.5-5.2) L 05/01/25 04:18 Globulin 3.3 g/dL (1.3-4.6) 05/01/25 04:18 Triglycerides 84 mg/dL (0-150) 04/26/25 08:37 Cholesterol 155 mg/dL (0-200) 04/26/25 08:37 LDL Cholesterol, Calc 100 mg/dL (50-129) 04/26/25 08:37 HDL Cholesterol 38 mg/dL (60-100) L 04/26/25 08:37 LDL/HDL Ratio 2.63 RATIO (0.00-3.22) 04/26/25 08:37 Cholesterol/HDL Ratio 4.08 mg/dL (0.0-4.40) 04/26/25 08:37 TSH 1.87 uIU/mL (0.27-4.20) 04/26/25 08:37 Influenza A (PCR) Negative (Negative) 04/26/25 08:29 Influenza Type B (PCR) Negative (Negative) 04/26/25 08:29 RSV (PCR) Negative (Negative) 04/26/25 08:29 SARS-CoV-2 (PCR) Negative (Negative) 04/26/25 08:29 Vitals Last Vital Signs Temp 98.1 F 05/01/25 11:11 Pulse 92 05/01/25 11:11 Resp 16 05/01/25 11:11 BP 129/77 05/01/25 11:11 Pulse Ox 96 05/01/25 11:11 O2 Del Method Room Air 05/01/25 11:11 Discharge Plan Discharge Patient Disposition: Home Health Service Condition: Stable Prescriptions: New clopidogrel 75 mg Tablet 75 mg PO DAILY 60 Days Qty: 60 0RF amlodipine 5 mg Tablet 5 mg PO DAILY 60 Days Qty: 60 0RF aspirin 81 mg Tablet,Delayed Release (Dr/Ec) 81 mg PO DAILY 60 Days Qty: 60 0RF Continued acyclovir 400 mg tablet 400 mg PO TID prednisolone acetate 1 % drops,suspension See Rx Instructions .ROUTE .COMPLEX Rx Instructions: Instill 1 drop into the left eye every 2 hours while awake and 1 drop in right eye BID ketorolac 0.5 % drops 1 drp ophthalmic (eye) QID magnesium oxide 420 mg tablet 630 mg PO BID Qty: 90 8RF cyclopentolate 1 % drops 1 drp ophthalmic (eye) BID lovastatin 40 mg tablet 40 mg PO QPM atenolol 25 mg tablet 25 mg PO BID omeprazole 20 mg capsule,delayed release(DR/EC) 20 mg PO DAILY Discharge Order = DC NOW: Discharge Order (Routine); Ordered 05/01/25 Ordered By: Cherelle Sherwood Other Ambulatory Orders: MR angio neck w con* [id number] (Routine) Timeframe: 1 Month Facility: [facility] - Location: Radiology [facility] [place] [facility] Ordered By: Cherelle Sherwood MR angio neck wo con [id number] (Routine) Timeframe: 1 Month Facility: [facility] - Location: Radiology [facility] Ordered By: Cherelle Sherwood ECG holter monitor 14 Days (Routine) Timeframe: 1 Day Facility: [facility] - Location: Radiology Ordered By: Cherelle Sherwood Referrals: [facility] ([facility]) [Outside] Clotilde Durham MD [Physician, Neurology] - 08/06/25 10:00 am Koffi Haque [Referring, Urology] - 2 weeks Referral Note: Nonobstructive ureteric stone around 2 mm and having hematuria for further follow-up and plan of care We have notified your physician's clinic of the need for a follow-up appointment to be scheduled. If you have not heard from them within the next 2 business days, please call them directly. Rigoberto Langford MD [Referring, Neurosurgery] - 2 weeks Referral Note: vertebral artery dissection and clot with posterior circulation stroke for further managment Napoleon Negrete MD [Physician, Cardiology] - 05/15/25 3:45 pm Roberto Asif MD [Referring, Vascular Surgery] Referral Note: Patient having carotid artery stenosis up to 70% of left proximal ICA for further follow-up and plan Patient having vertebral artery dissection with clot with further management and plan We have notified your physician's clinic of the need for a follow-up appointment to be scheduled. If you have not heard from them within the next 2 business days, please call them directly. Nic Castro MD [Primary Care Provider, Family Practice] - 05/09/25 8:30 am Referral Note: Discharge Diet: Advance as tolerated and Usual diet Discharge Activity: Resume usual activity, Increase activity as tolerated and Limit activity as instructed Patient Instructions: Aspirin (By mouth), Amlodipine (By mouth), Clopidogrel (By mouth), Ureteral Stones (GEN), Stroke (GEN), Opioid Safety, Stroke Stoplight, Patient Portal & Yuliya Instructions Discharge Attestations Time Spent in Discharge Care*: critical care time Critical Care Time (min): 35 Specific Discharge Activities: educating patient, educating and/or supporting family/caregiver, discussing with pcp/other providers, discussing with telephonic nurse case manager/social workers/dc planners, documenting/other paperwork and evaluating patient/reviewing data Status at Discharge: Cognitive status at discharge: cognitively intact , Behavioral status at discharge: cooperative , Functional status at discharge: independent ambulation , Overall status at discharge: patient is back to baseline Quality Metrics Clinical Quality Measures [ Cerebrovascular Accident { Contraindication to Antithrombotic: Medical contraindication; Contraindication to Anticoagulation: None; anticoagulation prescribed; Contraindication to Statin: None; Statin prescribed; Reason stroke education not provided: Stroke education provided to patient; Rehab services assessed: Activities of daily living assessment, Rehabilitation assessment, Physical therapy, Occupational therapy, Speech therapy, Stroke rehabilitation, Other; Reason rehab assessment not done: Rehab assessment done}] Coding Level of Care Code Critical Care >/= 30 minutes Diagnoses Acute stroke due to ischemia I63.9 Occlusion of right vertebral artery I65.01 Left carotid stenosis I65.22 Dizziness R42 Diabetes E11.9 Hypertension I10 GERD (gastroesophageal reflux disease) K21.9 Ureteric stone N20.1
--- NOTE | 2025-05-01 13:13 | PC.NURSE ---
Referral faxed to vascular surgery and urology at [facility]
[2025-05-01 13:43] VITALS: BP 129/77; PULSE 92; RESP 16; TEMP 36.7; O2SAT 96
== END 2025-05-01 13:44 | disposition home health service (06) | DRG 64 ==
LOC: ER 09:57 → MEDSURG 13:23 → ICU 17:30 → MEDSURG 04-27 12:46
PROVIDERS: Admitting Provider Student in an Organized Health Care Education/Training Program; Emergency Provider Family Medicine; PCP Family Medicine; Visit Provider Student in an Organized Health Care Education/Training Program
DX: I63.211 Cerebral infarction due to unspecified occlusion or stenosis of right vertebral artery (principal); I77.74 Dissection of vertebral artery; C92.01 Acute myeloblastic leukemia, in remission; N13.2 Hydronephrosis with renal and ureteral calculous obstruction; R42 Dizziness and giddiness; I65.22 Occlusion and stenosis of left carotid artery; E11.9 Type 2 diabetes mellitus without complications; I10 Essential (primary) hypertension; K21.9 Gastro-esophageal reflux disease without esophagitis; R00.0 Tachycardia, unspecified; R31.9 Hematuria, unspecified; H55.01 Congenital nystagmus; M79.644 Pain in right finger(s); W18.30XA Fall on same level, unspecified, initial encounter; Z96.652 Presence of left artificial knee joint; Z79.02 Long term (current) use of antithrombotics/antiplatelets; Z79.82 Long term (current) use of aspirin; Z87.891 Personal history of nicotine dependence; Z85.828 Personal history of other malignant neoplasm of skin
CPT/HCPCS: 36415; 36416; 70450; 70496; 70498; 70551; 71045; 73130; 74176; 80053; 80061; 82962; 83036; 83735; 84100; 84443; 85025; 87637; 92523; 92610; 93005; 93306; 96372; 96374; 97110; 97116; 97161; 97165; 97530; 99285; G0378; J1644; J1815; J2060; J2405; J3475; J9999; L3807

== ENCOUNTER → 2025-05-15 10:55 | Outpatient (BNVA) | payer MEDICARE, SELFPAY | PROVIDERS: PCP Family Medicine; Visit Provider Student in an Organized Health Care Education/Training Program | DX: I65.22 Occlusion and stenosis of left carotid artery (principal); S62.609A Fracture of unspecified phalanx of unspecified finger, initial encounter for closed fracture; I77.74 Dissection of vertebral artery; I10 Essential (primary) hypertension; I42.9 Cardiomyopathy, unspecified; Z86.73 Personal history of transient ischemic attack (TIA), and cerebral infarction without residual deficits; Z79.02 Long term (current) use of antithrombotics/antiplatelets; Z79.82 Long term (current) use of aspirin; Z87.891 Personal history of nicotine dependence; R06.02 Shortness of breath | CPT/HCPCS: 73130; 99204 ==

== ENCOUNTER 2025-05-23 09:56 | Outpatient (CLI) | payer MEDICARE, SELFPAY ==
--- NOTE | 2025-05-23 10:05 | CT_ITS ---
WS: [id number] CT abdomen pelvis wo/w [id number] REASON FOR EXAM: GROSS HEMATURIA IV CONTRAST ADMINISTERED: 100 mL of Omnipaque 350. TOTAL EXAM DLP: 2851.[address] scans at [facility] use at least one of these dose optimization techniques: automated exposure control; mA and/or kV adjustment per patient size (includes targeted exams where dose is matched to clinical indication); or iterative reconstruction. TECHNIQUE: Multiple axial images were obtained pre and postcontrast. Post contrast images are in the portal venous and delayed phase. COMPARISON EXAMINATION: Nonenhanced CT scan of the abdomen 04/28/2025. FINDINGS: ABDOMEN: The liver, spleen, and pancreas are within normal limits. Normal adrenals. Tiny cysts in both kidneys. Left kidney is otherwise unremarkable. Significant hydronephrosis and hydroureter on the right. No abdominal mass, adenopathy, focal fluid collection or free fluid is noted. No bowel abnormality is identified. PELVIS: No free fluid or focal fluid collection. The intramural portion of the distal most right ureter is encased and narrowed by mass in the bladder at the right ureterovesical junction. The intraluminal surface of the mass is lobulated and somewhat irregular and infiltrative within the bladder wall. Difficult to determine dimensions. In addition there is a second mass in the left posterior lateral which appears approximately 15 mm in maximum dimension. 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 There is a second small mass in the left side of the bladder which may also rep resent a transitional cell carcinoma of the bladder. Likely cystoscopy is the n ext needed evaluation.
[2025-05-23] MEDS: iohexol 350 mg/mL 500 mL Btl (per mL) IV (10:24)
== END 2025-05-23 09:57 | disposition home or self-care (01) ==
LOC: RAD 09:58
PROVIDERS: PCP Family Medicine; Visit Provider Nurse Practitioner Family
DX: N13.30 Unspecified hydronephrosis (principal); N13.4 Hydroureter; N32.89 Other specified disorders of bladder
CPT/HCPCS: 74178

== ENCOUNTER 2025-06-04 11:36 | Outpatient (CLI) | payer MEDICARE, SELFPAY ==
--- NOTE | 2025-06-04 11:45 | MR_ITS ---
WS: [id number] MRA CAROTID ARTERIES HISTORY: History of vertebral artery dissection and clot COMPARISON: CT 04/26/2025 TECHNIQUE: MRA is performed with intravenous gadolinium. MIP and source images are reviewed. Right: Common carotid artery is patent. Plaque in the proximal RIGHT ICA with stenosis less than 50%. ECA is patent. Left: Origin of the LEFT common carotid artery is patent. Stenosis and tortuosity of the proximal LEFT ICA with stenosis estimated near 60 to 70% as seen on the recent CTA. External carotid arteries patent. Subclavian Arteries: Limited evaluation of the subclavian arteries. LEFT subclavian is patent. RIGHT subclavian is not as well visualized but also appears patent. Vertebral Arteries: Dominant LEFT vertebral artery. As noted on prior CT angiogram there is no flow within the RIGHT vertebral artery beginning at its origin. This may be due to a occlusion proximally or dissection. There is a small amount of flow in the very distal RIGHT vertebral artery at the foramen magnum which may be reversal of flow. MR/MR angio neck w con* [id number] IMPRESSION: 1. Reidentified is occluded RIGHT vertebral artery which may be secondary to r ecent dissection. Similar to the study of 04/26/2025. 2. LEFT ICA stenosis estimated at 60 to 70%. 3. RIGHT ICA stenosis estimated at less than 50%.
--- NOTE | 2025-06-04 12:00 | CT_ITS ---
WS: [id number] CT NECK TECHNIQUE: Contrast-enhanced CT of the neck with coronal and sagittal reformatted images. CLINICAL INFORMATION: Left neck mass COMPARISON: None. DLP: 223.[address] scans at [facility] use at least one of these dose optimization techniques: automated exposure control; mA and/or kV adjustment per patient size (includes targeted exams where dose is matched to clinical indication); or iterative reconstruction. FINDINGS: Deep to the palpable marker enhancing LEFT intraparotid lymph node or parotid nodule measuring 8.7 x 10.0 mm. A few slightly prominent LEFT cervical chain lymph nodes. Evidence of mild (Arsen with mild induration involving the LEFT parotid gland. Mild thickening of the LEFT platysma. No drainable abscess or fluid collection. No visualized calculi in the parotid duct where visualized. Some images degraded due to dental artifact. Prominent lymph nodes at the thoracic inlet and anterior mediastinum similar to the prior studies. Parotid glands are otherwise normal. Normal submandibular glands. Tongue base appears normal. Normal parapharyngeal fat. No evidence of supraglottic or glottic mass. Normal subglottic airway. Normal thyroid. Lung apices are well aerated. CT/CT neck w con* [id number] IMPRESSION: 1. Evidence of mild LEFT parotiditis with LEFT intraparotid lymph node or nodu le deep to the palpable marker. Mild thickening of the LEFT platysma. 2. LEFT intraparotid nodule or lymph node measures 8.7 x 10.0 mm. 3. Few prominent LEFT cervical chain lymph nodes. 4. A few prominent lymph nodes in the anterior mediastinum similar to the prio r studies. 5. No other acute findings.
[2025-06-04] MEDS: gadobenate dimeglumine 20 mL vial 19 ML IV (12:18)
[2025-06-04] MEDS: iohexol 350 mg/mL 500 mL Btl (per mL) IV (12:40)
== END 2025-06-04 11:37 | disposition home or self-care (01) ==
LOC: RAD 11:37
PROVIDERS: PCP Family Medicine; Visit Provider Student in an Organized Health Care Education/Training Program
DX: I77.74 Dissection of vertebral artery (principal); I63.9 Cerebral infarction, unspecified; R59.0 Localized enlarged lymph nodes; R93.89 Abnormal findings on diagnostic imaging of other specified body structures; I65.01 Occlusion and stenosis of right vertebral artery; I65.23 Occlusion and stenosis of bilateral carotid arteries
CPT/HCPCS: 70491; 70548

== ENCOUNTER → 2025-06-05 08:36 | Outpatient (BNVA) | payer MEDICARE, SELFPAY | PROVIDERS: PCP Family Medicine; Visit Provider Physician Assistant | DX: S62.619D Displaced fracture of proximal phalanx of unspecified finger, subsequent encounter for fracture with routine healing (principal); X58.XXXD Exposure to other specified factors, subsequent encounter | CPT/HCPCS: 73130; 99024; 99213 ==

== ENCOUNTER → 2025-06-20 08:20 | Outpatient (BNVA) | payer MEDICARE, SELFPAY | PROVIDERS: PCP Family Medicine; Referring Provider Student in an Organized Health Care Education/Training Program; Visit Provider Specialist | DX: I65.22 Occlusion and stenosis of left carotid artery (principal); I63.349 Cerebral infarction due to thrombosis of unspecified cerebellar artery; I77.74 Dissection of vertebral artery | CPT/HCPCS: 99205 ==

== ENCOUNTER 2025-06-26 08:30 | Oncology outpatient (recurring) (ONCR) | payer MEDICARE, SELFPAY ==
--- NOTE | 2025-06-22 12:00 | PETR_ITS ---
PROCEDURE INFORMATION: Exam: PET/CT Skull Base to Mid-thigh Exam date and time: 06/22/2025 1:40 PM Age: 70 years old Clinical indication: Condition or disease; Primary cancer: Leukemia; Additional info: Leukemia, Dr pardo would like this on 06/15/25 LABS AND CLINICAL REPORTS: Glucose: 96 mg/dl Treatment strategy for malignancy (PET staging): Restaging (PS) TECHNIQUE: Imaging protocol: Following at least four-hour fasting and following the injection of radiopharmaceutical, low dose CT images were obtained. Then, PET images were obtained. Attenuation corrected images were constructed using the CT scan. Fused images of PET and CT were reviewed. The standardized uptake values (SUV) reported below are maximum values within a region of interest, expressed in gm/ml. Exam includes orbital meatal line to mid-thigh. SUV normalization method: BodyWeight Radiopharmaceutical: 9.55 mCi F-18 FDG (Fluorodeoxyglucose), IV. Time of imaging post radiopharmaceutical administration: 44 minutes Injection site: RIGHT AC COMPARISON: 1. CT neck w con* [id number] 06/04/2025 12:[address] abdomen/pelvis dated 05/23/[address]25. 3. CT abdomen/pelvis dated 04/28/2025. FINDINGS: Brain: Visualized brain has normal physiologic uptake. Pharynx: No abnormal uptake. Larynx: No abnormal uptake. Lungs, pleura and trachea: No abnormal uptake. Heart: Normal physiologic uptake. Scattered coronary artery calcifications. Mediastinal space: No abnormal uptake. Liver: No abnormal uptake. Gallbladder and biliary ducts: No abnormal uptake. Pancreas: No abnormal uptake. Spleen: No abnormal uptake. Adrenal glands: No abnormal uptake. Kidneys and ureters: Normal physiologic uptake. Punctate nonobstructive left-sided nephrolithiasis. Right-sided nephroureteral stent in place. Mild periureteral fat stranding and scattered non hypermetabolic periureteral lymph nodes. Stomach and bowel: No abnormal uptake. Colonic diverticulosis without evidence of diverticulitis. Urinary bladder: Perivesical stranding and irregular thickening of the bladder blackwood, suspicious for neoplasm. Assessing for abnormal FDG uptake is limited due to urinary radiotracer accumulation. Vasculature: No abnormal uptake. Lymph nodes: Interval resolution of previously noted left-sided parotitis, with decrease in size of a previously noted enlarged left intraparotid lymph node. No abnormal FDG uptake. Multiple hypermetabolic mediastinal lymph nodes, maximum SUV 14.3 obtained from a 1 cm right paratracheal lymph node. Enlarged, heterogeneous and ill-defined 1.7 cm lymph node in the right external iliac chain, maximum SUV 6.2. This has continued to decrease in size, measuring 2.3 cm on 05/23/2025 and 2.6 cm on 04/28/2025. Additional subcentimeter but hypermetabolic right paracolic gutter lymph node, maximum SUV 3.4. This is also decreased in size compared to the prior studies. Skeleton: No abnormal uptake in the visualized axial and appendicular skeleton. Soft tissues: No abnormal uptake in the visualized head, neck, chest, abdomen, pelvis, and extremities. METRICS: Mediastinal blood pool: Mean SUV of 2.6 Liver uptake: Mean SUV of 2.9 PET/PET skull to thigh INIT [id number] IMPRESSION: 1. Heterogeneous, ill-defined hypermetabolic 1.7 cm right external iliac chain lymph node, suspicious for metastasis. This lymph node appears decreased in size compared to multiple prior studies, measuring up to 2.6 cm on 04/28/2025. Additional subcentimeter but hypermetabolic right paracolic gutter lymph node is also suspicious for metastasis and also appears decreased in size compared to the prior studies. This suggest partial treatment response. 2. Multiple hypermetabolic mediastinal lymph nodes, also suspicious for metastases. 3. Right-sided nephroureteral stent in place with associated inflammatory changes. 4. Irregular thickening of the bladder blackwood, suspicious for neoplasm. Assessment for FDG uptake is limited due to urinary accumulation of radiotracer.
[2025-06-26 08:47] LABS: Hematocrit 42.8 % (36-47); Hemoglobin 13.70 g/dL (11.27-16.99); Mean Corpuscular HGB Conc 32.0 g/dL (30-55); Mean Corpuscular Hemoglobin 26.1 pg (27-33); Mean Corpuscular Volume 81.5 fl (85-98); Nucleated Red Blood Cells % 0 %; Platelet Count 213 10^3/cmm (157-399); Red Blood Count 5.25 10^6/uL (3.85-5.65); White Blood Count 7.53 10^3/uL (3.29-11.43)
[2025-06-26 08:59] LABS: Alanine Aminotransferase 12 U/L (0-33); Albumin Level 3.9 g/dL (3.5-5.2); Alkaline Phosphatase 101 U/L (35-105); Anion Gap 15.9 (5-19); Aspartate Amino Transferase 15 U/L (0-32); Blood Urea Nitrogen 15 mg/dL (8-23); Calcium 9.1 mg/dL (8.5-10.5); Carbon Dioxide 23 mmol/L (22-29); Chloride 105 mmol/L (98-107); Globulin 3.0 g/dL (1.3-4.6); Glucose 134 mg/dL (65-115); NT Pro B Type Natriuretic Pept 136 pg/mL (0-125); Osmolality Calculated 293 mOsm/kg (285-295); Potassium 3.9 mmol/L (3.5-5.1); Sodium 140 mmol/L (136-145); Total Protein 6.9 g/dL (6.6-8.7)
== END 2025-07-04 23:59 | disposition home or self-care (01) ==
PROVIDERS: Internal Medicine Medical Oncology; PCP Family Medicine; Visit Provider Nurse Practitioner
DX: R31.9 Hematuria, unspecified (principal); Z53.9 Procedure and treatment not carried out, unspecified reason; C92.01 Acute myeloblastic leukemia, in remission; R03.0 Elevated blood-pressure reading, without diagnosis of hypertension; E83.42 Hypomagnesemia; Z79.899 Other long term (current) drug therapy; Z87.891 Personal history of nicotine dependence; R22.1 Localized swelling, mass and lump, neck
CPT/HCPCS: 36415; 78815; 80053; 83880; 85025; 99214; A9552

== ENCOUNTER → 2025-07-03 07:56 | Outpatient (BNVA) | payer MEDICARE, SELFPAY | PROVIDERS: PCP Family Medicine; Visit Provider Physician Assistant | DX: I65.22 Occlusion and stenosis of left carotid artery (principal); I77.74 Dissection of vertebral artery; I10 Essential (primary) hypertension; I42.9 Cardiomyopathy, unspecified; Z86.73 Personal history of transient ischemic attack (TIA), and cerebral infarction without residual deficits; Z79.82 Long term (current) use of aspirin; Z87.891 Personal history of nicotine dependence; S62.619A Displaced fracture of proximal phalanx of unspecified finger, initial encounter for closed fracture | CPT/HCPCS: 73130; 99214 ==